=== PATIENT | female | born 1990 | race American Indian/Alaskan Native ===

== ENCOUNTER 2016-12-09 08:29 | Emergency (ER) | payer SELFPAY ==
[2016-12-09 09:00] VITALS: BP 138/78
--- NOTE | 2016-12-09 09:24 | Emergency Department Report ---
Chief Complaint: Abdominal Pain Stated Complaint: ABD PAIN/COUGH Time Seen by Provider: 12/09/16 09:18 - HPI History of Present Illness: 26-year-old female comes in for several complaints #1 she is here for her fibroids she reports she is having trouble with them for over a year she claims that in the right lower pelvic area she feels pressure and pain. She denies any dysuria or hematuria she denies any vaginal discharge. She does report she' s been nauseated and vomiting 2-3 days she reports subjectively that she's had a fever last night. She was using a cool compress for her fever. The second issue she is having is a nonproductive cough 3 days. Patient reports that around this time she gets a URI. She's tried Robitussin without success. Her last menstrual period was 11/26/2016. On the past medical history fibroids. - Exam Vital Signs: Vital Signs 12/09/16 08:54 Temperature 98.8 F Pulse Rate 71 Respiratory 19 Rate Blood Pressure 138/78 O2 Sat by Pulse 100 Oximetry Physical Exam: She is alert and oriented she is actively coughing in the exam room. Cardiac: Regular rate and rhythm Respiratory coarse breath sounds no wheezing Abdomen: Right lower quadrant tenderness bowel sounds noted MSE screening note: Focused history and physical exam performed. Due to findings the following was ordered: CBC CMP lipase amylase UA, urine ultrasound limited abdomen right lower quadrant pain. Margarette ordered patient be evaluated in main ER. ED Disposition for MSE Condition: Stable Instructions: Abdominal Pain (ED)
[2016-12-09] MEDS ORDERED: ZOFRAN ODT PO ONE (09:25)
[2016-12-09 10:01] LABS: Basophils % (Auto) 1.3 % (0.0-1.8); Eosinophils % (Auto) 5.1 % (0.0-4.3); Hematocrit 28.9 % (30.3-42.9); Hemoglobin 8.9 gm/dl (10.1-14.3); Mean Corpuscular HGB Conc 31 % (30-34); Mean Corpuscular Volume 76 fl (79-97); Platelet Count 349 K/mm3 (140-440); Red Blood Count 3.83 M/mm3 (3.65-5.03); Red Cell Distribution Width 18.7 % (13.2-15.2); White Blood Count 9.1 K/mm3 (4.5-11.0)
--- NOTE | 2016-12-09 10:04 | Ultrasound Report ---
ULTRASOUND OF THE APPENDIX: 12/09/16 09:25:00 CLINICAL: Right lower quadrant pain and tenderness. FINDINGS: Ultrasound examination of the right lower quadrant failed to demonstrate an appendix. Abundant bowel gas. No mass or fluid collection. IMPRESSION: Negative study without identification of an appendix.
[2016-12-09 10:19] LABS: Mean Corpuscular Hemoglobin 23 pg (28-32)
[2016-12-09 10:49] LABS: Alanine Aminotransferase 20 units/L (7-56); Albumin 3.7 g/dL (3.9-5); Albumin/Globulin Ratio 1.1 %; Alkaline Phosphatase 59 units/L (35-129); Amylase 60 units/L (27-131); Anion Gap 17 mmol/L; BUN/Creatinine Ratio 17.14; Bilirubin,Total 0.2 mg/dL (0.1-1.2); Blood Urea Nitrogen 12 mg/dL (7-17); Calcium 8.6 mg/dL (8.4-10.2); Carbon Dioxide 22 mmol/L (22-30); Chloride 105.2 mmol/L (98-107); Glucose 76 mg/dL (65-100); Lipase 27 units/L (13-60); Potassium 3.7 mmol/L (3.6-5.0); Sodium 140 mmol/L (137-145); Total Protein 7.2 g/dL (6.3-8.2)
[2016-12-09 11:22] LABS: Bilirubin,Urine NEG (Negative); Blood,Urine NEG (Negative); Ketones,Urine NEG (Negative); Leukocyte Esterase,Urine NEG (Negative); Mucus,Urine FEW /HPF; Nitrite,Urine NEG (Negative); Protein,Urine <15 mg/dL mg/dL (Negative)
--- NOTE | 2016-12-10 19:07 | ED Elopement Review ---
ED Pt Elopement review - Results review Lab results: Laboratory Tests 12/09/16 12/09/16 12/09/16 09:40 09:40 11:02 WBC 9.1 RBC 3.83 Hgb 8.9 L Hct 28.9 L MCV 76 L MCH 23 L MCHC 31 RDW 18.7 H Plt Count 349 Lymph % (Auto) 18.8 [place] % (Auto) 11.1 H Eos % (Auto) 5.1 H Baso % (Auto) 1.3 Lymph # 1.7 [place] # 1.0 H Eos # 0.5 H Baso # 0.1 Seg Neutrophils % 63.7 Seg Neutrophils # 5.8 Sodium 140 Potassium 3.7 Chloride 105.2 Carbon Dioxide 22 Anion Gap 17 BUN 12 Creatinine 0.7 Estimated GFR > 60 BUN/Creatinine Ratio 17.14 Glucose 76 Calcium 8.6 Total Bilirubin 0.2 AST 23 ALT 20 Alkaline Phosphatase 59 Total Protein 7.2 Albumin 3.7 L Albumin/Globulin Ratio 1.1 Amylase 60 Lipase 27 Urine Color Yellow Urine Turbidity Clear Urine pH 7.0 Ur Specific [place] 1.020 Urine Protein <15 mg/dl Urine Glucose (UA) Neg Urine Ketones Neg Urine Blood Neg Urine Nitrite Neg Ur Reducing Substances Not Reportable Urine Bilirubin Neg Urine Ictotest Not Reportable Urine Urobilinogen 2.0 Ur Leukocyte Esterase Neg Urine WBC (Auto) 3.0 Urine RBC (Auto) 4.0 U Epithel Cells (Auto) 2.0 Urine Mucus Few Urine HCG, Qual Negative - Call Back decision Pt Call Back Decision: No action required
== END 2016-12-09 19:50 | disposition left against medical advice (07) ==
LOC: ED 08:29
DX: R10.2 Pelvic and perineal pain (principal); R10.31 Right lower quadrant pain; R11.2 Nausea with vomiting, unspecified; R50.9 Fever, unspecified; Z53.21 Procedure and treatment not carried out due to patient leaving prior to being seen by health care provider
CPT/HCPCS: 36415; 76705; 80053; 81001; 81025; 82150; 83690; 85025

== ENCOUNTER 2017-04-29 13:01 | Emergency (ER) | payer SELFPAY ==
[2017-04-29 13:11] VITALS: BP 119/61
[2017-04-29 13:42] LABS: Basophils % (Auto) 1.5 % (0.0-1.8); Eosinophils % (Auto) 5.6 % (0.0-4.3); Hematocrit 30.7 % (30.3-42.9); Hemoglobin 9.3 gm/dl (10.1-14.3); Mean Corpuscular HGB Conc 30 % (30-34); Mean Corpuscular Volume 74 fl (79-97); Platelet Count 395 K/mm3 (140-440); Red Blood Count 4.18 M/mm3 (3.65-5.03); Red Cell Distribution Width 18.6 % (13.2-15.2); White Blood Count 7.4 K/mm3 (4.5-11.0)
[2017-04-29 13:44] LABS: Mean Corpuscular Hemoglobin 22 pg (28-32)
[2017-04-29 13:51] LABS: Alanine Aminotransferase 24 units/L (7-56); Albumin/Globulin Ratio 1.1 %; Alkaline Phosphatase 56 units/L (35-129); Blood Urea Nitrogen 10 mg/dL (7-17); Calcium 9.2 mg/dL (8.4-10.2); Carbon Dioxide 24 mmol/L (22-30); Glucose 101 mg/dL (65-100); Lipase 22 units/L (13-60); Total Protein 7.8 g/dL (6.3-8.2)
[2017-04-29 13:52] LABS: Anion Gap 16 mmol/L; Chloride 104.1 mmol/L (98-107); Potassium 3.8 mmol/L (3.6-5.0); Sodium 140 mmol/L (137-145)
[2017-04-29 14:05] LABS: Bacteria,Urine 1+ /HPF (Negative); Bilirubin,Urine NEG (Negative); Blood,Urine NEG (Negative); Ketones,Urine NEG (Negative); Leukocyte Esterase,Urine MOD (Negative); Mucus,Urine 1+ /HPF; Nitrite,Urine NEG (Negative); Protein,Urine <15 mg/dL mg/dL (Negative)
--- NOTE | 2017-05-02 09:36 | ED Elopement Review ---
ED Pt Elopement review - Results review Lab results: Laboratory Tests 04/29/17 04/29/17 04/29/17 13:19 13:19 13:19 WBC 7.4 RBC 4.18 Hgb 9.3 L Hct 30.7 MCV 74 L MCH 22 L MCHC 30 RDW 18.6 H Plt Count 395 Lymph % (Auto) 28.3 [place] % (Auto) 9.0 H Eos % (Auto) 5.6 H Baso % (Auto) 1.5 Lymph # 2.1 [place] # 0.7 Eos # 0.4 Baso # 0.1 Seg Neutrophils % 55.6 Seg Neutrophils # 4.1 Sodium 140 Potassium 3.8 Chloride 104.1 Carbon Dioxide 24 Anion Gap 16 BUN 10 Creatinine 0.5 L Estimated GFR > 60 BUN/Creatinine Ratio 20.00 Glucose 101 H Calcium 9.2 Total Bilirubin 0.50 AST 19 ALT 24 Alkaline Phosphatase 56 Total Protein 7.8 Albumin 4.0 Albumin/Globulin Ratio 1.1 Lipase 22 HCG, Qual Negative Urine Color Urine Turbidity Urine pH Ur Specific [place] Urine Protein Urine Glucose (UA) Urine Ketones Urine Blood Urine Nitrite Urine Bilirubin Urine Urobilinogen Ur Leukocyte Esterase Urine WBC (Auto) Urine RBC (Auto) U Epithel Cells (Auto) Urine Bacteria (Auto) Urine Mucus 04/29/17 13:47 WBC RBC Hgb Hct MCV MCH MCHC RDW Plt Count Lymph % (Auto) [place] % (Auto) Eos % (Auto) Baso % (Auto) Lymph # [place] # Eos # Baso # Seg Neutrophils % Seg Neutrophils # Sodium Potassium Chloride Carbon Dioxide Anion Gap BUN Creatinine Estimated GFR BUN/Creatinine Ratio Glucose Calcium Total Bilirubin AST ALT Alkaline Phosphatase Total Protein Albumin Albumin/Globulin Ratio Lipase HCG, Qual Urine Color Yellow Urine Turbidity Slightly-cloudy Urine pH 6.0 Ur Specific [place] 1.020 Urine Protein <15 mg/dl Urine Glucose (UA) Neg Urine Ketones Neg Urine Blood Neg Urine Nitrite Neg Urine Bilirubin Neg Urine Urobilinogen 2.0 Ur Leukocyte Esterase Mod Urine WBC (Auto) 6.0 Urine RBC (Auto) 7.0 U Epithel Cells (Auto) 8.0 Urine Bacteria (Auto) 1+ Urine Mucus 1+ - Call Back decision Pt Call Back Decision: No action required
== END 2017-04-29 20:05 | disposition left against medical advice (07) ==
LOC: ED 13:01
DX: R10.30 Lower abdominal pain, unspecified (principal); R19.00 Intra-abdominal and pelvic swelling, mass and lump, unspecified site; Z53.21 Procedure and treatment not carried out due to patient leaving prior to being seen by health care provider
CPT/HCPCS: 36415; 80053; 81001; 83690; 84703; 85025

== ENCOUNTER 2017-08-15 15:15 | Emergency (ER) | payer SELFPAY ==
[2017-08-15 18:04] LABS: Hematocrit 29.8 % (30.3-42.9); Hemoglobin 9.5 gm/dl (10.1-14.3); Mean Corpuscular HGB Conc 32 % (30-34); Mean Corpuscular Volume 77 fl (79-97); Platelet Count 370 K/mm3 (140-440); Red Blood Count 3.85 M/mm3 (3.65-5.03); White Blood Count 7.4 K/mm3 (4.5-11.0)
[2017-08-15 18:20] LABS: Mean Corpuscular Hemoglobin 25 pg (28-32)
[2017-08-15 18:33] LABS: Alanine Aminotransferase 96 units/L (7-56); Albumin 4.3 g/dL (3.9-5); Albumin/Globulin Ratio 1.3 %; Alkaline Phosphatase 98 units/L (35-129); Anion Gap 15 mmol/L; Blood Urea Nitrogen 8 mg/dL (7-17); Calcium 9.3 mg/dL (8.4-10.2); Carbon Dioxide 24 mmol/L (22-30); Chloride 105.3 mmol/L (98-107); Glucose 74 mg/dL (65-100); Potassium 4.2 mmol/L (3.6-5.0); Sodium 140 mmol/L (137-145); Total Protein 7.6 g/dL (6.3-8.2)
[2017-08-15 19:28] LABS: Bilirubin,Urine NEG (Negative); Blood,Urine NEG (Negative); Ketones,Urine NEG (Negative); Leukocyte Esterase,Urine NEG (Negative); Nitrite,Urine NEG (Negative); Protein,Urine <15 mg/dL mg/dL (Negative); Urobilinogen,Urine < 2.0 mg/dL (<2.0)
[2017-08-15 19:42] LABS: Basophils % (Manual) 0 % (0.0-1.8); Blastocytes % (Manual) 0 %; Large Platelets Few; Platelet Estimate Consistent w Auto; RBC Morphology Normal
[2017-08-15 19:43] LABS: Diff Status Complete
[2017-08-15] MEDS ORDERED: NACL 0.9% 1000 ML 1,000 ML IV ONE (20:43)
[2017-08-15] MEDS ORDERED: DILAUDID IV ONE (20:43)
[2017-08-15] MEDS ORDERED: ZOFRAN IV ONE (20:43)
--- NOTE | 2017-08-15 20:44 | Emergency Department Report ---
ED General Adult HPI - General Chief complaint: Pain General Stated complaint: VOMITING Time Seen by Provider: 08/15/17 20:35 Source: patient, RN notes reviewed, old records reviewed Mode of arrival: Stretcher Limitations: No Limitations - History of Present Illness Initial comments: This is a 27-year-old female, the patient is previously unknown to me. Patient reports being diagnosed with cervical cells/possible cancer at the local [facility], reports having a nodule in the lung, and is going to follow -up at another hospital, September 13, for definitive biopsy and diagnosis. Patient reports a history of kidney stones, 4 and hernia repair, and presents to the ER complaining of pelvic pain, lower abdominal pain, swelling, nausea. The symptoms have been going on for the past few days, they're constant , they worsen with palpation, and decreased with rest. No headache, neck pain, chest pain, shortness of breath, positive nausea, positive dysuria, patient is defecating normally. Abdominal pain is sharp and achy, and increases with palpation does not radiate anywhere. -: Gradual Location: abdomen Radiation: non-radiation Severity scale (0 -10): 0 Quality: aching Consistency: constant Improves with: medication, rest Worsens with: movement Associated Symptoms: nausea/vomiting, weakness - Related Data Home Medications Medication Instructions Recorded Confirmed Last Taken No Known Home Medications [No 12/09/16 12/09/16 Unknown Reported Home Medications] Allergies Allergy/AdvReac Type Severity Reaction Status Date / Time ketorolac tromethamine Allergy Hives Verified 04/29/17 13:12 [From Toradol] Penicillins Allergy Swelling Verified 12/09/16 08:53 tramadol Allergy Hives Verified 04/29/17 13:12 ED Review of Systems ROS: Stated complaint: VOMITING Other details as noted in HPI Constitutional: denies: fever Eyes: denies: eye discharge ENT: denies: epistaxis Respiratory: denies: cough Cardiovascular: denies: chest pain Gastrointestinal: abdominal pain, nausea, vomiting Genitourinary: as per HPI Musculoskeletal: back pain Skin: denies: lesions Neurological: weakness Psychiatric: as per HPI ED Past Medical Hx - Past Medical History Hx of Cancer: Yes Additional medical history: FIBROIDS. kidney stones per pt - Surgical History Hx Cholecystectomy: Yes Additional Surgical History: X 4. HERNIA REPAIR - Social History Smoking Status: Current Every Day Smoker - Medications Home Medications: Home Medications Medication Instructions Recorded Confirmed Last Taken Type No Known Home Medications [No 12/09/16 12/09/16 Unknown History Reported Home Medications] ED Physical Exam - General Limitations: No Limitations General appearance: alert, in no apparent distress - Head Head exam: Present: atraumatic, normocephalic - Eye Eye exam: Present: normal appearance, EOMI. Absent: nystagmus - ENT ENT exam: Present: normal exam, normal orophraynx, mucous membranes moist, normal external ear exam - Neck Neck exam: Present: normal inspection, full ROM. Absent: tenderness, meningismus - Respiratory Respiratory exam: Present: normal lung sounds bilaterally. Absent: respiratory distress, wheezes, rales, rhonchi, stridor, chest wall tenderness, accessory muscle use, decreased breath sounds, prolonged expiratory - Cardiovascular Cardiovascular Exam: Present: regular rate, normal rhythm, normal heart sounds. Absent: bradycardia, tachycardia, irregular rhythm, systolic murmur, diastolic murmur, rubs, gallop - GI/Abdominal GI/Abdominal exam: Present: soft, distended, tenderness, normal bowel sounds. Absent: rebound - External exam: Present: normal external exam Speculum exam: Present: normal speculum exam Bi-manual exam: Present: cervical motion tendernes, adnexal tenderness, other ( escorted by nurse Lorena Lima) - Extremities Exam Extremities exam: Present: normal inspection, full ROM, normal capillary refill. Absent: pedal edema, joint swelling, calf tenderness - Back Exam Back exam: Present: normal inspection, full ROM. Absent: tenderness, CVA tenderness (R), CVA tenderness (L), muscle spasm, paraspinal tenderness, vertebral tenderness - Neurological Exam Neurological exam: Present: alert, oriented X3, normal gait, other (Extraocular movements intact. Tongue midline. No facial droop. Facial sensation intact to light touch in the V1, V2, V3 distribution bilaterally. 5 and 5 strength in 4 extremities.. Sensation is intact to light touch in 4 extremities.). Absent : motor sensory deficit - Psychiatric Psychiatric exam: Present: normal affect, normal mood - Skin Skin exam: Present: warm, dry, intact, normal color. Absent: rash ED Course Vital Signs 08/15/17 08/15/17 08/15/17 17:24 20:30 21:31 Temperature 98.7 F 98.8 F Pulse Rate 87 85 Respiratory 18 22 20 Rate Blood Pressure 104/69 Blood Pressure 104/69 118/68 [Left] O2 Sat by Pulse 100 97 96 Oximetry 08/15/17 21:40 Temperature Pulse Rate Respiratory 20 Rate Blood Pressure Blood Pressure [Left] O2 Sat by Pulse Oximetry - Reevaluation(s) Reevaluation #1: 08/15/17 22:25 Differential diagnosis: Constipation, obstruction, cancer, malignancy, urinary tract infection, functional abdominal pain, narcotic bowel syndrome Assessment and plan: 27-year-old female who reports not having had biopsy- proven malignancy, multiple abdominal surgeries, with lower abdominal pain and pelvic pain. She endorses irritative urinary symptoms, but her urinalysis is not corroborated urinary tract infection, she has follow-up with an outpatient specialist on September 13, she is somewhat tender in diffuse lower abdominal region and has pelvic tenderness as well. CT scan of the abdomen and pelvis is obtained with IV contrast, patient had allergic reaction without airway involvement, and is treated with Pepcid, Benadryl, and steroids. She is resting comfortable with no active vomiting at this time, vital signs remained stable, and disposition as per CT scan. Doubt pelvic inflammatory disease given reported history of cervical abnormality, a machine stemmer can follow this up. Reevaluation #2: 08/15/17 23:11 CT scan is negative for acute surgical disease. Incidental pulmonary findings were noted, patient endorsed that this was known, and that she is going to follow-up on September 13. Nonspecific fluid noted in the ovary, patient is requesting to eat. Nursing staff informed me that patient sign out AGAINST MEDICAL ADVICE. Her mother picked her up. Patient is alert and oriented 3, exhibits decision- making capacity, and is free from distracting injury. The risks of leaving, including , disability, paralysis were extensively relayed to the patient by charge nurse Nay Lee, and I felt the patient also exhibited decision- making capacity. In any event, the patient would've been discharged anyhow based on her CAT scan findings. ED Medical Decision Making - Lab Data Result diagrams: 08/15/17 17:44 08/15/17 17:44 Vital Signs 08/15/17 08/15/17 08/15/17 17:24 20:30 21:40 Temperature 98.7 F Pulse Rate 87 Respiratory 18 22 20 Rate Blood Pressure 104/69 Blood Pressure 104/69 [Left] O2 Sat by Pulse 100 97 Oximetry Labs 08/15/17 08/15/17 08/15/17 17:44 17:44 18:45 WBC 7.4 RBC 3.85 Hgb 9.5 L Hct 29.8 L MCV 77 L MCH 25 L MCHC 32 RDW 19.0 H Plt Count 370 Eos % (Auto) Cat Cracker Operator Add Manual Diff Complete Total Counted 100 Seg Neuts % (Manual) 41.0 Band Neutrophils % 0 Lymphocytes % (Manual) 33.0 Reactive Lymphs % (Man) 0 Monocytes % (Manual) 9.0 H Eosinophils % (Manual) 17.0 H Basophils % (Manual) 0 Metamyelocytes % 0 Myelocytes % 0 Promyelocytes % 0 Blast Cells % 0 Nucleated RBC % Not Reportable Seg Neutrophils # Man 3.0 Band Neutrophils # 0.0 Lymphocytes # (Manual) 2.4 Abs React Lymphs (Man) 0.0 Monocytes # (Manual) 0.7 Eosinophils # (Manual) 1.3 H Basophils # (Manual) 0.0 Metamyelocytes # 0.0 Myelocytes # 0.0 Promyelocytes # 0.0 Blast Cells # 0.0 WBC Morphology Not Reportable Hypersegmented Neuts Not Reportable Hyposegmented Neuts Not Reportable Hypogranular Neuts Not Reportable Smudge Cells Not Reportable Toxic Granulation Not Reportable Toxic Vacuolation Not Reportable Dohle Bodies Not Reportable Pelger-Huet Anomaly Not Reportable Jeanne Rods Not Reportable Platelet Estimate Consistent w auto Clumped Platelets Not Reportable Plt Clumps, EDTA Not Reportable Large Platelets Few Giant Platelets Not Reportable Platelet Satelliting Not Reportable Plt Morphology Comment Not Reportable RBC Morphology Normal Dimorphic RBCs Not Reportable Polychromasia Not Reportable Hypochromasia Not Reportable Poikilocytosis Not Reportable Anisocytosis Not Reportable Microcytosis Not Reportable Macrocytosis Not Reportable Spherocytes Not Reportable Pappenheimer Bodies Not Reportable Sickle Cells Not Reportable Target Cells Not Reportable Tear Drop Cells Not Reportable Ovalocytes Not Reportable Helmet Cells Not Reportable [place] Bodies Not Reportable Agra Rings Not Reportable [place] Cells Not Reportable Bite Cells Not Reportable Crenated Cell Not Reportable Elliptocytes Not Reportable Acanthocytes (Spur) Not Reportable Rouleaux Not Reportable Hemoglobin C Crystals Not Reportable Schistocytes Not Reportable Malaria parasites Not Reportable [place] Bodies Not Reportable Hem Pathologist Commnt No Sodium 140 Potassium 4.2 Chloride 105.3 Carbon Dioxide 24 Anion Gap 15 BUN 8 Creatinine 0.5 L Estimated GFR > 60 BUN/Creatinine Ratio 16.00 Glucose 74 Calcium 9.3 Total Bilirubin 0.60 AST 67 H ALT 96 H Alkaline Phosphatase 98 Total Protein 7.6 Albumin 4.3 Albumin/Globulin Ratio 1.3 Urine Color Yellow Urine Turbidity Clear Urine pH 7.0 Ur Specific [place] 1.014 Urine Protein <15 mg/dl Urine Glucose (UA) Neg Urine Ketones Neg Urine Blood Neg Urine Nitrite Neg Ur Reducing Substances Not Reportable Urine Bilirubin Neg Urine Ictotest Not Reportable Urine Urobilinogen < 2.0 Ur Leukocyte Esterase Neg Urine WBC (Auto) 1.0 Urine RBC (Auto) 1.0 U Epithel Cells (Auto) 1.0 Urine HCG, Qual Negative - Radiology Data Radiology results: pending, report reviewed, image reviewed Critical care attestation.: If time is entered above; I have spent that time in minutes in the direct care of this critically ill patient, excluding procedure time. ED Disposition Clinical Impression: Abdominal pain Disposition: [id number] LEFT AGAINST MED ADVICE Is pt being admited?: No Does the pt Need Aspirin: No Condition: Undetermined Referrals: PRIMARY CARE, [Primary Care Provider] - 3-5 Days
[2017-08-15] MEDS ORDERED: NACL ONE (21:12)
[2017-08-15] MEDS ORDERED: BENADRYL ONE (21:51)
[2017-08-15] MEDS ORDERED: PEPCID IV ONE ×2 (21:58→22:05)
[2017-08-15] MEDS ORDERED: BENADRYL IV ONE (22:05)
--- NOTE | 2017-08-15 22:22 | Cat Scan Report ---
FINAL REPORT EXAM: CT ABDOMEN PELVIS W CON HISTORY: lower abd pain TECHNIQUE: Spiral CT scanning of the abdomen and pelvis after the uneventful administration of IV contrast. Multiplanar reformations. 100 mL Omnipaque IV. PRIORS: None. FINDINGS: Abdomen: Visualized lung bases show mild and partially confluent opacities in the anteromedial aspect of right middle lobe. Small nodular density in right posterior lung base measuring approximately 3 mm. Mild cardiomegaly. Gallbladder surgically absent. Liver without significant abnormality. Spleen without significant abnormality. Pancreas without significant abnormality. Kidneys without significant abnormality. Adrenal glands without significant abnormality. Pelvis: Bowel grossly unremarkable. Appendix within normal limits. Trace amount of nonspecific, free fluid in the pelvis. No discrete abscess. Abdominal aorta non-aneurysmal. Small and round, cystic focus in the left ovary measures approximately 1.2 cm. IMPRESSION: 1. Possible physiologic cystic change in the left ovary, and sequelae of ovarian follicle or cyst rupture. 2. Findings which may represent right middle lobe atelectasis, postinflammatory change or scarring of uncertain etiology or chronicity. Correlate clinically. 3. Small, nodular density in right lung base, indeterminate. If the patient is low risk (no significant smoking history, no history of malignancy, and a normal immune system), nodules less than 6 mm in size need no routine follow-up. If the patient is high risk, optional CT chest at 12 months may be considered. (Based on Fleischner guidelines).
[2017-08-15 23:45] VITALS: BP 118/68
== END 2017-08-15 23:20 | disposition left against medical advice (07) ==
LOC: ED 15:15
DX: R10.30 Lower abdominal pain, unspecified (principal); F17.200 Nicotine dependence, unspecified, uncomplicated; Z88.1 Allergy status to other antibiotic agents; Z88.8 Allergy status to other drugs, medicaments and biological substances; C53.9 Malignant neoplasm of cervix uteri, unspecified
CPT/HCPCS: 36415; 74177; 80053; 81001; 81025; 85007; 85025; 96361; 96374; 96375; 99285; J1170; J1200; J2405; J2930; J7030; Q9967

== ENCOUNTER 2017-09-03 11:39 | Emergency (ER) | payer SELFPAY ==
[2017-09-03 13:03] LABS: Anion Gap 16 mmol/L; BUN/Creatinine Ratio 16; Blood Urea Nitrogen 8 mg/dL (7-17); Calcium 8.9 mg/dL (8.4-10.2); Carbon Dioxide 22 mmol/L (22-30); Chloride 104.8 mmol/L (98-107); Glucose 80 mg/dL (65-100); Potassium 3.7 mmol/L (3.6-5.0); Sodium 139 mmol/L (137-145)
[2017-09-03 13:06] LABS: Hematocrit 31.4 % (30.3-42.9); Hemoglobin 9.7 gm/dl (10.1-14.3); Mean Corpuscular HGB Conc 31 % (30-34); Mean Corpuscular Volume 78 fl (79-97); Platelet Count 350 K/mm3 (140-440); Red Blood Count 4.05 M/mm3 (3.65-5.03); Red Cell Distribution Width 18.2 % (13.2-15.2); White Blood Count 8.3 K/mm3 (4.5-11.0)
[2017-09-03 13:28] LABS: Mean Corpuscular Hemoglobin 24 pg (28-32)
[2017-09-03 15:07] LABS: Bilirubin,Urine NEG (Negative); Blood,Urine NEG (Negative); Ketones,Urine NEG (Negative); Leukocyte Esterase,Urine NEG (Negative); Mucus,Urine 2+ /HPF; Nitrite,Urine NEG (Negative); Protein,Urine <15 mg/dL mg/dL (Negative); Urobilinogen,Urine < 2.0 mg/dL (<2.0)
[2017-09-03 15:29] LABS: RBC,Urine < 1.0 /HPF (0.0-6.0)
--- NOTE | 2017-09-03 15:50 | XRay Report ---
PORTABLE CHEST INDICATION: Shortness of breath. COMPARISON: None similar. FINDINGS: Portable, frontal chest radiograph suggests borderline cardiomegaly. Clear lungs. Few extrinsic clothing artifacts. Intact bones. CONCLUSION: Slight cardiomegaly. Please correlate. Thank you for the opportunity to participate in this patient's care.
[2017-09-03] MEDS ORDERED: NACL 0.9% 1000 ML 1,000 ML IV ONE (15:53)
[2017-09-03] MEDS ORDERED: MORPHINE IV ONE (15:53)
[2017-09-03] MEDS ORDERED: ZOFRAN IV ONE (15:53)
[2017-09-03] MEDS ORDERED: BENADRYL ONE (16:40)
[2017-09-03] MEDS ORDERED: BENADRYL IV ONE ×2 (16:40→17:32)
[2017-09-03] MEDS ORDERED: SUBLIMAZE IV ONE (18:32)
[2017-09-03] MEDS ORDERED: SUBLIMAZE ONE (18:42)
--- NOTE | 2017-09-03 19:01 | Cat Scan Report ---
FINAL REPORT EXAM: CT ABDOMEN PELVIS W CON HISTORY: Abd pain, bloating with cervical cancer TECHNIQUE: Axial image were performed from the lung bases to the pubic symphysis following IV contrast administration, 100 mL Omnipaque 300. No oral contrast was administered. Total exam DLP 1498.44 mGy-cm Comparison: 08/15/2017 FINDINGS: On the previous exam, a 3 millimeter nodule is identified in the posterior lateral right lung base. This nodule is again identified as 3.6 millimeters. The current exam images more of the chest and also shows 6 millimeter posterior right lower lobe nodule in an area that was not previously imaged. This is on image number 5. There is again identified mild right middle lobe atelectasis. There is again identified mild central periportal prominence. There is an ill-defined 1.9 centimeter hypodense lesion in the anterior segment right lobe liver and 2nd ill-defined lesion slightly caudally measuring 1.2 centimeters. There is normal enhancement and appearance of the spleen, pancreas, bilateral adrenal glands, and bilateral kidneys. Gallbladder surgically absent. Extremely dense breast parenchyma age-appropriate. The inferior vena cava is distended. There is a splenule in the splenic hilum. Bowel pattern is nonobstructive. There is a normal retrocecal appendix which is air-filled. There is a 2.1 x 1.6 centimeter right adnexal cyst and less well-defined 1.4 centimeter left adnexal cyst. Endometrial stripe measures approximately 12 millimeters. There is pericervical stranding with poor delineation of the cervix in the pelvic floor. There are multiple pelvic phleboliths. There is trace pelvic free fluid There is moderate rectal fecal retention. There is normal excretion of contrast on the delayed phase images. There are no focal lytic or blastic bony lesions. IMPRESSION: Two right lower lobe lung nodules, 1 measures 3 millimeters and 1 measures 3.6 millimeters. Given history of cervical cancer, recommend CT chest with IV contrast. Two ill-defined right lobe liver hypodense lesions measuring 1.9 and 1.2 centimeters. Differential includes metastatic disease, abscess amongst others. These are nonenhancing and do not follow the contrast enhancement pattern for hemangiomata, hepatic adenoma, or focal nodular hyperplasia. Mild periportal hypodensity unchanged from previous. Distended IVC. This may be related to volume status. Trace free fluid in bony pelvis. Ill-defined paracervical fat with trace free fluid in the pelvis. Findings compatible with history of cervical cancer. Images with limited assessment of involvement of the vagina and rectal wall. No bony metastatic disease identified. There is no identified pelvic adenopathy, however this is limited in assessment. No hydronephrosis. Bilateral adnexal cystic lesions. These will need to be followed. There may represent likely physiologic cysts. Transvaginal ultrasound imaging may be valuable. Moderate rectal stool retention. Nonobstructive bowel pattern. No free air. Normal appendix right lower quadrant.
--- NOTE | 2017-09-03 19:16 | Emergency Department Report ---
HPI - General Chief Complaint: Vaginal Bleeding Time Seen by Provider: 09/03/17 15:43 - HPI HPI: 27-year-old [place] female presents to the emergency department with complaint of some lower abdominal and/or pelvic discomfort, some blood with wiping after urination, along with a history of cervical cancer. The patient has not yet started chemotherapy or radiation but is set to do so in the next few weeks. 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 She does not have a primary care doctor, regular RN TRIAGE. There was some mention on triage about some shortness of breath but the patient says that only occurs with exertion and it is not bothering her now and does not appear to be the reason she came into the emergency department. She denies any fever, chest pain, vaginal bleeding, vaginal discharge or dysuria. She also has a history of uterine fibroids, kidney stones. No recent travel or sick contacts at home. ED Past Medical Hx - Past Medical History Additional medical history: FIBROIDS. kidney stones per pt,cervical cancer-dx 05/2017 - Surgical History Hx Cholecystectomy: Yes Additional Surgical History: X 4. HERNIA REPAIR - Social History Smoking Status: Current Every Day Smoker Substance Use Type: None - Medications Home Medications: Home Medications Medication Instructions Recorded Confirmed Last Taken Type No Known Home Medications [No 12/09/16 12/09/16 Unknown History Reported Home Medications] ED Review of Systems ROS: Stated complaint: BLOOD IN URINE/SOB Other details as noted in HPI Comment: All other systems reviewed and negative Constitutional: denies: chills, fever Eyes: denies: eye pain, eye discharge, vision change ENT: denies: ear pain, throat pain Respiratory: denies: cough, wheezing Cardiovascular: denies: chest pain, palpitations Gastrointestinal: abdominal pain, nausea. denies: vomiting Genitourinary: hematuria. denies: urgency, dysuria, discharge Musculoskeletal: denies: back pain, arthralgia Skin: denies: rash, lesions Neurological: denies: headache, weakness, paresthesias Physical Exam - Physical Exam Vital Signs: Vital Signs 09/03/17 09/03/17 09/03/17 12:15 16:29 17:12 Temperature 98.1 F Pulse Rate 92 H 78 Respiratory 18 18 18 Rate Blood Pressure 122/50 Blood Pressure 112/62 [Right] O2 Sat by Pulse 100 98 Oximetry 09/03/17 18:44 Temperature Pulse Rate Respiratory 16 Rate Blood Pressure 106/60 Blood Pressure [Right] O2 Sat by Pulse Oximetry Physical Exam: GENERAL: The patient is well-developed well-nourished. HENT: Normocephalic. Atraumatic. Patient has moist mucous membranes. EYES: Extraocular motions are intact. Pupils equal reactive to light bilaterally. NECK: Supple. Trachea is midline. CHEST/LUNGS: Clear to auscultation. There is no respiratory distress noted. HEART/CARDIOVASCULAR: Regular. There is no tachycardia. There is no gallop rub or murmur. ABDOMEN: Abdomen is soft, nontender. Patient has normal bowel sounds. There is no abdominal distention. SKIN: Skin is warm and dry. NEURO: The patient is awake, alert, and oriented. The patient is cooperative. The patient has no focal neurologic deficits. The patient has normal speech. MUSCULOSKELETAL: There is no tenderness or deformity. There is no limitation range of motion. There is no evidence of acute injury. ED Course Vital Signs 09/03/17 09/03/17 09/03/17 12:15 16:29 17:12 Temperature 98.1 F Pulse Rate 92 H 78 Respiratory 18 18 18 Rate Blood Pressure 122/50 Blood Pressure 112/62 [Right] O2 Sat by Pulse 100 98 Oximetry 09/03/17 18:44 Temperature Pulse Rate Respiratory 16 Rate Blood Pressure 106/60 Blood Pressure [Right] O2 Sat by Pulse Oximetry ED Medical Decision Making - Lab Data Result diagrams: 09/03/17 12:32 09/03/17 12:32 - Radiology Data Radiology results: report reviewed, image reviewed interpreted by me: Chest x-ray does not show any acute process. There are no pleural effusions, obvious pneumonia and there is no pneumothorax. EXAM: CT ABDOMEN PELVIS W CON HISTORY: Abd pain, bloating with cervical cancer TECHNIQUE: Axial image were performed from the lung bases to the pubic symphysis following IV contrast administration, 100 mL Omnipaque 300. No oral contrast was administered. Total exam DLP 1498.44 mGy-cm Comparison: 08/15/2017 FINDINGS: On the previous exam, a 3 millimeter nodule is identified in the posterior lateral right lung base. This nodule is again identified as 3.6 millimeters. The current exam images more of the chest and also shows 6 millimeter posterior right lower lobe nodule in an area that was not previously imaged. This is on image number 5. There is again identified mild right middle lobe atelectasis. There is again identified mild central periportal prominence. There is an ill-defined 1.9 centimeter hypodense lesion in the anterior segment right lobe liver and 2nd ill-defined lesion slightly caudally measuring 1.2 centimeters. There is normal enhancement and appearance of the spleen, pancreas, bilateral adrenal glands, and bilateral kidneys. Gallbladder surgically absent. Extremely dense breast parenchyma age-appropriate. The inferior vena cava is distended. There is a splenule in the splenic hilum. Bowel pattern is nonobstructive. There is a normal retrocecal appendix which is air-filled. There is a 2.1 x 1.6 centimeter right adnexal cyst and less well-defined 1.4 centimeter left adnexal cyst. Endometrial stripe measures approximately 12 millimeters. There is pericervical stranding with poor delineation of the cervix in the pelvic floor. There are multiple pelvic phleboliths. There is trace pelvic free fluid There is moderate rectal fecal retention. There is normal excretion of contrast on the delayed phase images. There are no focal lytic or blastic bony lesions. IMPRESSION: Two right lower lobe lung nodules, 1 measures 3 millimeters and 1 measures 3.6 millimeters. Given history of cervical cancer, recommend CT chest with IV contrast. Two ill-defined right lobe liver hypodense lesions measuring 1.9 and 1.2 centimeters. Differential includes metastatic disease, abscess amongst others. These are nonenhancing and do not follow the contrast enhancement pattern for hemangiomata, hepatic adenoma, or focal nodular hyperplasia. Mild periportal hypodensity unchanged from previous. Distended IVC. This may be related to volume status. Trace free fluid in bony pelvis. Ill-defined paracervical fat with trace free fluid in the pelvis. Findings compatible with history of cervical cancer. Images with limited assessment of involvement of the vagina and rectal wall. No bony metastatic disease identified. There is no identified pelvic adenopathy, however this is limited in assessment. No hydronephrosis. Bilateral adnexal cystic lesions. These will need to be followed. There may represent likely physiologic cysts. Transvaginal ultrasound imaging may be valuable. Moderate rectal stool retention. Nonobstructive bowel pattern. No free air. Normal appendix right lower quadrant. Transcribed By: TERESO Dictated By: BUD LOPEZ Electronically Authenticated By: BUD LOPEZ Signed Date/Time: 09/03/17 2411 - Medical Decision Making 27-year-old female with a history of cervical cancer presents with some worsening pain in the pelvis and lower abdomen as well as some concern for occasional hematuria. Vital signs stable throughout her ED course including being afebrile. Labs are mostly unremarkable. Secondary to her history of cervical cancer, a CT of the abdomen and pelvis with IV contrast was done. The patient appeared to have a reaction to the contrast dye of some urticaria so she was given some Benadryl and this resolved the reaction. The patient did not previously know of any iodine or contrast allergies. The CT results show pulmonary nodules and ill-defined liver lesions. These themselves are not necessarily definitive for any type of malignancy or metastasis but with the patient's history of cervical cancer will need follow-up and/or further evaluation. All this was discussed with the patient and she was given a printout of the CT results. She will be given referrals for primary care and gastroenterology and encouraged to follow back up with her oncologist. She will return to the ER with any worsening of her symptoms or any acute distress. The patient got some pain medication and IV fluid and upon reevaluation is feeling improved. Critical Care Time: No Critical care attestation.: If time is entered above; I have spent that time in minutes in the direct care of this critically ill patient, excluding procedure time. ED Disposition Clinical Impression: Pulmonary nodule, Liver lesion Cervical cancer Qualifiers: Malignant neoplasm of cervix location: unspecified location Qualified Code(s): C53.9 - Malignant neoplasm of cervix uteri, unspecified Abdominal pain Qualifiers: Abdominal location: unspecified location Qualified Code(s): R10.9 - Unspecified abdominal pain Disposition: DC-01 TO HOME OR SELFCARE Is pt being admited?: No Condition: Stable Instructions: Pulmonary Nodules (ED), Abdominal Pain (ED) Additional Instructions: Please follow-up with your gynecology oncologist. I'm giving you referrals for both primary care and a referral for a local soaker meat, Dr. Negron. Return to the emergency Department with any worsening of your symptoms or any acute distress. Referrals: JOHN VAZQUEZ MD [Primary Care Provider] - 3-5 Days OSBALDO GEORGE MD [Staff Physician] - 3-5 Days KAREN NEGRON MD [Staff Physician] - 3-5 Days [facility] [Outside] - 3-5 Days Time of Disposition: 19:25
[2017-09-04 11:28] VITALS: BP 101/69
== END 2017-09-03 19:38 | disposition home or self-care (01) ==
LOC: ED 11:39
DX: K76.9 Liver disease, unspecified (principal); C53.9 Malignant neoplasm of cervix uteri, unspecified; R91.1 Solitary pulmonary nodule; F17.210 Nicotine dependence, cigarettes, uncomplicated
CPT/HCPCS: 36415; 71010; 74177; 80048; 81001; 81025; 85027; 96361; 96374; 96375; 96376; 99284; J1200; J2270; J2405; J3010; J7030; Q9967

== ENCOUNTER 2017-09-12 11:44 | Emergency (ER) | payer SELFPAY ==
[2017-09-12 13:06] LABS: Basophils % (Auto) 0.7 % (0.0-1.8); Eosinophils % (Auto) 0.8 % (0.0-4.3); Mean Corpuscular HGB Conc 30 % (30-34); Mean Corpuscular Volume 77 fl (79-97); Platelet Count 345 K/mm3 (140-440); Red Blood Count 4.11 M/mm3 (3.65-5.03); White Blood Count 15.8 K/mm3 (4.5-11.0)
[2017-09-12 13:08] LABS: Hematocrit 31.8 % (30.3-42.9); Hemoglobin 9.5 gm/dl (10.1-14.3); Mean Corpuscular Hemoglobin 23 pg (28-32)
[2017-09-12 13:48] LABS: Bilirubin,Urine NEG (Negative); Blood,Urine NEG (Negative); Ketones,Urine NEG (Negative); Leukocyte Esterase,Urine NEG (Negative); Mucus,Urine FEW /HPF; Nitrite,Urine NEG (Negative); Protein,Urine <15 mg/dL mg/dL (Negative); Urobilinogen,Urine < 2.0 mg/dL (<2.0); WBC,Urine < 1.0 /HPF (0.0-6.0)
[2017-09-12 19:49] VITALS: BP 114/65
--- NOTE | 2017-09-12 20:28 | Emergency Department Report ---
HPI - General Chief Complaint: Vaginal Bleeding Time Seen by Provider: 09/12/17 20:13 - HPI HPI: Room 7 The patient is a 27-year-old female presenting with chief complaint of abdominal pain nausea vomiting and diarrhea. The patient was recently diagnosis of cervical cancer with metastases to liver stay she has a chronic lower abdominal pain since her diagnosis and this has not changed. The patient states for the past 2 days she's had nausea vomiting diarrhea has noticed streaks of blood in her vomitus. The patient states after urinating and wiping she's noticed blood on the tissue. Patient also admits to a fever 101F. There are no sick contacts at home. The patient gives her pain score greater than 10/10. Patient denies recent antibiotic use Location: Abdomen Duration: 2 days Quality: Pain Severity: >10/10 Modifying factors: [see above] Context: [see above] Mode of transportation: [not driving] ED Past Medical Hx - Past Medical History Previous Medical History?: Yes Hx of Cancer: Yes (cervical) Additional medical history: FIBROIDS. kidney stones per pt,cervical cancer-dx 05/2017 - Surgical History Past Surgical History?: Yes Hx Cholecystectomy: Yes Additional Surgical History: X 4. HERNIA REPAIR - Family History Family history: no significant - Social History Smoking Status: Current Every Day Smoker (1 cigarette daily) Substance Use Type: None (denies illicit drug use) - Medications Home Medications: Home Medications Medication Instructions Recorded Confirmed Last Taken Type HYDROcodone/APAP 5-325 [[place] 1 - 2 each PO Q6HR PRN #30 tablet 09/12/17 Unknown Rx 5/325] Levofloxacin [Levaquin] 750 mg PO QDAY #10 tablet 09/12/17 Unknown Rx Promethazine [Phenergan TAB] 25 mg PO Q6HR PRN #20 tab 09/12/17 Unknown Rx Promethazine [Phenergan] 25 mg [place] Q6HR PRN #5 supp.rect 09/12/17 Unknown Rx metroNIDAZOLE [Flagyl] 500 mg PO Q8HR #30 tablet 09/12/17 Unknown Rx ED Review of Systems ROS: Stated complaint: VOMITING, URINATING BLOOD Other details as noted in HPI Comment: All other systems reviewed and negative Constitutional: fever Eyes: denies: eye pain, eye discharge, vision change ENT: denies: ear pain, throat pain Respiratory: denies: cough, shortness of breath, wheezing Cardiovascular: denies: chest pain, palpitations Endocrine: no symptoms reported Gastrointestinal: abdominal pain, nausea, vomiting, diarrhea Musculoskeletal: denies: back pain, joint swelling, arthralgia Skin: denies: rash, lesions Neurological: denies: headache, weakness, paresthesias Psychiatric: denies: anxiety, depression Hematological/Lymphatic: denies: easy bleeding, easy bruising Physical Exam - Physical Exam Vital Signs: Vital Signs 09/12/17 09/12/17 09/12/17 11:59 13:23 19:48 Temperature 98.4 F 98 F Pulse Rate 102 H 90 75 Respiratory 17 14 18 Rate Blood Pressure 125/75 120/58 Blood Pressure 114/65 [Left] O2 Sat by Pulse 100 100 100 Oximetry 09/12/17 19:49 Temperature Pulse Rate Respiratory 18 Rate Blood Pressure Blood Pressure [Left] O2 Sat by Pulse Oximetry Physical Exam: GENERAL: The patient is well-developed well-nourished female lying on stretcher using cellphone not appearing to be in acute distress. [] HEENT: Normocephalic. Atraumatic. Extraocular motions are intact. NECK: Supple. Trachea midline CHEST/LUNGS: Clear to auscultation. There is no respiratory distress noted. HEART/CARDIOVASCULAR: Regular. There is no tachycardia. There is no gallop rub or murmur. ABDOMEN: Abdomen is soft, with moderate discomfort to palpation in the lower abdomen. Patient has normal bowel sounds. SKIN: There is no rash. There is no edema. There is no diaphoresis. NEURO: The patient is awake, alert, and oriented. The patient is cooperative. The patient has normal speech MUSCULOSKELETAL: TThere is no evidence of acute injury. ED Course Vital Signs 09/12/17 09/12/17 09/12/17 11:59 13:23 19:48 Temperature 98.4 F 98 F Pulse Rate 102 H 90 75 Respiratory 17 14 18 Rate Blood Pressure 125/75 120/58 Blood Pressure 114/65 [Left] O2 Sat by Pulse 100 100 100 Oximetry 09/12/17 19:49 Temperature Pulse Rate Respiratory 18 Rate Blood Pressure Blood Pressure [Left] O2 Sat by Pulse Oximetry - Reevaluation(s) Reevaluation #1: 09/12/17 21:33 Patient improved after medication. ED Medical Decision Making - Lab Data Result diagrams: 09/12/17 12:49 10/18/17 20:47 Laboratory Tests 09/12/17 09/12/17 09/12/17 10:19 12:09 12:16 WBC RBC Hgb Hct MCV MCH MCHC RDW Plt Count Lymph % (Auto) [place] % (Auto) Eos % (Auto) Baso % (Auto) Lymph # [place] # Eos # Baso # Seg Neutrophils % Seg Neutrophils # PT INR APTT Sodium Potassium Chloride Carbon Dioxide Anion Gap BUN Creatinine Estimated GFR BUN/Creatinine Ratio Glucose Calcium Total Bilirubin AST ALT Alkaline Phosphatase Total Protein Albumin Albumin/Globulin Ratio Lipase HCG, Quant < 2 Urine Color Yellow Urine Turbidity Clear Urine pH 6.0 Ur Specific [place] 1.020 Urine Protein <15 mg/dl Urine Glucose (UA) Neg Urine Ketones Neg Urine Blood Neg Urine Nitrite Neg Urine Bilirubin Neg Urine Urobilinogen < 2.0 Ur Leukocyte Esterase Neg Urine WBC (Auto) < 1.0 Urine RBC (Auto) 1.0 U Epithel Cells (Auto) 2.0 Hyaline Casts 1 Urine Mucus Few Blood Type O POSITIVE Antibody Screen Negative 09/12/17 09/12/17 09/12/17 12:49 20:47 20:47 WBC 15.8 H RBC 4.11 Hgb 9.5 L Hct 31.8 MCV 77 L MCH 23 L MCHC 30 RDW 18.0 H Plt Count 345 Lymph % (Auto) 13.6 [place] % (Auto) 12.3 H Eos % (Auto) 0.8 Baso % (Auto) 0.7 Lymph # 2.2 [place] # 1.9 H Eos # 0.1 Baso # 0.1 Seg Neutrophils % 72.6 H Seg Neutrophils # 11.4 H PT 14.2 INR 1.05 APTT 28.5 Sodium 140 Potassium 3.3 L Chloride 102.6 Carbon Dioxide 23 Anion Gap 18 BUN 12 Creatinine 0.6 L Estimated GFR > 60 BUN/Creatinine Ratio 20 Glucose 150 H Calcium 8.9 Total Bilirubin 0.20 AST 17 ALT 24 Alkaline Phosphatase 53 Total Protein 7.0 Albumin 3.8 L Albumin/Globulin Ratio 1.2 Lipase 27 HCG, Quant Urine Color Urine Turbidity Urine pH Ur Specific [place] Urine Protein Urine Glucose (UA) Urine Ketones Urine Blood Urine Nitrite Urine Bilirubin Urine Urobilinogen Ur Leukocyte Esterase Urine WBC (Auto) Urine RBC (Auto) U Epithel Cells (Auto) Hyaline Casts Urine Mucus Blood Type Antibody Screen - Medical Decision Making Patient has CT abdomen and pelvis performed approximately 1.5 weeks ago - Differential Diagnosis gastroenteritis, pancreatitis, UTI, cervical CA Critical care attestation.: If time is entered above; I have spent that time in minutes in the direct care of this critically ill patient, excluding procedure time. ED Disposition Clinical Impression: Cervical cancer, Abdominal pain, Nausea vomiting and diarrhea Disposition: TO HOME OR SELFCARE Is pt being admited?: No Does the pt Need Aspirin: No Condition: Stable Additional Instructions: Return to the emergency department immediately should you develop worsening symptoms, fever, inability to tolerate food or liquid or any other concerns. Prescriptions: HYDROcodone/APAP 5-325 [[place] 5/325] 1 - 2 each PO Q6HR PRN #30 tablet PRN Reason: Pain Levofloxacin [Levaquin] 750 mg PO QDAY #10 tablet metroNIDAZOLE [Flagyl] 500 mg PO Q8HR #30 tablet Promethazine [Phenergan TAB] 25 mg PO Q6HR PRN #20 tab PRN Reason: Nausea Promethazine [Phenergan] 25 mg [place] Q6HR PRN #5 supp.rect PRN Reason: Vomiting Referrals: PRIMARY CARE, [Primary Care Provider] - 3-5 Days KAREN NEGRON MD [Staff Physician] - [facility] (Dr. Negron is a security inspector. Please follow up with him for further evaluation) Time of Disposition: 21:36
[2017-09-12] MEDS: NACL 0.9% 1000 ML 1,000 ML IV ONE (20:36)
[2017-09-12] MEDS: DILAUDID IV ONE (20:36)
[2017-09-12] MEDS: ZOFRAN IV ONE (20:37)
[2017-09-12 21:19] LABS: INR 1.05 (0.87-1.13); Partial Thromboplastin Time 28.5 Sec. (24.2-36.6)
[2017-09-12 21:30] LABS: Alanine Aminotransferase 24 units/L (7-56); Albumin 3.8 g/dL (3.9-5); Albumin/Globulin Ratio 1.2 %; Alkaline Phosphatase 53 units/L (35-129); Anion Gap 18 mmol/L; BUN/Creatinine Ratio 20; Blood Urea Nitrogen 12 mg/dL (7-17); Calcium 8.9 mg/dL (8.4-10.2); Carbon Dioxide 23 mmol/L (22-30); Chloride 102.6 mmol/L (98-107); Glucose 150 mg/dL (65-100); Lipase 27 units/L (13-60); Potassium 3.3 mmol/L (3.6-5.0); Sodium 140 mmol/L (137-145)
== END 2017-09-12 21:58 | disposition home or self-care (01) ==
LOC: ED 11:44
DX: R10.9 Unspecified abdominal pain (principal); C53.9 Malignant neoplasm of cervix uteri, unspecified; R11.2 Nausea with vomiting, unspecified; R19.7 Diarrhea, unspecified; F17.200 Nicotine dependence, unspecified, uncomplicated; Z90.49 Acquired absence of other specified parts of digestive tract; Z98.890 Other specified postprocedural states
CPT/HCPCS: 36415; 80053; 81001; 83690; 84702; 85025; 85610; 85730; 86850; 86900; 86901; 96361; 96374; 96375; 99284; J1170; J2405; J7030

== ENCOUNTER 2017-09-24 09:38 | Emergency (ER) | payer SELFPAY ==
--- NOTE | 2017-09-24 10:01 | Emergency Department Report ---
Stated Complaint: CERVICAL CANCER BLEEDING Time Seen by Provider: 09/24/17 09:53 - HPI History of Present Illness: PT states she was dx with [place], [place]. PT states she saw her oncologist 2 weeks ago due to vaginal bleeding and she was given a shot to stop the bleeding. PT states she started having vaginal bleeding this morning at 0700. PT states she did not call her doctor because their office was not open. PT states she is supposed to start radiation and chemo on 10-04-17 PT states she sees a spine doctor and she is on muscle relaxers for chronic pain due to scoliosis - ROS Review of Systems: + abd pain + low back pain - Exam Physical Exam: PT is alert, non toxic gcs 15 steady gait MSE screening note: Focused history and physical exam performed. Due to findings the following was ordered: labs ED Disposition for MSE Condition: Stable
[2017-09-24 10:27] LABS: Basophils % (Auto) 0.5 % (0.0-1.8); Hematocrit 31.4 % (30.3-42.9); Hemoglobin 9.8 gm/dl (10.1-14.3); Mean Corpuscular HGB Conc 31 % (30-34); Mean Corpuscular Volume 76 fl (79-97); Platelet Count 258 K/mm3 (140-440); Red Blood Count 4.15 M/mm3 (3.65-5.03); White Blood Count 6.5 K/mm3 (4.5-11.0)
[2017-09-24 10:29] LABS: Mean Corpuscular Hemoglobin 24 pg (28-32)
[2017-09-24] MEDS ORDERED: MORPHINE IM ONE (10:32)
[2017-09-24] MEDS ORDERED: ZOFRAN IM ONE (10:32)
--- NOTE | 2017-09-24 10:32 | Emergency Department Report ---
HPI - General Chief Complaint: Abdominal Pain Time Seen by Provider: 09/24/17 09:53 - HPI HPI: Room 7 The patient is a 27-year-old female presenting with chief complaint of lower abdominal pain. The patient was diagnosed with cervical CA in May 2017 has not yet had intervention secondary to "insurance issues." The patient states she has same pain in the lower abdomen and upper back since May. Patient admits to intermittent nausea and vomiting. Patient denies any history of fever but admits to decreased appetite. The patient states she has not been taking Organ secondary to cost. The patient currently gets her pain score of 9.5/10. Patient admits to intermittent abdominal distention since June Location: Abdomen Duration: Chronic since May 2017 Quality: Pain Severity: 9.5/10 Modifying factors: [see above] Context: [see above] Mode of transportation: [not driving] ED Past Medical Hx - Past Medical History Previous Medical History?: Yes Hx of Cancer: Yes (Cervical) Additional medical history: FIBROIDS. kidney stones per pt,cervical cancer-dx 05/2017. Scoliosis - Surgical History Past Surgical History?: Yes Hx Cholecystectomy: Yes Additional Surgical History: X 4. HERNIA REPAIR - Family History Family history: no significant - Social History Smoking Status: Current Every Day Smoker (1/14 pack per day) Substance Use Type: None (denies illicit drug use) - Medications Home Medications: Home Medications Medication Instructions Recorded Confirmed Last Taken Type Promethazine [Phenergan TAB] 25 mg PO Q6HR PRN #20 tab 09/24/17 Unknown Rx ED Review of Systems ROS: Stated complaint: CERVICAL CANCER BLEEDING Other details as noted in HPI Comment: All other systems reviewed and negative Constitutional: denies: chills, fever Eyes: denies: eye pain, eye discharge, vision change ENT: denies: ear pain, throat pain Respiratory: denies: cough, shortness of breath, wheezing Cardiovascular: denies: chest pain, palpitations Endocrine: no symptoms reported Gastrointestinal: abdominal pain, nausea, vomiting Genitourinary: denies: urgency, dysuria, discharge Musculoskeletal: back pain. denies: joint swelling, arthralgia Skin: denies: rash, lesions Neurological: denies: headache, weakness, paresthesias Psychiatric: denies: anxiety, depression Hematological/Lymphatic: denies: easy bleeding, easy bruising Physical Exam - Physical Exam Vital Signs: Vital Signs 09/24/17 10:01 Temperature 98.4 F Pulse Rate 104 H Respiratory 16 Rate Blood Pressure 127/70 O2 Sat by Pulse 96 Oximetry Physical Exam: GENERAL: The patient is well-developed well-nourished female standing in room not appearing to be in acute distress. [] HEENT: Normocephalic. Atraumatic. Extraocular motions are intact. Patient has moist mucous membranes. NECK: Supple. Trachea midline CHEST/LUNGS: Clear to auscultation. There is no respiratory distress noted. HEART/CARDIOVASCULAR: Regular. There is no tachycardia. There is no gallop rub or murmur. ABDOMEN: Abdomen is soft, with diffuse discomfort to palpation. There is no guarding. Patient has normal bowel sounds. There is ascites. SKIN: There is no rash. There is no diaphoresis. NEURO: The patient is awake, alert, and oriented. The patient is cooperative. The patient has normal speech and gait MUSCULOSKELETAL: There is no evidence of acute injury. ED Course Vital Signs 09/24/17 10:01 Temperature 98.4 F Pulse Rate 104 H Respiratory 16 Rate Blood Pressure 127/70 O2 Sat by Pulse 96 Oximetry ED Medical Decision Making - Lab Data Result diagrams: 09/24/17 10:06 09/24/17 10:06 Laboratory Tests 09/24/17 09/24/17 09/24/17 10:06 10:06 10:06 WBC 6.5 RBC 4.15 Hgb 9.8 L Hct 31.4 MCV 76 L MCH 24 L MCHC 31 RDW 18.0 H Plt Count 258 Lymph % (Auto) 20.4 [place] % (Auto) 10.0 H Eos % (Auto) 8.0 H Baso % (Auto) 0.5 Lymph # 1.3 [place] # 0.6 Eos # 0.5 H Baso # 0.0 Seg Neutrophils % 61.1 Seg Neutrophils # 3.9 Sodium 135 L Potassium 4.4 Chloride 101.4 Carbon Dioxide 21 L Anion Gap 17 BUN 12 Creatinine 0.5 L Estimated GFR > 60 BUN/Creatinine Ratio 24 Glucose 88 Calcium 9.1 Total Bilirubin 0.20 AST 19 ALT 27 Alkaline Phosphatase 63 Total Protein 7.6 Albumin 4.3 Albumin/Globulin Ratio 1.3 HCG, Qual Negative Urine Color Urine Turbidity Urine pH Ur Specific [place] Urine Protein Urine Glucose (UA) Urine Ketones Urine Blood Urine Nitrite Urine Bilirubin Urine Urobilinogen Ur Leukocyte Esterase Urine WBC (Auto) Urine RBC (Auto) U Epithel Cells (Auto) Urine Mucus Urine HCG, Qual 09/24/17 10:40 WBC RBC Hgb Hct MCV MCH MCHC RDW Plt Count Lymph % (Auto) [place] % (Auto) Eos % (Auto) Baso % (Auto) Lymph # [place] # Eos # Baso # Seg Neutrophils % Seg Neutrophils # Sodium Potassium Chloride Carbon Dioxide Anion Gap BUN Creatinine Estimated GFR BUN/Creatinine Ratio Glucose Calcium Total Bilirubin AST ALT Alkaline Phosphatase Total Protein Albumin Albumin/Globulin Ratio HCG, Qual Urine Color Yellow Urine Turbidity Clear Urine pH 5.0 Ur Specific [place] 1.019 Urine Protein <15 mg/dl Urine Glucose (UA) Neg Urine Ketones Neg Urine Blood Neg Urine Nitrite Neg Urine Bilirubin Neg Urine Urobilinogen 2.0 Ur Leukocyte Esterase Neg Urine WBC (Auto) 1.0 Urine RBC (Auto) 1.0 U Epithel Cells (Auto) 1.0 Urine Mucus Few Urine HCG, Qual Negative - Radiology Data Radiology results: report reviewed (CT abdomen and pelvis), image reviewed (CT abdomen and pelvis) CT abdomen and pelvis (read by radiologist) (-2.4 x 2.0 cm right adnexal cyst most likely representing an ovarian cyst. 0.5 x 1.0 cm density at the left lung base. Follow-up is recommended. No acute inflammatory process is appreciated. - Differential Diagnosis cervical CA, ascites Critical care attestation.: If time is entered above; I have spent that time in minutes in the direct care of this critically ill patient, excluding procedure time. ED Disposition Clinical Impression: Abdominal pain, Nausea & vomiting, Lesion of left lung Disposition: - TO HOME OR SELFCARE Is pt being admited?: No Does the pt Need Aspirin: No Condition: Stable Instructions: Abdominal Pain (ED) Additional Instructions: Return to the emergency department immediately should you develop worsening symptoms, fever, inability to tolerate food or liquid or any other concerns. Prescriptions: Promethazine [Phenergan TAB] 25 mg PO Q6HR PRN #20 tab PRN Reason: Nausea Referrals: [facility] [Outside] - 3-5 Days Time of Disposition: 11:37
[2017-09-24 10:43] LABS: Alanine Aminotransferase 27 units/L (7-56); Albumin 4.3 g/dL (3.9-5); Albumin/Globulin Ratio 1.3 %; Alkaline Phosphatase 63 units/L (35-129); Anion Gap 17 mmol/L; BUN/Creatinine Ratio 24; Blood Urea Nitrogen 12 mg/dL (7-17); Calcium 9.1 mg/dL (8.4-10.2); Carbon Dioxide 21 mmol/L (22-30); Chloride 101.4 mmol/L (98-107); Glucose 88 mg/dL (65-100); Potassium 4.4 mmol/L (3.6-5.0); Sodium 135 mmol/L (137-145); Total Protein 7.6 g/dL (6.3-8.2)
[2017-09-24 10:49] LABS: Bilirubin,Urine NEG (Negative); Blood,Urine NEG (Negative); Ketones,Urine NEG (Negative); Leukocyte Esterase,Urine NEG (Negative); Mucus,Urine FEW /HPF; Nitrite,Urine NEG (Negative); Protein,Urine <15 mg/dL mg/dL (Negative)
--- NOTE | 2017-09-24 11:17 | Cat Scan Report ---
CT OF THE ABDOMEN AND PELVIS WITHOUT CONTRAST HISTORY: Lower abdominal pain, history of cervical cancer. TECHNIQUE: Helical CT without contrast. Sagittal and coronal reformatted images. FINDINGS: There is a new 1.5 x 1.0 cm density in the lateral left lower lobe since 09/03/17 exam. This may be inflammatory in nature although a metastatic lesion is difficult to exclude with history of cervical cancer. I suspect this is inflammatory in nature given the short time frame between the 2 studies. The right lung base is clear. Heart size is normal. A right adnexal cyst has increased from 2.1 x 1.5 cm to 2.4 x 2.0 cm since the previous exam. The uterus and left adnexa remain unremarkable. Cholecystectomy changes. No biliary dilatation. The unenhanced CT appearance of the liver, pancreas, spleen, kidneys, adrenal glands, aorta, bowel loops and appendix are unremarkable. The bladder is empty but grossly normal. No bulky adenopathy, ascites or acute inflammation is identified. No suspicious bony lesion. IMPRESSION: 2.4 x 2.0 cm right adnexal cyst most likely representing an ovarian cyst. New 1.5 x 1.0 cm density at the left lung base as outlined above. Followup is recommended. No acute inflammatory process is appreciated.
[2017-09-24] MEDS ORDERED: MORPHINE ONE (11:21)
[2017-09-24 11:44] VITALS: BP 118/61
== END 2017-09-24 12:13 | disposition home or self-care (01) ==
LOC: ED 09:38
DX: R10.30 Lower abdominal pain, unspecified (principal); R11.2 Nausea with vomiting, unspecified; R91.1 Solitary pulmonary nodule; F17.200 Nicotine dependence, unspecified, uncomplicated; Z85.41 Personal history of malignant neoplasm of cervix uteri; Z90.49 Acquired absence of other specified parts of digestive tract
CPT/HCPCS: 36415; 74176; 80053; 81001; 81025; 84703; 85025; 96372; 99284; J2270; J2405

== ENCOUNTER 2017-10-04 10:17 | Emergency (ER) | payer SELFPAY ==
[2017-10-04 11:40] LABS: Bilirubin,Urine NEG (Negative); Blood,Urine NEG (Negative); Ketones,Urine NEG (Negative); Leukocyte Esterase,Urine NEG (Negative); Mucus,Urine FEW /HPF; Nitrite,Urine NEG (Negative); Protein,Urine <15 mg/dL mg/dL (Negative); Urobilinogen,Urine < 2.0 mg/dL (<2.0)
[2017-10-04 11:46] LABS: RBC,Urine < 1.0 /HPF (0.0-6.0)
[2017-10-04] MEDS ORDERED: NACL 0.9% 1000 ML 1,000 ML IV ONE (15:00)
[2017-10-04] MEDS ORDERED: DILAUDID IV ONE ×2 (15:00→17:10)
--- NOTE | 2017-10-04 15:01 | Emergency Department Report ---
ED General Adult HPI - General Chief complaint: Abdominal Pain Stated complaint: BLOOD IN URINE, NAUSEA Time Seen by Provider: 10/04/17 14:48 Source: patient, RN notes reviewed, old records reviewed Mode of arrival: Ambulatory Limitations: No Limitations - History of Present Illness Initial comments: This is a 27-year-old female who has been previously evaluated by this provider. Past medical history includes possible cervical cells/cancer, nodule in lung, renal colic, 4, and hernia repair. Patient presents to the ER with bilateral lower abdominal pain. She describes the pain as "cutting up on me." the pain started within the past 3 days. The pain does not radiate anywhere. Patient denies headache, neck pain, chest pain, upper abdominal pain. Patient also describes nausea but no vomiting. Positive vaginal discharge. Patient reports no recent sexual partners the pain increases with palpation and range of motion. Decreases with rest. -: Gradual, days(s) Location: abdomen, pelvis Quality: aching Consistency: intermittent Improves with: medication, rest Worsens with: movement Associated Symptoms: malaise, nausea/vomiting. denies: confusion, chest pain, cough, loss of appetite - Related Data Previous Rx's Medication Instructions Recorded Last Taken Type Promethazine [Phenergan TAB] 25 mg PO Q6HR PRN #20 tab 09/24/17 Unknown Rx Allergies Allergy/AdvReac Type Severity Reaction Status Date / Time Iodinated Contrast- Oral and Allergy Itching Verified 09/24/17 10:06 IV Dye ketorolac tromethamine Allergy Hives Verified 09/24/17 10:06 [From Toradol] Penicillins Allergy Swelling Verified 09/24/17 10:06 tramadol Allergy Hives Verified 09/24/17 10:06 ED Review of Systems ROS: Stated complaint: BLOOD IN URINE, NAUSEA Other details as noted in HPI Constitutional: denies: fever Eyes: denies: eye discharge ENT: denies: epistaxis Respiratory: denies: cough Cardiovascular: denies: chest pain Gastrointestinal: abdominal pain Genitourinary: discharge Musculoskeletal: denies: back pain Skin: denies: lesions Neurological: denies: weakness ED Past Medical Hx - Past Medical History Previous Medical History?: Yes Hx of Cancer: Yes (cervical cancer) Additional medical history: FIBROIDS. kidney stones per pt,cervical cancer-dx 05/2017 - Surgical History Past Surgical History?: Yes Hx Cholecystectomy: Yes Additional Surgical History: X 4. HERNIA REPAIR - Social History Smoking Status: Current Every Day Smoker Substance Use Type: None - Medications Home Medications: Home Medications Medication Instructions Recorded Confirmed Last Taken Type Promethazine [Phenergan TAB] 25 mg PO Q6HR PRN #20 tab 09/24/17 Unknown Rx ED Physical Exam - General Limitations: No Limitations General appearance: alert, in no apparent distress - Head Head exam: Present: atraumatic, normocephalic - Eye Eye exam: Present: normal appearance, EOMI. Absent: nystagmus - ENT ENT exam: Present: normal exam, normal orophraynx, mucous membranes moist, normal external ear exam - Neck Neck exam: Present: normal inspection, full ROM - Respiratory Respiratory exam: Present: normal lung sounds bilaterally. Absent: respiratory distress, wheezes, rales, rhonchi, stridor, chest wall tenderness, accessory muscle use, decreased breath sounds, prolonged expiratory - Cardiovascular Cardiovascular Exam: Present: regular rate, normal rhythm, normal heart sounds. Absent: systolic murmur, diastolic murmur, rubs, gallop - GI/Abdominal GI/Abdominal exam: Present: soft, tenderness, normal bowel sounds. Absent: distended, guarding, rebound, rigid - External exam: Present: normal external exam Speculum exam: Present: normal speculum exam Bi-manual exam: Present: normal bi-manual exam, other (escorted by nurse Mathew Negron ). Absent: cervical motion tendernes, adnexal tenderness, adnexal mass, uterine tenderness - Extremities Exam Extremities exam: Present: normal inspection, full ROM, normal capillary refill. Absent: pedal edema, joint swelling, calf tenderness - Back Exam Back exam: Present: normal inspection, full ROM. Absent: tenderness, CVA tenderness (R), CVA tenderness (L), muscle spasm, paraspinal tenderness, vertebral tenderness - Neurological Exam Neurological exam: Present: alert, oriented X3, normal gait, other (Extraocular movements intact. Tongue midline. No facial droop. Facial sensation intact to light touch in the V1, V2, V3 distribution bilaterally. 5 and 5 strength in 4 extremities.. Sensation is intact to light touch in 4 extremities.). Absent : motor sensory deficit - Psychiatric Psychiatric exam: Present: normal affect, normal mood - Skin Skin exam: Present: warm, dry, intact, normal color. Absent: rash ED Course Vital Signs 10/04/17 10/04/17 10:34 15:17 Temperature 98.3 F 98.3 F Pulse Rate 84 Respiratory 16 20 Rate Blood Pressure 123/72 Blood Pressure 91/55 [Left] O2 Sat by Pulse 100 99 Oximetry ED Medical Decision Making - Lab Data Result diagrams: 10/04/17 15:20 10/04/17 15:20 Vital Signs 10/04/17 10/04/17 10:34 15:17 Temperature 98.3 F 98.3 F Pulse Rate 84 Respiratory 16 20 Rate Blood Pressure 123/72 Blood Pressure 91/55 [Left] O2 Sat by Pulse 100 99 Oximetry Lab Results 10/04/17 10/04/17 10/04/17 Range/Units 11: 11:07 15:20 WBC 7.6 (4.5-11.0) K/mm3 RBC 3.53 L (3.65-5.03) M/mm3 Hgb 8.6 L (10.1-14.3) gm/dl Hct 27.6 L (30.3-42.9) % MCV 78 L (79-97) fl MCH 24 L (28-32) pg MCHC 31 (30-34) % RDW 18.6 H (13.2-15.2) % Plt Count 342 (140-440) K/mm3 Lymph % (Auto) 24.2 (13.4-35.0) % [place] % (Auto) 11.1 H (0.0-7.3) % Eos % (Auto) 7.6 H (0.0-4.3) % Baso % (Auto) 1.3 (0.0-1.8) % Lymph # 1.8 (1.2-5.4) K/mm3 [place] # 0.8 (0.0-0.8) K/mm3 Eos # 0.6 H (0.0-0.4) K/mm3 Baso # 0.1 (0.0-0.1) K/mm3 Seg Neutrophils % 55.8 (40.0-70.0) % Seg Neutrophils # 4.2 (1.8-7.7) K/mm3 Sodium (137-145) mmol/L Potassium (3.6-5.0) mmol/L Chloride (98-107) mmol/L Carbon Dioxide (22-30) mmol/L Anion Gap mmol/L BUN (7-17) mg/dL Creatinine (0.7-1.2) mg/dL Estimated GFR ml/min BUN/Creatinine Ratio % Glucose (65-100) mg/dL Calcium (8.4-10.2) mg/dL Total Bilirubin (0.1-1.2) mg/dL AST (5-40) units/L ALT (7-56) units/L Alkaline Phosphatase (35-129) units/L Total Protein (6.3-8.2) g/dL Albumin (3.9-5) g/dL Albumin/Globulin Ratio % Lipase (13-60) units/L HCG, Qual (Negative) Urine Color Yellow (Yellow) Urine Turbidity Clear (Clear) Urine pH 5.0 (5.0-7.0) Ur Specific [place] 1.023 (1.003-1.030) Urine Protein <15 mg/dl (Negative) mg/dL Urine Glucose (UA) Neg (Negative) mg/dL Urine Ketones Neg (Negative) mg/dL Urine Blood Neg (Negative) Urine Nitrite Neg (Negative) Urine Bilirubin Neg (Negative) Urine Urobilinogen < 2.0 (<2.0) mg/dL Ur Leukocyte Esterase Neg (Negative) Urine WBC (Auto) 1.0 (0.0-6.0) /HPF Urine RBC (Auto) < 1.0 (0.0-6.0) /HPF U Epithel Cells (Auto) 13.0 (0-13.0) /HPF Urine Mucus Few /HPF Urine HCG, Qual Negative (Negative) 10/04/17 10/04/17 Range/Units 15:20 15:20 WBC (4.5-11.0) K/mm3 RBC (3.65-5.03) M/mm3 Hgb (10.1-14.3) gm/dl Hct (30.3-42.9) % MCV (79-97) fl MCH (28-32) pg MCHC (30-34) % RDW (13.2-15.2) % Plt Count (140-440) K/mm3 Lymph % (Auto) (13.4-35.0) % [place] % (Auto) (0.0-7.3) % Eos % (Auto) (0.0-4.3) % Baso % (Auto) (0.0-1.8) % Lymph # (1.2-5.4) K/mm3 [place] # (0.0-0.8) K/mm3 Eos # (0.0-0.4) K/mm3 Baso # (0.0-0.1) K/mm3 Seg Neutrophils % (40.0-70.0) % Seg Neutrophils # (1.8-7.7) K/mm3 Sodium 142 (137-145) mmol/L Potassium 4.2 (3.6-5.0) mmol/L Chloride 105.2 (98-107) mmol/L Carbon Dioxide 25 (22-30) mmol/L Anion Gap 16 mmol/L BUN 12 (7-17) mg/dL Creatinine 0.5 L (0.7-1.2) mg/dL Estimated GFR > 60 ml/min BUN/Creatinine Ratio 24 % Glucose 86 (65-100) mg/dL Calcium 8.9 (8.4-10.2) mg/dL Total Bilirubin 0.20 (0.1-1.2) mg/dL AST 14 (5-40) units/L ALT 18 (7-56) units/L Alkaline Phosphatase 61 (35-129) units/L Total Protein 7.0 (6.3-8.2) g/dL Albumin 3.9 (3.9-5) g/dL Albumin/Globulin Ratio 1.3 % Lipase 28 (13-60) units/L HCG, Qual Negative (Negative) Urine Color (Yellow) Urine Turbidity (Clear) Urine pH (5.0-7.0) Ur Specific [place] (1.003-1.030) Urine Protein (Negative) mg/dL Urine Glucose (UA) (Negative) mg/dL Urine Ketones (Negative) mg/dL Urine Blood (Negative) Urine Nitrite (Negative) Urine Bilirubin (Negative) Urine Urobilinogen (<2.0) mg/dL Ur Leukocyte Esterase (Negative) Urine WBC (Auto) (0.0-6.0) /HPF Urine RBC (Auto) (0.0-6.0) /HPF U Epithel Cells (Auto) (0-13.0) /HPF Urine Mucus /HPF Urine HCG, Qual (Negative) - Radiology Data Radiology results: report reviewed, image reviewed Noncontrast CT scan of the abdomen and pelvis demonstrates no acute disease, the appendix is within normal limits, there has been interval resolution of a left lower lobe pulmonary density, infiltrate. There is interval resolution right adnexal cyst. masses are noted. A transvaginal ultrasound demonstrates normal flow in The right ovary. Left ovary is not visualized. A vascular focus noted in the right ovary, likely hemorrhagic complex cyst. - Medical Decision Making Differential diagnosis, including but not limited to: Ovarian cyst, urinary tract infection, pelvic inflammatory disease, narcotic bowel syndrome Assessment and plan: 27-year-old female with acute on chronic abdominal pain, benign gynecologic examination, afebrile with reassuring vital signs. On her initial evaluation, patient is noted to be sleeping on her left lateral decubitus position, and is sucking her thumb and is not writhing around, and is sleeping. Patient's pain was treated aggressively. On multiple re-evaluations in the department, the patient was noted to be speaking on the cellular phone, and while attached to a monitor, no tachycardia was noted. Her objective imaging studies were unremarkable and unchanged from prior, and the patient eloped from the ER prior to a final evaluation. Critical care attestation.: If time is entered above; I have spent that time in minutes in the direct care of this critically ill patient, excluding procedure time. ED Disposition Clinical Impression: Abdominal pain Disposition: Z-07 ELOPED Is pt being admited?: No Does the pt Need Aspirin: No Condition: Undetermined Instructions: Abdominal Pain (ED) Referrals: PRIMARY CARE, [Primary Care Provider] - 3-5 Days
[2017-10-04 15:21] VITALS: BP 91/55
[2017-10-04 15:45] LABS: Basophils % (Auto) 1.3 % (0.0-1.8); Eosinophils % (Auto) 7.6 % (0.0-4.3); Hematocrit 27.6 % (30.3-42.9); Hemoglobin 8.6 gm/dl (10.1-14.3); Mean Corpuscular HGB Conc 31 % (30-34); Mean Corpuscular Volume 78 fl (79-97); Platelet Count 342 K/mm3 (140-440); Red Blood Count 3.53 M/mm3 (3.65-5.03); Red Cell Distribution Width 18.6 % (13.2-15.2); White Blood Count 7.6 K/mm3 (4.5-11.0)
[2017-10-04 15:48] LABS: Mean Corpuscular Hemoglobin 24 pg (28-32)
[2017-10-04 16:15] LABS: Alanine Aminotransferase 18 units/L (7-56); Albumin 3.9 g/dL (3.9-5); Albumin/Globulin Ratio 1.3 %; Alkaline Phosphatase 61 units/L (35-129); Anion Gap 16 mmol/L; BUN/Creatinine Ratio 24; Blood Urea Nitrogen 12 mg/dL (7-17); Calcium 8.9 mg/dL (8.4-10.2); Carbon Dioxide 25 mmol/L (22-30); Chloride 105.2 mmol/L (98-107); Glucose 86 mg/dL (65-100); Lipase 28 units/L (13-60); Potassium 4.2 mmol/L (3.6-5.0); Sodium 142 mmol/L (137-145)
--- NOTE | 2017-10-04 16:22 | Cat Scan Report ---
CT of the abdomen and pelvis without contrast. History: Abdominal pain. Comparison is made to the previous study on September 24, 2017. Findings: The pulmonary density seen in the left lower lobe on the previous study has resolved indicating that this was most likely a small infiltrate. The liver, spleen, and pancreas are normal. The gallbladder has been removed. The kidneys are normal in size and configuration with no evidence of mass or hydronephrosis. No renal calcifications are seen. The GI tract is unremarkable. The right adnexal cyst seen on a previous study has resolved. No pelvic masses are seen. The appendix is normal. There are no abnormal fluid collections. Impression: Negative study without intravenous or oral contrast. There has been interval resolution of a left lower lobe pulmonary density/infiltrate and of a right adnexal cyst.
--- NOTE | 2017-10-04 19:09 | Ultrasound Report ---
FINAL REPORT EXAM: US PELVIS DUPLEX DOPPLER COMP HISTORY: pelvic pain bilaterally. Prior history of right ovarian cyst seen on recent CT. LMP 08/31/2017 TECHNIQUE: Ultrasound of the pelvis using transabdominal and transvaginal imaging PRIORS: CT a/P 09/13/2017 FINDINGS: Uterus: Uterus is enlarged in size and normal and homogeneous in echogenicity without focal fibroid formation. The uterus measures 10.5 x 4.4 x 4.7 cm in size. Endometrial stripe: Normal and uniform in thickness measuring 8.2 mm. Ovaries: The left ovary is not visualized. The right ovary appears normal in size and echogenicity with normal blood flow. The right ovary measures 2.7 x 1.4 x 2.1 cm. There is a hypoechoic avascular focus in the right of ovary measuring 1.8 cm. This is probably a complex hemorrhagic cyst. Other: There is no evidence for solid adnexal mass or free fluid in the cul-de-sac seen. IMPRESSION: 1. hypoechoic avascular focus in the right ovary, likely a complex hemorrhagic cyst. This is also seen on prior CT. 2. Enlarged uterus 3. Nonvisualization of the left ovary.
== END 2017-10-04 19:17 | disposition left against medical advice (07) ==
LOC: ED 10:17
DX: R10.30 Lower abdominal pain, unspecified (principal); F17.200 Nicotine dependence, unspecified, uncomplicated; C76.0 Malignant neoplasm of head, face and neck; Z90.49 Acquired absence of other specified parts of digestive tract; Z88.0 Allergy status to penicillin; Z91.041 Radiographic dye allergy status; Z88.8 Allergy status to other drugs, medicaments and biological substances
CPT/HCPCS: 36415; 74176; 76830; 80053; 81001; 81025; 83690; 84703; 85025; 87210; 87591; 93975; 96361; 96374; 96376; 99284; J1170; J7030

== ENCOUNTER 2017-10-22 09:23 | Emergency (ER) | payer BC ==
[2017-10-22 10:30] LABS: Alanine Aminotransferase 13 units/L (7-56); Albumin 4.1 g/dL (3.9-5); Albumin/Globulin Ratio 1.1 %; Alkaline Phosphatase 55 units/L (35-129); Anion Gap 18 mmol/L; BUN/Creatinine Ratio 18; Blood Urea Nitrogen 9 mg/dL (7-17); Calcium 8.8 mg/dL (8.4-10.2); Carbon Dioxide 20 mmol/L (22-30); Chloride 102.7 mmol/L (98-107); Glucose 75 mg/dL (65-100); Lipase 22 units/L (13-60); Sodium 137 mmol/L (137-145); Total Protein 7.8 g/dL (6.3-8.2)
[2017-10-22 10:34] LABS: Basophils % (Auto) 1.2 % (0.0-1.8); Eosinophils % (Auto) 6.6 % (0.0-4.3); Hematocrit 30.8 % (30.3-42.9); Hemoglobin 9.3 gm/dl (10.1-14.3); Mean Corpuscular HGB Conc 30 % (30-34); Mean Corpuscular Volume 77 fl (79-97); Red Cell Distribution Width 19.2 % (13.2-15.2); White Blood Count 6.9 K/mm3 (4.5-11.0)
[2017-10-22 10:40] LABS: Mean Corpuscular Hemoglobin 23 pg (28-32)
[2017-10-22 10:43] LABS: Platelet Count 259 K/mm3 (140-440)
[2017-10-22 11:11] LABS: Bilirubin,Urine NEG (Negative); Blood,Urine NEG (Negative); Ketones,Urine NEG (Negative); Leukocyte Esterase,Urine NEG (Negative); Mucus,Urine FEW /HPF; Nitrite,Urine NEG (Negative); Protein,Urine <15 mg/dL mg/dL (Negative)
--- NOTE | 2017-10-22 11:40 | Emergency Department Report ---
ED General Adult HPI - General Chief complaint: Abdominal Pain Stated complaint: ABDOMINAL PAIN Time Seen by Provider: 10/22/17 11:20 Source: patient Mode of arrival: Ambulatory Limitations: No Limitations - History of Present Illness Initial comments: Patient is a 27-year-old female past history of cervical cancer presents with lower abdominal pain. Patient states her lower abdominal pain is a 9 out of 10. Patient's pain is an achy type of pain that radiates throughout her body she says nothing makes it better or worse. Patient also states that she is nauseous she's vomited once her vomit has been nonbloody nonbilious. Patient denies having any diarrhea or any fever. Patient states that she has had one round of chemotherapy for her cervical cancer. She denies any headache and denies any shortness of breath. - Related Data Previous Rx's Medication Instructions Recorded Last Taken Type Promethazine [Phenergan TAB] 25 mg PO Q6HR PRN #20 tab 09/24/17 Unknown Rx Allergies Allergy/AdvReac Type Severity Reaction Status Date / Time Iodinated Contrast- Oral and Allergy Itching Verified 09/24/17 10:06 IV Dye ketorolac tromethamine Allergy Hives Verified 09/24/17 10:06 [From Toradol] Penicillins Allergy Swelling Verified 09/24/17 10:06 tramadol Allergy Hives Verified 09/24/17 10:06 ED Review of Systems ROS: Stated complaint: ABDOMINAL PAIN Other details as noted in HPI Constitutional: denies: chills, fever Eyes: denies: eye pain, eye discharge, vision change ENT: denies: ear pain, throat pain Respiratory: denies: cough, shortness of breath, wheezing Cardiovascular: denies: chest pain, palpitations Endocrine: no symptoms reported Gastrointestinal: abdominal pain. denies: nausea, diarrhea Genitourinary: denies: urgency, dysuria, discharge Musculoskeletal: denies: back pain, joint swelling, arthralgia Skin: denies: rash, lesions Neurological: denies: headache, weakness, paresthesias Psychiatric: denies: anxiety, depression Hematological/Lymphatic: denies: easy bleeding, easy bruising ED Past Medical Hx - Past Medical History Hx of Cancer: Yes (Cervical) Additional medical history: FIBROIDS. kidney stones per pt,cervical cancer-dx 05/2017 - Surgical History Hx Cholecystectomy: Yes Additional Surgical History: X 4. HERNIA REPAIR - Social History Smoking Status: Current Every Day Smoker Substance Use Type: None - Medications Home Medications: Home Medications Medication Instructions Recorded Confirmed Last Taken Type Promethazine [Phenergan TAB] 25 mg PO Q6HR PRN #20 tab 09/24/17 Unknown Rx ED Physical Exam - General Limitations: No Limitations General appearance: alert, in no apparent distress - Head Head exam: Present: atraumatic, normocephalic - Eye Eye exam: Present: normal appearance - ENT ENT exam: Present: mucous membranes moist - Neck Neck exam: Present: normal inspection - Respiratory Respiratory exam: Present: normal lung sounds bilaterally. Absent: respiratory distress - Cardiovascular Cardiovascular Exam: Present: regular rate, normal rhythm. Absent: systolic murmur, diastolic murmur, rubs, gallop - GI/Abdominal GI/Abdominal exam: Present: soft, normal bowel sounds - Extremities Exam Extremities exam: Present: normal inspection - Back Exam Back exam: Present: normal inspection - Neurological Exam Neurological exam: Present: alert, oriented X3 - Psychiatric Psychiatric exam: Present: normal affect, normal mood - Skin Skin exam: Present: warm, dry, intact, normal color. Absent: rash ED Course Vital Signs 10/22/17 09:29 Temperature 98.4 F Pulse Rate 92 H Respiratory 20 Rate Blood Pressure 125/62 O2 Sat by Pulse 100 Oximetry ED Medical Decision Making - Lab Data Result diagrams: 10/22/17 09:56 10/22/17 09:56 Lab Results 10/22/17 10/22/17 10/22/17 Range/Units 09:56 09:56 Unknown WBC 6.9 (4.5-11.0) K/mm3 RBC 4.00 (3.65-5.03) M/mm3 Hgb 9.3 L (10.1-14.3) gm/dl Hct 30.8 (30.3-42.9) % MCV 77 L (79-97) fl MCH 23 L (28-32) pg MCHC 30 (30-34) % RDW 19.2 H (13.2-15.2) % Plt Count 259 (140-440) K/mm3 Lymph % (Auto) 26.4 (13.4-35.0) % [place] % (Auto) 8.4 H (0.0-7.3) % Eos % (Auto) 6.6 H (0.0-4.3) % Baso % (Auto) 1.2 (0.0-1.8) % Lymph # 1.8 (1.2-5.4) K/mm3 [place] # 0.6 (0.0-0.8) K/mm3 Eos # 0.5 H (0.0-0.4) K/mm3 Baso # 0.1 (0.0-0.1) K/mm3 Seg Neutrophils % 57.4 (40.0-70.0) % Seg Neutrophils # 3.9 (1.8-7.7) K/mm3 Sodium 137 (137-145) mmol/L Potassium 4.0 (3.6-5.0) mmol/L Chloride 102.7 (98-107) mmol/L Carbon Dioxide 20 L (22-30) mmol/L Anion Gap 18 mmol/L BUN 9 (7-17) mg/dL Creatinine 0.5 L (0.7-1.2) mg/dL Estimated GFR > 60 ml/min BUN/Creatinine Ratio 18 % Glucose 75 (65-100) mg/dL Calcium 8.8 (8.4-10.2) mg/dL Total Bilirubin 0.30 (0.1-1.2) mg/dL AST 20 (5-40) units/L ALT 13 (7-56) units/L Alkaline Phosphatase 55 (35-129) units/L Total Protein 7.8 (6.3-8.2) g/dL Albumin 4.1 (3.9-5) g/dL Albumin/Globulin Ratio 1.1 % Lipase 22 (13-60) units/L Urine Color Yellow (Yellow) Urine Turbidity Clear (Clear) Urine pH 5.0 (5.0-7.0) Ur Specific [place] 1.024 (1.003-1.030) Urine Protein <15 mg/dl (Negative) mg/dL Urine Glucose (UA) Neg (Negative) mg/dL Urine Ketones Neg (Negative) mg/dL Urine Blood Neg (Negative) Urine Nitrite Neg (Negative) Urine Bilirubin Neg (Negative) Urine Urobilinogen 2.0 (<2.0) mg/dL Ur Leukocyte Esterase Neg (Negative) Urine WBC (Auto) 4.0 (0.0-6.0) /HPF Urine RBC (Auto) 1.0 (0.0-6.0) /HPF U Epithel Cells (Auto) 8.0 (0-13.0) /HPF Urine Mucus Few /HPF - Medical Decision Making Chief medical diagnosis: Abdominal pain secondary to cervical cancer Differential medical diagnosis: Gastritis, pancreatitis, UTI, electrolyte abnormality I will get a CBC, CMP, IV fluids, IV Zofran, IV narcotics Patient's lab work is unremarkable she is feeling better after IV pain medicine and antinausea medicine. Patient has had several CT scans performed in the last month. Patient is requesting CT scans for her oncologist records. Patient has no surgical abdomen and is nontender to palpation. Patient would not benefit from repeat imaging. Discussed outpatient patient agrees with plan. Gave patient an additional verbal discharge instructions. Critical care attestation.: If time is entered above; I have spent that time in minutes in the direct care of this critically ill patient, excluding procedure time. ED Disposition Clinical Impression: Cervical cancer Qualifiers: Malignant neoplasm of cervix location: unspecified location Qualified Code(s): C53.9 - Malignant neoplasm of cervix uteri, unspecified Abdominal pain Qualifiers: Abdominal location: lower abdomen, unspecified Qualified Code(s): R10.30 - Lower abdominal pain, unspecified Disposition: DC- TO HOME OR SELFCARE Is pt being admited?: No Does the pt Need Aspirin: No Condition: Stable Instructions: Abdominal Pain (ED), Non-pharmacological Management of Cancer Pain (ED) Referrals: JOHN VAZQUEZ MD [Primary Care Provider] - 3-5 Days JEAN GRAJEDA MD [Staff Physician] - 3-5 Days
[2017-10-22] MEDS: NACL 0.9% 1000 ML 1,000 ML IV ONE (11:56)
[2017-10-22] MEDS: ZOFRAN IV ONE (11:56)
[2017-10-22] MEDS: SUBLIMAZE IV ONE (11:56)
[2017-10-22] MEDS ORDERED: DILAUDID IV PRN (14:22)
[2017-10-22] MEDS: DILAUDID IV ONE ×2 (14:56→16:43)
[2017-10-22 15:53] VITALS: BP 101/49
== END 2017-10-22 16:46 | disposition home or self-care (01) ==
LOC: ED 09:23
DX: C53.9 Malignant neoplasm of cervix uteri, unspecified (principal); R10.30 Lower abdominal pain, unspecified; F17.200 Nicotine dependence, unspecified, uncomplicated; Z79.4 Long term (current) use of insulin; Z90.49 Acquired absence of other specified parts of digestive tract; Z88.0 Allergy status to penicillin; Z88.6 Allergy status to analgesic agent; Z88.8 Allergy status to other drugs, medicaments and biological substances
CPT/HCPCS: 36415; 80053; 81001; 83690; 85025; 96361; 96374; 96375; 99283; J1170; J2405; J3010; J7030

== ENCOUNTER 2017-11-03 17:33 | Emergency (ER) | payer OTHER, BC ==
[2017-11-03 18:25] LABS: Bilirubin,Urine NEG (Negative); Blood,Urine NEG (Negative); Ketones,Urine NEG (Negative); Leukocyte Esterase,Urine NEG (Negative); Mucus,Urine FEW /HPF; Nitrite,Urine NEG (Negative); Protein,Urine <15 mg/dL mg/dL (Negative); Urobilinogen,Urine < 2.0 mg/dL (<2.0)
[2017-11-03 18:36] LABS: Mean Corpuscular HGB Conc 30 % (30-34); Mean Corpuscular Volume 77 fl (79-97); Platelet Count 365 K/mm3 (140-440); Red Blood Count 4.22 M/mm3 (3.65-5.03); Red Cell Distribution Width 19.1 % (13.2-15.2); White Blood Count 9.9 K/mm3 (4.5-11.0)
[2017-11-03 18:37] LABS: Hematocrit 32.4 % (30.3-42.9); Hemoglobin 9.6 gm/dl (10.1-14.3)
[2017-11-03 18:38] LABS: Mean Corpuscular Hemoglobin 23 pg (28-32)
[2017-11-03 18:47] LABS: Alanine Aminotransferase 17 units/L (7-56); Albumin 4.4 g/dL (3.9-5); Albumin/Globulin Ratio 1.2 %; Alkaline Phosphatase 68 units/L (35-129); Anion Gap 19 mmol/L; BUN/Creatinine Ratio 20; Blood Urea Nitrogen 10 mg/dL (7-17); Calcium 9.4 mg/dL (8.4-10.2); Carbon Dioxide 22 mmol/L (22-30); Chloride 102.3 mmol/L (98-107); Glucose 89 mg/dL (65-100); Potassium 4.2 mmol/L (3.6-5.0); Sodium 139 mmol/L (137-145); Total Protein 8.2 g/dL (6.3-8.2)
[2017-11-03] MEDS ORDERED: PERCOCET 5/325 PO ONE (20:52)
[2017-11-03] MEDS ORDERED: NACL ONE ×2 (20:55→22:32)
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
[2017-11-03 21:04] LABS: Urine Drugs of Abuse Note Disclamer
[2017-11-03] MEDS ORDERED: MORPHINE IV ONE (21:47)
[2017-11-03] MEDS ORDERED: ZOFRAN IV ONE (21:49)
[2017-11-03] MEDS ORDERED: PEPCID IV ONE (22:24)
[2017-11-03] MEDS ORDERED: BENADRYL IV ONE (22:24)
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
[2017-11-04] MEDS ORDERED: VISTARIL ONE (00:21)
[2017-11-04] MEDS ORDERED: VISTARIL PO ONE (00:29)
[2017-11-04 01:43] VITALS: BP 102/53
[2017-11-04] MEDS ORDERED: MORPHINE IV ONE (02:04)
[2017-11-04] MEDS ORDERED: REGLAN IV ONE (02:06)
== END 2017-11-04 03:00 | disposition other institution (70) ==
LOC: ED 17:33
DX: C76.0 Malignant neoplasm of head, face and neck (principal); C78.00 Secondary malignant neoplasm of unspecified lung; M54.6 Pain in thoracic spine; I10 Essential (primary) hypertension; D64.9 Anemia, unspecified; J18.1 Lobar pneumonia, unspecified organism; D21.9 Benign neoplasm of connective and other soft tissue, unspecified; F17.200 Nicotine dependence, unspecified, uncomplicated; Z88.6 Allergy status to analgesic agent; Z88.0 Allergy status to penicillin; Z90.49 Acquired absence of other specified parts of digestive tract; Z79.899 Other long term (current) drug therapy
CPT/HCPCS: 36415; 71250; 71275; 80053; 80307; 81001; 85025; 96374; 96375; 96376; 99291; 99292; G0480; J1200; J2270; J2405; J2765; Q9967; 80320; Q0177

== ENCOUNTER 2017-11-11 15:48 | Emergency (ER) | payer BC ==
[2017-11-11] MEDS ORDERED: SUBLIMAZE IM ONE (16:35)
[2017-11-11] MEDS ORDERED: ZOFRAN IM ONE (16:35)
--- NOTE | 2017-11-11 16:40 | Emergency Department Report ---
HPI - General Chief Complaint: Vaginal Bleeding Time Seen by Provider: 11/11/17 16:27 - HPI HPI: Nelson 27 The patient is a 27-year-old female presented with a chief complaint of vaginal bleeding. The patient states she has a history of metastatic cervical CVA is currently undergoing chemotherapy. Patient states her last chemotherapy occurred 10/01/2017. The patient states last night she was in her usual state of health when she awakened this morning she awakened "in a pool of blood." Patient states she's had heavy vaginal bleeding since this morning going through 2 pads so far. Patient complains of pain in the pelvis and back and soreness in her legs. Patient denies any history of fever. The patient gets her pain a score of 10/10 Location: Pelvis Duration: Constant since this morning Quality: Pain Severity:10/10 Modifying factors: [see above] Context: [see above] Mode of transportation: [not driving] ED Past Medical Hx - Past Medical History Previous Medical History?: Yes Hx of Cancer: Yes (cervical CA (lung metastases)) Additional medical history: FIBROIDS. kidney stones per pt,cervical cancer-dx 05/2017 - Surgical History Past Surgical History?: Yes Hx Cholecystectomy: Yes Additional Surgical History: X 4. HERNIA REPAIR - Family History Family history: no significant - Social History Smoking Status: Current Every Day Smoker (1/7 pack per day) Substance Use Type: None (denies illicit drug use) - Medications Home Medications: Home Medications Medication Instructions Recorded Confirmed Last Taken Type Promethazine [Phenergan TAB] 25 mg PO Q6HR PRN #20 tab 09/24/17 Unknown Rx HYDROcodone/ACETAMINOPHEN [[place] 1 - 2 each PO Q4-6H PRN #14 tablet 11/11/17 Unknown Rx 5-325 Tablet] ED Review of Systems ROS: Stated complaint: VAGINAL BLEEDING/BODY PAIN Other details as noted in HPI Constitutional: denies: fever Eyes: denies: eye pain ENT: denies: throat pain Respiratory: cough Cardiovascular: denies: chest pain Gastrointestinal: abdominal pain Musculoskeletal: back pain Neurological: denies: headache Physical Exam - Physical Exam Vital Signs: Vital Signs 11/11/17 16:21 Temperature 98.7 F Pulse Rate 72 Respiratory 24 Rate Blood Pressure 122/74 O2 Sat by Pulse 96 Oximetry Physical Exam: GENERAL: The patient is well-developed well-nourished female sitting on stretcher not appearing to be in acute distress. [] HEENT: Normocephalic. Atraumatic. Extraocular motions are intact. Patient has moist mucous membranes. NECK: Supple. Trachea midline CHEST/LUNGS: Clear to auscultation. There is no respiratory distress noted. Occasional coughing HEART/CARDIOVASCULAR: Regular. There is no tachycardia. There is no gallop rub or murmur. ABDOMEN: Abdomen is soft, with discomfort to palpation in the superpubic region. Patient has normal bowel sounds. SKIN: There are what appears to be urticaria over the forehead. There is no diaphoresis. NEURO: The patient is awake, alert, and oriented. The patient is cooperative. The patient has normal speech MUSCULOSKELETAL: There is no evidence of acute injury. PELVIC: Small amount of red blood present in the vaginal vault ED Course Vital Signs 11/11/17 16:21 Temperature 98.7 F Pulse Rate 72 Respiratory 24 Rate Blood Pressure 122/74 O2 Sat by Pulse 96 Oximetry - Laceration /Wound Repair Right Occipital Irrigated w/ Saline (ccs): 250 ED Medical Decision Making - Lab Data Result diagrams: 11/11/17 16:35 11/11/17 16:35 Laboratory Tests 11/11/17 11/11/17 11/11/17 16:35 16:35 16:35 WBC 7.8 RBC 3.83 Hgb 8.8 L Hct 29.0 L MCV 76 L MCH 23 L MCHC 30 RDW 18.6 H Plt Count 430 Lymph % (Auto) 23.0 [place] % (Auto) 11.7 H Eos % (Auto) 6.6 H Baso % (Auto) 1.4 Lymph # 1.8 [place] # 0.9 H Eos # 0.5 H Baso # 0.1 Seg Neutrophils % 57.3 Seg Neutrophils # 4.5 PT 13.5 INR 0.98 APTT 30.3 Sodium 140 Potassium 3.9 Chloride 104.0 Carbon Dioxide 22 Anion Gap 18 BUN 12 Creatinine 0.5 L Estimated GFR > 60 BUN/Creatinine Ratio 24 Glucose 98 Calcium 8.8 HCG, Qual 11/11/17 16:35 WBC RBC Hgb Hct MCV MCH MCHC RDW Plt Count Lymph % (Auto) [place] % (Auto) Eos % (Auto) Baso % (Auto) Lymph # [place] # Eos # Baso # Seg Neutrophils % Seg Neutrophils # PT INR APTT Sodium Potassium Chloride Carbon Dioxide Anion Gap BUN Creatinine Estimated GFR BUN/Creatinine Ratio Glucose Calcium HCG, Qual Negative - Radiology Data Radiology results: report reviewed (pelvic ultrasound), image reviewed (pelvic ultrasound) FINAL REPORT EXAM: US TRANSVAGINAL HISTORY: heavy vaginal bleeding, cervical CA TECHNIQUE: Grayscale and color doppler ultrasound imaging of the pelvis was performed transabdominally and transvaginally. PRIORS: Pelvic ultrasound 10/04/2017. FINDINGS: Uterus: Probable ill-defined uterine fibroid is seen measuring 2.4 x 2.2 x 1.8 centimeters. The uterus measures 9.4 x 4.1 x 4.9 centimeters. Endometrium: The endometrium is normal in echogenicity. The endometrium measures 9.2 millimeters. Ovaries: A hypoechoic focus is seen within the right ovary measuring 1.4 centimeters. Internal color flow is seen within this area. Simple left ovarian cyst is seen measuring 2.1 centimeters. Normal flow is seen to the ovaries. The right ovary measures 3.2 x 1.8 x 1.7 centimeters. The left ovary measures 3.4 x 2.2 x 3.1 centimeters. Free fluid: None. IMPRESSION: 1. Solid-appearing right ovarian lesion. Findings may represent an ovarian tumor such is an epithelial tumor versus germ-cell tumor or sex cord stromal tumor. Follow-up pelvic MRI could be helpful. 2. Uterine fibroid. 3. Simple left ovarian cyst is likely benign. Transcribed By: MG Dictated By: RAJ MAYNARD MD Electronically Authenticated By: RAJ MAYNARD MD Signed Date/Time: 11/11/171449 DD/ 49 TD/TT: 11/11/171449 - Differential Diagnosis cervical CA, menorrhagia, spontaneous , missed , threatened Critical care attestation.: If time is entered above; I have spent that time in minutes in the direct care of this critically ill patient, excluding procedure time. ED Disposition Clinical Impression: Primary cervical cancer with metastasis to other site, Ovarian mass, right, Abnormal vaginal bleeding Disposition: DC- TO HOME OR SELFCARE Is pt being admited?: No Does the pt Need Aspirin: No Condition: Stable Additional Instructions: Return to the emergency department immediately should you develop worsening symptoms, fever, inability to tolerate food or liquid or any other concerns. Prescriptions: HYDROcodone/ACETAMINOPHEN [[place] 5-325 Tablet] 1 - 2 each PO Q4-6H PRN #14 tablet PRN Reason: Pain Referrals: Dr. Cohen, your WATCH ENGINE OPERATOR [Other] - [facility] Time of Disposition: 20:26
[2017-11-11 16:49] LABS: Basophils % (Auto) 1.4 % (0.0-1.8); Eosinophils % (Auto) 6.6 % (0.0-4.3); Hemoglobin 8.8 gm/dl (10.1-14.3); Mean Corpuscular HGB Conc 30 % (30-34); Mean Corpuscular Hemoglobin 23 pg (28-32); Mean Corpuscular Volume 76 fl (79-97); Platelet Count 430 K/mm3 (140-440); Red Blood Count 3.83 M/mm3 (3.65-5.03); Red Cell Distribution Width 18.6 % (13.2-15.2); White Blood Count 7.8 K/mm3 (4.5-11.0)
[2017-11-11 16:54] LABS: INR 0.98 (0.87-1.13)
[2017-11-11 16:55] LABS: Partial Thromboplastin Time 30.3 Sec. (24.2-36.6)
[2017-11-11 17:04] LABS: Anion Gap 18 mmol/L; BUN/Creatinine Ratio 24; Blood Urea Nitrogen 12 mg/dL (7-17); Calcium 8.8 mg/dL (8.4-10.2); Carbon Dioxide 22 mmol/L (22-30); Glucose 98 mg/dL (65-100); Potassium 3.9 mmol/L (3.6-5.0); Sodium 140 mmol/L (137-145)
[2017-11-11] MEDS ORDERED: MORPHINE IM ONE (18:07)
--- NOTE | 2017-11-11 18:54 | Ultrasound Report ---
FINAL REPORT EXAM: US TRANSVAGINAL HISTORY: heavy vaginal bleeding, cervical CA TECHNIQUE: Grayscale and color doppler ultrasound imaging of the pelvis was performed transabdominally and transvaginally. PRIORS: Pelvic ultrasound 10/04/2017. FINDINGS: Uterus: Probable ill-defined uterine fibroid is seen measuring 2.4 x 2.2 x 1.8 centimeters. The uterus measures 9.4 x 4.1 x 4.9 centimeters. Endometrium: The endometrium is normal in echogenicity. The endometrium measures 9.2 millimeters. Ovaries: A hypoechoic focus is seen within the right ovary measuring 1.4 centimeters. Internal color flow is seen within this area. Simple left ovarian cyst is seen measuring 2.1 centimeters. Normal flow is seen to the ovaries. The right ovary measures 3.2 x 1.8 x 1.7 centimeters. The left ovary measures 3.4 x 2.2 x 3.1 centimeters. Free fluid: None. IMPRESSION: 1. Solid-appearing right ovarian lesion. Findings may represent an ovarian tumor such is an epithelial tumor versus germ-cell tumor or sex cord stromal tumor. Follow-up pelvic MRI could be helpful. 2. Uterine fibroid. 3. Simple left ovarian cyst is likely benign.
--- NOTE | 2017-11-11 18:56 | Ultrasound Report ---
FINAL REPORT EXAM: US PELVIC COMPLETE HISTORY: heavy vaginal bleeding, cervical CA TECHNIQUE: Grayscale and color doppler ultrasound imaging of the pelvis was performed transabdominally and transvaginally. PRIORS: 10/04/2017 FINDINGS: Uterus: Probable ill-defined uterine fibroid is seen measuring 2.4 x 2.2 x 1.8 centimeters. The uterus measures 9.4 x 4.1 x 4.9 centimeters. Endometrium: The endometrium is normal in echogenicity. The endometrium measures 9.2 millimeters. Ovaries: A hypoechoic focus is seen within the right ovary measuring 1.4 centimeters. Internal color flow is seen within this area. Simple left ovarian cyst is seen measuring 2.1 centimeters. Normal flow is seen to the ovaries. The right ovary measures 3.2 x 1.8 x 1.7 centimeters. The left ovary measures 3.4 x 2.2 x 3.1 centimeters. Free fluid: None. IMPRESSION: 1. Solid-appearing right ovarian lesion. Findings may represent an ovarian tumor such as an epithelial tumor versus germ-cell tumor or sex cord stromal tumor. Follow-up pelvic MRI could be helpful. 2. Uterine fibroid. 3. Simple left ovarian cyst likely benign.
[2017-11-11 20:46] VITALS: BP 125/57
== END 2017-11-11 20:48 | disposition home or self-care (01) ==
LOC: ED 15:48
DX: N93.9 Abnormal uterine and vaginal bleeding, unspecified (principal); N83.8 Other noninflammatory disorders of ovary, fallopian tube and broad ligament; C76.0 Malignant neoplasm of head, face and neck; C78.00 Secondary malignant neoplasm of unspecified lung; F17.200 Nicotine dependence, unspecified, uncomplicated; Z90.49 Acquired absence of other specified parts of digestive tract
CPT/HCPCS: 36415; 76830; 76856; 80048; 84703; 85025; 85610; 85730; 96372; 99284; J2270; J2405; J3010

== ENCOUNTER 2017-11-21 09:46 | Emergency (ER) | payer BC ==
[2017-11-21 10:03] VITALS: BP 114/69
[2017-11-21 10:54] LABS: Basophils % (Auto) 1.3 % (0.0-1.8); Eosinophils % (Auto) 5.4 % (0.0-4.3); Hematocrit 25.8 % (30.3-42.9); Hemoglobin 8.1 gm/dl (10.1-14.3); Mean Corpuscular HGB Conc 31 % (30-34); Mean Corpuscular Volume 76 fl (79-97); Platelet Count 387 K/mm3 (140-440); Red Cell Distribution Width 18.2 % (13.2-15.2); White Blood Count 7.8 K/mm3 (4.5-11.0)
[2017-11-21 10:59] LABS: Mean Corpuscular Hemoglobin 24 pg (28-32)
[2017-11-21 11:16] LABS: Anion Gap 15 mmol/L; BUN/Creatinine Ratio 22; Blood Urea Nitrogen 11 mg/dL (7-17); Calcium 8.6 mg/dL (8.4-10.2); Carbon Dioxide 24 mmol/L (22-30); Chloride 106.3 mmol/L (98-107); Glucose 85 mg/dL (65-100); Potassium 3.3 mmol/L (3.6-5.0); Sodium 142 mmol/L (137-145)
[2017-11-21 11:48] LABS: Bilirubin,Urine NEG (Negative); Blood,Urine NEG (Negative); Ketones,Urine NEG (Negative); Leukocyte Esterase,Urine NEG (Negative); Mucus,Urine 1+ /HPF; Nitrite,Urine NEG (Negative); Protein,Urine <15 mg/dL mg/dL (Negative)
== END 2017-11-21 11:00 | disposition left against medical advice (07) ==
LOC: ED 09:46
DX: M54.9 Dorsalgia, unspecified (principal); Z53.21 Procedure and treatment not carried out due to patient leaving prior to being seen by health care provider
CPT/HCPCS: 36415; 80048; 81001; 81025; 85025; 87086

== ENCOUNTER 2017-12-02 16:11 | Emergency (ER) | payer SELFPAY ==
[2017-12-02 17:26] LABS: Bacteria,Urine 1+ /HPF (Negative); Bilirubin,Urine NEG (Negative); Blood,Urine NEG (Negative); Color,Urine Yellow (Yellow); Mucus,Urine 3+ /HPF; Nitrite,Urine NEG (Negative); Protein,Urine <15 mg/dL mg/dL (Negative)
[2017-12-02 17:49] LABS: Basophils # (Auto) 0.1 K/mm3 (0.0-0.1); Basophils % (Auto) 1.5 % (0.0-1.8); Eosinophils # (Auto) 0.2 K/mm3 (0.0-0.4); Eosinophils % (Auto) 3.2 % (0.0-4.3); Hematocrit 31.2 % (30.3-42.9); Hemoglobin 9.6 gm/dl (10.1-14.3); Lymphocytes # (Auto) 1.3 K/mm3 (1.2-5.4); Lymphocytes % (Auto) 20.4 % (13.4-35.0); Mean Corpuscular HGB Conc 31 % (30-34); Mean Corpuscular Volume 76 fl (79-97); Monocytes # (Auto) 0.9 K/mm3 (0.0-0.8); Monocytes % (Auto) 14.4 % (0.0-7.3); Platelet Count 286 K/mm3 (140-440); Red Blood Count 4.09 M/mm3 (3.65-5.03); Red Cell Distribution Width 18.5 % (13.2-15.2)
[2017-12-02 17:56] LABS: Mean Corpuscular Hemoglobin 24 pg (28-32)
[2017-12-02 18:14] LABS: Alanine Aminotransferase 12 units/L (7-56); Albumin 4.4 g/dL (3.9-5); BUN/Creatinine Ratio 17; Blood Urea Nitrogen 10 mg/dL (7-17); Calcium 9.3 mg/dL (8.4-10.2); Hemolysis Index 4
[2017-12-03] MEDS ORDERED: NACL 0.9% 1000 ML 1,000 ML IV ONE (08:13)
[2017-12-03] MEDS ORDERED: DILAUDID IV ONE ×2 (08:13→10:48)
--- NOTE | 2017-12-03 08:46 | Cat Scan Report ---
FINAL REPORT EXAM: CT ABDOMEN PELVIS WO CON HISTORY: n,v suprapubic pain, hx of cervical ca TECHNIQUE: CT images obtained through the Abdomen and Pelvis without contrast. Transaxial,coronal and sagittal reformats are provided. PRIORS: Pelvic ultrasound 11/11/2017, CT abdomen pelvis 09/03/2017 FINDINGS: Imaged intrathoracic contents are unremarkable. Kidneys are normal in size, axis and position. No hydronephrosis or nephrolithiasis. The ureters are normal in course and caliber. No stones are seen within the urinary bladder. Multiple pelvic phleboliths. Cholecystectomy. The liver, pancreas, spleen, and adrenal glands demonstrate an unremarkable noncontrast appearance. Hollow enteric organs are normal in course and caliber. Appendix is normal. No intra-abdominal free air/fluid or lymphadenopathy. Aorta is normal in course and caliber. Superficial soft tissues are remarkable for anterior abdominal wall surgical scarring. No acute or aggressive appearing skeletal findings. IMPRESSION: No CT evidence of obstructive urolithiasis or other acute abdominal or pelvic findings.
[2017-12-03] MEDS ORDERED: ZOFRAN IV ONE (08:48)
[2017-12-03] MEDS ORDERED: DILAUDID ONE ×2 (09:00→11:51)
--- NOTE | 2017-12-03 09:42 | Emergency Department Report ---
ED N/V/D HPI - General Chief complaint: Abdominal Pain Stated complaint: BACK PAIN/VOMITING Time Seen by Provider: 12/03/17 08:02 Source: patient Mode of arrival: Ambulatory Limitations: No Limitations - History of Present Illness Initial comments: 27 yo female past medical history of metastatic cervical cancer, previous cholecystectomy, 4, and umbilical hernia repair was to the hospital complaining of nausea, vomiting, and abdominal pain 2 days. Pain is in the lower abdomen, feels like she's being cut with a knife, pain is rated 9.5/10 in intensity. Pain is constant with palpation and no alleviating factors. Patient has associated nausea and vomiting that is occasionally blood-streaked. Occasional loose stool reported. No complaints of fever. Patient was unable to see her oncologist and received her scheduled chemotherapy on November 30 due to loss of insurance secondary to the new year. Patient has had similar episodes in the past secondary to her cervical cancer. Because patient lost her insurance she could not get her [employer] delivery of her morphine, oxycodone, "antibiotic", phenergan. Patient has not had her medication in 2 weeks - Related Data Previous Rx's Medication Instructions Recorded Last Taken Type HYDROcodone/ACETAMINOPHEN [[place] 1 - 2 each PO Q4-6H PRN #14 tablet 11/11/17 Unknown Rx 5-325 Tablet] Oxycodone HCl/Acetaminophen 1 each PO Q6HR PRN #20 tablet 12/03/17 Unknown Rx [Percocet 10/325 mg] Promethazine [Phenergan TAB] 25 mg PO Q6HR PRN #20 tab 12/03/17 Unknown Rx Allergies Allergy/AdvReac Type Severity Reaction Status Date / Time ketorolac tromethamine Allergy Hives Verified 12/02/17 16:54 [From Toradol] Penicillins Allergy Swelling Verified 12/02/17 16:54 tramadol Allergy Hives Verified 12/02/17 16:54 Iodinated Contrast- Oral and AdvReac Mild other Verified 12/02/17 16:54 IV Dye ED Review of Systems ROS: Stated complaint: BACK PAIN/VOMITING Other details as noted in HPI Comment: All other systems reviewed and negative Other: Constitutional: No fevers chills Eyes: No eye pain visual changes ENT: No ear pain or throat pain Neck: Denies pain Respiratory: Denies cough wheezing shortness of breath Cardiovascular: Denies chest pain, palpitations, syncope GI: as per hpi : Denies dysuria, Musculoskeletal: Denies back pain Skin: Denies rash, lesions, erythema Neurologic: Denies headache, numbness, weakness Psychiatric: Denies suicidal ideation, hallucinations ED Past Medical Hx - Past Medical History Additional medical history: FIBROIDS, scoliosis. kidney stones per pt,cervical cancer-dx 05/2017 - Surgical History Hx Cholecystectomy: Yes Additional Surgical History: X 4. HERNIA REPAIR - Social History Smoking Status: Current Every Day Smoker Substance Use Type: None - Medications Home Medications: Home Medications Medication Instructions Recorded Confirmed Last Taken Type HYDROcodone/ACETAMINOPHEN [[place] 1 - 2 each PO Q4-6H PRN #14 tablet 11/11/17 Unknown Rx 5-325 Tablet] Oxycodone HCl/Acetaminophen 1 each PO Q6HR PRN #20 tablet 12/03/17 Unknown Rx [Percocet 10/325 mg] Promethazine [Phenergan TAB] 25 mg PO Q6HR PRN #20 tab 12/03/17 Unknown Rx ED Physical Exam - General Limitations: No Limitations - Other Other exam information: General: No limitations, patient is alert in no acute distress Head exam: Atraumatic, normocephalic Eyes exam: Normal appearance, nonicteric sclerae ENT: Moist mucous membrane, normal oropharynx Neck exam: Normal inspection, full range of motion Respiratory exam: Clear to auscultation bilateral, no wheezes, rales, crackles Cardiovascular: Normal rate and rhythm, normal heart sounds Abdomen: Soft, nondistended, suprapubic tenderness no rebound or guarding, normal bowel sounds Extremity: Full range of motion normal inspection no deformity Back: Normal Inspection, full range of motion, no tenderness Neurologic: Alert, oriented x3, cranial nerves intact, no motor or sensory deficit Psychiatric: normal affect, normal mood Skin: Warm, dry, intact ED Course Vital Signs 12/02/17 12/03/17 12/03/17 16:54 08:24 08:25 Temperature 98.6 F 98.7 F Pulse Rate 90 80 Respiratory 18 16 16 Rate Blood Pressure 119/58 Blood Pressure 109/60 [Left] O2 Sat by Pulse 98 100 100 Oximetry 12/03/17 11:53 Temperature Pulse Rate 65 Respiratory 14 Rate Blood Pressure Blood Pressure 107/49 [Left] O2 Sat by Pulse 100 Oximetry - Reevaluation(s) Reevaluation #1: 12/03/17 09:51 Pt tx with Dilaudid, Zofran, and normal saline ED Medical Decision Making - Lab Data Result diagrams: 12/02/17 17:30 12/02/17 17:30 Lab Results 12/02/17 12/02/17 12/02/17 Range/Units 17:00 17:30 17:30 WBC 6.4 (4.5-11.0) K/mm3 RBC 4.09 (3.65-5.03) M/mm3 Hgb 9.6 L (10.1-14.3) gm/dl Hct 31.2 (30.3-42.9) % MCV 76 L (79-97) fl MCH 24 L (28-32) pg MCHC 31 (30-34) % RDW 18.5 H (13.2-15.2) % Plt Count 286 (140-440) K/mm3 Lymph % (Auto) 20.4 (13.4-35.0) % [place] % (Auto) 14.4 H (0.0-7.3) % Eos % (Auto) 3.2 (0.0-4.3) % Baso % (Auto) 1.5 (0.0-1.8) % Lymph # 1.3 (1.2-5.4) K/mm3 [place] # 0.9 H (0.0-0.8) K/mm3 Eos # 0.2 (0.0-0.4) K/mm3 Baso # 0.1 (0.0-0.1) K/mm3 Seg Neutrophils % 60.5 (40.0-70.0) % Seg Neutrophils # 3.9 (1.8-7.7) K/mm3 Sodium 141 (137-145) mmol/L Potassium 4.4 (3.6-5.0) mmol/L Chloride 104.6 (98-107) mmol/L Carbon Dioxide 22 (22-30) mmol/L Anion Gap 19 mmol/L BUN 10 (7-17) mg/dL Creatinine 0.6 L (0.7-1.2) mg/dL Estimated GFR > 60 ml/min BUN/Creatinine Ratio 17 % Glucose 90 (65-100) mg/dL Calcium 9.3 (8.4-10.2) mg/dL Total Bilirubin 0.30 (0.1-1.2) mg/dL AST 15 (5-40) units/L ALT 12 (7-56) units/L Alkaline Phosphatase 58 (35-129) units/L Total Protein 7.8 (6.3-8.2) g/dL Albumin 4.4 (3.9-5) g/dL Albumin/Globulin Ratio 1.3 % Lipase (13-60) units/L HCG, Qual (Negative) Urine Color Yellow (Yellow) Urine Turbidity Cloudy (Clear) Urine pH 7.0 (5.0-7.0) Ur Specific [place] 1.026 (1.003-1.030) Urine Protein <15 mg/dl (Negative) mg/dL Urine Glucose (UA) Neg (Negative) mg/dL Urine Ketones Neg (Negative) mg/dL Urine Blood Neg (Negative) Urine Nitrite Neg (Negative) Urine Bilirubin Neg (Negative) Urine Urobilinogen 2.0 (<2.0) mg/dL Ur Leukocyte Esterase Tr (Negative) Urine WBC (Auto) 4.0 (0.0-6.0) /HPF Urine RBC (Auto) 3.0 (0.0-6.0) /HPF U Epithel Cells (Auto) 5.0 (0-13.0) /HPF Urine Bacteria (Auto) 1+ (Negative) /HPF Urine Mucus 3+ /HPF 12/02/17 12/03/17 Range/Units 17:30 08:00 WBC (4.5-11.0) K/mm3 RBC (3.65-5.03) M/mm3 Hgb (10.1-14.3) gm/dl Hct (30.3-42.9) % MCV (79-97) fl MCH (28-32) pg MCHC (30-34) % RDW (13.2-15.2) % Plt Count (140-440) K/mm3 Lymph % (Auto) (13.4-35.0) % [place] % (Auto) (0.0-7.3) % Eos % (Auto) (0.0-4.3) % Baso % (Auto) (0.0-1.8) % Lymph # (1.2-5.4) K/mm3 [place] # (0.0-0.8) K/mm3 Eos # (0.0-0.4) K/mm3 Baso # (0.0-0.1) K/mm3 Seg Neutrophils % (40.0-70.0) % Seg Neutrophils # (1.8-7.7) K/mm3 Sodium (137-145) mmol/L Potassium (3.6-5.0) mmol/L Chloride (98-107) mmol/L Carbon Dioxide (22-30) mmol/L Anion Gap mmol/L BUN (7-17) mg/dL Creatinine (0.7-1.2) mg/dL Estimated GFR ml/min BUN/Creatinine Ratio % Glucose (65-100) mg/dL Calcium (8.4-10.2) mg/dL Total Bilirubin (0.1-1.2) mg/dL AST (5-40) units/L ALT (7-56) units/L Alkaline Phosphatase (35-129) units/L Total Protein (6.3-8.2) g/dL Albumin (3.9-5) g/dL Albumin/Globulin Ratio % Lipase 25 (13-60) units/L HCG, Qual Negative (Negative) Urine Color (Yellow) Urine Turbidity (Clear) Urine pH (5.0-7.0) Ur Specific [place] (1.003-1.030) Urine Protein (Negative) mg/dL Urine Glucose (UA) (Negative) mg/dL Urine Ketones (Negative) mg/dL Urine Blood (Negative) Urine Nitrite (Negative) Urine Bilirubin (Negative) Urine Urobilinogen (<2.0) mg/dL Ur Leukocyte Esterase (Negative) Urine WBC (Auto) (0.0-6.0) /HPF Urine RBC (Auto) (0.0-6.0) /HPF U Epithel Cells (Auto) (0-13.0) /HPF Urine Bacteria (Auto) (Negative) /HPF Urine Mucus /HPF - Radiology Data Radiology results: report reviewed CT abdomen and pelvis noncontrast: No acute findings - Medical Decision Making Patient's ED workup unremarkable other than mild dehydration and anemia. I suspect the patient has opioid dependence, chronic pain, and some symptoms of opiate withdrawal. She will be treated with Percocet and Phenergan and encouraged to follow up for further management. - Differential Diagnosis UTI, appendicitis, cervical ca, obstruction, gastroenteritis, opiate withd Critical Care Time: No Critical care attestation.: If time is entered above; I have spent that time in minutes in the direct care of this critically ill patient, excluding procedure time. ED Disposition Clinical Impression: Cervical cancer, Opiate dependence, Nausea & vomiting, Chronic pelvic pain in female Disposition: OP ADMIT IP TO THIS HOSP Is pt being admited?: Yes Condition: Stable Instructions: Chronic Pelvic Pain in Women (ED), Acute Nausea and Vomiting (ED) Additional Instructions: Take the medication as needed for pain and nausea. Follow-up with your doctors. Return if symptoms worsen Prescriptions: Oxycodone HCl/Acetaminophen [Percocet 10/325 mg] 1 each PO Q6HR PRN #20 tablet PRN Reason: Pain Promethazine [Phenergan TAB] 25 mg PO Q6HR PRN #20 tab PRN Reason: Nausea Referrals: your, oncologist [Other] - 2-3 Days Time of Disposition: 12:41
[2017-12-03] MEDS ORDERED: NACL 0.9% 1000 ML 1,000 ML ONE (11:28)
[2017-12-03 11:54] VITALS: BP 107/49
== END 2017-12-03 12:30 | disposition home or self-care (01) ==
LOC: ED 16:11
DX: C53.9 Malignant neoplasm of cervix uteri, unspecified (principal); C79.9 Secondary malignant neoplasm of unspecified site; F11.20 Opioid dependence, uncomplicated; G89.29 Other chronic pain; F17.200 Nicotine dependence, unspecified, uncomplicated; D25.9 Leiomyoma of uterus, unspecified; Z88.6 Allergy status to analgesic agent; Z88.0 Allergy status to penicillin; Z90.49 Acquired absence of other specified parts of digestive tract; Z98.890 Other specified postprocedural states
CPT/HCPCS: 36415; 74176; 80053; 81001; 83690; 84703; 85025; 87400; 96361; 96374; 96375; 96376; 99284; J1170; J2405; J7030

== ENCOUNTER 2017-12-27 13:46 | Emergency (ER) | payer SELFPAY ==
[2017-12-27 14:10] VITALS: BP 111/59
[2017-12-27] MEDS ORDERED: ZOFRAN ODT PO/SL ONE (17:43)
--- NOTE | 2017-12-27 17:43 | Emergency Department Report ---
Chief Complaint: GI Bleed Stated Complaint: BLOOD IN URINE AND VOMIT - HPI History of Present Illness: 27-year-old female presents with abdominal pain for 2 days. She's also had 2 days of nausea and vomiting. Vomiting with small streaks of blood. She is quite upset because she missed her chemotherapy appointment today. She is being treated for stage I cancer. She normally has BCBS arranged through her father. However she no longer has insurance. Dx'd with cervical CA in May. With hx of chemotherapy, I suspect patient's staging hx may be inaccurate. She has metastases to liver and lung according to her report. - Exam Vital Signs: Vital Signs 12/27/17 12/27/17 12/27/17 13:45 13:46 14:05 Temperature 98.5 F Pulse Rate 92 H 83 Respiratory 18 Rate Blood Pressure 110/66 113/63 111/59 O2 Sat by Pulse 100 100 Oximetry MSE screening note: Focused history and physical exam performed. Due to findings the following was ordered: ED Disposition for MSE Condition: Stable Referrals: PRIMARY CARE, [Primary Care Provider] - 3-5 Days
[2017-12-27] MEDS ORDERED: PERCOCET 5/325 PO ONE (17:44)
[2017-12-27 18:40] LABS: Bilirubin,Urine NEG (Negative); Blood,Urine NEG (Negative); Color,Urine Yellow (Yellow); Mucus,Urine FEW /HPF; Nitrite,Urine NEG (Negative); Protein,Urine <15 mg/dL mg/dL (Negative)
[2017-12-27 18:56] LABS: HCG Qualitative,Urine Negative (Negative)
[2017-12-27 19:00] LABS: Alanine Aminotransferase 8 units/L (7-56); Albumin 4.1 g/dL (3.9-5); Lipase 28 units/L (13-60)
[2017-12-27 19:01] LABS: Bilirubin,Direct < 0.2 mg/dL (0-0.2)
[2017-12-27 19:24] LABS: Basophils # (Auto) 0.1 K/mm3 (0.0-0.1); Basophils % (Auto) 1.1 % (0.0-1.8); Eosinophils # (Auto) 0.1 K/mm3 (0.0-0.4); Eosinophils % (Auto) 2.1 % (0.0-4.3); Lymphocytes # (Auto) 1.5 K/mm3 (1.2-5.4); Lymphocytes % (Auto) 23.2 % (13.4-35.0); Mean Corpuscular HGB Conc 30 % (30-34); Mean Corpuscular Volume 76 fl (79-97); Monocytes # (Auto) 0.9 K/mm3 (0.0-0.8); Monocytes % (Auto) 13.1 % (0.0-7.3); Platelet Count 364 K/mm3 (140-440); Red Blood Count 3.84 M/mm3 (3.65-5.03); Red Cell Distribution Width 18.2 % (13.2-15.2)
[2017-12-27 19:29] LABS: Hematocrit 29.2 % (30.3-42.9); Hemoglobin 8.7 gm/dl (10.1-14.3); Mean Corpuscular Hemoglobin 23 pg (28-32)
--- NOTE | 2017-12-27 19:53 | Emergency Department Report ---
ED GI Bleed HPI - General Chief complaint: GI Bleed Stated complaint: BLOOD IN URINE AND VOMIT Time Seen by Provider: 12/27/17 19:45 Source: patient Mode of arrival: Wheelchair Limitations: No Limitations - History of Present Illness Severity scale (0 -10): 6 - Related Data Previous Rx's Medication Instructions Recorded Last Taken Type HYDROcodone/ACETAMINOPHEN [[place] 1 - 2 each PO Q4-6H PRN #14 tablet 11/11/17 Unknown Rx 5-325 Tablet] Oxycodone HCl/Acetaminophen 1 each PO Q6HR PRN #20 tablet 12/03/17 Unknown Rx [Percocet 10/325 mg] Promethazine [Phenergan TAB] 25 mg PO Q6HR PRN #20 tab 12/03/17 Unknown Rx Allergies Allergy/AdvReac Type Severity Reaction Status Date / Time ketorolac tromethamine Allergy Hives Verified 12/02/17 16:54 [From Toradol] Penicillins Allergy Swelling Verified 12/02/17 16:54 tramadol Allergy Hives Verified 12/02/17 16:54 Iodinated Contrast- Oral and AdvReac Mild other Verified 12/02/17 16:54 IV Dye ED Review of Systems ROS: Stated complaint: BLOOD IN URINE AND VOMIT Other details as noted in HPI ED Past Medical Hx - Past Medical History Previous Medical History?: Yes Hx of Cancer: Yes (cervical) Hx Kidney Stones: Yes Additional medical history: FIBROIDS, scoliosis. kidney stones per pt,cervical cancer-dx 05/2017 - Surgical History Past Surgical History?: Yes Hx Cholecystectomy: Yes Additional Surgical History: X 4. HERNIA REPAIR - Social History Smoking Status: Current Every Day Smoker Substance Use Type: None - Medications Home Medications: Home Medications Medication Instructions Recorded Confirmed Last Taken Type HYDROcodone/ACETAMINOPHEN [[place] 1 - 2 each PO Q4-6H PRN #14 tablet 11/11/17 Unknown Rx 5-325 Tablet] Oxycodone HCl/Acetaminophen 1 each PO Q6HR PRN #20 tablet 12/03/17 Unknown Rx [Percocet 10/325 mg] Promethazine [Phenergan TAB] 25 mg PO Q6HR PRN #20 tab 12/03/17 Unknown Rx ED Physical Exam - General Limitations: No Limitations ED Course Vital Signs 12/27/17 12/27/17 12/27/17 13:45 13:46 14:05 Temperature 98.5 F Pulse Rate 92 H 83 Respiratory 18 Rate Blood Pressure 110/66 113/63 111/59 O2 Sat by Pulse 100 100 Oximetry ED Medical Decision Making - Lab Data Result diagrams: 12/27/17 18:24 Critical care attestation.: If time is entered above; I have spent that time in minutes in the direct care of this critically ill patient, excluding procedure time. ED Disposition Condition: Stable Referrals: PRIMARY CARE, [Primary Care Provider] - 3-5 Days Forms: Accompanied Note
== END 2017-12-27 20:27 | disposition left against medical advice (07) ==
LOC: ED 13:46
DX: K92.0 Hematemesis (principal); R31.9 Hematuria, unspecified; Z53.21 Procedure and treatment not carried out due to patient leaving prior to being seen by health care provider
CPT/HCPCS: 36415; 80074; 81001; 81025; 83690; 85025; Q0162

== ENCOUNTER 2018-01-07 19:12 | Emergency (ER) | payer SELFPAY ==
[2018-01-07 21:32] LABS: Bilirubin,Urine NEG (Negative); Blood,Urine NEG (Negative); Color,Urine Yellow (Yellow); Mucus,Urine FEW /HPF; Nitrite,Urine NEG (Negative); Protein,Urine <15 mg/dL mg/dL (Negative); Urobilinogen,Urine < 2.0 mg/dL (<2.0); WBC,Urine < 1.0 /HPF (0.0-6.0)
[2018-01-08] LABS: Basophils # (Auto) 0.1 K/mm3 (0.0-0.1); Basophils % (Auto) 1.1 % (0.0-1.8); Eosinophils # (Auto) 0.2 K/mm3 (0.0-0.4); Eosinophils % (Auto) 2.4 % (0.0-4.3); Hematocrit 28.6 % (30.3-42.9); Hemoglobin 8.7 gm/dl (10.1-14.3); Lymphocytes # (Auto) 2.1 K/mm3 (1.2-5.4); Lymphocytes % (Auto) 24.3 % (13.4-35.0); Mean Corpuscular HGB Conc 30 % (30-34); Mean Corpuscular Volume 75 fl (79-97); Monocytes % (Auto) 11.9 % (0.0-7.3); Platelet Count 357 K/mm3 (140-440); Red Cell Distribution Width 18.2 % (13.2-15.2)
[2018-01-08 00:03] LABS: Mean Corpuscular Hemoglobin 23 pg (28-32)
[2018-01-08 00:22] LABS: Alanine Aminotransferase 11 units/L (7-56); BUN/Creatinine Ratio 22; Blood Urea Nitrogen 11 mg/dL (7-17); Calcium 8.9 mg/dL (8.4-10.2); Hemolysis Index 5
[2018-01-08] MEDS ORDERED: ZOFRAN IV ONE (10:48)
[2018-01-08] MEDS ORDERED: NACL 0.9% 1000 ML 1,000 ML IV ONE (10:49)
--- NOTE | 2018-01-08 11:02 | Emergency Department Report ---
ED Abdominal Pain HPI - General Chief Complaint: Abdominal Pain Stated Complaint: NAUSEA/VOMNITING Time Seen by Provider: 01/08/18 10:15 Source: patient, family Mode of arrival: Ambulatory Limitations: No Limitations - History of Present Illness Initial Comments: 27 yo female ?history of cervical cancer seen a month ago for similar symptoms back today with persistent intermittent lower abdominal pain with occasional nausea vomiting.states dx in [facility] w/ cervical ca , seen here after "i just moved here" in last fall, here states missed her "shravan cohen appt for my ca appt, my insurance ran out, no chemo no rad since oct after my insurance ran out"not sure which hosptial in [facility] she was at for her ca dx, Negative for evaluation of persistent intermittent lower abdominal pain, with intermittent nausea vomiting. She denies any vaginal bleeding she denies any hematemesis no melena no fever no black or bloody stool Severity scale (0 -10): 10 - Related Data Previous Rx's Medication Instructions Recorded Last Taken Type HYDROcodone/ACETAMINOPHEN [[place] 1 - 2 each PO Q4-6H PRN #14 tablet 11/11/17 Unknown Rx 5-325 Tablet] Oxycodone HCl/Acetaminophen 1 each PO Q6HR PRN #20 tablet 12/03/17 Unknown Rx [Percocet 10/325 mg] Promethazine [Phenergan TAB] 25 mg PO Q6HR PRN #20 tab 12/03/17 Unknown Rx Allergies Allergy/AdvReac Type Severity Reaction Status Date / Time ketorolac tromethamine Allergy Hives Verified 12/02/17 16:54 [From Toradol] Penicillins Allergy Swelling Verified 12/02/17 16:54 tramadol Allergy Hives Verified 12/02/17 16:54 Iodinated Contrast- Oral and AdvReac Mild other Verified 12/02/17 16:54 IV Dye ED Review of Systems ROS: Stated complaint: NAUSEA/VOMNITING Other details as noted in HPI Comment: All other systems reviewed and negative Constitutional: denies: diaphoresis, fever, malaise ENT: denies: dental pain, hearing loss, epistaxis Respiratory: denies: cough, orthopnea, shortness of breath, SOB with exertion, SOB at rest, stridor, wheezing Cardiovascular: denies: chest pain, palpitations, dyspnea on exertion, orthopnea , edema, syncope, paroxysmal nocturnal dyspnea Endocrine: denies: excessive sweating, flushing Gastrointestinal: abdominal pain, nausea, vomiting. denies: diarrhea, constipation, hematemesis, melena, hematochezia Genitourinary: denies: urgency, dysuria, hematuria, discharge, abnormal menses, dyspareunia Musculoskeletal: denies: joint swelling, arthralgia, myalgia Neurological: denies: numbness, paresthesias, confusion, abnormal gait, vertigo Hematological/Lymphatic: denies: easy bleeding, easy bruising ED Past Medical Hx - Past Medical History Previous Medical History?: Yes Hx Kidney Stones: Yes Additional medical history: FIBROIDS, scoliosis. kidney stones per pt,cervical cancer-dx 05/2017 - Surgical History Past Surgical History?: Yes Hx Cholecystectomy: Yes Additional Surgical History: X 4. HERNIA REPAIR - Social History Smoking Status: Current Every Day Smoker Substance Use Type: None - Medications Home Medications: Home Medications Medication Instructions Recorded Confirmed Last Taken Type HYDROcodone/ACETAMINOPHEN [[place] 1 - 2 each PO Q4-6H PRN #14 tablet 11/11/17 Unknown Rx 5-325 Tablet] Oxycodone HCl/Acetaminophen 1 each PO Q6HR PRN #20 tablet 12/03/17 Unknown Rx [Percocet 10/325 mg] Promethazine [Phenergan TAB] 25 mg PO Q6HR PRN #20 tab 12/03/17 Unknown Rx ED Physical Exam - General Limitations: No Limitations General appearance: alert, in no apparent distress - Head Head exam: Present: atraumatic, normocephalic - Eye Eye exam: Present: normal appearance, PERRL, EOMI - ENT ENT exam: Present: normal exam, normal orophraynx - Neck Neck exam: Present: normal inspection. Absent: tenderness, meningismus - Respiratory Respiratory exam: Present: normal lung sounds bilaterally. Absent: respiratory distress, wheezes, rales, rhonchi, stridor, chest wall tenderness, accessory muscle use - Cardiovascular Cardiovascular Exam: Present: regular rate, normal rhythm, normal heart sounds. Absent: systolic murmur, diastolic murmur, rubs, gallop - GI/Abdominal GI/Abdominal exam: Present: soft, distended, tenderness. Absent: guarding, rebound, rigid, mass, pulsatile mass - Extremities Exam Extremities exam: Present: normal inspection, full ROM. Absent: tenderness, normal capillary refill, pedal edema, joint swelling, calf tenderness - Back Exam Back exam: Present: normal inspection. Absent: CVA tenderness (R), CVA tenderness (L), muscle spasm, paraspinal tenderness, vertebral tenderness - Neurological Exam Neurological exam: Present: alert, oriented X3, CN II-XII intact. Absent: motor sensory deficit - Skin Skin exam: Present: warm, dry, intact, normal color. Absent: rash, cyanosis, urticaria, vesicles, petechiae ED Course Vital Signs 01/07/18 01/07/18 01/07/18 19:54 19:55 19:57 Temperature 97.4 F L Pulse Rate 72 73 78 Respiratory 17 Rate Blood Pressure 105/40 117/68 116/50 Blood Pressure [Right] O2 Sat by Pulse 91 100 99 Oximetry 01/08/18 01/08/18 01/08/18 10:33 10:35 12:03 Temperature 98.4 F Pulse Rate 68 57 L Respiratory 18 18 18 Rate Blood Pressure Blood Pressure 118/67 128/59 [Right] O2 Sat by Pulse 100 100 100 Oximetry - Reevaluation(s) Reevaluation #1: 01/08/18 11:42 I called [facility] ,patient has no record at this facility they looked her up twice she is not in the computer there is no recent visits there. She said while "I don't know if that's the right place but I did see a Dr. Cohen one time." She refuses to answer further questions about her previous cancer care after I asked her about this.no sure which hosptial in [place] it was "where they told me I have cervical ca and need chemo", no other onc visists are apparent at this time although pt is asking for more dialudid in ed at this time 01/08/18 14:18 ED Medical Decision Making - Lab Data Result diagrams: 01/07/18 23:36 01/07/18 23:36 - Radiology Data Radiology results: report reviewed - Medical Decision Making Patient was unremarkable laboratory studies she does have persistent anemia which is microcytic similar to her previous visits. No active bleeding is noted she was informed of need to have a regular doctor evaluate her for anemia this does appear to be chronic microcytic anemia. Patient did seemto exhibit some drug-seeking behavior in the ED. She has multiple drug allergies including all NSAIDs and tramadol. I did attempt to get more information about her cancer diagnosis and cannot document that she's ever been seen for this unclear if her believe of cervical cancer was maybe an abnormal Pap smear. She was given pain medicine with antibiotics was improved in the ED laboratory studies were otherwise unremarkable negative urine not pertinent negative CT abdomen. No acute abdomen at this time she is to for outpatient follow-up with her regular doctor and is tolerating by mouth., sx were worrisome for sbo in triage at arrival and exam show slight distention but no evidenc on ct Critical care attestation.: If time is entered above; I have spent that time in minutes in the direct care of this critically ill patient, excluding procedure time. ED Disposition Clinical Impression: Chronic abdominal pain, Microcytic anemia, Chronic nausea Disposition: TO HOME OR SELFCARE Is pt being admited?: No Condition: Stable Instructions: Abdominal Pain (ED) Additional Instructions: see regular doctor in 2 days and return immediately if new or alarming symptoms , take your chronic pain medicine or find a pain doctor in the yellow pages, return if worse, otc tylenol as needed as directed, no more than total 3-4 grams of acetaminophen in 24 hrs Referrals: AIXA ESPARZA MD [Primary Care Provider] - 3-5 Days Time of Disposition: 14:26
[2018-01-08] MEDS ORDERED: DILAUDID IV ONE (11:29)
[2018-01-08] MEDS ORDERED: BENADRYL ONE (11:59)
[2018-01-08] MEDS ORDERED: BENADRYL IV ONE (11:59)
--- NOTE | 2018-01-08 12:24 | Cat Scan Report ---
CT ABDOMEN PELVIS WITH CONTRAST: HISTORY: Possible obstruction. COMPARISON: 12/03/17. TECHNIQUE: Helical CT in 1.25mm intervals following IV contrast. Sagittal and coronal reconstructions. FINDINGS: Lung bases: Normal. Liver: Normal. Biliary system: Cholecystectomy. No biliary dilatation. Pancreas: Normal. Spleen: Normal. Kidneys/ureters/bladder: Normal. Adrenal glands: Normal. Aorta: Normal. Intestines: Normal. Appendix: Normal. Pelvic viscera: Normal. Ascites: None. Adenopathy: None. Musculoskeletal: Normal. IMPRESSION: No acute process is appreciated.
[2018-01-08 14:25] VITALS: BP 105/62
== END 2018-01-08 14:53 | disposition home or self-care (01) ==
LOC: ED 19:12
DX: R10.30 Lower abdominal pain, unspecified (principal); R11.0 Nausea; D50.9 Iron deficiency anemia, unspecified; F17.200 Nicotine dependence, unspecified, uncomplicated; C76.0 Malignant neoplasm of head, face and neck; Z88.0 Allergy status to penicillin; Z88.8 Allergy status to other drugs, medicaments and biological substances
CPT/HCPCS: 36415; 74177; 80053; 81001; 84703; 85025; 96361; 96374; 96375; 99284; J1170; J1200; J2405; J7030; Q9967

== ENCOUNTER 2018-01-28 13:23 | Emergency (ER) | payer BC, OTHER ==
[2018-01-28 15:01] LABS: HCG Qualitative,Urine Negative (Negative)
[2018-01-28 15:06] LABS: Bilirubin,Urine NEG (Negative); Blood,Urine LG (Negative); Color,Urine Yellow (Yellow); Mucus,Urine 2+ /HPF; Protein,Urine <15 mg/dL mg/dL (Negative)
[2018-01-28 15:10] LABS: RBC,Urine < 1.0 /HPF (0.0-6.0)
[2018-01-28] MEDS ORDERED: NACL 0.9% 1000 ML 1,000 ML IV ONE (17:41)
[2018-01-28] MEDS ORDERED: ZOFRAN IV ONE ×2 (17:41→20:30)
[2018-01-28] MEDS ORDERED: MORPHINE IV ONE ×2 (17:41→20:30)
--- NOTE | 2018-01-28 17:41 | Emergency Department Report ---
Blank Doc - Documentation Documentation: Patient is a 27-year-old female who is presenting with lower abdominal pain and vaginal bleeding. Patient states she was on her period last week and is abnormal for her to start bleeding again. She states she says a heavy flow of blood and crampy lower abdominal pains A 10 severity. Patient has a history of cervical cancer is on chemotherapy at this time. Patient be moved to a treatment room for IV fluids and to check her hemoglobin
[2018-01-28 18:56] LABS: BUN/Creatinine Ratio 20; Blood Urea Nitrogen 12 mg/dL (7-17); Calcium 9.3 mg/dL (8.4-10.2); Hemolysis Index 4
[2018-01-28 19:20] LABS: Alanine Aminotransferase 14 units/L (7-56); Albumin 4.4 g/dL (3.9-5)
--- NOTE | 2018-01-28 19:33 | Emergency Department Report ---
ED Female HPI - General Chief complaint: Urogenital-Female Stated complaint: CERVICAL PAIN AND BLEEDING Time Seen by Provider: 01/28/18 17:36 Source: patient, family Mode of arrival: Ambulatory Limitations: No Limitations - History of Present Illness Initial comments: Patient is a 27-year-old female who is presenting with lower abdominal pain and vaginal bleeding. Patient states she was on her period last week and is abnormal for her to start bleeding again. She states she says a heavy flow of blood and crampy lower abdominal pains A 10 severity. She reports this started this morning. Patient has a history of cervical cancer is on chemotherapy at this time. Patient said she had outpatient procedure for cervical cancer in [place] and also she still on chemotherapy but states her next chemotherapy is on hold because her [employer] ran out and it is not going to be reinstated until 30 days. Patient says she usually takes morphine and Percocet for pain per her oncologist but because she hasn't seen him for Percocet is out and she does not have any more pain medication. Denies any urinary burning frequency or urgency. Denies any back pain. Reports nausea /vomiting . denies fever or chills. Nothing makes it better and nothing makes it worse. Denies any chest pain or shortness of breath. MD Complaint: vaginal bleeding, pelvic pain -: This morning Location: suprapubic Radiation: non-radiating Severity: severe Severity scale (0 -10): 10 Quality: cramping Consistency: constant Improves with: none Worsens with: none Are you Now?: No Associated Symptoms: vaginal bleeding, abdominal pain, nausea/vomiting, hematuria, weakness. denies: vaginal discharge, fever/chills, headaches, loss of appetite, dysuria, rash, seizure, shortness of breath, syncope - Related Data Sexually active: No Previous Rx's Medication Instructions Recorded Last Taken Type HYDROcodone/ACETAMINOPHEN [[place] 1 - 2 each PO Q4-6H PRN #14 tablet 11/11/17 Unknown Rx 5-325 Tablet] Ondansetron [Zofran Odt] 4 mg PO 4XD PRN #10 tab.rapdis 01/08/18 Unknown Rx Docusate Sodium [Colace] 100 mg PO BID 30 Days #60 capsule 01/28/18 Unknown Rx Ferrous Sulfate [Feosol 325 MG tab] 325 mg PO TID 30 Days #90 tablet 01/28/18 Unknown Rx Oxycodone HCl/Acetaminophen 1 each PO Q6HR PRN #20 tablet 01/28/18 Unknown Rx [Percocet 10/325 mg] Promethazine [Phenergan TAB] 25 mg PO Q6HR PRN #20 tab 01/28/18 Unknown Rx Sulfamethoxazole/Trimethoprim 1 each PO BID 5 Days #10 tablet 01/28/18 Unknown Rx [Bactrim DS TAB] Allergies Allergy/AdvReac Type Severity Reaction Status Date / Time ketorolac tromethamine Allergy Hives Verified 12/02/17 16:54 [From Toradol] Penicillins Allergy Swelling Verified 12/02/17 16:54 tramadol Allergy Hives Verified 12/02/17 16:54 Iodinated Contrast- Oral and AdvReac Mild other Verified 12/02/17 16:54 IV Dye ED Review of Systems ROS: Stated complaint: CERVICAL PAIN AND BLEEDING Other details as noted in HPI Comment: All other systems reviewed and negative Constitutional: no symptoms reported ENT: denies: throat pain, congestion Respiratory: no symptoms reported Cardiovascular: denies: chest pain, palpitations, dyspnea on exertion, edema, syncope, paroxysmal nocturnal dyspnea Gastrointestinal: abdominal pain, nausea, vomiting. denies: diarrhea, constipation, hematemesis, melena, hematochezia Genitourinary: hematuria, abnormal menses. denies: dysuria, frequency, discharge Musculoskeletal: denies: back pain, joint swelling, arthralgia, myalgia Skin: denies: rash Neurological: weakness. denies: headache, numbness, paresthesias, confusion, abnormal gait, vertigo ED Past Medical Hx - Past Medical History Previous Medical History?: Yes Hx Kidney Stones: Yes Additional medical history: FIBROIDS, scoliosis. kidney stones per pt,cervical cancer-dx 05/2017 - Surgical History Past Surgical History?: Yes Hx Cholecystectomy: Yes Additional Surgical History: X 4. HERNIA REPAIR - Family History Family history: hypertension - Social History Smoking Status: Current Every Day Smoker Substance Use Type: None - Medications Home Medications: Home Medications Medication Instructions Recorded Confirmed Last Taken Type HYDROcodone/ACETAMINOPHEN [[place] 1 - 2 each PO Q4-6H PRN #14 tablet 11/11/17 Unknown Rx 5-325 Tablet] Ondansetron [Zofran Odt] 4 mg PO 4XD PRN #10 tab.rapdis 01/08/18 Unknown Rx Docusate Sodium [Colace] 100 mg PO BID 30 Days #60 capsule 01/28/18 Unknown Rx Ferrous Sulfate [Feosol 325 MG tab] 325 mg PO TID 30 Days #90 tablet 01/28/18 Unknown Rx Oxycodone HCl/Acetaminophen 1 each PO Q6HR PRN #20 tablet 01/28/18 Unknown Rx [Percocet 10/325 mg] Promethazine [Phenergan TAB] 25 mg PO Q6HR PRN #20 tab 01/28/18 Unknown Rx Sulfamethoxazole/Trimethoprim 1 each PO BID 5 Days #10 tablet 01/28/18 Unknown Rx [Bactrim DS TAB] ED Physical Exam - General Limitations: No Limitations General appearance: alert, in no apparent distress - Head Head exam: Present: atraumatic, normocephalic, normal inspection - Eye Eye exam: Present: normal appearance, PERRL, EOMI Pupils: Present: normal accommodation - ENT ENT exam: Present: normal exam, normal orophraynx, mucous membranes moist, TM's normal bilaterally, normal external ear exam - Neck Neck exam: Present: normal inspection, full ROM. Absent: tenderness, meningismus, lymphadenopathy, thyromegaly - Respiratory Respiratory exam: Present: normal lung sounds bilaterally. Absent: respiratory distress, chest wall tenderness, accessory muscle use - Cardiovascular Cardiovascular Exam: Present: regular rate, normal rhythm, normal heart sounds. Absent: systolic murmur, diastolic murmur - GI/Abdominal GI/Abdominal exam: Present: soft, distended, tenderness, guarding, normal bowel sounds. Absent: rebound, rigid, organomegaly, mass, bruit, pulsatile mass, hernia - Extremities Exam Extremities exam: Present: normal inspection, full ROM, normal capillary refill , other (no clubbing, cyanosis or edema. +2 pulses to all extremities and no neurovascular compromise). Absent: tenderness, pedal edema, joint swelling, calf tenderness - Back Exam Back exam: Present: normal inspection, full ROM, other (ambulates without any difficulties). Absent: tenderness, CVA tenderness (R), CVA tenderness (L), muscle spasm, paraspinal tenderness, vertebral tenderness, rash noted - Neurological Exam Neurological exam: Present: alert, oriented X3, normal gait - Psychiatric Psychiatric exam: Present: normal affect, normal mood - Skin Skin exam: Present: warm, dry, normal color. Absent: rash ED Course Vital Signs 01/28/18 01/28/18 01/28/18 13:36 17:42 19:00 Temperature 97.2 F L Pulse Rate 72 Respiratory 18 18 Rate Blood Pressure 122/69 Blood Pressure [Left] O2 Sat by Pulse 98 Oximetry 01/28/18 01/28/18 22:31 23:32 Temperature 98 F Pulse Rate 84 78 Respiratory 16 18 Rate Blood Pressure Blood Pressure 106/36 [Left] O2 Sat by Pulse 95 99 Oximetry - Reevaluation(s) Reevaluation #1: 01/28/18 20:31 She received morphine 4 mg IV and Zofran 4 mg IV at 1740 2 PM. She received 1 L normal saline which is still infusing at 1841. Patient is still having pain. She'll receive an additional 4 mg of morphine IV, Reglan 10 mg IV and Zofran 4 mg IV. CBC ordered and pending. Patient with bacteria in her urine and culture sent. She is still having vaginal bleeding. Reevaluation #2: 01/28/18 21:08 Platelet is mildly elevated at 452 Reevaluation #3: 01/28/18 22:22 She transferred on the ultrasound done but she refused transvaginal ultrasound. Reevaluation #4: 01/28/18 23:13 Patient abdominal ultrasound normal. She is feeling better. 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 ED Medical Decision Making - Lab Data Result diagrams: 01/28/18 20:16 01/28/18 18:17 Lab Results 01/28/18 01/28/18 01/28/18 Range/Units 13:25 18:17 20:16 WBC 7.6 (4.5-11.0) K/mm3 RBC 3.86 (3.65-5.03) M/mm3 Hgb 8.8 L (10.1-14.3) gm/dl Hct 28.5 L (30.3-42.9) % MCV 74 L (79-97) fl MCH 23 L (28-32) pg MCHC 31 (30-34) % RDW 18.2 H (13.2-15.2) % Plt Count 452 H (140-440) K/mm3 Lymph % (Auto) 22.9 (13.4-35.0) % [place] % (Auto) 11.1 H (0.0-7.3) % Eos % (Auto) 2.0 (0.0-4.3) % Baso % (Auto) 1.3 (0.0-1.8) % Lymph # 1.8 (1.2-5.4) K/mm3 [place] # 0.8 (0.0-0.8) K/mm3 Eos # 0.2 (0.0-0.4) K/mm3 Baso # 0.1 (0.0-0.1) K/mm3 Seg Neutrophils % 62.7 (40.0-70.0) % Seg Neutrophils # 4.8 (1.8-7.7) K/mm3 Sodium 139 (137-145) mmol/L Potassium 4.1 (3.6-5.0) mmol/L Chloride 101.6 (98-107) mmol/L Carbon Dioxide 22 (22-30) mmol/L Anion Gap 20 mmol/L BUN 12 (7-17) mg/dL Creatinine 0.6 L (0.7-1.2) mg/dL Estimated GFR > 60 ml/min BUN/Creatinine Ratio 20 % Glucose 83 (65-100) mg/dL Calcium 9.3 (8.4-10.2) mg/dL Total Bilirubin 0.20 (0.1-1.2) mg/dL AST 17 (5-40) units/L ALT 14 (7-56) units/L Alkaline Phosphatase 63 (35-129) units/L Total Protein 7.8 (6.3-8.2) g/dL Albumin 4.4 (3.9-5) g/dL Albumin/Globulin Ratio 1.3 % Urine Color Yellow (Yellow) Urine Turbidity Clear (Clear) Urine pH 5.0 (5.0-7.0) Ur Specific [place] 1.027 (1.003-1.030) Urine Protein <15 mg/dl (Negative) mg/dL Urine Glucose (UA) Neg (Negative) mg/dL Urine Ketones Neg (Negative) mg/dL Urine Blood Lg (Negative) Urine Nitrite Neg (Negative) Ur Reducing Substances Not Reportable Urine Bilirubin Neg (Negative) Urine Ictotest Not Reportable Urine Urobilinogen 2.0 (<2.0) mg/dL Ur Leukocyte Esterase Neg (Negative) Urine WBC (Auto) 15.0 H (0.0-6.0) /HPF Urine RBC (Auto) < 1.0 (0.0-6.0) /HPF U Epithel Cells (Auto) 2.0 (0-13.0) /HPF Urine Mucus 2+ /HPF Urine HCG, Qual Negative (Negative) - Radiology Data Radiology results: report reviewed Pelvic ultrasound revealed no acute processes, patient with left follicular cysts ovary - Medical Decision Making ED course: Patient here and was screened by Dr. Espana. Patient complaining of abdominal pain or pelvic area with nausea and vomiting that started this morning. She said she had a regular cycle last week and now she has heavy bleeding from her vaginal area. Patient has history of cervical cancer and she is currently in chemotherapy weekly. She said her chemotherapy is on hold because her [employer] insurance ran out and she has to wait for it to be reinstated and 30 days. Patient treated in emergency room for pain with morphine 4 mg IV 2, Zofran 4 mg IV 2, Reglan 10 mg IV 1. Pain and nausea and vomiting has resolved. She had ultrasound of her pelvis which revealed no acute findings but findings for left follicular cyst. Patient refused transvaginal ultrasound. CBC revealed patient with anemia with slight elevation in platelets otherwise stable, chemistry stable, urinalysis with large amount of blood from vaginal bleeding in and elevation in white blood cell otherwise stable. Urine culture sent and pending. test is negative. Please refer to the laboratory section and radial section for detail on labs and ultrasound results. Patient given information on labs and ultrasound results. I discussed her she needs to follow up with her oncologist , her primary care physician and if she does not have a primary care physician she'll need to follow-up with outside Medical Center for now. She voices understanding. Patient discharged home with prescription for ferrous sulfate, Colace, Percocet, Phenergan and Bactrim DS. Discharged home with her family member from ED in stable condition. Critical care attestation.: If time is entered above; I have spent that time in minutes in the direct care of this critically ill patient, excluding procedure time. ED Disposition Clinical Impression: Abnormal uterine and vaginal bleeding, unspecified, Acute cystitis with hematuria, Follicular cyst of left ovary Abdominal pain Qualifiers: Abdominal location: generalized Qualified Code(s): R10.84 - Generalized abdominal pain Uterine cancer Qualifiers: Malignant neoplasm of uterus location: cervix Malignant neoplasm of cervix location: unspecified location Qualified Code(s): C53.9 - Malignant neoplasm of cervix uteri, unspecified Anemia Qualifiers: Anemia type: unspecified type Qualified Code(s): D64.9 - Anemia, unspecified Disposition: DC-01 TO HOME OR SELFCARE Is pt being admited?: No Does the pt Need Aspirin: No Condition: Stable Instructions: Urinary Tract Infection in Women (ED), High Fiber Diet (ED), Iron Rich Diet (ED), Acute Abdominal Pain (ED), Anemia (ED) Additional Instructions: Please take iron pill as prescribed and take Colace which is a stool softener which will help to prevent constipation. Fluid intake and follow discharge instruction and iron rich diet. Percocet and Phenergan can cause drowsiness so please do not drive or operate heavy machinery while taking this medication and also this medication will cause constipation so make sure you increase your fluid intake and increase fiber in your diet. Follow-up with your primary care and your oncologist tomorrow. If you're unable to follow up with her primary care you can call the [facility] for primary care visit. If you continue to bleed over the next couple days, return to the hospital for lab work. You have a urinary tract infection so please take antibiotic as prescribed Prescriptions: Docusate Sodium [Colace] 100 mg PO BID 30 Days #60 capsule Ferrous Sulfate [Feosol 325 MG tab] 325 mg PO TID 30 Days #90 tablet Oxycodone HCl/Acetaminophen [Percocet 10/325 mg] 1 each PO Q6HR PRN #20 tablet PRN Reason: Pain Promethazine [Phenergan TAB] 25 mg PO Q6HR PRN #20 tab PRN Reason: Nausea Sulfamethoxazole/Trimethoprim [Bactrim DS TAB] 1 each PO BID 5 Days #10 tablet Referrals: PRIMARY CARE, [Primary Care Provider] - 01/29/18 follow-up with Your, oncologist [Other] - 01/29/18 [facility] [Outside] - 01/29/18 Forms: Work/School Release Form(ED)
[2018-01-28] MEDS ORDERED: ZOFRAN ONE (20:25)
[2018-01-28] MEDS ORDERED: MORPHINE ONE (20:25)
[2018-01-28] MEDS ORDERED: REGLAN IV ONE (20:32)
[2018-01-28 20:38] LABS: Basophils # (Auto) 0.1 K/mm3 (0.0-0.1); Basophils % (Auto) 1.3 % (0.0-1.8); Eosinophils # (Auto) 0.2 K/mm3 (0.0-0.4); Hematocrit 28.5 % (30.3-42.9); Hemoglobin 8.8 gm/dl (10.1-14.3); Lymphocytes # (Auto) 1.8 K/mm3 (1.2-5.4); Lymphocytes % (Auto) 22.9 % (13.4-35.0); Mean Corpuscular HGB Conc 31 % (30-34); Mean Corpuscular Hemoglobin 23 pg (28-32); Mean Corpuscular Volume 74 fl (79-97); Monocytes # (Auto) 0.8 K/mm3 (0.0-0.8); Monocytes % (Auto) 11.1 % (0.0-7.3); Platelet Count 452 K/mm3 (140-440); Red Blood Count 3.86 M/mm3 (3.65-5.03); Red Cell Distribution Width 18.2 % (13.2-15.2)
[2018-01-28 22:32] VITALS: BP 106/36
--- NOTE | 2018-01-28 23:00 | Ultrasound Report ---
FINAL REPORT PROCEDURE: Transabdominal pelvic ultrasound. TECHNIQUE: Real-time transabdominal sonography in multiple planes of pelvis was performed with image documentation. This examination was performed without Doppler. Vascular abnormalities, including ovarian torsion, will not be detectable without Doppler evaluation. CPT 73161 HISTORY: Heavy vaginal bleeding. COMPARISON: Pelvic ultrasound 11/11/2017. FINDINGS: The patient refused a transvaginal exam. The uterus measures 8.7 centimeters x 4.3 centimeters x 5.5 centimeters. The myometrium appears uniform. The endometrial echo complex measures 8 millimeters. The right ovary is suboptimally visualized due to bowel gas. The left ovary appears normal and contains a 1 centimeter follicle. There is no free fluid in the cul-de-sac. IMPRESSION: No significant abnormality.
== END 2018-01-28 23:32 | disposition home or self-care (01) ==
LOC: ED 13:23
DX: C53.9 Malignant neoplasm of cervix uteri, unspecified (principal); D64.9 Anemia, unspecified; N93.8 Other specified abnormal uterine and vaginal bleeding; F17.200 Nicotine dependence, unspecified, uncomplicated; Z88.0 Allergy status to penicillin; Z88.8 Allergy status to other drugs, medicaments and biological substances; Z90.49 Acquired absence of other specified parts of digestive tract; Z87.442 Personal history of urinary calculi
CPT/HCPCS: 36415; 76856; 80048; 80053; 81001; 81025; 85025; 87086; 96361; 96374; 96375; 96376; 99284; J2270; J2405; J2765; J7030

== ENCOUNTER 2018-02-06 18:33 | Emergency (ER) | payer SELFPAY | END 2018-02-06 18:45 | disposition left against medical advice (07) | LOC: ED 18:33 | DX: Z04.1 Encounter for examination and observation following transport accident (principal); Z53.21 Procedure and treatment not carried out due to patient leaving prior to being seen by health care provider ==

== ENCOUNTER 2018-03-18 13:07 | Emergency (ER) | payer MEDICAID ==
[2018-03-18] MEDS ORDERED: DILAUDID IV ONE (16:35)
[2018-03-18] MEDS ORDERED: XYLOCAINE CARDIAC IV ONE (16:35)
--- NOTE | 2018-03-18 16:36 | Emergency Department Report ---
ED General Adult HPI - General Chief complaint: Abdominal Pain Stated complaint: PAIN HX CERVICAL CANCER Time Seen by Provider: 03/18/18 16:17 Source: patient, RN notes reviewed, old records reviewed Mode of arrival: Ambulatory Limitations: No Limitations - History of Present Illness Initial comments: This is a 27-year-old female whom I have evaluated in the past. Past medical history includes possible cervical cancer, nodule, renal colic, 4, and chronic pain. Patient has presented to the ER multiple times for similar complaints. Patient has had multiple CAT scans at this facility, all of which have been essentially unremarkable. Please note that patient has had multiple CAT scans of her abdomen and pelvis this year, the most recent of which was in December 2017, demonstrating normal anatomy. The patient presents to the ER with a complaint of cervical pain. It is sharp and stabbing. It does not radiate anywhere. It does not have exacerbating or relieving factors. Patient reports that it is similar to her prior episodes of cervical pain. Patient reports that secondary to insurance issues, she has not been able to follow up with an outpatient oncologist, for an outpatient pain specialist. Patient reports that she is passing gas and bowel movements, and had 2 episodes of nonbloody, watery diarrhea in the past 48 hours. She denies urinary symptoms. She reports she is going to follow up at [facility] on May 13 for her atypical cervical cells. -: Gradual Location: genitals Radiation: non-radiation Quality: stabbing, sharp Consistency: constant Improves with: none Worsens with: none Associated Symptoms: denies: confusion, chest pain, cough, diaphoresis, fever/ chills, headaches, loss of appetite, malaise, nausea/vomiting, rash, seizure, shortness of breath, syncope, weakness - Related Data Previous Rx's Medication Instructions Recorded Last Taken Type HYDROcodone/ACETAMINOPHEN [[place] 1 - 2 each PO Q4-6H PRN #14 tablet 11/11/17 Unknown Rx 5-325 Tablet] Ondansetron [Zofran Odt] 4 mg PO 4XD PRN #10 tab.rapdis 01/08/18 Unknown Rx Docusate Sodium [Colace] 100 mg PO BID 30 Days #60 capsule 01/28/18 Unknown Rx Ferrous Sulfate [Feosol 325 MG tab] 325 mg PO TID 30 Days #90 tablet 01/28/18 Unknown Rx Oxycodone HCl/Acetaminophen 1 each PO Q6HR PRN #20 tablet 01/28/18 Unknown Rx [Percocet 10/325 mg] Promethazine [Phenergan TAB] 25 mg PO Q6HR PRN #20 tab 01/28/18 Unknown Rx Sulfamethoxazole/Trimethoprim 1 each PO BID 5 Days #10 tablet 01/28/18 Unknown Rx [Bactrim DS TAB] oxyCODONE [Roxicodone] 5 mg PO Q6HR PRN #15 tablet 03/18/18 Unknown Rx Allergies Allergy/AdvReac Type Severity Reaction Status Date / Time ketorolac tromethamine Allergy Hives Verified 12/02/17 16:54 [From Toradol] Penicillins Allergy Swelling Verified 12/02/17 16:54 tramadol Allergy Hives Verified 12/02/17 16:54 Iodinated Contrast- Oral and AdvReac Mild other Verified 12/02/17 16:54 IV Dye ED Review of Systems ROS: Stated complaint: PAIN HX CERVICAL CANCER Other details as noted in HPI Comment: All other systems reviewed and negative ED Past Medical Hx - Past Medical History Hx of Cancer: Yes Hx Kidney Stones: Yes Additional medical history: FIBROIDS, scoliosis. kidney stones per pt,cervical cancer-dx 05/2017 - Surgical History Hx Cholecystectomy: Yes Additional Surgical History: X 4. HERNIA REPAIR - Social History Smoking Status: Never Smoker Substance Use Type: None - Medications Home Medications: Home Medications Medication Instructions Recorded Confirmed Last Taken Type HYDROcodone/ACETAMINOPHEN [[place] 1 - 2 each PO Q4-6H PRN #14 tablet 11/11/17 Unknown Rx 5-325 Tablet] Ondansetron [Zofran Odt] 4 mg PO 4XD PRN #10 tab.rapdis 01/08/18 Unknown Rx Docusate Sodium [Colace] 100 mg PO BID 30 Days #60 capsule 01/28/18 Unknown Rx Ferrous Sulfate [Feosol 325 MG tab] 325 mg PO TID 30 Days #90 tablet 01/28/18 Unknown Rx Oxycodone HCl/Acetaminophen 1 each PO Q6HR PRN #20 tablet 01/28/18 Unknown Rx [Percocet 10/325 mg] Promethazine [Phenergan TAB] 25 mg PO Q6HR PRN #20 tab 01/28/18 Unknown Rx Sulfamethoxazole/Trimethoprim 1 each PO BID 5 Days #10 tablet 01/28/18 Unknown Rx [Bactrim DS TAB] oxyCODONE [Roxicodone] 5 mg PO Q6HR PRN #15 tablet 03/18/18 Unknown Rx ED Physical Exam - General Limitations: No Limitations General appearance: alert, in distress - Head Head exam: Present: atraumatic, normocephalic - Eye Eye exam: Present: normal appearance, EOMI - ENT ENT exam: Present: normal exam, normal orophraynx, mucous membranes moist, normal external ear exam - Neck Neck exam: Present: normal inspection, full ROM - Respiratory Respiratory exam: Present: normal lung sounds bilaterally. Absent: respiratory distress - Cardiovascular Cardiovascular Exam: Present: regular rate, normal rhythm, normal heart sounds. Absent: systolic murmur, diastolic murmur, rubs, gallop - GI/Abdominal GI/Abdominal exam: Present: soft, normal bowel sounds. Absent: distended, tenderness, guarding, rebound, rigid, pulsatile mass - Extremities Exam Extremities exam: Present: normal inspection, full ROM, normal capillary refill. Absent: pedal edema, joint swelling, calf tenderness - Back Exam Back exam: Present: normal inspection, full ROM. Absent: tenderness, CVA tenderness (R), paraspinal tenderness, vertebral tenderness - Neurological Exam Neurological exam: Present: alert, oriented X3, CN II-XII intact, normal gait, other (Extraocular movements intact. Tongue midline. No facial droop. Facial sensation intact to light touch in the V1, V2, V3 distribution bilaterally. 5 and 5 strength in 4 extremities.. Sensation is intact to light touch in 4 extremities.). Absent: motor sensory deficit - Psychiatric Psychiatric exam: Present: normal affect, normal mood - Skin Skin exam: Present: warm, dry, intact, normal color. Absent: rash ED Course Vital Signs 03/18/18 13:59 Temperature 98.4 F Pulse Rate 74 Respiratory 16 Rate Blood Pressure 119/63 O2 Sat by Pulse 100 Oximetry - Reevaluation(s) Reevaluation #1: 03/18/18 18:02 Patient is sitting comfortably in her stretcher. She is listening to headphones. She states that she feels much improved. She will be discharged at this time. ED Medical Decision Making - Lab Data Vital Signs 03/18/18 13:59 Temperature 98.4 F Pulse Rate 74 Respiratory 16 Rate Blood Pressure 119/63 O2 Sat by Pulse 100 Oximetry Lab Results 03/18/18 Range/Units 15:04 Urine Color Yellow (Yellow) Urine Turbidity Clear (Clear) Urine pH 6.0 (5.0-7.0) Ur Specific [place] 1.017 (1.003-1.030) Urine Protein <15 mg/dl (Negative) mg/dL Urine Glucose (UA) Neg (Negative) mg/dL Urine Ketones Neg (Negative) mg/dL Urine Blood Neg (Negative) Urine Nitrite Neg (Negative) Urine Bilirubin Neg (Negative) Urine Urobilinogen < 2.0 (<2.0) mg/dL Ur Leukocyte Esterase Neg (Negative) Urine WBC (Auto) 1.0 (0.0-6.0) /HPF Urine RBC (Auto) 1.0 (0.0-6.0) /HPF U Epithel Cells (Auto) 3.0 (0-13.0) /HPF Urine Mucus Few /HPF Urine HCG, Qual Negative (Negative) - Medical Decision Making Differential diagnosis, including not limited to: Acute on chronic cervical pain , pain of malignancy Assessment and plan: 27-year-old female with acute on chronic cervical pain. She declined a gynecologic examination. Her abdomen is soft, benign and nontender. Patient has had multiple CT scans at this hospital of her abdomen and pelvis, and she is very concerned about radiation exposure and would not like another CAT scan. I started her current history and physical, I do not with the patient requires a CT scan either. I have reviewed the patient's records on the [place] prescription monitoring database, and the patient has filled four prescriptions since November. Her physical exam is benign and her vital signs are stable. Her main issue appears to be pain control. She will be given hydromorphone for acute pain control as well as IV lidocaine. She will need to follow up with outpatient gynecology, pain control and oncology. Critical care attestation.: If time is entered above; I have spent that time in minutes in the direct care of this critically ill patient, excluding procedure time. ED Disposition Clinical Impression: Chronic pain syndrome Disposition: -01 TO HOME OR SELFCARE Is pt being admited?: No Does the pt Need Aspirin: No Condition: Stable Instructions: Abdominal Pain (ED) Additional Instructions: Take the pain medication as directed. If taking pain medication, do not drive, consume alcohol, or make important decisions. Follow up as soon as possible with gynecology, oncology, and pain management as soon as possible to initiate outpatient care. Dr. Negron is a local bobtail driver. Dr. Mccracken is a local oncologist. Dr. Snyder is a local pain specialist Prescriptions: oxyCODONE [Roxicodone] 5 mg PO Q6HR PRN #15 tablet PRN Reason: Pain Referrals: PRIMARY CAREMD [Primary Care Provider] - 3-5 Days LUPILLO CHAUDHARY MD [Staff Physician] - 3-5 Days JUAN LUIS MCCRACKEN MD [Staff Physician] - 3-5 Days BRAYAN NEGRON MD [Staff Physician] - 3-5 Days
[2018-03-18 16:47] LABS: Bilirubin,Urine NEG (Negative); Blood,Urine NEG (Negative); Color,Urine Yellow (Yellow); Mucus,Urine FEW /HPF; Protein,Urine <15 mg/dL mg/dL (Negative); Urobilinogen,Urine < 2.0 mg/dL (<2.0)
[2018-03-18 16:50] LABS: HCG Qualitative,Urine Negative (Negative)
[2018-03-18 18:22] VITALS: BP 124/70
== END 2018-03-18 18:22 | disposition home or self-care (01) ==
LOC: ED 13:07
DX: G89.4 Chronic pain syndrome (principal); Z88.0 Allergy status to penicillin; Z88.6 Allergy status to analgesic agent; Z91.041 Radiographic dye allergy status
CPT/HCPCS: 81001; 81025; 96374; 96375; 99283; J1170; J2001

== ENCOUNTER 2018-04-16 21:46 | Emergency (ER) | payer MEDICAID ==
[2018-04-16 23:32] LABS: Basophils # (Auto) 0.1 K/mm3 (0.0-0.1); Basophils % (Auto) 1.3 % (0.0-1.8); Eosinophils # (Auto) 0.2 K/mm3 (0.0-0.4); Eosinophils % (Auto) 2.1 % (0.0-4.3); Hematocrit 26.2 % (30.3-42.9); Hemoglobin 7.8 gm/dl (10.1-14.3); Lymphocytes # (Auto) 1.7 K/mm3 (1.2-5.4); Lymphocytes % (Auto) 22.5 % (13.4-35.0); Mean Corpuscular HGB Conc 30 % (30-34); Monocytes # (Auto) 0.6 K/mm3 (0.0-0.8); Monocytes % (Auto) 8.7 % (0.0-7.3); Platelet Count 452 K/mm3 (140-440); Red Blood Count 3.76 M/mm3 (3.65-5.03)
[2018-04-16 23:38] LABS: Mean Corpuscular Hemoglobin 21 pg (28-32); Mean Corpuscular Volume 70 fl (79-97)
[2018-04-16 23:47] LABS: Alanine Aminotransferase 10 units/L (7-56); Albumin 4.1 g/dL (3.9-5); BUN/Creatinine Ratio 17; Blood Urea Nitrogen 10 mg/dL (7-17); Calcium 9.2 mg/dL (8.4-10.2); Hemolysis Index 2
[2018-04-17] MEDS ORDERED: ZOFRAN IV ONE (02:28)
[2018-04-17] MEDS ORDERED: DILAUDID IV ONE ×2 (02:28→04:41)
[2018-04-17] MEDS ORDERED: NACL 0.9% 1000 ML 1,000 ML IV ONE (02:28)
--- NOTE | 2018-04-17 02:34 | Emergency Department Report ---
ED Abdominal Pain HPI - General Chief Complaint: Pain General Stated Complaint: CERVICAL CANCER Time Seen by Provider: 04/17/18 02:20 Source: patient Mode of arrival: Ambulatory Limitations: No Limitations - History of Present Illness Initial Comments: 27 yo female with a past medical history cervical cancer diagnosed in 05/2017, kidney stones, fibroids, scoliosis, 4, hernia repair, and cholecystectomy this hospital complaining of exacerbation of chronic abdominal pain secondary to her cancer x 1 week. Patient is having insurance issues and therefore does not have consistent follow-up. Multiple ER visits for similar pain and history of multiple CAT scans in the recent past. Patient states her last chemotherapy treatment by [facility] was in December. Patient had a CT pelvis here December and the last ER visit was in February. The past week patient has had lower abdominal stabbing pain rated 9/10 in intensity, worse with palpation , abdominal distention, nausea, vomiting, and decreased po tolerance. Normal bowel movements reported no fever, dysuria, or hematuria. Patient currently is not having any pain or nausea medication at home. She states the next follow- up are with [facility] in April and pain management clinic in June. Severity scale (0 -10): 5 - Related Data Previous Rx's Medication Instructions Recorded Last Taken Type HYDROcodone/ACETAMINOPHEN [[place] 1 - 2 each PO Q4-6H PRN #14 tablet 11/11/17 Unknown Rx 5-325 Tablet] Ferrous Sulfate [Feosol 325 MG tab] 325 mg PO TID 30 Days #90 tablet 01/28/18 Unknown Rx Oxycodone HCl/Acetaminophen 1 each PO Q6HR PRN #20 tablet 01/28/18 Unknown Rx [Percocet 10/325 mg] Promethazine [Phenergan TAB] 25 mg PO Q6HR PRN #20 tab 01/28/18 Unknown Rx Promethazine [Phenergan TAB] 25 mg PO Q6HR PRN #30 tab 04/17/18 Unknown Rx oxyCODONE [Roxicodone TAB] 5 mg PO Q6HR PRN #15 tablet 04/17/18 Unknown Rx Allergies Allergy/AdvReac Type Severity Reaction Status Date / Time ketorolac tromethamine Allergy Hives Verified 12/02/17 16:54 [From Toradol] Penicillins Allergy Swelling Verified 12/02/17 16:54 tramadol Allergy Hives Verified 12/02/17 16:54 Iodinated Contrast- Oral and AdvReac Mild other Verified 12/02/17 16:54 IV Dye ED Review of Systems ROS: Stated complaint: CERVICAL CANCER Other details as noted in HPI Comment: All other systems reviewed and negative ED Past Medical Hx - Past Medical History Hx of Cancer: Yes (cervical cancer) Hx Kidney Stones: Yes Additional medical history: FIBROIDS, scoliosis. kidney stones per pt,cervical cancer-dx 05/2017 - Surgical History Hx Cholecystectomy: Yes Additional Surgical History: X 4. HERNIA REPAIR - Social History Smoking Status: Current Some Day Smoker Substance Use Type: None - Medications Home Medications: Home Medications Medication Instructions Recorded Confirmed Last Taken Type HYDROcodone/ACETAMINOPHEN [[place] 1 - 2 each PO Q4-6H PRN #14 tablet 11/11/17 Unknown Rx 5-325 Tablet] Ferrous Sulfate [Feosol 325 MG tab] 325 mg PO TID 30 Days #90 tablet 01/28/18 Unknown Rx Oxycodone HCl/Acetaminophen 1 each PO Q6HR PRN #20 tablet 01/28/18 04/17/18 Unknown Rx [Percocet 10/325 mg] Promethazine [Phenergan TAB] 25 mg PO Q6HR PRN #20 tab 01/28/18 04/17/18 Unknown Rx Promethazine [Phenergan TAB] 25 mg PO Q6HR PRN #30 tab 04/17/18 Unknown Rx oxyCODONE [Roxicodone TAB] 5 mg PO Q6HR PRN #15 tablet 04/17/18 Unknown Rx ED Physical Exam - General Limitations: No Limitations - Other Other exam information: General: No limitations, patient is alert in no acute distress Head exam: Atraumatic, normocephalic Eyes exam: Normal appearance ENT: Moist mucous membrane Neck exam: Normal inspection, full range of motion, no meningismus nontender Respiratory exam: Clear to auscultation bilateral, no wheezes, rales, crackles Cardiovascular: Normal rate and rhythm, normal heart sounds Abdomen: Soft, distended, surgical scar is noted, generalized tenderness greatest in the lower abdomen. normal bowel sounds, no rebound, or guarding Extremity: Full range of motion normal inspection no deformity Back: Normal Inspection, full range of motion, no tenderness Neurologic: Alert, oriented x3, cranial nerves intact, no motor or sensory deficit Psychiatric: normal affect, normal mood Skin: Warm, dry, intact ED Course Vital Signs 04/16/18 04/17/18 04/17/18 22:18 01:49 01:50 Temperature 97.9 F 98.5 F Pulse Rate 98 H 78 Respiratory 18 Rate Blood Pressure 129/88 Blood Pressure 118/64 [Left] O2 Sat by Pulse 98 100 94 Oximetry 04/17/18 04/17/18 04/17/18 02:00 02:30 03:00 Temperature Pulse Rate Respiratory Rate Blood Pressure 119/65 119/70 135/76 Blood Pressure [Left] O2 Sat by Pulse 100 100 100 Oximetry 04/17/18 04/17/18 04/17/18 03:30 04:05 04:48 Temperature Pulse Rate Respiratory 16 Rate Blood Pressure 119/70 119/70 Blood Pressure [Left] O2 Sat by Pulse 84 100 Oximetry ED Medical Decision Making - Lab Data Result diagrams: 04/16/18 23:08 04/16/18 23:08 Lab Results 04/16/18 04/16/18 04/16/18 Range/Units 04:05 23:08 23:08 WBC 7.4 (4.5-11.0) K/mm3 RBC 3.76 (3.65-5.03) M/mm3 Hgb 7.8 L (10.1-14.3) gm/dl Hct 26.2 L (30.3-42.9) % MCV 70 L (79-97) fl MCH 21 L (28-32) pg MCHC 30 (30-34) % RDW 19.0 H (13.2-15.2) % Plt Count 452 H (140-440) K/mm3 Lymph % (Auto) 22.5 (13.4-35.0) % [place] % (Auto) 8.7 H (0.0-7.3) % Eos % (Auto) 2.1 (0.0-4.3) % Baso % (Auto) 1.3 (0.0-1.8) % Lymph # 1.7 (1.2-5.4) K/mm3 [place] # 0.6 (0.0-0.8) K/mm3 Eos # 0.2 (0.0-0.4) K/mm3 Baso # 0.1 (0.0-0.1) K/mm3 Seg Neutrophils % 65.4 (40.0-70.0) % Seg Neutrophils # 4.8 (1.8-7.7) K/mm3 Percent Retic 1.18 (0.78-2.58) % Sodium 135 L (137-145) mmol/L Potassium 4.1 (3.6-5.0) mmol/L Chloride 100.7 (98-107) mmol/L Carbon Dioxide 20 L (22-30) mmol/L Anion Gap 18 mmol/L BUN 10 (7-17) mg/dL Creatinine 0.6 L (0.7-1.2) mg/dL Estimated GFR > 60 ml/min BUN/Creatinine Ratio 17 % Glucose 95 (65-100) mg/dL Calcium 9.2 (8.4-10.2) mg/dL Total Bilirubin 0.20 (0.1-1.2) mg/dL AST 14 (5-40) units/L ALT 10 (7-56) units/L Alkaline Phosphatase 59 (35-129) units/L Total Protein 7.9 (6.3-8.2) g/dL Albumin 4.1 (3.9-5) g/dL Albumin/Globulin Ratio 1.1 % Lipase (13-60) units/L HCG, Qual (Negative) Urine Color Yellow (Yellow) Urine Turbidity Clear (Clear) Urine pH 6.0 (5.0-7.0) Ur Specific [place] 1.021 (1.003-1.030) Urine Protein <15 mg/dl (Negative) mg/dL Urine Glucose (UA) Neg (Negative) mg/dL Urine Ketones Neg (Negative) mg/dL Urine Blood Neg (Negative) Urine Nitrite Neg (Negative) Urine Bilirubin Neg (Negative) Urine Urobilinogen < 2.0 (<2.0) mg/dL Ur Leukocyte Esterase Neg (Negative) Urine WBC (Auto) 4.0 (0.0-6.0) /HPF Urine RBC (Auto) 3.0 (0.0-6.0) /HPF U Epithel Cells (Auto) 13.0 (0-13.0) /HPF Urine Bacteria (Auto) 1+ (Negative) /HPF Urine Mucus 1+ /HPF Urine HCG, Qual Negative (Negative) 04/17/18 04/17/18 Range/Units 02:46 02:46 WBC (4.5-11.0) K/mm3 RBC (3.65-5.03) M/mm3 Hgb (10.1-14.3) gm/dl Hct (30.3-42.9) % MCV (79-97) fl MCH (28-32) pg MCHC (30-34) % RDW (13.2-15.2) % Plt Count (140-440) K/mm3 Lymph % (Auto) (13.4-35.0) % [place] % (Auto) (0.0-7.3) % Eos % (Auto) (0.0-4.3) % Baso % (Auto) (0.0-1.8) % Lymph # (1.2-5.4) K/mm3 [place] # (0.0-0.8) K/mm3 Eos # (0.0-0.4) K/mm3 Baso # (0.0-0.1) K/mm3 Seg Neutrophils % (40.0-70.0) % Seg Neutrophils # (1.8-7.7) K/mm3 Percent Retic (0.78-2.58) % Sodium (137-145) mmol/L Potassium (3.6-5.0) mmol/L Chloride (98-107) mmol/L Carbon Dioxide (22-30) mmol/L Anion Gap mmol/L BUN (7-17) mg/dL Creatinine (0.7-1.2) mg/dL Estimated GFR ml/min BUN/Creatinine Ratio % Glucose (65-100) mg/dL Calcium (8.4-10.2) mg/dL Total Bilirubin (0.1-1.2) mg/dL AST (5-40) units/L ALT (7-56) units/L Alkaline Phosphatase (35-129) units/L Total Protein (6.3-8.2) g/dL Albumin (3.9-5) g/dL Albumin/Globulin Ratio % Lipase 28 (13-60) units/L HCG, Qual Negative (Negative) Urine Color (Yellow) Urine Turbidity (Clear) Urine pH (5.0-7.0) Ur Specific [place] (1.003-1.030) Urine Protein (Negative) mg/dL Urine Glucose (UA) (Negative) mg/dL Urine Ketones (Negative) mg/dL Urine Blood (Negative) Urine Nitrite (Negative) Urine Bilirubin (Negative) Urine Urobilinogen (<2.0) mg/dL Ur Leukocyte Esterase (Negative) Urine WBC (Auto) (0.0-6.0) /HPF Urine RBC (Auto) (0.0-6.0) /HPF U Epithel Cells (Auto) (0-13.0) /HPF Urine Bacteria (Auto) (Negative) /HPF Urine Mucus /HPF Urine HCG, Qual (Negative) - Radiology Data Radiology results: report reviewed abd Series x-ray Moderate stool in the colon. Nonobstructive bowel gas pattern - Medical Decision Making This appears to be an acute exacerbation of patient's chronic pain. She states that it is similar in decline CT since she has had multiple CTs the recent past and insists that this pain is similar to her previous chronic pain. Labs unremarkable without acute findings therefore I think that CT would be low yield. X-ray shows a nonobstructive pattern. Ua neg for infection and without ketones. - Differential Diagnosis chronic pain, gastroenteritis, diverticulitis, appendicitis, cancer, obstru Critical Care Time: No Critical care attestation.: If time is entered above; I have spent that time in minutes in the direct care of this critically ill patient, excluding procedure time. ED Disposition Clinical Impression: Abdominal pain, Cervical cancer, Nausea and vomiting, Chronic pain Disposition: TO HOME OR SELFCARE Is pt being admited?: No Does the pt Need Aspirin: No Condition: Stable Instructions: Abdominal Pain (ED), Chronic Pain (ED), Acute Nausea and Vomiting (ED) Additional Instructions: Take the medication as prescribed. Continue to follow up as planned. Return is symptoms worsen as indicated by the discharge instructions. Prescriptions: oxyCODONE [Roxicodone TAB] 5 mg PO Q6HR PRN #15 tablet PRN Reason: Pain Promethazine [Phenergan TAB] 25 mg PO Q6HR PRN #30 tab PRN Reason: Nausea Referrals: krissy diana md [Other] - 3-5 Days Time of Disposition: 05:42
[2018-04-17 04:50] LABS: Bacteria,Urine 1+ /HPF (Negative); Bilirubin,Urine NEG (Negative); Blood,Urine NEG (Negative); Color,Urine Yellow (Yellow); Mucus,Urine 1+ /HPF; Protein,Urine <15 mg/dL mg/dL (Negative); Urobilinogen,Urine < 2.0 mg/dL (<2.0)
[2018-04-17 04:51] LABS: HCG Qualitative,Urine Negative (Negative)
[2018-04-17] MEDS ORDERED: PHENERGAN PO ONE (05:31)
--- NOTE | 2018-04-17 06:01 | XRay Report ---
FINAL REPORT EXAM: XR ABD SERIES W CXR 1V HISTORY: abd pain, n,v COMPARISON: CT abdomen pelvis November 2017. Chest CT November 2016. FINDINGS: FINDINGS:: Single frontal view of the chest demonstrates heart to be borderline enlarged. Lungs are grossly clear. No pneumothorax. Supine and upright AP views of the abdomen were obtained. No gross free air. Surgical clips right upper quadrant and surgical clips right hemipelvis. Moderate stool in the colon. There are few pelvic phleboliths. Gas scattered within non dilated bowl loops. No gross pathologic calcifications. Bony structures are grossly intact. IMPRESSION:: Heart borderline enlarged. Lungs are grossly clear. Moderate stool in the colon. Nonobstructive bowel gas pattern.
[2018-04-17 06:09] VITALS: BP 113/60
== END 2018-04-17 06:27 | disposition home or self-care (01) ==
LOC: ED 21:46
DX: R11.2 Nausea with vomiting, unspecified (principal); R10.30 Lower abdominal pain, unspecified; G89.29 Other chronic pain; Z87.442 Personal history of urinary calculi; F17.200 Nicotine dependence, unspecified, uncomplicated; Z90.49 Acquired absence of other specified parts of digestive tract; Z88.6 Allergy status to analgesic agent; Z88.0 Allergy status to penicillin
CPT/HCPCS: 36415; 74022; 80053; 81001; 81025; 83690; 84703; 85025; 85045; 96361; 96374; 96375; 96376; 99284; J1170; J2405; J7030; Q0169

== ENCOUNTER 2018-05-07 10:07 | Emergency (ER) | payer SELFPAY ==
[2018-05-07 10:15] VITALS: BP 128/58
[2018-05-07] MEDS ORDERED: TORADOL IV ONE (10:48)
[2018-05-07] MEDS ORDERED: NACL 0.9% 1000 ML 1,000 ML IV ONE ×2 (10:48→13:35)
[2018-05-07] MEDS ORDERED: PEPCID IV ONE (10:48)
[2018-05-07] MEDS ORDERED: DILAUDID IV ONE ×2 (10:49→13:35)
--- NOTE | 2018-05-07 10:51 | Emergency Department Report ---
Blank Doc - Documentation Documentation: Patient is a 27-year-old Female past medical history of cervical cancer who last had chemotherapy in February. Patient is presenting with nausea vomiting and abdominal pain. Patient states that there is been no fever she is unable to keep anything down. Patient states she's been feeling ill for approximately 1 week. Patient states she no longer has oncologist and is having her care switched over to [facility] secondary to her insurance lapsing. Patient will be moved to the main area of the ED for IV fluids and pain control as well as lab studies CT of the abdomen and pelvis.
[2018-05-07 11:54] LABS: Bilirubin,Urine NEG (Negative); Blood,Urine NEG (Negative); Color,Urine Yellow (Yellow); Mucus,Urine 1+ /HPF; Protein,Urine <15 mg/dL mg/dL (Negative); Urobilinogen,Urine < 2.0 mg/dL (<2.0)
[2018-05-07 12:01] LABS: HCG Qualitative,Urine Negative (Negative)
[2018-05-07 12:53] LABS: Basophils # (Auto) 0.1 K/mm3 (0.0-0.1); Basophils % (Auto) 1.1 % (0.0-1.8); Eosinophils # (Auto) 0.1 K/mm3 (0.0-0.4); Eosinophils % (Auto) 1.4 % (0.0-4.3); Lymphocytes # (Auto) 1.3 K/mm3 (1.2-5.4); Lymphocytes % (Auto) 21.2 % (13.4-35.0); Mean Corpuscular HGB Conc 30 % (30-34); Mean Corpuscular Volume 72 fl (79-97); Monocytes # (Auto) 0.5 K/mm3 (0.0-0.8); Monocytes % (Auto) 8.3 % (0.0-7.3); Platelet Count 317 K/mm3 (140-440); Red Blood Count 4.08 M/mm3 (3.65-5.03)
[2018-05-07 12:54] LABS: Hematocrit 29.3 % (30.3-42.9); Hemoglobin 8.7 gm/dl (10.1-14.3); Mean Corpuscular Hemoglobin 21 pg (28-32); Red Cell Distribution Width 20.3 % (13.2-15.2)
[2018-05-07 13:03] LABS: Albumin 3.9 g/dL (3.9-5); BUN/Creatinine Ratio 14; Blood Urea Nitrogen 7 mg/dL (7-17); Calcium 8.7 mg/dL (8.4-10.2); Hemolysis Index 363
[2018-05-07 13:12] LABS: Alanine Aminotransferase 14 units/L (7-56)
[2018-05-07] MEDS ORDERED: ZOFRAN IV ONE (13:36)
--- NOTE | 2018-05-07 13:38 | Emergency Department Report ---
ED Abdominal Pain HPI - General Chief Complaint: Abdominal Pain Stated Complaint: ABDOMINAL PAIN Time Seen by Provider: 05/07/18 10:43 Source: patient, EMS Mode of arrival: Stretcher Limitations: No Limitations - History of Present Illness Initial Comments: Patient is a 27-year-old Female past medical history of cervical cancer who last had chemotherapy in February. Patient is presenting with nausea vomiting and abdominal pain. Patient states that there is been no fever she is unable to keep anything down. Patient states she's been feeling ill for approximately 1 week. Patient states she no longer has oncologist and is having her care switched over to [facility] secondary to her insurance lapsing. Patient will be moved to the main area of the ED for IV fluids and pain control as well as lab studies CT of the abdomen and pelvis. MD Complaint: abdominal pain Onset/Timin -: days(s) Location: LLQ, RLQ Radiation: LLQ, RLQ Migration to: no migration, LLQ, RLQ Severity: moderate Severity scale (0 -10): 6 Quality: aching Consistency: constant Improves With: nothing Worsens With: nothing Associated Symptoms: nausea - Related Data LMP (females 10-50): last week Previous Rx's Medication Instructions Recorded Last Taken Type HYDROcodone/ACETAMINOPHEN [[place] 1 - 2 each PO Q4-6H PRN #14 tablet 11/11/17 Unknown Rx 5-325 Tablet] Ferrous Sulfate [Feosol 325 MG tab] 325 mg PO TID 30 Days #90 tablet 01/28/18 Unknown Rx Oxycodone HCl/Acetaminophen 1 each PO Q6HR PRN #20 tablet 01/28/18 Unknown Rx [Percocet 10/325 mg] Promethazine [Phenergan TAB] 25 mg PO Q6HR PRN #20 tab 01/28/18 Unknown Rx Promethazine [Phenergan TAB] 25 mg PO Q6HR PRN #30 tab 04/17/18 Unknown Rx oxyCODONE [Roxicodone TAB] 5 mg PO Q6HR PRN #15 tablet 04/17/18 Unknown Rx Allergies Allergy/AdvReac Type Severity Reaction Status Date / Time ketorolac tromethamine Allergy Hives Verified 12/02/17 16:54 [From Toradol] Penicillins Allergy Swelling Verified 12/02/17 16:54 tramadol Allergy Hives Verified 12/02/17 16:54 Iodinated Contrast- Oral and AdvReac Mild other Verified 12/02/17 16:54 IV Dye ED Review of Systems ROS: Stated complaint: ABDOMINAL PAIN Other details as noted in HPI Constitutional: denies: chills, fever Eyes: denies: eye pain, eye discharge, vision change ENT: denies: ear pain, throat pain Respiratory: denies: cough, shortness of breath, wheezing Cardiovascular: denies: chest pain, palpitations Endocrine: no symptoms reported Gastrointestinal: abdominal pain, nausea, vomiting. denies: diarrhea, constipation, hematemesis, melena, hematochezia Genitourinary: denies: urgency, dysuria, discharge Musculoskeletal: back pain. denies: joint swelling, arthralgia Skin: denies: rash, lesions Neurological: denies: headache, weakness, paresthesias Psychiatric: denies: anxiety, depression Hematological/Lymphatic: denies: easy bleeding, easy bruising ED Past Medical Hx - Past Medical History Hx Kidney Stones: Yes Additional medical history: FIBROIDS, scoliosis. kidney stones per pt,cervical cancer-dx 05/2017 - Surgical History Hx Cholecystectomy: Yes Additional Surgical History: X 4. HERNIA REPAIR - Social History Smoking Status: Current Some Day Smoker Substance Use Type: None - Medications Home Medications: Home Medications Medication Instructions Recorded Confirmed Last Taken Type HYDROcodone/ACETAMINOPHEN [[place] 1 - 2 each PO Q4-6H PRN #14 tablet 11/11/17 Unknown Rx 5-325 Tablet] Ferrous Sulfate [Feosol 325 MG tab] 325 mg PO TID 30 Days #90 tablet 01/28/18 Unknown Rx Oxycodone HCl/Acetaminophen 1 each PO Q6HR PRN #20 tablet 01/28/18 04/17/18 Unknown Rx [Percocet 10/325 mg] Promethazine [Phenergan TAB] 25 mg PO Q6HR PRN #20 tab 01/28/18 04/17/18 Unknown Rx Promethazine [Phenergan TAB] 25 mg PO Q6HR PRN #30 tab 04/17/18 Unknown Rx oxyCODONE [Roxicodone TAB] 5 mg PO Q6HR PRN #15 tablet 04/17/18 Unknown Rx ED Physical Exam - General Limitations: No Limitations General appearance: alert, in no apparent distress - Head Head exam: Present: atraumatic, normocephalic - Eye Eye exam: Present: normal appearance - ENT ENT exam: Present: mucous membranes moist - Neck Neck exam: Present: normal inspection - Respiratory Respiratory exam: Present: normal lung sounds bilaterally. Absent: respiratory distress, wheezes, stridor - Cardiovascular Cardiovascular Exam: Present: regular rate, normal rhythm, normal heart sounds. Absent: systolic murmur, diastolic murmur, rubs, gallop - GI/Abdominal GI/Abdominal exam: Present: soft, tenderness (superpubic ), normal bowel sounds. Absent: distended, guarding, rebound, rigid, organomegaly, mass, bruit , pulsatile mass, hernia - Expanded GI/Abdominal Exam Expanded GI/Abdominal exam: Absent: psoas sign, obturator sign, heel tap sign, Lau's sign, Rovsing's sign, tenderness at [place]'s Point, ascites - Rectal Rectal exam: Present: deferred - Extremities Exam Extremities exam: Present: normal inspection - Back Exam Back exam: Present: full ROM, CVA tenderness (R), CVA tenderness (L). Absent: tenderness, muscle spasm, paraspinal tenderness, vertebral tenderness - Neurological Exam Neurological exam: Present: alert, oriented X3, normal gait, reflexes normal - Psychiatric Psychiatric exam: Present: normal affect, normal mood - Skin Skin exam: Present: warm, dry, intact, normal color. Absent: rash ED Course Vital Signs 05/07/18 05/07/18 10:08 12:00 Temperature 98.8 F Pulse Rate 96 H Respiratory 16 16 Rate Blood Pressure 128/58 O2 Sat by Pulse 100 Oximetry ED Medical Decision Making - Lab Data Result diagrams: 05/07/18 12:00 05/07/18 12:14 Laboratory Tests 05/07/18 05/07/18 05/07/18 11:39 12:00 12:14 WBC 6.3 RBC 4.08 Hgb 8.7 L Hct 29.3 L MCV 72 L MCH 21 L MCHC 30 RDW 20.3 H Plt Count 317 Lymph % (Auto) 21.2 [place] % (Auto) 8.3 H Eos % (Auto) 1.4 Baso % (Auto) 1.1 Lymph # 1.3 [place] # 0.5 Eos # 0.1 Baso # 0.1 Seg Neutrophils % 68.0 Seg Neutrophils # 4.3 Sodium 134 L Potassium 6.1 H* Chloride 99.9 Carbon Dioxide 24 Anion Gap 16 BUN 7 Creatinine 0.5 L Estimated GFR > 60 BUN/Creatinine Ratio 14 Glucose 87 Calcium 8.7 Total Bilirubin 0.30 AST 63 H ALT 14 Alkaline Phosphatase 40 Total Protein 8.0 Albumin 3.9 Albumin/Globulin Ratio 1.0 Urine Color Yellow Urine Turbidity Clear Urine pH 5.0 Ur Specific [place] 1.024 Urine Protein <15 mg/dl Urine Glucose (UA) Neg Urine Ketones Neg Urine Blood Neg Urine Nitrite Neg Urine Bilirubin Neg Urine Urobilinogen < 2.0 Ur Leukocyte Esterase Neg Urine WBC (Auto) 1.0 Urine RBC (Auto) 2.0 U Epithel Cells (Auto) 6.0 Urine Mucus 1+ Urine HCG, Qual Negative Critical care attestation.: If time is entered above; I have spent that time in minutes in the direct care of this critically ill patient, excluding procedure time. ED Disposition Clinical Impression: Abdominal pain Qualifiers: Abdominal location: generalized Qualified Code(s): R10.84 - Generalized abdominal pain Disposition: TO HOME OR SELFCARE Is pt being admited?: No Does the pt Need Aspirin: No Condition: Stable Instructions: Abdominal Pain (ED) Additional Instructions: follow up with Dr. Dr Banuelos Referrals: PRIMARY CARE, [Primary Care Provider] - 3-5 Days Forms: Work/School Release Form(ED) Time of Disposition: 15:04
--- NOTE | 2018-05-07 14:31 | Cat Scan Report ---
CT ABDOMEN PELVIS WITHOUT CONTRAST: HISTORY: abdominal pain. COMPARISON: CT abdomen pelvis with contrast dated 01/08/18.. TECHNIQUE: Helical CT in 1.25mm intervals without IV contrast. Sagittal and coronal reconstructions. FINDINGS: Lung bases: Normal. Liver: Normal. Biliary system: Cholecystectomy. No biliary dilatation. Pancreas: Normal. Spleen: Normal. Kidneys/ureters/bladder: Normal. Adrenal glands: Normal. Aorta: Normal. Intestines: Normal. Appendix: Normal. Pelvic viscera: Normal. Ascites: None. Adenopathy: None. Musculoskeletal: Normal. IMPRESSION: Unremarkable CT scan of the abdomen and pelvis without contrast. No acute process is noted.
== END 2018-05-07 15:08 | disposition home or self-care (01) ==
LOC: ED 10:07
DX: R10.30 Lower abdominal pain, unspecified (principal); R11.2 Nausea with vomiting, unspecified; Z90.49 Acquired absence of other specified parts of digestive tract; Z87.442 Personal history of urinary calculi; Z88.6 Allergy status to analgesic agent; Z88.0 Allergy status to penicillin; Z91.041 Radiographic dye allergy status
CPT/HCPCS: 36415; 74176; 80053; 81001; 81025; 85025; 96361; 96374; 96375; 96376; 99284; J1170; J7030; J1885

== ENCOUNTER 2018-05-20 21:06 | Emergency (ER) | payer MEDICAID, OTHER ==
[2018-05-21] MEDS ORDERED: ZOFRAN ODT ONE (02:39)
[2018-05-21] MEDS ORDERED: ZOFRAN ODT PO ONE (02:42)
[2018-05-21 02:49] LABS: Mean Corpuscular HGB Conc 30 % (30-34); Mean Corpuscular Volume 72 fl (79-97); Platelet Count 398 K/mm3 (140-440); Red Blood Count 4.01 M/mm3 (3.65-5.03)
[2018-05-21 02:52] LABS: Hemoglobin 8.6 gm/dl (10.1-14.3); Mean Corpuscular Hemoglobin 21 pg (28-32); Red Cell Distribution Width 20.4 % (13.2-15.2)
[2018-05-21 03:36] LABS: Alanine Aminotransferase 83 units/L (7-56); Albumin 4.1 g/dL (3.9-5); Calcium 9.2 mg/dL (8.4-10.2); Hemolysis Index 4; Lipase 23 units/L (13-60)
[2018-05-21 05:08] LABS: BUN/Creatinine Ratio 18; Blood Urea Nitrogen 11 mg/dL (7-17)
[2018-05-21 05:10] LABS: Band Neutrophils # (Manual) 0.1 K/mm3; Basophils % (Manual) 0 % (0.0-1.8); Total Cells Counted 100
[2018-05-21 05:11] LABS: Hypochromasia 1+; Ovalocytes 1+
[2018-05-21 06:27] LABS: HCG Qualitative,Urine Negative (Negative)
[2018-05-21 06:29] LABS: Bilirubin,Urine NEG (Negative); Blood,Urine NEG (Negative); Color,Urine Yellow (Yellow); Mucus,Urine 3+ /HPF; Protein,Urine <15 mg/dL mg/dL (Negative)
[2018-05-21 09:39] VITALS: BP 116/78
[2018-05-21] MEDS ORDERED: PERCOCET 5/325 PO ONE (10:18)
[2018-05-21] MEDS ORDERED: PHENERGAN PR ONE (10:18)
--- NOTE | 2018-05-21 10:19 | Emergency Department Report ---
ED General Adult HPI - General Chief complaint: Nausea/Vomiting/Diarrhea Stated complaint: VOMITING,CERVICAL PAIN Time Seen by Provider: 05/21/18 10:07 Source: patient, RN notes reviewed, old records reviewed Mode of arrival: Ambulatory Limitations: No Limitations - History of Present Illness Initial comments: This is a 27-year-old female whom I have evaluated in the past. Please see my note from 03/18/2018 for more complete details of the patient's past medical history. She presents to the ER with 2 days of cervical pain, and nausea and vomiting. Her pain is sharp, and increases with palpation and decreases with rest. She reports that she is scheduled for hysterectomy in August. She denies irritative, obstructive urinary symptoms, headache, neck pain, chest pain , shortness of breath. The patient reports that her symptoms today are similar to prior episodes of nausea and vomiting with abdominal pain. Patient has been seen at this hospital and department multiple times for similar symptoms, and has had multiple extensive workups, including laboratory studies and CT scan imaging. All of her CT scans have been essentially unremarkable for acute disease, pathology. In the emergency room, the patient was treated supportively with Zofran, Phenergan, Percocet, Haldol IM. These improved her symptoms, and she was heard to be laughing and giggling with her lab asst. The patient eloped from the emergency room prior to the completion of her evaluation. -: Gradual Location: abdomen, genitals Severity scale (0 -10): 10 Quality: stabbing, aching Consistency: intermittent Improves with: medication Worsens with: movement Associated Symptoms: nausea/vomiting. denies: confusion, chest pain, cough, diaphoresis, fever/chills, headaches, loss of appetite, malaise, rash, seizure, shortness of breath, syncope, weakness - Related Data Previous Rx's Medication Instructions Recorded Last Taken Type HYDROcodone/ACETAMINOPHEN [[place] 1 - 2 each PO Q4-6H PRN #14 tablet 11/11/17 Unknown Rx 5-325 Tablet] Ferrous Sulfate [Feosol 325 MG tab] 325 mg PO TID 30 Days #90 tablet 01/28/18 Unknown Rx Oxycodone HCl/Acetaminophen 1 each PO Q6HR PRN #20 tablet 01/28/18 Unknown Rx [Percocet 10/325 mg] Promethazine [Phenergan TAB] 25 mg PO Q6HR PRN #20 tab 01/28/18 Unknown Rx Promethazine [Phenergan TAB] 25 mg PO Q6HR PRN #30 tab 04/17/18 Unknown Rx oxyCODONE [Roxicodone TAB] 5 mg PO Q6HR PRN #15 tablet 04/17/18 Unknown Rx Allergies Allergy/AdvReac Type Severity Reaction Status Date / Time ketorolac tromethamine Allergy Hives Verified 12/02/17 16:54 [From Toradol] Penicillins Allergy Swelling Verified 12/02/17 16:54 tramadol Allergy Hives Verified 12/02/17 16:54 Iodinated Contrast- Oral and AdvReac Mild other Verified 12/02/17 16:54 IV Dye ED Review of Systems ROS: Stated complaint: VOMITING,CERVICAL PAIN Other details as noted in HPI Comment: All other systems reviewed and negative ED Past Medical Hx - Past Medical History Hx Kidney Stones: Yes Additional medical history: FIBROIDS, scoliosis. kidney stones per pt,cervical cancer-dx 05/2017 - Surgical History Hx Cholecystectomy: Yes Additional Surgical History: X 4. HERNIA REPAIR - Social History Smoking Status: Current Every Day Smoker Substance Use Type: None - Medications Home Medications: Home Medications Medication Instructions Recorded Confirmed Last Taken Type HYDROcodone/ACETAMINOPHEN [[place] 1 - 2 each PO Q4-6H PRN #14 tablet 11/11/17 Unknown Rx 5-325 Tablet] Ferrous Sulfate [Feosol 325 MG tab] 325 mg PO TID 30 Days #90 tablet 01/28/18 Unknown Rx Oxycodone HCl/Acetaminophen 1 each PO Q6HR PRN #20 tablet 01/28/18 04/17/18 Unknown Rx [Percocet 10/325 mg] Promethazine [Phenergan TAB] 25 mg PO Q6HR PRN #20 tab 01/28/18 04/17/18 Unknown Rx Promethazine [Phenergan TAB] 25 mg PO Q6HR PRN #30 tab 04/17/18 Unknown Rx oxyCODONE [Roxicodone TAB] 5 mg PO Q6HR PRN #15 tablet 04/17/18 Unknown Rx ED Physical Exam - General Limitations: No Limitations General appearance: alert, in no apparent distress - Head Head exam: Present: atraumatic, normocephalic - Eye Eye exam: Present: normal appearance, EOMI. Absent: nystagmus - ENT ENT exam: Present: normal exam, normal orophraynx, mucous membranes moist, normal external ear exam - Neck Neck exam: Present: normal inspection, full ROM - Respiratory Respiratory exam: Present: normal lung sounds bilaterally. Absent: respiratory distress - Cardiovascular Cardiovascular Exam: Present: regular rate, normal rhythm, normal heart sounds. Absent: systolic murmur, diastolic murmur, rubs, gallop - GI/Abdominal GI/Abdominal exam: Present: soft, normal bowel sounds. Absent: distended, tenderness, guarding, rebound, rigid, pulsatile mass - External exam: Present: other (the patient declined a gynecologic examination) - Extremities Exam Extremities exam: Present: normal inspection, full ROM. Absent: pedal edema, joint swelling, calf tenderness - Back Exam Back exam: Present: normal inspection, full ROM. Absent: tenderness, CVA tenderness (R), paraspinal tenderness, vertebral tenderness - Neurological Exam Neurological exam: Present: alert, oriented X3, CN II-XII intact, normal gait, other (Extraocular movements intact. Tongue midline. No facial droop. Facial sensation intact to light touch in the V1, V2, V3 distribution bilaterally. 5 and 5 strength in 4 extremities.. Sensation is intact to light touch in 4 extremities.). Absent: motor sensory deficit - Psychiatric Psychiatric exam: Present: normal affect, normal mood - Skin Skin exam: Present: warm, dry, intact, normal color. Absent: rash ED Course Vital Signs 05/20/18 05/20/18 05/21/18 21:24 22:00 04:07 Temperature 98.7 F 98.7 F 98.0 F Pulse Rate 105 H 105 H 88 Respiratory 18 18 12 Rate Blood Pressure 131/71 127/56 Blood Pressure 131/71 [Right] O2 Sat by Pulse 98 100 100 Oximetry 05/21/18 05/21/18 05/21/18 09:39 10:24 11:24 Temperature Pulse Rate 60 Respiratory 16 16 16 Rate Blood Pressure Blood Pressure 116/78 [Right] O2 Sat by Pulse 100 Oximetry ED Medical Decision Making - Lab Data Result diagrams: 05/21/18 02:19 05/21/18 02:19 Vital Signs 05/20/18 05/20/18 05/21/18 21:24 22:00 04:07 Temperature 98.7 F 98.7 F 98.0 F Pulse Rate 105 H 105 H 88 Respiratory 18 18 12 Rate Blood Pressure 131/71 127/56 Blood Pressure 131/71 [Right] O2 Sat by Pulse 98 100 100 Oximetry 05/21/18 05/21/18 05/21/18 09:39 10:24 11:24 Temperature Pulse Rate 60 Respiratory 16 16 16 Rate Blood Pressure Blood Pressure 116/78 [Right] O2 Sat by Pulse 100 Oximetry Lab Results 05/21/18 05/21/18 05/21/18 Range/Units 02:19 02:19 06:14 WBC 7.6 (4.5-11.0) K/mm3 RBC 4.01 (3.65-5.03) M/mm3 Hgb 8.6 L (10.1-14.3) gm/dl Hct 29.0 L (30.3-42.9) % MCV 72 L (79-97) fl MCH 21 L (28-32) pg MCHC 30 (30-34) % RDW 20.4 H (13.2-15.2) % Plt Count 398 (140-440) K/mm3 Add Manual Diff Complete Total Counted 100 Seg Neuts % (Manual) 73.0 H (40.0-70.0) % Band Neutrophils % 1.0 % Lymphocytes % (Manual) 16.0 (13.4-35.0) % Reactive Lymphs % (Man) 0 % Monocytes % (Manual) 8.0 H (0.0-7.3) % Eosinophils % (Manual) 2.0 (0.0-4.3) % Basophils % (Manual) 0 (0.0-1.8) % Metamyelocytes % 0 % Myelocytes % 0 % Promyelocytes % 0 % Blast Cells % 0 % Nucleated RBC % Not Reportable Seg Neutrophils # Man 5.5 (1.8-7.7) K/mm3 Band Neutrophils # 0.1 K/mm3 Lymphocytes # (Manual) 1.2 (1.2-5.4) K/mm3 Abs React Lymphs (Man) 0.0 K/mm3 Monocytes # (Manual) 0.6 (0.0-0.8) K/mm3 Eosinophils # (Manual) 0.2 (0.0-0.4) K/mm3 Basophils # (Manual) 0.0 (0.0-0.1) K/mm3 Metamyelocytes # 0.0 K/mm3 Myelocytes # 0.0 K/mm3 Promyelocytes # 0.0 K/mm3 Blast Cells # 0.0 K/mm3 WBC Morphology Not Reportable Hypersegmented Neuts Not Reportable Hyposegmented Neuts Not Reportable Hypogranular Neuts Not Reportable Smudge Cells Not Reportable Toxic Granulation Not Reportable Toxic Vacuolation Not Reportable Dohle Bodies Not Reportable Pelger-Huet Anomaly Not Reportable Jeanne Rods Not Reportable Platelet Estimate Appears normal Clumped Platelets Not Reportable Plt Clumps, EDTA Not Reportable Large Platelets Not Reportable Giant Platelets Not Reportable Platelet Satelliting Not Reportable Plt Morphology Comment Not Reportable RBC Morphology Not Reportable Dimorphic RBCs Not Reportable Polychromasia Not Reportable Hypochromasia 1+ Poikilocytosis Not Reportable Anisocytosis Not Reportable Microcytosis Not Reportable Macrocytosis Not Reportable Spherocytes Not Reportable Pappenheimer Bodies Not Reportable Sickle Cells Not Reportable Target Cells Not Reportable Tear Drop Cells Not Reportable Ovalocytes 1+ Helmet Cells Not Reportable [place] Bodies Not Reportable [place] Rings Not Reportable [place]it[place] Cells Not Reportable Bite Cells Not Reportable Crenated Cell Not Reportable Elliptocytes Few Acanthocytes (Spur) Not Reportable Rouleaux Not Reportable Hemoglobin C Crystals Not Reportable Schistocytes Not Reportable Malaria parasites Not Reportable [place] Bodies Not Reportable Hem Pathologist Commnt No Sodium 139 (137-145) mmol/L Potassium 4.0 (3.6-5.0) mmol/L Chloride 102.9 (98-107) mmol/L Carbon Dioxide 24 (22-30) mmol/L Anion Gap 16 mmol/L BUN 11 (7-17) mg/dL Creatinine 0.6 L (0.7-1.2) mg/dL Estimated GFR > 60 ml/min BUN/Creatinine Ratio 18 % Glucose 81 (65-100) mg/dL Calcium 9.2 (8.4-10.2) mg/dL Total Bilirubin 0.30 (0.1-1.2) mg/dL AST 27 (5-40) units/L ALT 83 H (7-56) units/L Alkaline Phosphatase 102 (35-129) units/L Total Protein 7.6 (6.3-8.2) g/dL Albumin 4.1 (3.9-5) g/dL Albumin/Globulin Ratio 1.2 % Lipase 23 (13-60) units/L Urine Color Yellow (Yellow) Urine Turbidity Clear (Clear) Urine pH 5.0 (5.0-7.0) Ur Specific [place] 1.028 (1.003-1.030) Urine Protein <15 mg/dl (Negative) mg/dL Urine Glucose (UA) Neg (Negative) mg/dL Urine Ketones Tr (Negative) mg/dL Urine Blood Neg (Negative) Urine Nitrite Neg (Negative) Ur Reducing Substances Not Reportable Urine Bilirubin Neg (Negative) Urine Ictotest Not Reportable Urine Urobilinogen 2.0 (<2.0) mg/dL Ur Leukocyte Esterase Neg (Negative) Urine WBC (Auto) 1.0 (0.0-6.0) /HPF Urine RBC (Auto) 2.0 (0.0-6.0) /HPF U Epithel Cells (Auto) 10.0 (0-13.0) /HPF Urine Mucus 3+ /HPF Urine HCG, Qual Negative (Negative) - Medical Decision Making Differential diagnosis, including but not limited to: Cannabinoid hyperemesis syndrome, cyclic vomiting syndrome, narcotic bowel syndrome, chronic abdominal pain Assessment and plan: 27-year-old female with acute on chronic pain syndrome, for which she has been evaluated multiple times in the past at this hospital. She is afebrile with reassuring vital signs, tolerating liquid feeds, laboratory studies did not demonstrate any emergent condition at this time. The patient eloped prior to completion of her evaluation. Critical care attestation.: If time is entered above; I have spent that time in minutes in the direct care of this critically ill patient, excluding procedure time. ED Disposition Clinical Impression: Abdominal pain Disposition: ELOPED Is pt being admited?: No Does the pt Need Aspirin: No Condition: Undetermined Referrals: PRIMARY CARE, [Primary Care Provider] - 3-5 Days
[2018-05-21] MEDS ORDERED: HALDOL IM STA (10:31)
== END 2018-05-21 12:50 | disposition left against medical advice (07) ==
LOC: ED 21:06
DX: R10.9 Unspecified abdominal pain (principal); M54.2 Cervicalgia; R11.2 Nausea with vomiting, unspecified; G89.4 Chronic pain syndrome; F17.200 Nicotine dependence, unspecified, uncomplicated; Z88.8 Allergy status to other drugs, medicaments and biological substances; Z88.0 Allergy status to penicillin; Z91.041 Radiographic dye allergy status; Z90.49 Acquired absence of other specified parts of digestive tract; Z79.899 Other long term (current) drug therapy
CPT/HCPCS: 36415; 80053; 81001; 81025; 83690; 85007; 85025; 96372; 99283; J1630; Q0162

== ENCOUNTER 2018-06-07 14:19 | Emergency (ER) | payer SELFPAY ==
[2018-06-07 14:44] LABS: Basophils # (Auto) 0.1 K/mm3 (0.0-0.1); Eosinophils # (Auto) 0.3 K/mm3 (0.0-0.4); Eosinophils % (Auto) 3.1 % (0.0-4.3); Hematocrit 25.3 % (30.3-42.9); Lymphocytes # (Auto) 1.9 K/mm3 (1.2-5.4); Lymphocytes % (Auto) 22.8 % (13.4-35.0); Mean Corpuscular HGB Conc 32 % (30-34); Mean Corpuscular Hemoglobin 22 pg (28-32); Mean Corpuscular Volume 70 fl (79-97); Monocytes % (Auto) 11.7 % (0.0-7.3); Platelet Count 349 K/mm3 (140-440); Red Blood Count 3.61 M/mm3 (3.65-5.03); Red Cell Distribution Width 19.4 % (13.2-15.2)
[2018-06-07 14:53] LABS: Alanine Aminotransferase 13 units/L (7-56); Albumin 4.1 g/dL (3.9-5); BUN/Creatinine Ratio 18; Blood Urea Nitrogen 11 mg/dL (7-17); Hemolysis Index 0
--- NOTE | 2018-06-07 15:03 | XRay Report ---
Supine and upright views of the abdomen: Abdominal distention; cervical cancer. There is an unremarkable gas pattern with no evidence of obstruction. There is no free air. No soft tissue mass. Cholecystectomy clips and right pelvic surgical clip. Normal bony structures. Impression: No acute pathology identified.
[2018-06-07 15:30] LABS: Bilirubin,Urine NEG (Negative); Blood,Urine NEG (Negative); Color,Urine Yellow (Yellow); Mucus,Urine 3+ /HPF; Protein,Urine <15 mg/dL mg/dL (Negative)
--- NOTE | 2018-06-07 20:29 | Emergency Department Report ---
ED Abdominal Pain HPI - General Chief Complaint: Abdominal Pain Stated Complaint: RIB PAIN Time Seen by Provider: 06/07/18 20:02 Source: patient Mode of arrival: Ambulatory Limitations: No Limitations - History of Present Illness Initial Comments: 28-year-old female that presents emergency room with complaints of abdominal pain 4 days. Patient states the she was recently diagnosed with stage I cervical cancer in [place] however patient moved here to be closer to family and now patient is waiting on having a hysterectomy done at [facility]. Patient states that she always has fluctuating pain in her belly but this is worse and is constant. Patient states the pain is a 9 out of 10. At times it'll be an 8 out of 10. Patient states the pain is better with rest and worse with palpation and movement. Patient states his also having knots come up on her abdominal skin. Patient complains of nausea without vomiting. Patient denies chest pain or shortness of breath. Patient denies diarrhea and epigastric pain. Patient states that her abdominal pain is in her bilateral lower abdomen and her left upper abdomen. MD Complaint: abdominal pain -: Sudden Location: LUQ, LLQ, RLQ Radiation: none Migration to: no migration Severity: severe Severity scale (0 -10): 9 Quality: stabbing Consistency: constant Improves With: rest Worsens With: movement Associated Symptoms: nausea. denies: vomiting, diarrhea, fever, chills, constipation, dysuria, hematemesis, hematochezia, melena, hematuria, anorexia, syncope - Related Data LMP (females 10-50): unknown Previous Rx's Medication Instructions Recorded Last Taken Type HYDROcodone/ACETAMINOPHEN [[place] 1 - 2 each PO Q4-6H PRN #14 tablet 11/11/17 Unknown Rx 5-325 Tablet] Ferrous Sulfate [Feosol 325 MG tab] 325 mg PO TID 30 Days #90 tablet 01/28/18 Unknown Rx Oxycodone HCl/Acetaminophen 1 each PO Q6HR PRN #20 tablet 01/28/18 Unknown Rx [Percocet 10/325 mg] Promethazine [Phenergan TAB] 25 mg PO Q6HR PRN #20 tab 01/28/18 Unknown Rx Promethazine [Phenergan TAB] 25 mg PO Q6HR PRN #30 tab 04/17/18 Unknown Rx oxyCODONE [Roxicodone TAB] 5 mg PO Q6HR PRN #15 tablet 04/17/18 Unknown Rx Allergies Allergy/AdvReac Type Severity Reaction Status Date / Time ketorolac tromethamine Allergy Hives Verified 12/02/17 16:54 [From Toradol] Penicillins Allergy Swelling Verified 12/02/17 16:54 tramadol Allergy Hives Verified 12/02/17 16:54 Iodinated Contrast- Oral and AdvReac Mild other Verified 12/02/17 16:54 IV Dye ED Review of Systems ROS: Stated complaint: RIB PAIN Other details as noted in HPI Constitutional: denies: chills, fever Eyes: denies: eye pain, eye discharge, vision change ENT: denies: ear pain, throat pain Respiratory: denies: cough, shortness of breath, wheezing Cardiovascular: denies: chest pain, palpitations Endocrine: no symptoms reported Gastrointestinal: abdominal pain, nausea. denies: diarrhea Genitourinary: denies: urgency, dysuria, discharge Musculoskeletal: denies: back pain, joint swelling, arthralgia Skin: denies: rash, lesions Neurological: denies: headache, weakness, paresthesias Psychiatric: denies: anxiety, depression Hematological/Lymphatic: denies: easy bleeding, easy bruising ED Past Medical Hx - Past Medical History Previous Medical History?: Yes Hx Kidney Stones: Yes Additional medical history: FIBROIDS, scoliosis. kidney stones per pt,cervical cancer-dx 05/2017 - Surgical History Past Surgical History?: Yes Hx Cholecystectomy: Yes Additional Surgical History: X 4. HERNIA REPAIR - Family History Family history: hypertension - Social History Smoking Status: Current Every Day Smoker Substance Use Type: None - Medications Home Medications: Home Medications Medication Instructions Recorded Confirmed Last Taken Type HYDROcodone/ACETAMINOPHEN [[place] 1 - 2 each PO Q4-6H PRN #14 tablet 11/11/17 Unknown Rx 5-325 Tablet] Ferrous Sulfate [Feosol 325 MG tab] 325 mg PO TID 30 Days #90 tablet 01/28/18 Unknown Rx Oxycodone HCl/Acetaminophen 1 each PO Q6HR PRN #20 tablet 01/28/18 04/17/18 Unknown Rx [Percocet 10/325 mg] Promethazine [Phenergan TAB] 25 mg PO Q6HR PRN #20 tab 01/28/18 04/17/18 Unknown Rx Promethazine [Phenergan TAB] 25 mg PO Q6HR PRN #30 tab 04/17/18 Unknown Rx oxyCODONE [Roxicodone TAB] 5 mg PO Q6HR PRN #15 tablet 04/17/18 Unknown Rx ED Physical Exam - General Limitations: No Limitations General appearance: alert, in no apparent distress - Head Head exam: Present: atraumatic, normocephalic - Eye Eye exam: Present: normal appearance - ENT ENT exam: Present: mucous membranes moist - Neck Neck exam: Present: normal inspection - Respiratory Respiratory exam: Present: normal lung sounds bilaterally. Absent: respiratory distress - Cardiovascular Cardiovascular Exam: Present: regular rate, normal rhythm. Absent: systolic murmur, diastolic murmur, rubs, gallop - GI/Abdominal GI/Abdominal exam: Present: soft, distended, tenderness, normal bowel sounds - Extremities Exam Extremities exam: Present: normal inspection - Back Exam Back exam: Present: normal inspection - Neurological Exam Neurological exam: Present: alert, oriented X3 - Psychiatric Psychiatric exam: Present: normal affect, normal mood - Skin Skin exam: Present: warm, dry, intact, normal color. Absent: rash ED Course Vital Signs 06/07/18 06/07/18 06/07/18 14:24 19:57 20:00 Temperature 97.8 F Pulse Rate 81 Respiratory 16 Rate Blood Pressure 107/61 109/59 Blood Pressure [Left] O2 Sat by Pulse 99 100 100 Oximetry 06/07/18 06/07/18 06/07/18 20:10 20:11 20:16 Temperature 98.6 F Pulse Rate 62 Respiratory 16 Rate Blood Pressure 109/59 Blood Pressure 109/59 [Left] O2 Sat by Pulse 99 100 99 Oximetry 06/07/18 06/07/18 06/07/18 20:30 20:46 21:00 Temperature Pulse Rate Respiratory Rate Blood Pressure 103/65 103/65 109/59 Blood Pressure [Left] O2 Sat by Pulse 100 100 100 Oximetry 06/07/18 06/07/18 06/07/18 21:38 21:46 22:00 Temperature Pulse Rate Respiratory Rate Blood Pressure 115/64 115/64 115/64 Blood Pressure [Left] O2 Sat by Pulse 100 97 100 Oximetry 06/07/18 06/07/18 06/07/18 22:16 22:30 22:45 Temperature Pulse Rate Respiratory Rate Blood Pressure 120/67 115/64 104/60 Blood Pressure [Left] O2 Sat by Pulse 100 100 Oximetry 06/07/18 06/07/18 06/07/18 23:02 23:17 23:32 Temperature Pulse Rate Respiratory Rate Blood Pressure 118/45 103/52 98/50 Blood Pressure [Left] O2 Sat by Pulse Oximetry 06/07/18 06/08/18 23:47 00:00 Temperature Pulse Rate Respiratory Rate Blood Pressure 112/60 112/60 Blood Pressure [Left] O2 Sat by Pulse Oximetry - Reevaluation(s) Reevaluation #1: Patient is resting better after pain meds. CT abdomen is still pending. 06/07/18 23:09 Reevaluation #2: CT abdomen still pending Reevaluation #3: Patient signed out AMA. Risks discussed with patient. Patient voiced complete understanding of risks of leaving the hospital AGAINST MEDICAL ADVICE. Patient was informed that we do not have her CT scan back so we cannot fully evaluate the cause of her pain. Patient states that her pain is better and she needs to go home. Patient given strict ER instructions to return. Patient instructed to follow up with primary care. Patient return to ER if condition worsens. 06/08/18 00:37 Reevaluation #4: CT negative. CT abdomen as no acute findings. Positive for prior cholecystectomy. She given results prior to leaving. 06/08/18 00:15 ED Medical Decision Making - Lab Data Result diagrams: 06/07/18 14:34 06/07/18 14:34 - Radiology Data Radiology results: report reviewed - Medical Decision Making Patient is a 28-year-old female presents emergency room with abdominal pain. Patient hospital AGAINST MEDICAL ADVICE and prior to CT scan returning. Patient voiced understanding of risks. Patient signed AMA. - Differential Diagnosis abd pain. Gastroenteritis. Constipation. Critical care attestation.: If time is entered above; I have spent that time in minutes in the direct care of this critically ill patient, excluding procedure time. ED Disposition Clinical Impression: Abdominal pain, Anemia Disposition: LEFT AGAINST MED ADVICE Is pt being admited?: No Does the pt Need Aspirin: No Condition: Stable Referrals: PRIMARY CARE, [Primary Care Provider] - 3-5 Days Time of Disposition: 00:38
[2018-06-07] MEDS ORDERED: DILAUDID ONE (22:43)
[2018-06-07] MEDS ORDERED: ZOFRAN ONE (22:43)
[2018-06-07] MEDS ORDERED: DILAUDID IV ONE (22:47)
[2018-06-07] MEDS ORDERED: ZOFRAN IV ONE (22:47)
[2018-06-08 00:38] VITALS: BP 112/60
--- NOTE | 2018-06-10 08:07 | Cat Scan Report ---
FINAL REPORT PROCEDURE: CT ABD AND PELVIS WO CONTRAST TECHNIQUE: Computerized axial tomography of the abdomen and pelvis was performed without intravenous contrast. This study is performed without intravascular contrast material and its sensitivity for abdominal and pelvic pathology, including neoplasms, inflammation, abscess, free fluid, thrombosis, arterial dissection and infarction, is reduced compared with a contrast enhanced study. HISTORY: abd pain COMPARISON: Prior CT scan 05/07/2018 FINDINGS: Lower Lung [place]: No focal abnormality seen. Upper Abdomen: Gallbladder surgically absent. The unenhanced images the liver are unremarkable. The adrenal glands, the unenhanced images of the pancreas and spleen are unremarkable. Kidneys, Ureters and Urinary bladder: Kidneys and ureters are unremarkable. Calcifications seen in the lower pelvis appear to represent phleboliths. No definite ureteral calculi are seen. Urinary bladder is only partially filled and shows no focal abnormality. Retroperitoneum: Abdominal aorta appears normal. Nonspecific subcentimeter lymph nodes are seen in the retroperitoneum. No pathologically enlarged lymph nodes are identified. Bowel: Bowel loops are unremarkable. No evidence of bowel obstruction ascites or free intraperitoneal gas. Normal-appearing appendix is seen in the right lower quadrant. Reproductive organs: Uterus and adnexa are unremarkable. No acute bony abnormalities are identified. IMPRESSION: Prior cholecystectomy. No acute abnormalities are identified..
== END 2018-06-08 01:04 | disposition left against medical advice (07) ==
LOC: ED 14:19
DX: D64.9 Anemia, unspecified (principal); R10.12 Left upper quadrant pain; R10.31 Right lower quadrant pain; R10.32 Left lower quadrant pain; R11.0 Nausea; F17.200 Nicotine dependence, unspecified, uncomplicated; Z90.49 Acquired absence of other specified parts of digestive tract; Z88.0 Allergy status to penicillin; Z88.6 Allergy status to analgesic agent; Z91.041 Radiographic dye allergy status
CPT/HCPCS: 36415; 74019; 74176; 80053; 81001; 85025; 96374; 96375; 99284; J1170; J2405

== ENCOUNTER 2018-06-21 12:04 | Emergency (ER) | payer SELFPAY ==
[2018-06-21 12:52] LABS: HCG Qualitative,Urine Negative (Negative)
[2018-06-21 13:10] LABS: Bacteria,Urine 3+ /HPF (Negative); Bilirubin,Urine NEG (Negative); Blood,Urine LG (Negative); Color,Urine Red (Yellow); Urobilinogen,Urine < 2.0 mg/dL (<2.0)
[2018-06-21 13:13] LABS: RBC,Urine > 182.0 /HPF (0.0-6.0); WBC,Urine > 182.0 /HPF (0.0-6.0)
--- NOTE | 2018-06-21 14:45 | Emergency Department Report ---
ED Abdominal Pain HPI - General Chief Complaint: Abdominal Pain Stated Complaint: ABD PAIN Time Seen by Provider: 06/21/18 13:58 Source: patient Mode of arrival: Ambulatory Limitations: No Limitations - History of Present Illness Initial Comments: Patient is a 28-year-old black female past medical history of fibroids as well as cervical cancer who is scheduled for hysterectomy next month who is presenting with vaginal bleeding for the past several days as well as suprapubic pain. Patient states she had there is some urinary frequency as well. Patient denies any fevers chills nausea vomiting diarrhea. She states that she sometimes does feel some dizziness as well as taking iron pills at baseline. Patient states the pain is 8 out of 10 in severity. - Related Data Previous Rx's Medication Instructions Recorded Last Taken Type HYDROcodone/ACETAMINOPHEN [[place] 1 - 2 each PO Q4-6H PRN #14 tablet 11/11/17 Unknown Rx 5-325 Tablet] Ferrous Sulfate [Feosol 325 MG tab] 325 mg PO TID 30 Days #90 tablet 01/28/18 Unknown Rx Oxycodone HCl/Acetaminophen 1 each PO Q6HR PRN #20 tablet 01/28/18 Unknown Rx [Percocet 10/325 mg] Promethazine [Phenergan TAB] 25 mg PO Q6HR PRN #20 tab 01/28/18 Unknown Rx Promethazine [Phenergan TAB] 25 mg PO Q6HR PRN #30 tab 04/17/18 Unknown Rx oxyCODONE [Roxicodone TAB] 5 mg PO Q6HR PRN #15 tablet 04/17/18 Unknown Rx Ciprofloxacin HCl [Cipro] 500 mg PO BID #14 tablet 06/21/18 Unknown Rx HYDROcodone/APAP 5-325 [[place] 1 each PO Q4HR PRN #12 tablet 06/21/18 Unknown Rx 5/325] medroxyPROGESTERone ACETATE 10 mg PO DAILY #5 tablet 06/21/18 Unknown Rx [Provera] Allergies Allergy/AdvReac Type Severity Reaction Status Date / Time ketorolac tromethamine Allergy Hives Verified 12/02/17 16:54 [From Toradol] Penicillins Allergy Swelling Verified 12/02/17 16:54 tramadol Allergy Hives Verified 12/02/17 16:54 Iodinated Contrast- Oral and AdvReac Mild other Verified 12/02/17 16:54 IV Dye ED Review of Systems ROS: Stated complaint: ABD PAIN Other details as noted in HPI Comment: All other systems reviewed and negative ED Past Medical Hx - Past Medical History Hx Kidney Stones: Yes Additional medical history: FIBROIDS, scoliosis. kidney stones per pt,cervical cancer-dx 05/2017 - Surgical History Hx Cholecystectomy: Yes Additional Surgical History: X 4. HERNIA REPAIR - Social History Smoking Status: Never Smoker Substance Use Type: None - Medications Home Medications: Home Medications Medication Instructions Recorded Confirmed Last Taken Type HYDROcodone/ACETAMINOPHEN [[place] 1 - 2 each PO Q4-6H PRN #14 tablet 11/11/17 Unknown Rx 5-325 Tablet] Ferrous Sulfate [Feosol 325 MG tab] 325 mg PO TID 30 Days #90 tablet 01/28/18 Unknown Rx Oxycodone HCl/Acetaminophen 1 each PO Q6HR PRN #20 tablet 01/28/18 04/17/18 Unknown Rx [Percocet 10/325 mg] Promethazine [Phenergan TAB] 25 mg PO Q6HR PRN #20 tab 01/28/18 04/17/18 Unknown Rx Promethazine [Phenergan TAB] 25 mg PO Q6HR PRN #30 tab 04/17/18 Unknown Rx oxyCODONE [Roxicodone TAB] 5 mg PO Q6HR PRN #15 tablet 04/17/18 Unknown Rx Ciprofloxacin HCl [Cipro] 500 mg PO BID #14 tablet 06/21/18 Unknown Rx HYDROcodone/APAP 5-325 [[place] 1 each PO Q4HR PRN #12 tablet 06/21/18 Unknown Rx 5/325] medroxyPROGESTERone ACETATE 10 mg PO DAILY #5 tablet 06/21/18 Unknown Rx [Provera] ED Physical Exam - General Limitations: No Limitations General appearance: alert, in no apparent distress - Head Head exam: Present: atraumatic, normocephalic - Eye Eye exam: Present: normal appearance - ENT ENT exam: Present: mucous membranes moist - Neck Neck exam: Present: normal inspection - Respiratory Respiratory exam: Present: normal lung sounds bilaterally. Absent: respiratory distress, wheezes, rales, rhonchi - Cardiovascular Cardiovascular Exam: Present: regular rate, normal rhythm. Absent: systolic murmur, diastolic murmur, rubs, gallop - GI/Abdominal GI/Abdominal exam: Present: soft, tenderness, normal bowel sounds. Absent: distended, guarding, rebound, rigid - Extremities Exam Extremities exam: Present: normal inspection - Back Exam Back exam: Present: normal inspection - Neurological Exam Neurological exam: Present: alert, oriented X3 - Psychiatric Psychiatric exam: Present: normal affect, normal mood - Skin Skin exam: Present: warm, dry, intact, normal color. Absent: rash ED Course Vital Signs 06/21/18 12:21 Temperature 98.2 F Pulse Rate 72 Respiratory 16 Rate Blood Pressure 122/59 O2 Sat by Pulse 100 Oximetry ED Medical Decision Making - Lab Data Lab Results 06/21/18 Range/Units 12:25 Urine Color Red (Yellow) Urine Turbidity Cloudy (Clear) Urine pH 6.0 (5.0-7.0) Ur Specific [place] 1.016 (1.003-1.030) Urine Protein 100 mg/dl (Negative) mg/dL Urine Glucose (UA) Neg (Negative) mg/dL Urine Ketones Neg (Negative) mg/dL Urine Blood Lg (Negative) Urine Nitrite Neg (Negative) Ur Reducing Substances Not Reportable Urine Bilirubin Neg (Negative) Urine Ictotest Not Reportable Urine Urobilinogen < 2.0 (<2.0) mg/dL Ur Leukocyte Esterase Tr (Negative) Urine WBC (Auto) > 182.0 H (0.0-6.0) /HPF Urine RBC (Auto) > 182.0 (0.0-6.0) /HPF U Epithel Cells (Auto) 22.0 H (0-13.0) /HPF Urine Bacteria (Auto) 3+ (Negative) /HPF Urine HCG, Qual Negative (Negative) - Medical Decision Making Vital signs within normal limits patient has good color and I believe the patient is significantly anemic at this time. Patient be started on antibiotics and pain meds be discharged home. Return patient's bleeding the patient will be started on Provera as well. Critical care attestation.: If time is entered above; I have spent that time in minutes in the direct care of this critically ill patient, excluding procedure time. ED Disposition Clinical Impression: Dysfunctional uterine bleeding Acute cystitis Qualifiers: Hematuria presence: with hematuria Qualified Code(s): N30.01 - Acute cystitis with hematuria Disposition: TO HOME OR SELFCARE Is pt being admited?: No Does the pt Need Aspirin: No Condition: Stable Instructions: Urinary Tract Infection in Women (ED), Dysfunctional Uterine Bleeding (ED) Referrals: PRIMARY CARE,MD [Primary Care Provider] - 3-5 Days
[2018-06-21 15:05] VITALS: BP 118/76
== END 2018-06-21 15:04 | disposition home or self-care (01) ==
LOC: ED 12:04
DX: N93.8 Other specified abnormal uterine and vaginal bleeding (principal); N30.01 Acute cystitis with hematuria; Z85.41 Personal history of malignant neoplasm of cervix uteri; Z88.6 Allergy status to analgesic agent; Z88.0 Allergy status to penicillin; Z91.041 Radiographic dye allergy status
CPT/HCPCS: 81001; 81025; 99283

== ENCOUNTER 2018-07-09 09:49 | Emergency (ER) | payer SELFPAY ==
--- NOTE | 2018-07-09 11:59 | Emergency Department Report ---
ED General Adult HPI - General Chief complaint: Pain General Stated complaint: ALLERGIC REACTION Time Seen by Provider: 07/09/18 11:22 Source: patient Mode of arrival: Ambulatory Limitations: No Limitations - History of Present Illness Initial comments: Patient is a 28-year-old female who has past medical history cervical cancer not undergoing any treatment. Patient claims she is scheduled for hysterectomy next month and she is complaining of suprapubic pain as well as a cough. Patient has some urinary frequency.. Patient states the pain is 8 out of 10 in severity is in the suprapubic region. Patient also is complaining of some generalized swelling mostly in the ankles and some puffiness to the face. Patient was diagnosed with a urinary tract infection here 2 weeks ago but states she did not get her medications filled. Patient is here complaining of pain. - Related Data Previous Rx's Medication Instructions Recorded Last Taken Type Ferrous Sulfate [Feosol 325 MG tab] 325 mg PO TID 30 Days #90 tablet 01/28/18 Unknown Rx Oxycodone HCl/Acetaminophen 1 each PO Q6HR PRN #20 tablet 01/28/18 Unknown Rx [Percocet 10/325 mg] Promethazine [Phenergan TAB] 25 mg PO Q6HR PRN #20 tab 01/28/18 Unknown Rx Promethazine [Phenergan TAB] 25 mg PO Q6HR PRN #30 tab 04/17/18 Unknown Rx oxyCODONE [Roxicodone TAB] 5 mg PO Q6HR PRN #15 tablet 04/17/18 Unknown Rx HYDROcodone/APAP 5-325 [[place] 1 each PO Q4HR PRN #12 tablet 06/21/18 Unknown Rx 5/325] medroxyPROGESTERone ACETATE 10 mg PO DAILY #5 tablet 06/21/18 Unknown Rx [Provera] ALBUTEROL Inhaler [ProAir HFA 2 puff IH QID PRN #1 inhalation 07/09/18 Unknown Rx Inhaler] Ciprofloxacin HCl [Cipro] 500 mg PO BID #14 tablet 07/09/18 Unknown Rx HYDROcodone/ACETAMINOPHEN [[place] 1 - 2 each PO Q4-6H PRN #14 tablet 07/09/18 Unknown Rx 5-325 Tablet] Allergies Allergy/AdvReac Type Severity Reaction Status Date / Time ketorolac tromethamine Allergy Hives Verified 07/09/18 10:08 [From Toradol] Penicillins Allergy Swelling Verified 07/09/18 10:08 tramadol Allergy Hives Verified 07/09/18 10:08 Iodinated Contrast- Oral and AdvReac Mild other Verified 07/09/18 10:08 IV Dye ED Review of Systems ROS: Stated complaint: ALLERGIC REACTION Other details as noted in HPI Comment: All other systems reviewed and negative ED Past Medical Hx - Past Medical History Hx Kidney Stones: Yes Additional medical history: FIBROIDS, scoliosis. kidney stones per pt,cervical cancer-dx 05/2017 - Surgical History Hx Cholecystectomy: Yes Additional Surgical History: X 4. HERNIA REPAIR - Social History Smoking Status: Current Every Day Smoker Substance Use Type: None - Medications Home Medications: Home Medications Medication Instructions Recorded Confirmed Last Taken Type Ferrous Sulfate [Feosol 325 MG tab] 325 mg PO TID 30 Days #90 tablet 01/28/18 Unknown Rx Oxycodone HCl/Acetaminophen 1 each PO Q6HR PRN #20 tablet 01/28/18 04/17/18 Unknown Rx [Percocet 10/325 mg] Promethazine [Phenergan TAB] 25 mg PO Q6HR PRN #20 tab 01/28/18 04/17/18 Unknown Rx Promethazine [Phenergan TAB] 25 mg PO Q6HR PRN #30 tab 04/17/18 Unknown Rx oxyCODONE [Roxicodone TAB] 5 mg PO Q6HR PRN #15 tablet 04/17/18 Unknown Rx HYDROcodone/APAP 5-325 [[place] 1 each PO Q4HR PRN #12 tablet 06/21/18 Unknown Rx 5/325] medroxyPROGESTERone ACETATE 10 mg PO DAILY #5 tablet 06/21/18 Unknown Rx [Provera] ALBUTEROL Inhaler [ProAir HFA 2 puff IH QID PRN #1 inhalation 07/09/18 Unknown Rx Inhaler] Ciprofloxacin HCl [Cipro] 500 mg PO BID #14 tablet 07/09/18 Unknown Rx HYDROcodone/ACETAMINOPHEN [[place] 1 - 2 each PO Q4-6H PRN #14 tablet 07/09/18 Unknown Rx 5-325 Tablet] ED Physical Exam - General Limitations: No Limitations General appearance: alert, in no apparent distress - Head Head exam: Present: atraumatic, normocephalic - Eye Eye exam: Present: normal appearance Pupils: Present: other (mild periorbital edema) - ENT ENT exam: Present: mucous membranes moist - Neck Neck exam: Present: normal inspection - Respiratory Respiratory exam: Present: normal lung sounds bilaterally, wheezes (with cough otherwise lungs are clear). Absent: respiratory distress, rales, rhonchi - Cardiovascular Cardiovascular Exam: Present: regular rate, normal rhythm. Absent: systolic murmur, diastolic murmur, rubs, gallop - GI/Abdominal GI/Abdominal exam: Present: soft, tenderness (suprapubic), normal bowel sounds. Absent: distended, guarding, rebound - Extremities Exam Extremities exam: Present: normal inspection - Back Exam Back exam: Present: normal inspection - Neurological Exam Neurological exam: Present: alert, oriented X3 - Psychiatric Psychiatric exam: Present: normal affect, normal mood - Skin Skin exam: Present: warm, dry, intact, normal color. Absent: rash ED Course Vital Signs 07/09/18 10:08 Temperature 98.1 F Pulse Rate 65 Respiratory 18 Rate Blood Pressure 106/73 O2 Sat by Pulse 100 Oximetry ED Medical Decision Making - Medical Decision Making Did review the patient's laboratory studies from her last visit. Patient most likely still has a urinary tract infection and she did not take the antibiotics. Patient is been instructed to take antibiotics for her urinary tract infection otherwise she is not to get better. I've given her another prescription for Cipro which is free of [facility]. Patient also be given a prescription for Vicodin. Patient states she is unable to afford Lasix that was given last time for her edema. Patient was given a good Rx card. The patient be discharged home. Critical care attestation.: If time is entered above; I have spent that time in minutes in the direct care of this critically ill patient, excluding procedure time. ED Disposition Clinical Impression: Upper respiratory infection Qualifiers: URI type: unspecified URI Qualified Code(s): J06.9 - Acute upper respiratory infection, unspecified UTI (urinary tract infection) Qualifiers: Urinary tract infection type: acute cystitis Hematuria presence: without hematuria Qualified Code(s): N30.00 - Acute cystitis without hematuria Disposition: TO HOME OR SELFCARE Is pt being admited?: No Does the pt Need Aspirin: No Condition: Stable Instructions: Urinary Tract Infection in Women (ED), Upper Respiratory Infection (ED) Prescriptions: ALBUTEROL Inhaler [ProAir HFA Inhaler] 2 puff IH QID PRN #1 inhalation PRN Reason: Shortness Of Breath Ciprofloxacin HCl [Cipro] 500 mg PO BID #14 tablet HYDROcodone/ACETAMINOPHEN [[place] 5-325 Tablet] 1 - 2 each PO Q4-6H PRN #14 tablet PRN Reason: Pain Referrals: PRIMARY CARE, [Primary Care Provider] - 3-5 Days
[2018-07-09 12:10] VITALS: BP 128/78
== END 2018-07-09 12:09 | disposition home or self-care (01) ==
LOC: ED 09:49
DX: N30.00 Acute cystitis without hematuria (principal); F17.200 Nicotine dependence, unspecified, uncomplicated; J06.9 Acute upper respiratory infection, unspecified; Z88.0 Allergy status to penicillin; Z88.6 Allergy status to analgesic agent; Z91.041 Radiographic dye allergy status; Z90.49 Acquired absence of other specified parts of digestive tract; Z85.41 Personal history of malignant neoplasm of cervix uteri
CPT/HCPCS: 99282

== ENCOUNTER 2018-07-29 06:11 | Emergency (ER) | payer SELFPAY ==
[2018-07-29 06:19] VITALS: BP 122/63
[2018-07-29 07:53] LABS: Bilirubin,Urine NEG (Negative); Blood,Urine SM (Negative); Color,Urine Yellow (Yellow); Mucus,Urine 1+ /HPF; Protein,Urine <15 mg/dL mg/dL (Negative)
[2018-07-29 07:56] LABS: HCG Qualitative,Urine Negative (Negative)
[2018-07-29 08:24] LABS: Hematocrit 26.8 % (30.3-42.9); Hemoglobin 8.2 gm/dl (10.1-14.3); Mean Corpuscular HGB Conc 31 % (30-34); Mean Corpuscular Hemoglobin 22 pg (28-32); Mean Corpuscular Volume 71 fl (79-97); Platelet Count 383 K/mm3 (140-440); Red Blood Count 3.76 M/mm3 (3.65-5.03); Red Cell Distribution Width 19.6 % (13.2-15.2)
[2018-07-29] MEDS ORDERED: ZOFRAN ODT PO ONE (08:32)
== END 2018-07-29 09:09 | disposition left against medical advice (07) ==
LOC: ED 06:11
DX: N93.9 Abnormal uterine and vaginal bleeding, unspecified (principal); Z53.21 Procedure and treatment not carried out due to patient leaving prior to being seen by health care provider
CPT/HCPCS: 36415; 81001; 81025; 85027; Q0162

== ENCOUNTER 2018-08-12 04:27 | Emergency (ER) | payer SELFPAY ==
[2018-08-12 04:59] VITALS: BP 123/73
[2018-08-12] MEDS ORDERED: NACL 0.9% 1000 ML 1,000 ML IV ONE ×2 (05:00→10:06)
[2018-08-12 05:35] LABS: Basophils # (Auto) 0.1 K/mm3 (0.0-0.1); Basophils % (Auto) 1.4 % (0.0-1.8); Eosinophils # (Auto) 0.2 K/mm3 (0.0-0.4); Hematocrit 30.9 % (30.3-42.9); Hemoglobin 9.4 gm/dl (10.1-14.3); Lymphocytes # (Auto) 2.1 K/mm3 (1.2-5.4); Lymphocytes % (Auto) 25.1 % (13.4-35.0); Mean Corpuscular HGB Conc 31 % (30-34); Mean Corpuscular Hemoglobin 22 pg (28-32); Mean Corpuscular Volume 72 fl (79-97); Monocytes # (Auto) 0.8 K/mm3 (0.0-0.8); Monocytes % (Auto) 9.6 % (0.0-7.3); Platelet Count 429 K/mm3 (140-440); Red Blood Count 4.27 M/mm3 (3.65-5.03)
[2018-08-12 05:48] LABS: Alanine Aminotransferase 16 units/L (7-56); Albumin 4.2 g/dL (3.9-5); BUN/Creatinine Ratio 12; Blood Urea Nitrogen 7 mg/dL (7-17); Calcium 9.4 mg/dL (8.4-10.2); Hemolysis Index 4; Lipase 20 units/L (13-60)
[2018-08-12 05:50] LABS: INR 0.88 (0.87-1.13); Partial Thromboplastin Time 23.9 Sec. (24.2-36.6)
[2018-08-12 09:13] LABS: Bacteria,Urine 1+ /HPF (Negative); Bilirubin,Urine NEG (Negative); Blood,Urine NEG (Negative); Color,Urine Yellow (Yellow); HCG Qualitative,Urine Negative (Negative); Mucus,Urine FEW /HPF; Protein,Urine <15 mg/dL mg/dL (Negative)
--- NOTE | 2018-08-12 09:59 | Emergency Department Report ---
ED General Adult HPI - General Chief complaint: Abdominal Pain Stated complaint: ABDOMINAL PAIN Time Seen by Provider: 08/12/18 09:37 Source: patient Mode of arrival: Ambulatory Limitations: No Limitations - History of Present Illness Initial comments: 28-year-old male with a history of fibroids and cervical cancer presents with a complaint of right flank pain and right abdominal pain. She denies any vomiting or fever. Patient states the pain is a 10 out of 10. Patient denies any vaginal bleeding. Patient states that she has had no relief with over-the- counter medication. - Related Data Previous Rx's Medication Instructions Recorded Last Taken Type Ferrous Sulfate [Feosol 325 MG tab] 325 mg PO TID 30 Days #90 tablet 01/28/18 Unknown Rx Oxycodone HCl/Acetaminophen 1 each PO Q6HR PRN #20 tablet 01/28/18 Unknown Rx [Percocet 10/325 mg] Promethazine [Phenergan TAB] 25 mg PO Q6HR PRN #20 tab 01/28/18 Unknown Rx Promethazine [Phenergan TAB] 25 mg PO Q6HR PRN #30 tab 04/17/18 Unknown Rx oxyCODONE [Roxicodone TAB] 5 mg PO Q6HR PRN #15 tablet 04/17/18 Unknown Rx HYDROcodone/APAP 5-325 [[place] 1 each PO Q4HR PRN #12 tablet 06/21/18 Unknown Rx 5/325] medroxyPROGESTERone ACETATE 10 mg PO DAILY #5 tablet 06/21/18 Unknown Rx [Provera] ALBUTEROL Inhaler (OR & NICU) 2 puff IH QID PRN #1 inhalation 07/09/18 Unknown Rx [ProAir HFA Inhaler] Ciprofloxacin HCl [Cipro] 500 mg PO BID #14 tablet 07/09/18 Unknown Rx HYDROcodone/ACETAMINOPHEN [[place] 1 - 2 each PO Q4-6H PRN #14 tablet 07/09/18 Unknown Rx 5-325 Tablet] Allergies Allergy/AdvReac Type Severity Reaction Status Date / Time ketorolac tromethamine Allergy Hives Verified 07/29/18 09:19 [From Toradol] Penicillins Allergy Swelling Verified 07/29/18 09:19 tramadol Allergy Hives Verified 07/29/18 09:19 Iodinated Contrast- Oral and AdvReac Mild other Verified 07/29/18 09:19 IV Dye ED Review of Systems ROS: Stated complaint: ABDOMINAL PAIN Other details as noted in HPI Constitutional: denies: chills, fever Eyes: denies: eye pain, eye discharge, vision change ENT: denies: ear pain, throat pain Respiratory: denies: cough, shortness of breath, wheezing Cardiovascular: denies: chest pain, palpitations Endocrine: no symptoms reported Gastrointestinal: abdominal pain, vomiting. denies: nausea, diarrhea Genitourinary: denies: urgency, dysuria, discharge Musculoskeletal: denies: back pain, joint swelling, arthralgia Skin: denies: rash, lesions Neurological: denies: headache, weakness, paresthesias Psychiatric: denies: anxiety, depression Hematological/Lymphatic: denies: easy bleeding, easy bruising ED Past Medical Hx - Past Medical History Previous Medical History?: Yes Hx Kidney Stones: Yes Additional medical history: FIBROIDS, scoliosis. kidney stones per pt,cervical cancer-dx 05/2017 - Surgical History Past Surgical History?: Yes Hx Cholecystectomy: Yes Additional Surgical History: X 4. HERNIA REPAIR - Social History Smoking Status: Current Every Day Smoker Substance Use Type: None - Medications Home Medications: Home Medications Medication Instructions Recorded Confirmed Last Taken Type Ferrous Sulfate [Feosol 325 MG tab] 325 mg PO TID 30 Days #90 tablet 01/28/18 Unknown Rx Oxycodone HCl/Acetaminophen 1 each PO Q6HR PRN #20 tablet 01/28/18 04/17/18 Unknown Rx [Percocet 10/325 mg] Promethazine [Phenergan TAB] 25 mg PO Q6HR PRN #20 tab 01/28/18 04/17/18 Unknown Rx Promethazine [Phenergan TAB] 25 mg PO Q6HR PRN #30 tab 04/17/18 Unknown Rx oxyCODONE [Roxicodone TAB] 5 mg PO Q6HR PRN #15 tablet 04/17/18 Unknown Rx HYDROcodone/APAP 5-325 [[place] 1 each PO Q4HR PRN #12 tablet 06/21/18 Unknown Rx 5/325] medroxyPROGESTERone ACETATE 10 mg PO DAILY #5 tablet 06/21/18 Unknown Rx [Provera] ALBUTEROL Inhaler (OR & NICU) 2 puff IH QID PRN #1 inhalation 07/09/18 Unknown Rx [ProAir HFA Inhaler] Ciprofloxacin HCl [Cipro] 500 mg PO BID #14 tablet 07/09/18 Unknown Rx HYDROcodone/ACETAMINOPHEN [[place] 1 - 2 each PO Q4-6H PRN #14 tablet 07/09/18 Unknown Rx 5-325 Tablet] ED Physical Exam - General Limitations: No Limitations General appearance: alert, in no apparent distress, other (uncomfortable; ) - Head Head exam: Present: atraumatic, normocephalic - Eye Eye exam: Present: normal appearance - ENT ENT exam: Present: mucous membranes dry - Neck Neck exam: Present: normal inspection - Respiratory Respiratory exam: Present: normal lung sounds bilaterally. Absent: respiratory distress - Cardiovascular Cardiovascular Exam: Present: regular rate, normal rhythm. Absent: systolic murmur, diastolic murmur, rubs, gallop - GI/Abdominal GI/Abdominal exam: Present: soft, tenderness (noted in right lower quadrant), normal bowel sounds - Extremities Exam Extremities exam: Present: normal inspection - Back Exam Back exam: Present: normal inspection - Neurological Exam Neurological exam: Present: alert, oriented X3 - Psychiatric Psychiatric exam: Present: normal affect, normal mood - Skin Skin exam: Present: warm, dry, intact, normal color. Absent: rash ED Course Vital Signs 08/12/18 08/12/18 08/12/18 04:49 11:05 12:53 Temperature 97.8 F Pulse Rate 96 H Respiratory 18 18 Rate Blood Pressure 123/73 O2 Sat by Pulse 100 Oximetry - Reevaluation(s) Reevaluation #1: 08/12/18 13:38 She received 2 doses of IV morphine while here in emergency department during her evaluation. Patient's pain had improved with this intervention. She was awaiting CT results and states that she had a family emergency and will leave the hospital AGAINST MEDICAL ADVICE. She is oriented to person place and time and made aware of the risk of potential acute intra-abdominal pathology but still wants to leave AGAINST MEDICAL ADVICE. ED Medical Decision Making - Lab Data Result diagrams: 08/12/18 05:13 08/12/18 05:13 - Medical Decision Making Patient has a CT which shows no acute pathology however patient has decided to leave AGAINST MEDICAL ADVICE. Patient has good decision-making capacity and patient was going to be discharged to follow-up with her PCP as well as her OB at [facility] as an outpatient regardless. - Differential Diagnosis Obstruction; Anemia; Electrolyte Abnormality; Critical Care Time: No Critical care attestation.: If time is entered above; I have spent that time in minutes in the direct care of this critically ill patient, excluding procedure time. ED Disposition Clinical Impression: Abdominal pain Disposition: LEFT AGAINST MED ADVICE Is pt being admited?: No Condition: Fair Instructions: Abdominal Pain (ED) Referrals: PRIMARY CARE, [Primary Care Provider] - 3-5 Days Time of Disposition: 13:30
[2018-08-12] MEDS ORDERED: MORPHINE IV ONE ×2 (10:05→12:26)
[2018-08-12] MEDS ORDERED: ZOFRAN IV ONE ×2 (10:06→12:27)
--- NOTE | 2018-08-12 12:48 | Cat Scan Report ---
CT ABDOMEN PELVIS WITHOUT CONTRAST: HISTORY: abdominal pain. COMPARISON: 06/07/18. TECHNIQUE: Helical CT in 1.25mm intervals without IV contrast. Sagittal and coronal reconstructions. FINDINGS: Lung bases: Borderline to mild cardiomegaly is suspected. The visualized lung bases are well aerated. Liver: Normal. Biliary system: Cholecystectomy. No biliary dilatation. Pancreas: Normal. Spleen: Normal. Kidneys/ureters/bladder: Normal. Adrenal glands: Normal. Aorta: Normal. Intestines: Within normal limits given no oral contrast was administered. Appendix: Normal. Pelvic viscera: Unremarkable. Single surgical clip in the right adnexal region is identified, correlate with history. Ascites: None. Adenopathy: None. Musculoskeletal: Normal. IMPRESSION: No acute process is identified in the abdomen or pelvis. No significant change since 06/07/18.
== END 2018-08-12 13:41 | disposition left against medical advice (07) ==
LOC: ED 04:27
DX: R10.31 Right lower quadrant pain (principal); F17.200 Nicotine dependence, unspecified, uncomplicated; Z90.89 Acquired absence of other organs; Z88.0 Allergy status to penicillin; Z88.6 Allergy status to analgesic agent; Z91.041 Radiographic dye allergy status
CPT/HCPCS: 36415; 74176; 80053; 81001; 81025; 83690; 85025; 85610; 85730; 86850; 86900; 86901; 93005; 93010; 96374; 96375; 96376; 99284; J2270; J2405; J7030

== ENCOUNTER 2018-12-13 12:06 | Emergency (ER) | payer SELFPAY ==
[2018-12-13 12:53] LABS: Bilirubin,Urine NEG (Negative); Blood,Urine NEG (Negative); Color,Urine Yellow (Yellow); Mucus,Urine 1+ /HPF; Protein,Urine <15 mg/dL mg/dL (Negative)
[2018-12-13 13:02] LABS: HCG Qualitative,Urine Negative (Negative)
[2018-12-13] MEDS ORDERED: ZOFRAN IV ONE (13:23)
[2018-12-13] MEDS ORDERED: STADOL IV ONE (13:23)
--- NOTE | 2018-12-13 13:25 | Emergency Department Report ---
ED General Adult HPI - General Chief complaint: Abdominal Pain Stated complaint: KIDNEY BLOCKAGE Time Seen by Provider: 12/13/18 13:03 Source: patient Mode of arrival: Ambulatory Limitations: No Limitations - History of Present Illness Initial comments: Patient complains of right flank pain that started yesterday. Patient describes the pain as sharp in nature with radiation into her groin. Patient also endorses nausea but denies vomiting. Patient denies chest pain, shortness breath, or headache. -: Sudden Location: back Radiation: other (groin) Severity scale (0 -10): 8 Quality: sharp Consistency: constant Improves with: none Worsens with: none Associated Symptoms: denies other symptoms Treatments Prior to Arrival: none - Related Data Previous Rx's Medication Instructions Recorded Last Taken Type Ferrous Sulfate [Feosol 325 MG tab] 325 mg PO TID 30 Days #90 tablet 01/28/18 Unknown Rx Oxycodone HCl/Acetaminophen 1 each PO Q6HR PRN #20 tablet 01/28/18 Unknown Rx [Percocet 10/325 mg] Promethazine [Phenergan TAB] 25 mg PO Q6HR PRN #20 tab 01/28/18 Unknown Rx Promethazine [Phenergan TAB] 25 mg PO Q6HR PRN #30 tab 04/17/18 Unknown Rx oxyCODONE [Roxicodone TAB] 5 mg PO Q6HR PRN #15 tablet 04/17/18 Unknown Rx HYDROcodone/APAP 5-325 [[place] 1 each PO Q4HR PRN #12 tablet 06/21/18 Unknown Rx 5/325] medroxyPROGESTERone ACETATE 10 mg PO DAILY #5 tablet 06/21/18 Unknown Rx [Provera] ALBUTEROL Inhaler (OR & NICU) 2 puff IH QID PRN #1 inhalation 07/09/18 Unknown Rx [ProAir HFA Inhaler] Ciprofloxacin HCl [Cipro] 500 mg PO BID #14 tablet 07/09/18 Unknown Rx HYDROcodone/ACETAMINOPHEN [[place] 1 - 2 each PO Q4-6H PRN #14 tablet 07/09/18 Unknown Rx 5-325 Tablet] HYDROcodone/APAP 5-325 [[place] 1 each PO Q6HR PRN #12 tablet 09/23/18 Unknown Rx 5/325] Ciprofloxacin HCl [Cipro] 500 mg PO BID #14 tablet 10/26/18 Unknown Rx HYDROcodone/APAP 5-325 [[place] 1 each PO Q4HR PRN #8 tablet 10/26/18 Unknown Rx 5/325] Ondansetron [Zofran Odt] 4 mg PO Q8HR PRN #10 tab.rapdis 10/26/18 Unknown Rx metroNIDAZOLE [Flagyl] 500 mg PO Q12HR #14 tab 10/26/18 Unknown Rx HYDROcodone/APAP 5-325 [[place] 1 each PO Q6HR PRN #6 tablet 12/13/18 Unknown Rx 5/325] Allergies Allergy/AdvReac Type Severity Reaction Status Date / Time ketorolac tromethamine Allergy Hives Verified 12/13/18 12:26 [From Toradol] Penicillins Allergy Swelling Verified 12/13/18 12:26 tramadol Allergy Hives Verified 12/13/18 12:26 Iodinated Contrast- Oral and AdvReac Mild other Verified 12/13/18 12:26 IV Dye ED Review of Systems ROS: Stated complaint: KIDNEY BLOCKAGE Other details as noted in HPI Comment: All other systems reviewed and negative Constitutional: denies: chills, fever Eyes: denies: eye pain, eye discharge, vision change ENT: denies: ear pain, throat pain Respiratory: denies: cough, shortness of breath, wheezing Cardiovascular: denies: chest pain, palpitations Endocrine: no symptoms reported Gastrointestinal: denies: abdominal pain, nausea, diarrhea Genitourinary: denies: urgency, dysuria, discharge Musculoskeletal: denies: back pain, joint swelling, arthralgia Skin: denies: rash, lesions Neurological: denies: headache, weakness, paresthesias Psychiatric: denies: anxiety, depression Hematological/Lymphatic: denies: easy bleeding, easy bruising ED Past Medical Hx - Past Medical History Hx Kidney Stones: Yes Additional medical history: FIBROIDS, scoliosis. kidney stones per pt,cervical cancer-dx 05/2017 - Surgical History Hx Cholecystectomy: Yes Additional Surgical History: X 4. HERNIA REPAIR - Social History Smoking Status: Current Every Day Smoker Substance Use Type: None - Medications Home Medications: Home Medications Medication Instructions Recorded Confirmed Last Taken Type Ferrous Sulfate [Feosol 325 MG tab] 325 mg PO TID 30 Days #90 tablet 01/28/18 04/17/18 Unknown Rx Oxycodone HCl/Acetaminophen 1 each PO Q6HR PRN #20 tablet 01/28/18 04/17/18 Unknown Rx [Percocet 10/325 mg] Promethazine [Phenergan TAB] 25 mg PO Q6HR PRN #20 tab 01/28/18 04/17/18 Unknown Rx Promethazine [Phenergan TAB] 25 mg PO Q6HR PRN #30 tab 04/17/18 Unknown Rx oxyCODONE [Roxicodone TAB] 5 mg PO Q6HR PRN #15 tablet 04/17/18 Unknown Rx HYDROcodone/APAP 5-325 [[place] 1 each PO Q4HR PRN #12 tablet 06/21/18 Unknown Rx 5/325] medroxyPROGESTERone ACETATE 10 mg PO DAILY #5 tablet 06/21/18 Unknown Rx [Provera] ALBUTEROL Inhaler (OR & NICU) 2 puff IH QID PRN #1 inhalation 07/09/18 Unknown Rx [ProAir HFA Inhaler] Ciprofloxacin HCl [Cipro] 500 mg PO BID #14 tablet 07/09/18 Unknown Rx HYDROcodone/ACETAMINOPHEN [[place] 1 - 2 each PO Q4-6H PRN #14 tablet 07/09/18 Unknown Rx 5-325 Tablet] HYDROcodone/APAP 5-325 [[place] 1 each PO Q6HR PRN #12 tablet 09/23/18 Unknown Rx 5/325] Ciprofloxacin HCl [Cipro] 500 mg PO BID #14 tablet 10/26/18 Unknown Rx HYDROcodone/APAP 5-325 [[place] 1 each PO Q4HR PRN #8 tablet 10/26/18 Unknown Rx 5/325] Ondansetron [Zofran Odt] 4 mg PO Q8HR PRN #10 tab.rapdis 10/26/18 Unknown Rx metroNIDAZOLE [Flagyl] 500 mg PO Q12HR #14 tab 10/26/18 Unknown Rx HYDROcodone/APAP 5-325 [[place] 1 each PO Q6HR PRN #6 tablet 12/13/18 Unknown Rx 5/325] ED Physical Exam - General Limitations: No Limitations General appearance: alert, in no apparent distress - Head Head exam: Present: atraumatic, normocephalic - Eye Eye exam: Present: normal appearance - ENT ENT exam: Present: mucous membranes moist - Neck Neck exam: Present: normal inspection - Respiratory Respiratory exam: Present: normal lung sounds bilaterally. Absent: respiratory distress, wheezes, rales - Cardiovascular Cardiovascular Exam: Present: regular rate, normal rhythm. Absent: systolic murmur, diastolic murmur, rubs, gallop - GI/Abdominal GI/Abdominal exam: Present: soft, normal bowel sounds. Absent: distended, tenderness - Extremities Exam Extremities exam: Present: normal inspection - Back Exam Back exam: Present: normal inspection - Neurological Exam Neurological exam: Present: alert, oriented X3, CN II-XII intact. Absent: motor sensory deficit - Psychiatric Psychiatric exam: Present: normal affect, normal mood - Skin Skin exam: Present: warm, dry, intact, normal color. Absent: rash ED Course Vital Signs 12/13/18 12/13/18 12/13/18 12:26 12:50 15:10 Temperature 98.4 F Pulse Rate 77 81 63 Respiratory 18 17 17 Rate Blood Pressure 106/53 Blood Pressure 115/56 93/54 [Left] O2 Sat by Pulse 100 100 100 Oximetry ED Medical Decision Making - Lab Data Result diagrams: 12/13/18 13:40 12/13/18 13:40 Lab Results 12/13/18 12/13/18 12/13/18 Range/Units 12:34 13:40 13:40 WBC 6.1 (4.5-11.0) K/mm3 RBC 4.17 (3.65-5.03) M/mm3 Hgb 9.8 L (10.1-14.3) gm/dl Hct 30.9 (30.3-42.9) % MCV 74 L (79-97) fl MCH 24 L (28-32) pg MCHC 32 (30-34) % RDW 23.0 H (13.2-15.2) % Plt Count 314 (140-440) K/mm3 Lymph % (Auto) Slot Attendant [place] % (Auto) Slot Attendant Eos % (Auto) Slot Attendant Baso % (Auto) Slot Attendant Lymph # Slot Attendant [place] # Slot Attendant Eos # Slot Attendant Baso # Slot Attendant Add Manual Diff Complete Total Counted 100 Seg Neutrophils % Slot Attendant Seg Neuts % (Manual) 67.0 (40.0-70.0) % Band Neutrophils % 0 % Lymphocytes % (Manual) 26.0 (13.4-35.0) % Reactive Lymphs % (Man) 0 % Monocytes % (Manual) 5.0 (0.0-7.3) % Eosinophils % (Manual) 1.0 (0.0-4.3) % Basophils % (Manual) 1.0 (0.0-1.8) % Metamyelocytes % 0 % Myelocytes % 0 % Promyelocytes % 0 % Blast Cells % 0 % Nucleated RBC % Not Reportable Seg Neutrophils # Slot Attendant Seg Neutrophils # Man 4.1 (1.8-7.7) K/mm3 Band Neutrophils # 0.0 K/mm3 Lymphocytes # (Manual) 1.6 (1.2-5.4) K/mm3 Abs React Lymphs (Man) 0.0 K/mm3 Monocytes # (Manual) 0.3 (0.0-0.8) K/mm3 Eosinophils # (Manual) 0.1 (0.0-0.4) K/mm3 Basophils # (Manual) 0.1 (0.0-0.1) K/mm3 Metamyelocytes # 0.0 K/mm3 Myelocytes # 0.0 K/mm3 Promyelocytes # 0.0 K/mm3 Blast Cells # 0.0 K/mm3 WBC Morphology Not Reportable Hypersegmented Neuts Not Reportable Hyposegmented Neuts Not Reportable Hypogranular Neuts Not Reportable Smudge Cells Not Reportable Toxic Granulation Not Reportable Toxic Vacuolation Not Reportable Dohle Bodies Not Reportable Pelger-Huet Anomaly Not Reportable Jeanne Rods Not Reportable Platelet Estimate Consistent w auto Clumped Platelets Not Reportable Plt Clumps, EDTA Not Reportable Large Platelets Not Reportable Giant Platelets Not Reportable Platelet Satelliting Not Reportable Plt Morphology Comment Not Reportable RBC Morphology Not Reportable Dimorphic RBCs Not Reportable Polychromasia Not Reportable Hypochromasia 1+ Poikilocytosis 1+ Anisocytosis 1+ Microcytosis Not Reportable Macrocytosis Not Reportable Spherocytes Not Reportable Pappenheimer Bodies Not Reportable Sickle Cells Not Reportable Target Cells Rare Tear Drop Cells Not Reportable Ovalocytes 1+ Helmet Cells Not Reportable [place] Bodies Not Reportable [place] Rings Not Reportable [place] Cells Not Reportable Bite Cells Not Reportable Crenated Cell Not Reportable Elliptocytes Not Reportable Acanthocytes (Spur) Not Reportable Rouleaux Not Reportable Hemoglobin C Crystals Not Reportable Schistocytes Not Reportable Malaria parasites Not Reportable [place] Bodies Not Reportable Hem Pathologist Commnt No Sodium TNR Potassium TNR Chloride TNR Carbon Dioxide TNR Anion Gap TNR BUN TNR Creatinine TNR Estimated GFR TNR BUN/Creatinine Ratio TNR Glucose TNR Calcium TNR Urine Color Yellow (Yellow) Urine Turbidity Clear (Clear) Urine pH 5.0 (5.0-7.0) Ur Specific [place] 1.026 (1.003-1.030) Urine Protein <15 mg/dl (Negative) mg/dL Urine Glucose (UA) Neg (Negative) mg/dL Urine Ketones Neg (Negative) mg/dL Urine Blood Neg (Negative) Urine Nitrite Neg (Negative) Urine Bilirubin Neg (Negative) Urine Urobilinogen 2.0 (<2.0) mg/dL Ur Leukocyte Esterase Tr (Negative) Urine WBC (Auto) 3.0 (0.0-6.0) /HPF Urine RBC (Auto) 1.0 (0.0-6.0) /HPF U Epithel Cells (Auto) 4.0 (0-13.0) /HPF Urine Mucus 1+ /HPF Urine HCG, Qual Negative (Negative) - Radiology Data Radiology results: report reviewed [facility] [address] [place] [address] Cat Scan Report Signed Patient: MAXIMILIAN ERIC MR#: [id number] : 1990 Acct:[id number] Age/Sex: 28 / F ADM Date: 12/13/18 Loc: ED Attending Dr: Ordering Physician: OJHAN LI MD Date of Service: 12/13/18 Procedure(s): CT abdomen pelvis wo con Accession Number(s): [id number] cc: JOHAN LI MD FINAL REPORT EXAM: CT ABDOMEN PELVIS WO CON HISTORY: flank pain COMPARISON: CT of the abdomen and pelvis performed on 10/26/2018 TECHNIQUE: Multiple contiguous axial images were obtained from the lung bases to the pubic symphysis without administration of IV contrast. Reformatted sagittal and coronal images were available for review. FINDINGS: Lung bases: Normal. Visualized heart and mediastinum: Normal noncontrast appearance. Liver: Mildly enlarged, measuring up to 21 centimeters in craniocaudal dimension, similar in appearance to the previous study. Spleen: Normal noncontrast appearance. Pancreas: Normal noncontrast appearance. Gallbladder and Biliary Tree: The gallbladder is surgically absent. There is no biliary ductal dilatation. Adrenal glands: Normal. Kidneys: Normal. No renal or ureteral calcifications. No hydronephrosis. Bladder: Normal. Pelvic organs: Heterogeneous and mildly enlarged uterus, which may be due to the presence of fibroids. Bowel: No focal wall thickening. No evidence of obstruction. Normal appendix without surrounding inflammatory change. Peritoneum: No significant mesenteric adenopathy. No free air or free fluid. Several phleboliths within the pelvis. Vasculature: Abdominal aorta is normal in caliber without evidence of aneurysm. Normal appearance of the portal venous system and the inferior vena cava. Bones and soft tissues: No suspicious osseous lesions. No acute fracture or dislocation. Midline abdominal scar. Mild thickening of the skin in the left upper anterior abdomen (Series 2, image 48), similar in appearance to the previous study. IMPRESSION: No acute intra-abdominal pathology. Unchanged hepatomegaly. Heterogeneous uterus, which may be due to the presence of fibroids. Mild thickening of the skin of the left upper abdomen, similar in appearance to the previous study. Recommend clinical correlation. Transcribed By: JACKI Dictated By: MARISSA SEPULVEDA MD Electronically Authenticated By: MARISSA SEPULVEDA MD Signed Date/Time: 12/13/18 1528 DD/ 152 TD/TT: 12/13/18 1529 - Medical Decision Making Discussed results with patient Critical care attestation.: If time is entered above; I have spent that time in minutes in the direct care of this critically ill patient, excluding procedure time. ED Disposition Clinical Impression: Flank pain Disposition: -01 TO HOME OR SELFCARE Is pt being admited?: No Does the pt Need Aspirin: No Condition: Stable Instructions: Flank Pain (ED) Additional Instructions: return if worse Prescriptions: HYDROcodone/APAP 5-325 [[place] 5/325] 1 each PO Q6HR PRN #6 tablet PRN Reason: Pain Referrals: PRIMARY CARE, [Referring] - 3-5 Days [facility] [Provider Group] - 3-5 Days [facility] [Provider Group] - 3-5 Days [facility] [place] [Outside] - 3-5 Days Time of Disposition: 15:33
[2018-12-13 13:55] LABS: Hematocrit 30.9 % (30.3-42.9); Hemoglobin 9.8 gm/dl (10.1-14.3); Mean Corpuscular HGB Conc 32 % (30-34); Mean Corpuscular Volume 74 fl (79-97); Platelet Count 314 K/mm3 (140-440); Red Blood Count 4.17 M/mm3 (3.65-5.03)
[2018-12-13 14:24] LABS: Total Cells Counted 100
[2018-12-13 14:25] LABS: Anisocytosis 1+; Poikilocytosis 1+
[2018-12-13 14:26] LABS: Hypochromasia 1+; Ovalocytes 1+; Platelet Estimate Consistent w Auto; Target Cells Rare
[2018-12-13 14:38] LABS: BUN/Creatinine Ratio TNR; Blood Urea Nitrogen TNR mg/dL (7-17)
[2018-12-13 14:39] LABS: Calcium TNR mg/dL (8.4-10.2); Hemolysis Index TNR
[2018-12-13 15:11] VITALS: BP 93/54
--- NOTE | 2018-12-13 15:28 | Cat Scan Report ---
FINAL REPORT EXAM: CT ABDOMEN PELVIS WO CON HISTORY: flank pain COMPARISON: CT of the abdomen and pelvis performed on 10/26/2018 TECHNIQUE: Multiple contiguous axial images were obtained from the lung bases to the pubic symphysis without administration of IV contrast. Reformatted sagittal and coronal images were available for re view. FINDINGS: Lung bases: Normal. Visualized heart and mediastinum: Normal noncontrast appearance. Liver: Mildly enlarged, measuring up to 21 centimeters in craniocaudal dimension, similar in appearan ce to the previous study. Spleen: Normal noncontrast appearance. Pancreas: Normal noncontrast appearance. Gallbladder and Biliary Tree: The gallbladder is surgically absent. There is no biliary ductal dilata tion. Adrenal glands: Normal. Kidneys: Normal. No renal or ureteral calcifications. No hydronephrosis. Bladder: Normal. Pelvic organs: Heterogeneous and mildly enlarged uterus, which may be due to the presence of fibroids . Bowel: No focal wall thickening. No evidence of obstruction. Normal appendix without surrounding infl ammatory change. Peritoneum: No significant mesenteric adenopathy. No free air or free fluid. Several phleboliths with in the pelvis. Vasculature: Abdominal aorta is normal in caliber without evidence of aneurysm. Normal appearance of the portal venous system and the inferior vena cava. Bones and soft tissues: No suspicious osseous lesions. No acute fracture or dislocation. Midline abdo germaine scar. Mild thickening of the skin in the left upper anterior abdomen (Series 2, image 48), [place] in appearance to the previous study. IMPRESSION: No acute intra-abdominal pathology. Unchanged hepatomegaly. Heterogeneous uterus, which may be due to the presence of fibroids. Mild thickening of the skin of the left upper abdomen, similar in appearance to the previous study. R ecommend clinical correlation.
[2018-12-13 15:41] LABS: BUN/Creatinine Ratio 15; Blood Urea Nitrogen 9 mg/dL (7-17); Calcium 9.1 mg/dL (8.4-10.2); Hemolysis Index 1
== END 2018-12-13 15:55 | disposition home or self-care (01) ==
LOC: ED 12:06
DX: R10.9 Unspecified abdominal pain (principal); R11.0 Nausea; F17.200 Nicotine dependence, unspecified, uncomplicated; Z87.442 Personal history of urinary calculi; Z88.6 Allergy status to analgesic agent; Z88.0 Allergy status to penicillin; Z91.041 Radiographic dye allergy status
CPT/HCPCS: 36415; 74176; 80048; 81001; 81025; 85007; 85025; 96374; 96375; 99284; J0595; J2405

== ENCOUNTER 2019-01-19 18:54 | Emergency (ER) | payer SELFPAY ==
--- NOTE | 2019-01-19 19:24 | Emergency Department Report ---
Blank Doc - Documentation Documentation: This is a 28-year-old female that presents with right flank pain and dysuria w ith hematuria. Also c/o nonproducitve cough. This initial assessment diagnostic orders/clinical plan/treatment(s) is/are subject to change based on patient's health status, clinical progression and re- assessment by fellow clinical providers in the ED. Further treatment and workup at subsequent clinical providers discretion. Patient/guardians urged not to elope from ED s their condition may be serious if not clinically assessed and managed. Initial orders include: 1-Patient sent to [facility] for further evaluation and treatment 2- UA/ test 3- CXR
[2019-01-19 19:26] VITALS: BP 128/71
[2019-01-19 20:00] LABS: Bilirubin,Urine NEG (Negative); Blood,Urine MOD (Negative); Color,Urine Straw (Yellow); Mucus,Urine FEW /HPF; Protein,Urine <15 mg/dL mg/dL (Negative); Urobilinogen,Urine < 2.0 mg/dL (<2.0)
[2019-01-19 20:07] LABS: HCG Qualitative,Urine Negative (Negative)
[2019-01-19] MEDS ORDERED: ZOFRAN IV ONE ×2 (20:21→20:47)
[2019-01-19] MEDS ORDERED: NACL 0.9% 1000 ML 1,000 ML IV ONE (20:47)
[2019-01-19] MEDS ORDERED: MORPHINE IV ONE ×2 (20:47→22:26)
--- NOTE | 2019-01-19 20:47 | Emergency Department Report ---
ED Female HPI - General Chief complaint: Abdominal Pain Stated complaint: ABD PAIN 2XDAYS Time Seen by Provider: 01/19/19 19:20 Source: patient, family Mode of arrival: Ambulatory Limitations: No Limitations - History of Present Illness Initial comments: This is a 28-year-old female came to the emergency room of bilateral kidney pain and says that she has been having it for 2 days with painful urination and obvious blood in her urine. She also reported nausea vomiting and also reporting persistent cough. She says she has had kidney stones in the past. She reports pain 10/10 and crampy, spasm and sharp. She denies any abdominal pain and reports pain is in her flank on both sides. Denies any shortness of breath. She reports nasal congestion and a runny nose that she has bronchitis. Patient is a smoker. Denies any diarrhea. Denies any vaginal discharge. Pain is constant and no alleviating factors exacerbated by cough and and she says she did not take any medication prior to coming to the emergency room. Patient also reported that she has cervical cancer and she is going to have surgery at [facility] on the of this month. She reported that she has a history of fibroids. She said her cancers is stage I and she goes to a [facility] once a month for chemotherapy MD Complaint: dysuria, other (bilateral flank pain) Onset/Timin -: days(s) Location: other (both flanks) Radiation: non-radiating Severity: severe Severity scale (0 -10): 10 Quality: cramping, sharp Consistency: constant Improves with: none Worsens with: other (coughing) Are you Now?: No Last Menstrual Period: 12/11/18 EDC: 09/17/19 Associated Symptoms: nausea/vomiting, dysuria, hematuria, other (nonproductive cough). denies: vaginal discharge, vaginal bleeding, abdominal pain, fever/chills, headaches, loss of appetite, rash, seizure, shortness of breath, s yncope, weakness - Related Data Sexually active: Yes Previous Rx's Medication Instructions Recorded Last Taken Type Ferrous Sulfate [Feosol 325 MG tab] 325 mg PO TID 30 Days #90 tablet 01/28/18 Unknown Rx Oxycodone HCl/Acetaminophen 1 each PO Q6HR PRN #20 tablet 01/28/18 Unknown Rx [Percocet 10/325 mg] Promethazine [Phenergan TAB] 25 mg PO Q6HR PRN #30 tab 04/17/18 Unknown Rx oxyCODONE [Roxicodone TAB] 5 mg PO Q6HR PRN #15 tablet 04/17/18 Unknown Rx HYDROcodone/APAP 5-325 [[place] 1 each PO Q4HR PRN #12 tablet 06/21/18 Unknown Rx 5/325] medroxyPROGESTERone ACETATE 10 mg PO DAILY #5 tablet 06/21/18 Unknown Rx [Provera] ALBUTEROL Inhaler (OR & NICU) 2 puff IH QID PRN #1 inhalation 07/09/18 Unknown Rx [ProAir HFA Inhaler] Ciprofloxacin HCl [Cipro] 500 mg PO BID #14 tablet 07/09/18 Unknown Rx HYDROcodone/ACETAMINOPHEN [[place] 1 - 2 each PO Q4-6H PRN #14 tablet 07/09/18 Unknown Rx 5-325 Tablet] HYDROcodone/APAP 5-325 [[place] 1 each PO Q6HR PRN #12 tablet 09/23/18 Unknown Rx 5/325] HYDROcodone/APAP 5-325 [[place] 1 each PO Q4HR PRN #8 tablet 10/26/18 Unknown Rx 5/325] Ondansetron [Zofran Odt] 4 mg PO Q8HR PRN #10 tab.rapdis 10/26/18 Unknown Rx metroNIDAZOLE [Flagyl] 500 mg PO Q12HR #14 tab 10/26/18 Unknown Rx HYDROcodone/APAP 5-325 [[place] 1 each PO Q6HR PRN #6 tablet 12/13/18 Unknown Rx 5/325] Ciprofloxacin HCl [Cipro] 500 mg PO BID #14 tablet 01/20/19 Unknown Rx Promethazine [Phenergan TAB] 25 mg PO Q6HR PRN #12 tab 01/20/19 Unknown Rx Allergies Allergy/AdvReac Type Severity Reaction Status Date / Time ketorolac tromethamine Allergy Hives Verified 12/13/18 12:26 [From Toradol] Penicillins Allergy Swelling Verified 12/13/18 12:26 tramadol Allergy Hives Verified 12/13/18 12:26 Iodinated Contrast- Oral and AdvReac Mild other Verified 12/13/18 12:26 IV Dye ED Review of Systems ROS: Stated complaint: ABD PAIN 2XDAYS Other details as noted in HPI Constitutional: denies: chills, fever Eyes: denies: eye discharge ENT: congestion. denies: throat pain Respiratory: cough. denies: orthopnea, shortness of breath, SOB with exertion, SOB at rest, stridor, wheezing Cardiovascular: denies: chest pain, palpitations, dyspnea on exertion, edema, syncope Gastrointestinal: nausea, vomiting. denies: abdominal pain, diarrhea, constipation, hematemesis, hematochezia Genitourinary: dysuria, hematuria. denies: urgency, frequency, discharge Musculoskeletal: back pain (bilateral flank pain). denies: joint swelling, arthralgia, myalgia Skin: denies: rash Neurological: denies: headache, abnormal gait, vertigo ED Past Medical Hx - Past Medical History Previous Medical History?: Yes Hx of Cancer: Yes (Cervical) Hx Kidney Stones: Yes Additional medical history: FIBROIDS, scoliosis. kidney stones per pt,cervical cancer-dx 05/2017 - Surgical History Past Surgical History?: Yes Hx Cholecystectomy: Yes Additional Surgical History: X 4. HERNIA REPAIR - Family History Family history: hypertension - Social History Smoking Status: Current Every Day Smoker Substance Use Type: None - Medications Home Medications: Home Medications Medication Instructions Recorded Confirmed Last Taken Type Ferrous Sulfate [Feosol 325 MG tab] 325 mg PO TID 30 Days #90 tablet 01/28/18 04/17/18 Unknown Rx Oxycodone HCl/Acetaminophen 1 each PO Q6HR PRN #20 tablet 01/28/18 04/17/18 Unknown Rx [Percocet 10/325 mg] Promethazine [Phenergan TAB] 25 mg PO Q6HR PRN #30 tab 04/17/18 Unknown Rx oxyCODONE [Roxicodone TAB] 5 mg PO Q6HR PRN #15 tablet 04/17/18 Unknown Rx HYDROcodone/APAP 5-325 [[place] 1 each PO Q4HR PRN #12 tablet 06/21/18 Unknown Rx 5/325] medroxyPROGESTERone ACETATE 10 mg PO DAILY #5 tablet 06/21/18 Unknown Rx [Provera] ALBUTEROL Inhaler (OR & NICU) 2 puff IH QID PRN #1 inhalation 07/09/18 Unknown Rx [ProAir HFA Inhaler] Ciprofloxacin HCl [Cipro] 500 mg PO BID #14 tablet 07/09/18 Unknown Rx HYDROcodone/ACETAMINOPHEN [[place] 1 - 2 each PO Q4-6H PRN #14 tablet 07/09/18 Unknown Rx 5-325 Tablet] HYDROcodone/APAP 5-325 [[place] 1 each PO Q6HR PRN #12 tablet 09/23/18 Unknown Rx 5/325] HYDROcodone/APAP 5-325 [[place] 1 each PO Q4HR PRN #8 tablet 10/26/18 Unknown Rx 5/325] Ondansetron [Zofran Odt] 4 mg PO Q8HR PRN #10 tab.rapdis 10/26/18 Unknown Rx metroNIDAZOLE [Flagyl] 500 mg PO Q12HR #14 tab 10/26/18 Unknown Rx HYDROcodone/APAP 5-325 [[place] 1 each PO Q6HR PRN #6 tablet 12/13/18 Unknown Rx 5/325] Ciprofloxacin HCl [Cipro] 500 mg PO BID #14 tablet 01/20/19 Unknown Rx Promethazine [Phenergan TAB] 25 mg PO Q6HR PRN #12 tab 01/20/19 Unknown Rx ED Physical Exam - General Limitations: No Limitations General appearance: alert, in no apparent distress - Head Head exam: Present: atraumatic, normal inspection - Eye Eye exam: Present: normal appearance, PERRL, EOMI Pupils: Present: normal accommodation - ENT ENT exam: Present: normal orophraynx, mucous membranes moist, normal external ear exam, other (bilateral nasal mucosa pale and boggy with clear drainage). Absent: TM's normal bilaterally (bilateral TM congested without erythema) - Neck Neck exam: Present: normal inspection, full ROM. Absent: tenderness, lymphadenopathy - Respiratory Respiratory exam: Present: normal lung sounds bilaterally, other (dry cough). Absent: respiratory distress, wheezes, rales, rhonchi, stridor, chest wall tend erness, accessory muscle use, decreased breath sounds, prolonged expiratory - Cardiovascular Cardiovascular Exam: Present: regular rate, normal rhythm, normal heart sounds - GI/Abdominal GI/Abdominal exam: Present: soft, normal bowel sounds. Absent: distended, tenderness, guarding, rebound, rigid, organomegaly, mass - Extremities Exam Extremities exam: Present: normal inspection, full ROM, normal capillary refill, other (No cce. + 2 pulses in all extremities, no neurovascular compromise). Absent: tenderness, pedal edema, joint swelling, calf tenderness - Back Exam Back exam: Present: normal inspection, full ROM, tenderness, CVA tenderness (R), CVA tenderness (L), other (ablated without any difficulties). Absent: muscle spasm, paraspinal tenderness, vertebral tenderness, rash noted - Neurological Exam Neurological exam: Present: alert, oriented X3, normal gait, reflexes normal. Absent: motor sensory deficit - Psychiatric Psychiatric exam: Present: normal affect, normal mood - Skin Skin exam: Present: warm, dry, intact, normal color. Absent: rash ED Course Vital Signs 01/19/19 01/19/19 01/19/19 19:23 20:16 22:29 Temperature 99 F Pulse Rate 86 Respiratory 18 18 18 Rate Blood Pressure 128/71 O2 Sat by Pulse 100 Oximetry - Reevaluation(s) Reevaluation #1: 01/19/19 22:28 Patient was given morphine 4 mg IV, Zofran 8 mg IV and 1 L of normal saline started. Patient reports that her pain is still not better so she was given additional 4 mg of morphine IV and Ativan 1 mg IV and I will reevaluate her. Still awaiting CT scan results. She still with some CVA tenderness. Reevaluation #2: 01/19/19 23:58 Patient pain is better. Nausea has been relieved. Patient given information on her CT scan results shows no kidney stones. CT of the abdomen and pelvis without contrast shows previous cholecystectomy and no acute disease in the abdomen and pelvis. I discussed this with the patient. She had said that she had cervical cancer and she was going to have her cervix removed this month. She said her pain is better and she has no nausea or vomiting. Her urine has moderate blood and trace leukocyte Estrace and she is complaining of dysuria so I discussed starting her on antibiotic but patient ride was here and she says she cannot wait so I told her that she needs to return to the emergency room to get her prescription for urinary tract infection and if she wants for nausea medication. \ ED Medical Decision Making - Lab Data Result diagrams: 01/19/19 21:52 01/19/19 21:34 Lab Results 01/19/19 01/19/19 01/19/19 Range/Units 19:37 21:34 21:52 WBC 7.5 (4.5-11.0) K/mm3 RBC 4.20 (3.65-5.03) M/mm3 Hgb 10.3 (10.1-14.3) gm/dl Hct 31.7 (30.3-42.9) % MCV 76 L (79-97) fl MCH 25 L (28-32) pg MCHC 33 (30-34) % RDW 20.4 H (13.2-15.2) % Plt Count 395 (140-440) K/mm3 Lymph % (Auto) 23.8 (13.4-35.0) % Rich % (Auto) 10.1 H (0.0-7.3) % Eos % (Auto) 2.0 (0.0-4.3) % Baso % (Auto) 0.6 (0.0-1.8) % Lymph # 1.8 (1.2-5.4) K/mm3 Rich # 0.8 (0.0-0.8) K/mm3 Eos # 0.2 (0.0-0.4) K/mm3 Baso # 0.0 (0.0-0.1) K/mm3 Seg Neutrophils % 63.5 (40.0-70.0) % Seg Neutrophils # 4.7 (1.8-7.7) K/mm3 Sodium 139 (137-145) mmol/L Potassium 4.7 (3.6-5.0) mmol/L Chloride 104.8 (98-107) mmol/L Carbon Dioxide 21 L (22-30) mmol/L Anion Gap 18 mmol/L BUN 10 (7-17) mg/dL Creatinine 0.5 L (0.7-1.2) mg/dL Estimated GFR > 60 ml/min BUN/Creatinine Ratio 20 % Glucose 95 (65-100) mg/dL Calcium 9.2 (8.4-10.2) mg/dL Total Bilirubin 0.20 (0.1-1.2) mg/dL AST 14 (5-40) units/L ALT 21 (7-56) units/L Alkaline Phosphatase 72 (35-129) units/L Total Protein 7.4 (6.3-8.2) g/dL Albumin 4.3 (3.9-5) g/dL Albumin/Globulin Ratio 1.4 % Urine Color Straw (Yellow) Urine Turbidity Clear (Clear) Urine pH 6.0 (5.0-7.0) Ur Specific [place] 1.010 (1.003-1.030) Urine Protein <15 mg/dl (Negative) mg/dL Urine Glucose (UA) Neg (Negative) mg/dL Urine Ketones Neg (Negative) mg/dL Urine Blood Mod (Negative) Urine Nitrite Neg (Negative) Urine Bilirubin Neg (Negative) Urine Urobilinogen < 2.0 (<2.0) mg/dL Ur Leukocyte Esterase Tr (Negative) Urine WBC (Auto) 5.0 (0.0-6.0) /HPF Urine RBC (Auto) 2.0 (0.0-6.0) /HPF U Epithel Cells (Auto) 3.0 (0-13.0) /HPF Urine Mucus Few /HPF Urine HCG, Qual Negative (Negative) Urine culture sent - Radiology Data Radiology results: report reviewed Chest x-ray [address] scan of the abdomen and pelvis without contrast dictated by radiologist and report reviewed by myself. Please see report below Findings [address] [address] XRay Report Signed Patient: MAXIMILIAN ERIC MR#: [id number] : 1990 Acct:[id number] Age/Sex: 28 / F ADM Date: 01/19/19 Loc: ED Attending Dr: Ordering Physician: ETHEL MOREJON NP Date of Service: 01/19/19 Procedure(s): XR chest routine 2V Accession Number(s): [id number] cc: ETHEL MOREJON NP Fluoro Time In Minutes: FINAL REPORT PROCEDURE: Chest. TECHNIQUE: AP and lateral views. HISTORY: Cough. COMPARISON: No prior studies are available for comparison. FINDINGS: The heart and mediastinum appear normal. The lungs are clear and well expanded. There are no pleural effusions. The soft tissues and regional skeleton are unremarkable. IMPRESSION: No evidence of acute cardiopulmonary disease. Transcribed By: [facility] Dictated By: AIXA SMITH MD Electronically Authenticated By: AIXA SMITH MD Signed Date/Time: 01/19/192134 DD/ 33 TD/TT: 01/19/192133 Findings [address] [address] Cat Scan Report Signed Patient: MAXIMILIAN ERIC MR#: [id number] : 1990 Acct:[id number] Age/Sex: 28 / F ADM Date: 01/19/19 Loc: ED Attending Dr: Ordering Physician: CA ARROYO Date of Service: 01/19/19 Procedure(s): CT abdomen pelvis wo con Accession Number(s): [id number] cc: CA ARROYO FINAL REPORT PROCEDURE: CT abdomen and pelvis without contrast. TECHNIQUE: Computerized axial tomography of the abdomen and pelvis was performed without intravenous contrast. This study is performed without intravascular contrast material and its sensitivity for abdominal and pelvic pathology, including neoplasms, inflammation, abscess, free fluid, thrombosis, arterial dissection and infarction, is reduced compared with a contrast enhanced study. HISTORY: Bilateral flank pain, history of kidney stones. COMPARISON: CT abdomen and pelvis 12/13/2018. FINDINGS: The lung bases are clear. There are no pleural effusions. The heart size is mildly enlarged. The liver, pancreas and spleen are grossly normal. Cholecystectomy clips are present. There is no bili nikkie dilatation. The adrenal glands are not enlarged. Both kidneys appear normal in size and configuration. The abdominal aorta has a normal caliber. There is no retroperitoneal adenopathy. The unopacified gastrointestinal tract is unremarkable. A normal appendix is visible. The bladder, uterus and adnexal regions appear normal. The regional skeleton appears intact. IMPRESSION: Previous cholecystectomy. No evidence of acute disease in the abdomen or pelvis. Transcribed By: [facility] Dictated By: AIXA SMITH MD Electronically Authenticated By: AIXA SMITH MD Signed Date/Time: 01/19/192323 DD/ 22 TD/TT: 01/19/192322 - Medical Decision Making This is a 28-year-old female here report that she was having bilateral flank pain with blood in her urine and she said skin is stone in the past and also report that she has stage I cervical cancer which is getting chemotherapy and she will be given surgery to take her cervix at [place] on 03/10/2019. Patient urinalysis shows. CBC and CMP stable minor abnormalities. Her urinalysis show moderate amount of blood with trace leukocyte Estrace and urine culture was sent. She had a chest x-ray and CT scan of the abdomen and pelvis without contrast done and this was dictated by radiologist and reported to myself. Chest x-ray is within normal limits and CT scan reveals Previous cholec ystectomy. No evidence of acute disease in the abdomen or pelvis. There are no mention of fibroids or cervical abnormality on CT scan although patient says she has cervical cancer and fibroids. Her pain was controlled with a morphine, Ativan and she got Zofran for nausea and also received 1 L of IV fluid. Patient is able to ambulate without any difficulties. She said her pain is better. Patient says she has to go because she has a ride so although I explained all her laboratory results and told her that I want to start her on some medication for urinary tract infection due to blood in her urine and trace leukocyte Estrace for report of dysuria. I also explain her CT scan and chest x-ray results to her. Patient decided to leave after given discharge instruction but she did not get her discharged report because she said her right cannot wait any longer. I told her that she can return later tomorrow to get her prescription and she needs to follow up with primary care. - Differential Diagnosis kidney stones, pyelonephritis, cervical pathology, UTI Critical care attestation.: If time is entered above; I have spent that time in minutes in the direct care of this critically ill patient, excluding procedure time. ED Disposition Clinical Impression: Bilateral flank pain, Dysuria, Acute cystitis with hematuria Disposition: DC-01 TO HOME OR SELFCARE Is pt being admited?: No Does the pt Need Aspirin: No Condition: Stable Instructions: Flank Pain (ED), Dysuria (ED), Urinary Tract Infection in Women (ED) Additional Instructions: Return to the emergency room if his symptoms worsens Prescriptions: Ciprofloxacin HCl [Cipro] 500 mg PO BID #14 tablet Promethazine [Phenergan TAB] 25 mg PO Q6HR PRN #12 tab PRN Reason: Nausea Referrals: PRIMARY CARE, [Primary Care Provider] - 2-3 Days [facility] [Outside] - 2-3 Days
--- NOTE | 2019-01-19 21:35 | XRay Report ---
FINAL REPORT PROCEDURE: Chest. TECHNIQUE: AP and lateral views. HISTORY: Cough. COMPARISON: No prior studies are available for comparison. FINDINGS: The heart and mediastinum appear normal. The lungs are clear and well expanded. There are no pleural effusions. The soft tissues and regional skeleton are unremarkable. IMPRESSION: No evidence of acute cardiopulmonary disease.
[2019-01-19 22:11] LABS: Basophils % (Auto) 0.6 % (0.0-1.8); Eosinophils # (Auto) 0.2 K/mm3 (0.0-0.4); Hematocrit 31.7 % (30.3-42.9); Hemoglobin 10.3 gm/dl (10.1-14.3); Lymphocytes # (Auto) 1.8 K/mm3 (1.2-5.4); Lymphocytes % (Auto) 23.8 % (13.4-35.0); Mean Corpuscular HGB Conc 33 % (30-34); Mean Corpuscular Volume 76 fl (79-97); Monocytes # (Auto) 0.8 K/mm3 (0.0-0.8); Monocytes % (Auto) 10.1 % (0.0-7.3); Platelet Count 395 K/mm3 (140-440)
[2019-01-19 22:12] LABS: Red Cell Distribution Width 20.4 % (13.2-15.2)
[2019-01-19 22:26] LABS: Alanine Aminotransferase 21 units/L (7-56); Albumin 4.3 g/dL (3.9-5); BUN/Creatinine Ratio 20; Blood Urea Nitrogen 10 mg/dL (7-17); Calcium 9.2 mg/dL (8.4-10.2); Hemolysis Index 19
[2019-01-19] MEDS ORDERED: ATIVAN IV ONE (22:27)
--- NOTE | 2019-01-19 23:24 | Cat Scan Report ---
FINAL REPORT PROCEDURE: CT abdomen and pelvis without contrast. TECHNIQUE: Computerized axial tomography of the abdomen and pelvis was performed without intravenous contrast. This study is performed without intravascular contrast material and its sensitivity for ab dominal and pelvic pathology, including neoplasms, inflammation, abscess, free fluid, thrombosis, art erial dissection and infarction, is reduced compared with a contrast enhanced study. HISTORY: Bilateral flank pain, history of kidney stones. COMPARISON: CT abdomen and pelvis 12/13/2018. FINDINGS: The lung bases are clear. There are no pleural effusions. The heart size is mildly enlarged. The live r, pancreas and spleen are grossly normal. Cholecystectomy clips are present. There is no biliary dil atation. The adrenal glands are not enlarged. Both kidneys appear normal in size and configuration. T he abdominal aorta has a normal caliber. There is no retroperitoneal adenopathy. The unopacified abi rointestinal tract is unremarkable. A normal appendix is visible. The bladder, uterus and adnexal reg ions appear normal. The regional skeleton appears intact. IMPRESSION: Previous cholecystectomy. No evidence of acute disease in the abdomen or pelvis.
== END 2019-01-20 00:14 | disposition home or self-care (01) ==
LOC: ED 18:54
DX: N30.01 Acute cystitis with hematuria (principal); R05 Cough; F17.200 Nicotine dependence, unspecified, uncomplicated; Z87.442 Personal history of urinary calculi; Z90.49 Acquired absence of other specified parts of digestive tract; Z88.6 Allergy status to analgesic agent; Z88.0 Allergy status to penicillin; Z91.041 Radiographic dye allergy status
CPT/HCPCS: 36415; 71046; 74176; 80053; 81001; 81025; 85025; 87086; 96361; 96374; 96375; 96376; 99285; J2060; J2270; J2405; J7030

== ENCOUNTER 2019-02-20 10:36 | Emergency (ER) | payer SELFPAY ==
[2019-02-20] MEDS ORDERED: ZOFRAN ODT PO ONE (12:53)
[2019-02-20] MEDS ORDERED: NORCO 5/325 PO ONE (12:55)
--- NOTE | 2019-02-20 13:02 | Emergency Department Report ---
ED Female HPI - General Chief complaint: Pain General Stated complaint: CERVIX SURGERY/PAIN Time Seen by Provider: 02/20/19 12:03 Source: patient Mode of arrival: Ambulatory Limitations: No Limitations - History of Present Illness Initial comments: Patient is a 28-year-old female who presents to ED complaining of pelvic pain stating she has cervical cancer. Patient states she has a LOADING MANAGER appointment next month. Patient admits vomiting, nausea. - Related Data Previous Rx's Medication Instructions Recorded Last Taken Type Ferrous Sulfate [Feosol 325 MG tab] 325 mg PO TID 30 Days #90 tablet 01/28/18 Unknown Rx Oxycodone HCl/Acetaminophen 1 each PO Q6HR PRN #20 tablet 01/28/18 Unknown Rx [Percocet 10/325 mg] Promethazine [Phenergan TAB] 25 mg PO Q6HR PRN #30 tab 04/17/18 Unknown Rx oxyCODONE [Roxicodone TAB] 5 mg PO Q6HR PRN #15 tablet 04/17/18 Unknown Rx HYDROcodone/APAP 5-325 [[place] 1 each PO Q4HR PRN #12 tablet 06/21/18 Unknown Rx 5/325] medroxyPROGESTERone ACETATE 10 mg PO DAILY #5 tablet 06/21/18 Unknown Rx [Provera] ALBUTEROL Inhaler (OR & NICU) 2 puff IH QID PRN #1 inhalation 07/09/18 Unknown Rx [ProAir HFA Inhaler] Ciprofloxacin HCl [Cipro] 500 mg PO BID #14 tablet 07/09/18 Unknown Rx HYDROcodone/ACETAMINOPHEN [[place] 1 - 2 each PO Q4-6H PRN #14 tablet 07/09/18 Unknown Rx 5-325 Tablet] HYDROcodone/APAP 5-325 [[place] 1 each PO Q6HR PRN #12 tablet 09/23/18 Unknown Rx 5/325] HYDROcodone/APAP 5-325 [[place] 1 each PO Q4HR PRN #8 tablet 10/26/18 Unknown Rx 5/325] Ondansetron [Zofran Odt] 4 mg PO Q8HR PRN #10 tab.rapdis 10/26/18 Unknown Rx metroNIDAZOLE [Flagyl] 500 mg PO Q12HR #14 tab 10/26/18 Unknown Rx HYDROcodone/APAP 5-325 [[place] 1 each PO Q6HR PRN #6 tablet 12/13/18 Unknown Rx 5/325] Ciprofloxacin HCl [Cipro] 500 mg PO BID #14 tablet 01/20/[address] [Cesar Dorsey] 75 mg PO BID #20 tablet 02/20/19 Unknown Rx Promethazine [Phenergan TAB] 25 mg PO Q6HR PRN #12 tab 02/20/19 Unknown Rx Allergies Allergy/AdvReac Type Severity Reaction Status Date / Time ketorolac tromethamine Allergy Hives Verified 12/13/18 12:26 [From Toradol] Penicillins Allergy Swelling Verified 12/13/18 12:26 tramadol Allergy Hives Verified 12/13/18 12:26 Iodinated Contrast- Oral and AdvReac Mild other Verified 12/13/18 12:26 IV Dye ED Review of Systems ROS: Stated complaint: CERVIX SURGERY/PAIN Other details as noted in HPI Comment: All other systems reviewed and negative ED Past Medical Hx - Past Medical History Previous Medical History?: Yes Hx Kidney Stones: Yes Additional medical history: FIBROIDS, scoliosis. kidney stones per pt,cervical cancer-dx 05/2017 - Surgical History Past Surgical History?: Yes Hx Cholecystectomy: Yes Additional Surgical History: X 4. HERNIA REPAIR - Social History Smoking Status: Current Some Day Smoker Substance Use Type: Alcohol - Medications Home Medications: Home Medications Medication Instructions Recorded Confirmed Last Taken Type Ferrous Sulfate [Feosol 325 MG tab] 325 mg PO TID 30 Days #90 tablet 01/28/18 04/17/18 Unknown Rx Oxycodone HCl/Acetaminophen 1 each PO Q6HR PRN #20 tablet 01/28/18 04/17/18 Unknown Rx [Percocet 10/325 mg] Promethazine [Phenergan TAB] 25 mg PO Q6HR PRN #30 tab 04/17/18 Unknown Rx oxyCODONE [Roxicodone TAB] 5 mg PO Q6HR PRN #15 tablet 04/17/18 Unknown Rx HYDROcodone/APAP 5-325 [[place] 1 each PO Q4HR PRN #12 tablet 06/21/18 Unknown Rx 5/325] medroxyPROGESTERone ACETATE 10 mg PO DAILY #5 tablet 06/21/18 Unknown Rx [Provera] ALBUTEROL Inhaler (OR & NICU) 2 puff IH QID PRN #1 inhalation 07/09/18 Unknown Rx [ProAir HFA Inhaler] Ciprofloxacin HCl [Cipro] 500 mg PO BID #14 tablet 07/09/18 Unknown Rx HYDROcodone/ACETAMINOPHEN [[place] 1 - 2 each PO Q4-6H PRN #14 tablet 07/09/18 Unknown Rx 5-325 Tablet] HYDROcodone/APAP 5-325 [[place] 1 each PO Q6HR PRN #12 tablet 09/23/18 Unknown Rx 5/325] HYDROcodone/APAP 5-325 [[place] 1 each PO Q4HR PRN #8 tablet 10/26/18 Unknown Rx 5/325] Ondansetron [Zofran Odt] 4 mg PO Q8HR PRN #10 tab.rapdis 10/26/18 Unknown Rx metroNIDAZOLE [Flagyl] 500 mg PO Q12HR #14 tab 10/26/18 Unknown Rx HYDROcodone/APAP 5-325 [[place] 1 each PO Q6HR PRN #6 tablet 12/13/18 Unknown Rx 5/325] Ciprofloxacin HCl [Cipro] 500 mg PO BID #14 tablet 01/20/[address] [Voltaren Dr] 75 mg PO BID #20 tablet 02/20/19 Unknown Rx Promethazine [Phenergan TAB] 25 mg PO Q6HR PRN #12 tab 02/20/19 Unknown Rx ED Physical Exam - General Limitations: No Limitations General appearance: alert, in no apparent distress - Head Head exam: Present: atraumatic, normocephalic - Eye Eye exam: Present: normal appearance - ENT ENT exam: Present: mucous membranes moist - Neck Neck exam: Present: normal inspection - Respiratory Respiratory exam: Present: normal lung sounds bilaterally. Absent: respiratory distress - Cardiovascular Cardiovascular Exam: Present: regular rate, normal rhythm. Absent: systolic murmur, diastolic murmur, rubs, gallop - GI/Abdominal GI/Abdominal exam: Present: soft, normal bowel sounds. Absent: distended, tenderness - Extremities Exam Extremities exam: Present: normal inspection - Back Exam Back exam: Present: normal inspection - Neurological Exam Neurological exam: Present: alert, oriented X3 - Psychiatric Psychiatric exam: Present: normal affect, normal mood - Skin Skin exam: Present: warm, dry, intact, normal color. Absent: rash ED Course Vital Signs 02/20/19 02/20/19 10:49 12:13 Temperature 97.5 F L 98.0 F Pulse Rate 89 76 Respiratory 16 Rate Blood Pressure 138/78 Blood Pressure 125/74 [Left] O2 Sat by Pulse 100 Oximetry ED Medical Decision Making - Medical Decision Making 28 year old female presents with chronic pelvic pain Patient has no pulmonary her LOADING MANAGER appointment in the middle of February. Discussed the patient to keep her appointment with the LOADING MANAGER doctor. VSS Critical care attestation.: If time is entered above; I have spent that time in minutes in the direct care of this critically ill patient, excluding procedure time. ED Disposition Clinical Impression: Chronic pelvic pain in female Disposition: DC- TO HOME OR SELFCARE Is pt being admited?: No Does the pt Need Aspirin: No Condition: Stable Instructions: Chronic Pelvic Pain in Women (ED) Additional Instructions: Make sure to follow up with the primary care physician as discussed. Take all your medications as you've been prescribed. If you have any worsening symptoms or develop new symptoms please return to ED immediately. Prescriptions: Promethazine [Phenergan TAB] 25 mg PO Q6HR PRN #12 tab PRN Reason: Nausea Diclofenac Dr [Voltaren Dr] 75 mg PO BID #20 tablet Referrals: [facility] MD CIRA [Primary Care Provider] - 3-5 Days PENNY MEJÍA MD [Staff Physician] - 3-5 Days DAIANA ENRIQUE MD [Referring] - 3-5 Days Forms: Accompanied Note, Work/School Release Form(ED) Time of Disposition: 15:18
[2019-02-20 16:56] VITALS: BP 125/74
== END 2019-02-20 16:57 | disposition home or self-care (01) ==
LOC: ED 10:36
DX: R10.2 Pelvic and perineal pain (principal); R11.2 Nausea with vomiting, unspecified; Z88.6 Allergy status to analgesic agent; Z88.0 Allergy status to penicillin
CPT/HCPCS: 99281; Q0162

== ENCOUNTER 2019-03-14 20:44 | Emergency (ER) | payer OTHER ==
[2019-03-14 23:30] LABS: Alanine Aminotransferase 12 units/L (7-56); Albumin 3.8 g/dL (3.9-5); BUN/Creatinine Ratio 13; Blood Urea Nitrogen 10 mg/dL (7-17); Calcium 9.1 mg/dL (8.4-10.2); Hemolysis Index 49
[2019-03-15 02:55] LABS: Bilirubin,Urine NEG (Negative); Blood,Urine MOD (Negative); Color,Urine Yellow (Yellow); Mucus,Urine FEW /HPF; Protein,Urine <15 mg/dL mg/dL (Negative); Urobilinogen,Urine < 2.0 mg/dL (<2.0); WBC,Urine < 1.0 /HPF (0.0-6.0)
--- NOTE | 2019-03-15 03:14 | Emergency Department Report ---
HPI - General Chief Complaint: Abdominal Pain Time Seen by Provider: 03/15/19 03:09 - HPI HPI: 28-year-old -[place] female presents to ED right lower quadrant pain, nausea, vomiting, for the past 2 days. Patient hasn't taking any medications for her symptoms. States history of cervical cancer, for the past 2 years, has been on chemotherapy. No fever, chills or night sweats. No diarrhea. ED Past Medical Hx - Past Medical History Previous Medical History?: Yes Hx Kidney Stones: Yes Additional medical history: FIBROIDS, scoliosis. kidney stones per pt,cervical cancer-dx 05/2017 - Surgical History Past Surgical History?: Yes Hx Cholecystectomy: Yes Additional Surgical History: X 4. HERNIA REPAIR - Social History Smoking Status: Current Every Day Smoker Substance Use Type: None - Medications Home Medications: Home Medications Medication Instructions Recorded Confirmed Last Taken Type Ferrous Sulfate [Feosol 325 MG tab] 325 mg PO TID 30 Days #90 tablet 01/28/18 04/17/18 Unknown Rx Oxycodone HCl/Acetaminophen 1 each PO Q6HR PRN #20 tablet 01/28/18 04/17/18 Unknown Rx [Percocet 10/325 mg] Promethazine [Phenergan TAB] 25 mg PO Q6HR PRN #30 tab 04/17/18 Unknown Rx oxyCODONE [Roxicodone TAB] 5 mg PO Q6HR PRN #15 tablet 04/17/18 Unknown Rx HYDROcodone/APAP 5-325 [[place] 1 each PO Q4HR PRN #12 tablet 06/21/18 Unknown Rx 5/325] medroxyPROGESTERone ACETATE 10 mg PO DAILY #5 tablet 06/21/18 Unknown Rx [Provera] ALBUTEROL Inhaler (OR & NICU) 2 puff IH QID PRN #1 inhalation 07/09/18 Unknown Rx [ProAir HFA Inhaler] Ciprofloxacin HCl [Cipro] 500 mg PO BID #14 tablet 07/09/18 Unknown Rx HYDROcodone/ACETAMINOPHEN [[place] 1 - 2 each PO Q4-6H PRN #14 tablet 07/09/18 Unknown Rx 5-325 Tablet] HYDROcodone/APAP 5-325 [[place] 1 each PO Q6HR PRN #12 tablet 09/23/18 Unknown Rx 5/325] HYDROcodone/APAP 5-325 [[place] 1 each PO Q4HR PRN #8 tablet 10/26/18 Unknown Rx 5/325] Ondansetron [Zofran Odt] 4 mg PO Q8HR PRN #10 tab.rapdis 10/26/18 Unknown Rx metroNIDAZOLE [Flagyl] 500 mg PO Q12HR #14 tab 10/26/18 Unknown Rx HYDROcodone/APAP 5-325 [[place] 1 each PO Q6HR PRN #6 tablet 12/13/18 Unknown Rx 5/325] Ciprofloxacin HCl [Cipro] 500 mg PO BID #14 tablet 01/20/[address] [Voltaren Dr] 75 mg PO BID #20 tablet 02/20/19 Unknown Rx Promethazine [Phenergan TAB] 25 mg PO Q6HR PRN #12 tab 02/20/19 Unknown Rx Dicyclomine [Bentyl] 20 mg PO QID #20 tablet 03/15/19 Unknown Rx ED Review of Systems ROS: Stated complaint: CERVICAL PAIN Other details as noted in HPI Comment: All other systems reviewed and negative Constitutional: denies: see HPI ENT: denies: ear pain Cardiovascular: denies: chest pain Gastrointestinal: abdominal pain, nausea, vomiting. denies: diarrhea Genitourinary: denies: urgency Skin: denies: rash Neurological: denies: headache Psychiatric: denies: anxiety Physical Exam - Physical Exam Vital Signs: Vital Signs 03/14/19 21:53 Temperature 98.8 F Pulse Rate 73 Respiratory 18 Rate Blood Pressure 107/70 O2 Sat by Pulse 98 Oximetry Physical Exam: Physical Exam: - General Limitations: No Limitations General appearance: alert, in no apparent distress. - Head Head exam: Present: atraumatic, normocephalic - Eye Eye exam: Present: normal appearance - ENT ENT exam: Present: mucous membranes moist - Neck Neck exam: Present: normal inspection - Respiratory Respiratory exam: Present: normal lung sounds bilaterally. Absent: respiratory distress - Cardiovascular Cardiovascular Exam: Present: normal rhythm. Absent: systolic murmur, diastolic murmur, rubs, gallop - GI/Abdominal GI/Abdominal exam: Present: soft, right lower quadrant tenderness, normal bowel sounds - Extremities Exam Extremities exam: Present: normal inspection - Back Exam Back exam: Present: normal inspection - Neurological Exam Neurological exam: Present: alert, oriented X3 - Psychiatric Psychiatric exam: normal affect and mood - Skin Skin exam: Present: warm, dry, intact, normal color. Absent: rash ED Course Vital Signs 03/14/19 21:53 Temperature 98.8 F Pulse Rate 73 Respiratory 18 Rate Blood Pressure 107/70 O2 Sat by Pulse 98 Oximetry ED Medical Decision Making - Lab Data Result diagrams: 03/15/19 03:36 03/14/19 22:39 Critical care attestation.: If time is entered above; I have spent that time in minutes in the direct care of this critically ill patient, excluding procedure time. ED Disposition Clinical Impression: Abdominal pain Qualifiers: Abdominal location: generalized Qualified Code(s): R10.84 - Generalized abdominal pain Disposition: DC-01 TO HOME OR SELFCARE Is pt being admited?: No Does the pt Need Aspirin: No Condition: Stable Instructions: Abdominal Pain (ED) Prescriptions: Dicyclomine [Bentyl] 20 mg PO QID #20 tablet Referrals: STEPHEN MELISSA MD [Primary Care Provider] - 3-5 Days
[2019-03-15] MEDS ORDERED: ZOFRAN ODT PO ONE (03:39)
[2019-03-15] MEDS ORDERED: TYLENOL PO ONE (03:39)
[2019-03-15] MEDS ORDERED: PEPCID IV ONE (04:09)
[2019-03-15] MEDS ORDERED: BENADRYL IV ONE (04:09)
[2019-03-15] MEDS ORDERED: SOLU-Medrol IV ONE (04:09)
[2019-03-15] MEDS ORDERED: SOLU-Medrol ONE (04:14)
[2019-03-15 04:38] LABS: Basophils % (Auto) 0.7 % (0.0-1.8); Eosinophils # (Auto) 0.2 K/mm3 (0.0-0.4); Eosinophils % (Auto) 3.4 % (0.0-4.3); Hematocrit 41.2 % (30.3-42.9); Lymphocytes # (Auto) 1.9 K/mm3 (1.2-5.4); Lymphocytes % (Auto) 28.9 % (13.4-35.0); Mean Corpuscular HGB Conc 32 % (30-34); Mean Corpuscular Volume 77 fl (79-97); Monocytes # (Auto) 0.6 K/mm3 (0.0-0.8); Monocytes % (Auto) 8.8 % (0.0-7.3); Platelet Count 274 K/mm3 (140-440); Red Blood Count 5.34 M/mm3 (3.65-5.03); Red Cell Distribution Width 19.5 % (13.2-15.2)
--- NOTE | 2019-03-15 05:31 | Cat Scan Report ---
PROCEDURE: CT ABDOMEN PELVIS W CON TECHNIQUE: Computerized axial tomography of the abdomen and pelvis was performed after the IV inject ion of iodinated nonionic contrast. CT DOSE LENGTH PRODUCT: 1679.4 mGycm HISTORY: rlq pain COMPARISONS: January 19, 2019 . FINDINGS: Visualized lower thorax: No significant abnormality. Liver: Liver is enlarged. There is no mass.. Spleen: Normal size and attenuation. Gallbladder and biliary system: There has been a cholecystectomy.. Pancreas: Normal. Adrenals: Normal. Kidneys: Normal. GI tract: There is moderate stool in the colon. There is no bowel obstruction, colitis or enteritis. The appendix is normal. . Lymph nodes and mesentery: Normal. Vasculature: Normal.. Bladder: Normal. Reproductive organs: Uterus is unremarkable. Ovaries are unremarkable.. Peritoneum: There is no ascites, free air, abscess or adenopathy.. Musculoskeletal structures: No significant abnormality. IMPRESSION: Liver is enlarged. There is no mass. There has been a cholecystectomy. There is moderate stool in the colon. There is no bowel obstruction, colitis or enteritis. The append ix is normal. Uterus is unremarkable. Ovaries are unremarkable. There is no ascites, free air, abscess or adenopathy. This document is electronically signed by Luis Manuel Scott MD., March 15 2019 05:28:33 AM ET
[2019-03-15 06:21] VITALS: BP 108/67
== END 2019-03-15 05:55 | disposition home or self-care (01) ==
LOC: ED 20:44
DX: R10.31 Right lower quadrant pain (principal); R11.2 Nausea with vomiting, unspecified; F17.200 Nicotine dependence, unspecified, uncomplicated; Z87.442 Personal history of urinary calculi; Z90.49 Acquired absence of other specified parts of digestive tract; Z88.6 Allergy status to analgesic agent; Z88.0 Allergy status to penicillin
CPT/HCPCS: 36415; 74177; 80053; 81001; 84703; 85025; 96374; 96375; 99284; J1200; J2930; Q9967; Q0162

== ENCOUNTER 2019-03-30 18:09 | Emergency (ER) | payer SELFPAY | END 2019-03-30 19:55 | disposition left against medical advice (07) | LOC: ED 18:09 | DX: J00 Acute nasopharyngitis [common cold] (principal); Z53.21 Procedure and treatment not carried out due to patient leaving prior to being seen by health care provider ==

== ENCOUNTER 2019-04-14 17:06 | Emergency (ER) | payer SELFPAY ==
--- NOTE | 2019-04-14 17:48 | Emergency Department Report ---
Blank Doc - Documentation Documentation: This is a 28-year-old female that presents with generalized pain from sickle c ell. This initial assessment/diagnostic orders/clinical plan/treatment(s) is/are subject to change based on patient's health status, clinical progression and re- assessment by fellow clinical providers in the ED. Further treatment and workup at subsequent clinical providers discretion. Patient/guardians urged not to elope from the ED as their condition may be serious if not clinically assessed a nd managed. Initial orders include: 1- Patient sent to MAIN ED for further evaluation and treatment 2- labs
[2019-04-14 18:58] LABS: Basophils % (Auto) 0.5 % (0.0-1.8); Eosinophils % (Auto) 0.1 % (0.0-4.3); Hematocrit 32.2 % (30.3-42.9); Hemoglobin 10.2 gm/dl (10.1-14.3); Lymphocytes # (Auto) 0.9 K/mm3 (1.2-5.4); Lymphocytes % (Auto) 9.3 % (13.4-35.0); Mean Corpuscular HGB Conc 32 % (30-34); Mean Corpuscular Volume 78 fl (79-97); Monocytes # (Auto) 0.6 K/mm3 (0.0-0.8); Monocytes % (Auto) 6.5 % (0.0-7.3); Platelet Count 358 K/mm3 (140-440); Red Blood Count 4.13 M/mm3 (3.65-5.03); Red Cell Distribution Width 19.2 % (13.2-15.2)
[2019-04-14 19:09] LABS: BUN/Creatinine Ratio 15; Blood Urea Nitrogen 12 mg/dL (7-17); Calcium 9.5 mg/dL (8.4-10.2); Hemolysis Index 8
[2019-04-14] MEDS ORDERED: PERCOCET 5/325 PO ONE (22:51)
[2019-04-14 23:52] VITALS: BP 130/64
--- NOTE | 2019-04-15 03:04 | Emergency Department Report ---
<ADORE MEEKS - Last Filed: 04/15/19 06:08> ED General Adult HPI - General Chief complaint: Sickle Cell Crisis Stated complaint: SICKLE CELL PAIN Time Seen by Provider: 04/14/19 17:47 Source: patient Mode of arrival: Ambulatory Limitations: No Limitations - History of Present Illness Initial comments: 28-year-old -[place] female comes in for generalized pain. Patient states that she has a history of sickle cell disease. Review of chart patient has no mention of sickle cell disease in her past. Patient only reports that she has a history of cervical cancer diagnosed in 2017. Patient reports that she does not have off and sickle cell crisis. Patient reports that most of her crisis she goes to the doctor in [place]. She comes here for her cervical cancer and will come to this hospital for pain for her cervical cancer. Review of chart patient's had too rich accounts one a year ago was 1.18 today to d iverticular disease 0.81. Patient has no signs of anemia or signs of dehydration. Patient reports allergy to Toradol and Tylenol. -: This morning Severity scale (0 -10): 10 Consistency: constant Improves with: medication Associated Symptoms: denies other symptoms Treatments Prior to Arrival: none - Related Data Previous Rx's Medication Instructions Recorded Last Taken Type Ferrous Sulfate [Feosol 325 MG tab] 325 mg PO TID 30 Days #90 tablet 01/28/18 Unknown Rx Oxycodone HCl/Acetaminophen 1 each PO Q6HR PRN #20 tablet 01/28/18 Unknown Rx [Percocet 10/325 mg] Promethazine [Phenergan TAB] 25 mg PO Q6HR PRN #30 tab 04/17/18 Unknown Rx oxyCODONE [roxiCODONE] 5 mg PO Q6HR PRN #15 tablet 04/17/18 Unknown Rx HYDROcodone/APAP 5-325 [[place] 1 each PO Q4HR PRN #12 tablet 06/21/18 Unknown Rx 5/325] medroxyPROGESTERone ACETATE 10 mg PO DAILY #5 tablet 06/21/18 Unknown Rx [Provera] ALBUTEROL Inhaler (OR & NICU) 2 puff IH QID PRN #1 inhalation 07/09/18 Unknown Rx [ProAir HFA Inhaler] Ciprofloxacin HCl [Cipro] 500 mg PO BID #14 tablet 07/09/18 Unknown Rx HYDROcodone/ACETAMINOPHEN [[place] 1 - 2 each PO Q4-6H PRN #14 tablet 07/09/18 Unknown Rx 5-325 Tablet] HYDROcodone/APAP 5-325 [[place] 1 each PO Q6HR PRN #12 tablet 09/23/18 Unknown Rx 5/325] HYDROcodone/APAP 5-325 [[place] 1 each PO Q4HR PRN #8 tablet 10/26/18 Unknown Rx 5/325] Ondansetron [Zofran Odt] 4 mg PO Q8HR PRN #10 tab.rapdis 10/26/18 Unknown Rx metroNIDAZOLE [Flagyl] 500 mg PO Q12HR #14 tab 10/26/18 Unknown Rx HYDROcodone/APAP 5-325 [[place] 1 each PO Q6HR PRN #6 tablet 12/13/18 Unknown Rx 5/325] Ciprofloxacin HCl [Cipro] 500 mg PO BID #14 tablet 01/20/[address] [Voltaren Dr] 75 mg PO BID #20 tablet 02/20/19 Unknown Rx Promethazine [Phenergan] 25 mg PO Q6HR PRN #12 tab 02/20/19 Unknown Rx Dicyclomine [Bentyl] 20 mg PO QID #20 tablet 03/15/19 Unknown Rx Acetaminophen/Codeine [Tylenol 1 tab PO Q6H PRN #12 tab 04/15/19 Unknown Rx /Codeine # 3 tab] Allergies Allergy/AdvReac Type Severity Reaction Status Date / Time ketorolac tromethamine Allergy Hives Verified 12/13/18 12:26 [From Toradol] Penicillins Allergy Swelling Verified 12/13/18 12:26 tramadol Allergy Hives Verified 12/13/18 12:26 Iodinated Contrast- Oral and AdvReac Mild other Verified 12/13/18 12:26 IV Dye ED Review of Systems Comment: All other systems reviewed and negative Constitutional: denies: chills, fever Eyes: denies: eye pain, eye discharge, vision change ENT: denies: ear pain, throat pain Respiratory: denies: cough, shortness of breath, wheezing Cardiovascular: denies: chest pain, palpitations Endocrine: no symptoms reported Gastrointestinal: denies: abdominal pain, nausea, diarrhea Genitourinary: denies: urgency, dysuria, discharge Musculoskeletal: denies: back pain, joint swelling, arthralgia Skin: denies: rash, lesions Neurological: denies: headache, weakness, paresthesias Psychiatric: denies: anxiety, depression Hematological/Lymphatic: denies: easy bleeding, easy bruising ED Past Medical Hx - Past Medical History Previous Medical History?: Yes Hx Sickle Cell Disease: Yes Hx Kidney Stones: Yes Additional medical history: FIBROIDS, scoliosis. kidney stones per pt,cervical cancer-dx 05/2017 - Surgical History Past Surgical History?: Yes Hx Cholecystectomy: Yes Additional Surgical History: X 4. HERNIA REPAIR - Social History Smoking Status: Current Every Day Smoker Substance Use Type: None - Medications Home Medications: Home Medications Medication Instructions Recorded Confirmed Last Taken Type Ferrous Sulfate [Feosol 325 MG tab] 325 mg PO TID 30 Days #90 tablet 01/28/18 04/17/18 Unknown Rx Oxycodone HCl/Acetaminophen 1 each PO Q6HR PRN #20 tablet 01/28/18 04/17/18 Unknown Rx [Percocet 10/325 mg] Promethazine [Phenergan TAB] 25 mg PO Q6HR PRN #30 tab 04/17/18 Unknown Rx oxyCODONE [roxiCODONE] 5 mg PO Q6HR PRN #15 tablet 04/17/18 Unknown Rx HYDROcodone/APAP 5-325 [[place] 1 each PO Q4HR PRN #12 tablet 06/21/18 Unknown Rx 5/325] medroxyPROGESTERone ACETATE 10 mg PO DAILY #5 tablet 06/21/18 Unknown Rx [Provera] ALBUTEROL Inhaler (OR & NICU) 2 puff IH QID PRN #1 inhalation 07/09/18 Unknown Rx [ProAir HFA Inhaler] Ciprofloxacin HCl [Cipro] 500 mg PO BID #14 tablet 07/09/18 Unknown Rx HYDROcodone/ACETAMINOPHEN [[place] 1 - 2 each PO Q4-6H PRN #14 tablet 07/09/18 Unknown Rx 5-325 Tablet] HYDROcodone/APAP 5-325 [[place] 1 each PO Q6HR PRN #12 tablet 09/23/18 Unknown Rx 5/325] HYDROcodone/APAP 5-325 [[place] 1 each PO Q4HR PRN #8 tablet 10/26/18 Unknown Rx 5/325] Ondansetron [Zofran Odt] 4 mg PO Q8HR PRN #10 tab.rapdis 12/01/18 Unknown Rx metroNIDAZOLE [Flagyl] 500 mg PO Q12HR #14 tab 10/26/18 Unknown Rx HYDROcodone/APAP 5-325 [[place] 1 each PO Q6HR PRN #6 tablet 12/13/18 Unknown Rx 5/325] Ciprofloxacin HCl [Cipro] 500 mg PO BID #14 tablet 01/20/[address] [Voltaren Dr] 75 mg PO BID #20 tablet 02/20/19 Unknown Rx Promethazine [Phenergan] 25 mg PO Q6HR PRN #12 tab 02/20/19 Unknown Rx Dicyclomine [Bentyl] 20 mg PO QID #20 tablet 03/15/19 Unknown Rx Acetaminophen/Codeine [Tylenol 1 tab PO Q6H PRN #12 tab 04/15/19 Unknown Rx /Codeine # 3 tab] ED Physical Exam - General Limitations: No Limitations General appearance: alert, in no apparent distress - Head Head exam: Present: atraumatic, normocephalic - Eye Eye exam: Present: normal appearance - Respiratory Respiratory exam: Present: normal lung sounds bilaterally. Absent: respiratory distress - Cardiovascular Cardiovascular Exam: Present: regular rate, normal rhythm. Absent: systolic murmur, diastolic murmur, rubs, gallop - GI/Abdominal GI/Abdominal exam: Present: soft, normal bowel sounds - Extremities Exam Extremities exam: Present: normal inspection, full ROM - Neurological Exam Neurological exam: Present: normal gait - Psychiatric Psychiatric exam: Present: normal affect, normal mood - Skin Skin exam: Present: warm, dry, intact, normal color. Absent: rash ED Medical Decision Making - Lab Data Result diagrams: 04/14/19 18:34 04/14/19 18:34 - Medical Decision Making 28-year-old -[place] female comes in for generalized pain reporting history of sickle cell disease. Patient was given oxycodone earlier in her visit. Sickle cell screening test has been ordered. Patient be discharged home on Tylenol No. 3 and she is to follow up with a seam stayer and her primary care provider. I will list one below for her convenience. Patient has also been evaluated by Dr. Ann. ED Disposition Clinical Impression: Generalized pain Disposition: DC- TO HOME OR SELFCARE Is pt being admited?: No Does the pt Need Aspirin: No Condition: Stable Additional Instructions: Take pain medication as needed. Do not operate heavy machinery while taking pain medication. It is important for you to follow up with a seam stayer I have listed several below for your convenience. Prescriptions: Acetaminophen/Codeine [Tylenol /Codeine # 3 tab] 1 tab PO Q6H PRN #12 tab PRN Reason: Pain , Severe (7-10) Referrals: [facility] MD CIRA [Primary Care Provider] - 3-5 Days OLMAN ZAMBRANO MD [Referring] - 3-5 Days MIGUEL ANGEL LEAL MD [Referring] - 3-5 Days ZACHERY STRAUSS MD [Referring] - 3-5 Days PINA GONZALEZ MD [Referring] - 3-5 Days <ISABELLA ANN - Last Filed: 04/18/19 09:05> ED Review of Systems ROS: Stated complaint: SICKLE CELL PAIN Other details as noted in HPI ED Course Vital Signs 04/14/19 04/14/19 04/14/19 17:50 22:56 23:51 Temperature 98.5 F 98.1 F Pulse Rate 108 H 104 H Respiratory 16 18 20 Rate Blood Pressure 128/53 130/64 O2 Sat by Pulse 100 100 Oximetry ED Medical Decision Making - Lab Data Result diagrams: 04/14/19 18:34 04/14/19 18:34 - Medical Decision Making pt apparently left prior to d/c and prior to sickle cell screen. Pt into the ED several times in the past and sickle cell disease was not consistently listed as a past medical history. Also patient repeatedly has a normal hemoglobin and reticulocyte count Critical care attestation.: If time is entered above; I have spent that time in minutes in the direct care of this critically ill patient, excluding procedure time.
== END 2019-04-15 03:15 | disposition home or self-care (01) ==
LOC: ED 17:06
DX: R52 Pain, unspecified (principal); D57.1 Sickle-cell disease without crisis; F17.200 Nicotine dependence, unspecified, uncomplicated; Z90.49 Acquired absence of other specified parts of digestive tract; Z79.899 Other long term (current) drug therapy; Z88.6 Allergy status to analgesic agent; Z88.0 Allergy status to penicillin; Z91.041 Radiographic dye allergy status
CPT/HCPCS: 36415; 80048; 84703; 85025; 85045; 99283

== ENCOUNTER 2019-05-18 18:35 | Emergency (ER) | payer SELFPAY ==
[2019-05-18 18:42] VITALS: BP 129/80
--- NOTE | 2019-05-18 18:45 | Event Note ---
ED Screening Note ED Screening Note: pt has pain for a week [facility] year PMHx cervical CA pt states she is on dilaudid, benadryl, folic acid denies any other complications LNMP: may 08 This initial assessment/diagnostic orders/clinical plan/treatment(s) is/are subject to change based on patients health status, clinical progression and re- assessment by fellow clinical providers in the ED. Further treatment and workup at subsequent clinical providers discretion. Patient/guardian urged not to elope from the ED as their condition may be serious if not clinically assessed and managed. Initial orders include: labs
[2019-05-18 19:32] LABS: Basophils # (Auto) 0.1 K/mm3 (0.0-0.1); Basophils % (Auto) 1.3 % (0.0-1.8); Eosinophils # (Auto) 0.2 K/mm3 (0.0-0.4); Eosinophils % (Auto) 1.6 % (0.0-4.3); Hemoglobin 9.5 gm/dl (10.1-14.3); Lymphocytes # (Auto) 1.9 K/mm3 (1.2-5.4); Lymphocytes % (Auto) 17.7 % (13.4-35.0); Mean Corpuscular HGB Conc 31 % (30-34); Mean Corpuscular Volume 78 fl (79-97); Monocytes % (Auto) 9.2 % (0.0-7.3); Platelet Count 473 K/mm3 (140-440); Red Blood Count 3.96 M/mm3 (3.65-5.03); Red Cell Distribution Width 19.6 % (13.2-15.2)
[2019-05-18 19:49] LABS: Alanine Aminotransferase 13 units/L (7-56); Albumin 4.2 g/dL (3.9-5); BUN/Creatinine Ratio 16; Blood Urea Nitrogen 13 mg/dL (7-17); Calcium 9.5 mg/dL (8.4-10.2); Hemolysis Index 13
[2019-05-18] MEDS ORDERED: BENADRYL IV ONE (21:00)
[2019-05-18] MEDS ORDERED: DILAUDID IV ONE (21:02)
[2019-05-18] MEDS ORDERED: TYLENOL PO ONE (21:03)
--- NOTE | 2019-05-18 22:32 | XRay Report ---
PROCEDURE: XR CHEST ROUTINE 2V TECHNIQUE: PA and lateral chest radiographs were obtained. HISTORY: chest pain COMPARISONS: None. FINDINGS: Heart: Normal. Mediastinum/Vessels: Normal. Lungs/Pleural space: Normal. Bony thorax: No acute osseous abnormality. IMPRESSION: Normal examination. This document is electronically signed by Shahzad Orr MD., May 18 2019 10:30:48 PM ET
--- NOTE | 2019-05-18 22:49 | Emergency Department Report ---
ED General Adult HPI - General Chief complaint: Sickle Cell Crisis Stated complaint: SICKLE CELL CRISIS Time Seen by Provider: 05/18/19 18:43 Source: patient Mode of arrival: Ambulatory Limitations: No Limitations - History of Present Illness Initial comments: pt is a 28 y/o aaf with hx of sickel cell anemia who presents for generalized bodyaches and pain usual tx include dilaudid, benadryl. folic acid there is no sob no cp no n/v no back pain no n/v pt states she is in transit and out of medications. Onset/Timin -: days(s) Location: back, upper extremity, lower extremity Severity scale (0 -10): 5 Quality: aching Consistency: constant Improves with: none Worsens with: none Associated Symptoms: other (bodyaches ) Treatments Prior to Arrival: none - Related Data Previous Rx's Medication Instructions Recorded Last Taken Type Ferrous Sulfate [Feosol 325 MG tab] 325 mg PO TID 30 Days #90 tablet 01/28/18 Unknown Rx Oxycodone HCl/Acetaminophen 1 each PO Q6HR PRN #20 tablet 01/28/18 Unknown Rx [Percocet 10/325 mg] Promethazine [Phenergan TAB] 25 mg PO Q6HR PRN #30 tab 04/17/18 Unknown Rx oxyCODONE [roxiCODONE] 5 mg PO Q6HR PRN #15 tablet 04/17/18 Unknown Rx HYDROcodone/APAP 5-325 [[place] 1 each PO Q4HR PRN #12 tablet 06/21/18 Unknown Rx 5/325] medroxyPROGESTERone ACETATE 10 mg PO DAILY #5 tablet 06/21/18 Unknown Rx [Provera] ALBUTEROL Inhaler (OR & NICU) 2 puff IH QID PRN #1 inhalation 07/09/18 Unknown Rx [ProAir HFA Inhaler] Ciprofloxacin HCl [Cipro] 500 mg PO BID #14 tablet 07/09/18 Unknown Rx HYDROcodone/ACETAMINOPHEN [[place] 1 - 2 each PO Q4-6H PRN #14 tablet 07/09/18 Unknown Rx 5-325 Tablet] HYDROcodone/APAP 5-325 [[place] 1 each PO Q6HR PRN #12 tablet 09/23/18 Unknown Rx 5/325] HYDROcodone/APAP 5-325 [[place] 1 each PO Q4HR PRN #8 tablet 10/26/18 Unknown Rx 5/325] Ondansetron [Zofran Odt] 4 mg PO Q8HR PRN #10 tab.rapdis 10/26/18 Unknown Rx metroNIDAZOLE [Flagyl] 500 mg PO Q12HR #14 tab 10/26/18 Unknown Rx HYDROcodone/APAP 5-325 [[place] 1 each PO Q6HR PRN #6 tablet 12/13/18 Unknown Rx 5/325] Ciprofloxacin HCl [Cipro] 500 mg PO BID #14 tablet 01/20/[address] [Voltaren Dr] 75 mg PO BID #20 tablet 02/20/19 Unknown Rx Promethazine [Phenergan] 25 mg PO Q6HR PRN #12 tab 02/20/19 Unknown Rx Dicyclomine [Bentyl] 20 mg PO QID #20 tablet 03/15/19 Unknown Rx Acetaminophen/Codeine [Tylenol 1 tab PO Q6H PRN #12 tab 04/15/19 Unknown Rx /Codeine # 3 tab] Allergies Allergy/AdvReac Type Severity Reaction Status Date / Time ketorolac tromethamine Allergy Hives Verified 12/13/18 12:26 [From Toradol] Penicillins Allergy Swelling Verified 12/13/18 12:26 tramadol Allergy Hives Verified 12/13/18 12:26 Iodinated Contrast- Oral and AdvReac Mild other Verified 12/13/18 12:26 IV Dye ED Review of Systems ROS: Stated complaint: SICKLE CELL CRISIS Other details as noted in HPI Constitutional: denies: chills, fever Eyes: denies: eye pain, eye discharge, vision change ENT: denies: ear pain, throat pain Respiratory: denies: cough, shortness of breath, wheezing Cardiovascular: denies: chest pain, palpitations Endocrine: no symptoms reported Gastrointestinal: denies: abdominal pain, nausea, diarrhea Genitourinary: denies: urgency, dysuria, discharge Musculoskeletal: arthralgia, myalgia Skin: denies: rash, lesions Neurological: denies: headache, weakness, paresthesias, vertigo Psychiatric: denies: anxiety, depression Hematological/Lymphatic: denies: easy bleeding, easy bruising ED Past Medical Hx - Past Medical History Previous Medical History?: Yes Hx Sickle Cell Disease: Yes Hx Kidney Stones: Yes Additional medical history: FIBROIDS, scoliosis. kidney stones per pt,cervical cancer-dx 05/2017 - Surgical History Past Surgical History?: Yes Hx Cholecystectomy: Yes Additional Surgical History: X 4. HERNIA REPAIR - Social History Smoking Status: Current Every Day Smoker Substance Use Type: Prescribed - Medications Home Medications: Home Medications Medication Instructions Recorded Confirmed Last Taken Type Ferrous Sulfate [Feosol 325 MG tab] 325 mg PO TID 30 Days #90 tablet 01/28/18 04/17/18 Unknown Rx Oxycodone HCl/Acetaminophen 1 each PO Q6HR PRN #20 tablet 01/28/18 04/17/18 Unknown Rx [Percocet 10/325 mg] Promethazine [Phenergan TAB] 25 mg PO Q6HR PRN #30 tab 04/17/18 Unknown Rx oxyCODONE [roxiCODONE] 5 mg PO Q6HR PRN #15 tablet 04/17/18 Unknown Rx HYDROcodone/APAP 5-325 [[place] 1 each PO Q4HR PRN #12 tablet 06/21/18 Unknown Rx 5/325] medroxyPROGESTERone ACETATE 10 mg PO DAILY #5 tablet 06/21/18 Unknown Rx [Provera] ALBUTEROL Inhaler (OR & NICU) 2 puff IH QID PRN #1 inhalation 07/09/18 Unknown Rx [ProAir HFA Inhaler] Ciprofloxacin HCl [Cipro] 500 mg PO BID #14 tablet 07/09/18 Unknown Rx HYDROcodone/ACETAMINOPHEN [[place] 1 - 2 each PO Q4-6H PRN #14 tablet 07/09/18 Unknown Rx 5-325 Tablet] HYDROcodone/APAP 5-325 [[place] 1 each PO Q6HR PRN #12 tablet 09/23/18 Unknown Rx 5/325] HYDROcodone/APAP 5-325 [[place] 1 each PO Q4HR PRN #8 tablet 10/26/18 Unknown Rx 5/325] Ondansetron [Zofran Odt] 4 mg PO Q8HR PRN #10 tab.rapdis 10/26/18 Unknown Rx metroNIDAZOLE [Flagyl] 500 mg PO Q12HR #14 tab 10/26/18 Unknown Rx HYDROcodone/APAP 5-325 [[place] 1 each PO Q6HR PRN #6 tablet 12/13/18 Unknown Rx 5/325] Ciprofloxacin HCl [Cipro] 500 mg PO BID #14 tablet 01/20/[address] [Voltaren Dr] 75 mg PO BID #20 tablet 02/20/19 Unknown Rx Promethazine [Phenergan] 25 mg PO Q6HR PRN #12 tab 02/20/19 Unknown Rx Dicyclomine [Bentyl] 20 mg PO QID #20 tablet 03/15/19 Unknown Rx Acetaminophen/Codeine [Tylenol 1 tab PO Q6H PRN #12 tab 04/15/19 Unknown Rx /Codeine # 3 tab] ED Physical Exam - General Limitations: No Limitations General appearance: alert, in no apparent distress - Head Head exam: Present: atraumatic, normocephalic - Eye Eye exam: Present: normal appearance, PERRL, EOMI Pupils: Present: normal accommodation - ENT ENT exam: Present: normal orophraynx, mucous membranes moist, TM's normal bilaterally, other - Neck Neck exam: Present: normal inspection, full ROM. Absent: tenderness, lymphadenopathy, thyromegaly - Respiratory Respiratory exam: Present: normal lung sounds bilaterally. Absent: respiratory distress, wheezes, stridor, chest wall tenderness - Cardiovascular Cardiovascular Exam: Present: regular rate, normal rhythm, normal heart sounds. Absent: systolic murmur, diastolic murmur, rubs, gallop - GI/Abdominal GI/Abdominal exam: Present: soft, normal bowel sounds. Absent: distended, tenderness, guarding, rebound, rigid, bruit, hernia - Rectal Rectal exam: Present: deferred - Extremities Exam Extremities exam: Present: normal inspection, full ROM, tenderness, normal capillary refill. Absent: pedal edema, joint swelling, calf tenderness - Back Exam Back exam: Present: normal inspection, full ROM. Absent: tenderness, CVA tenderness (R), CVA tenderness (L), muscle spasm, paraspinal tenderness, vertebral tenderness, rash noted - Neurological Exam Neurological exam: Present: alert, oriented X3, normal gait, reflexes normal. Absent: motor sensory deficit - Psychiatric Psychiatric exam: Present: normal affect, normal mood - Skin Skin exam: Present: warm, dry, intact, normal color. Absent: rash ED Course Vital Signs 05/18/19 05/18/19 18:38 21:38 Temperature 98.1 F Pulse Rate 111 H Respiratory 20 18 Rate Blood Pressure 129/80 O2 Sat by Pulse 100 Oximetry ED Medical Decision Making - Lab Data Result diagrams: 05/18/19 19:20 05/18/19 19:20 - Radiology Data Radiology results: report reviewed, image reviewed akin cxr no infiltrate no opacities - Medical Decision Making pt left ama prior to completion of evaluation. Critical care attestation.: If time is entered above; I have spent that time in minutes in the direct care of this critically ill patient, excluding procedure time. ED Disposition Clinical Impression: Generalized body aches Disposition: -07 LEFT AGAINST MED ADVICE Is pt being admited?: No Does the pt Need Aspirin: No Condition: Stable Instructions: Sickle Cell Crisis (ED) Referrals: STEPHEN MELISSA MD [Primary Care Provider] - 3-5 Days Forms: AMA Form Time of Disposition: 22:52
== END 2019-05-18 23:01 | disposition left against medical advice (07) ==
LOC: ED 18:35
DX: M79.10 Myalgia, unspecified site (principal); D57.1 Sickle-cell disease without crisis; F17.200 Nicotine dependence, unspecified, uncomplicated; Z87.442 Personal history of urinary calculi; Z90.49 Acquired absence of other specified parts of digestive tract; Z88.6 Allergy status to analgesic agent; Z88.0 Allergy status to penicillin; Z88.8 Allergy status to other drugs, medicaments and biological substances
CPT/HCPCS: 36415; 71046; 80053; 84703; 85025; 85045; 96374; 96375; 99284; J1170; J1200

== ENCOUNTER 2019-07-02 23:35 | Emergency (ER) | payer SELFPAY ==
[2019-07-03 00:32] LABS: Bilirubin,Urine NEG (Negative); Blood,Urine NEG (Negative); Color,Urine Yellow (Yellow); Mucus,Urine 2+ /HPF; Protein,Urine <15 mg/dL mg/dL (Negative)
[2019-07-03 00:54] LABS: Alanine Aminotransferase 15 units/L (7-56); BUN/Creatinine Ratio 20; Blood Urea Nitrogen 10 mg/dL (7-17); Calcium 9.3 mg/dL (8.4-10.2); Hemolysis Index 3
[2019-07-03 01:36] LABS: Basophils # (Auto) 0.1 K/mm3 (0.0-0.1); Eosinophils # (Auto) 0.1 K/mm3 (0.0-0.4); Monocytes # (Auto) 1.4 K/mm3 (0.0-0.8); Monocytes % (Auto) 11.6 % (0.0-7.3)
[2019-07-03 01:37] LABS: Basophils % (Auto) 0.7 % (0.0-1.8); Hematocrit 29.4 % (30.3-42.9); Lymphocytes # (Auto) 2.4 K/mm3 (1.2-5.4); Lymphocytes % (Auto) 20.7 % (13.4-35.0); Mean Corpuscular HGB Conc 31 % (30-34); Mean Corpuscular Volume 77 fl (79-97); Platelet Count 357 K/mm3 (140-440); Red Blood Count 3.83 M/mm3 (3.65-5.03); Red Cell Distribution Width 20.1 % (13.2-15.2)
[2019-07-03] MEDS ORDERED: ZOFRAN IV ONE (02:48)
[2019-07-03] MEDS ORDERED: MORPHINE IV ONE (02:48)
[2019-07-03] MEDS ORDERED: NACL 0.9% 1000 ML 1,000 ML IV ONE (02:48)
--- NOTE | 2019-07-03 03:22 | Emergency Department Report ---
ED General Adult HPI - General Chief complaint: Abdominal Pain Stated complaint: CERVICAL CANCER Time Seen by Provider: 07/03/19 02:16 Source: patient, RN notes reviewed, old records reviewed Mode of arrival: Ambulatory Limitations: No Limitations - History of Present Illness Initial comments: This is a 29-year-old female. I have evaluated this patient in the past. Her past medical history includes chronic pain, 4, renal colic, possible cervical cancer. Patient has had multiple CT scans of the abdomen and pelvis at this facility, for chronic abdominal pain, all of which been essentially nondiagnostic for acute disease. The patient was reportedly scheduled to have a hysterectomy, but states she has not had a hysterectomy secondary to insurance issues. The patient presents to the ER today with complaint of nontraumatic suprapubic and right lower quadrant pain, present for the past 2 days, nonbloody nonbilious nausea and vomiting, no fever, no chills, positive generalized weakness, and a superficial wound to the left upper melina drant. Pain is crampy and achy, increases with palpation, decreases with rest, the patient to me states it does not radiate anywhere. The wound on her left upper quadrant has been present for a few days. There is no redness, pus or streaking. The patient initially tells me that she is not . The patient initially tells me that she hasn't had sex for a few weeks. The patient tells me that she was informed that she could never get . She thinks her last period was in mid April. She is not sure. -: Gradual Location: abdomen Quality: other Consistency: other Improves with: other Worsens with: other - Related Data Previous Rx's Medication Instructions Recorded Last Taken Type Ferrous Sulfate [Feosol 325 MG tab] 325 mg PO TID 30 Days #90 tablet 01/28/18 Unknown Rx Promethazine [Phenergan TAB] 25 mg PO Q6HR PRN #30 tab 04/17/18 Unknown Rx ALBUTEROL Inhaler (OR & NICU) 2 puff IH QID PRN #1 inhalation 07/09/18 Unknown Rx [ProAir HFA Inhaler] Ondansetron [Zofran Odt] 4 mg PO Q8HR PRN #10 tab.rapdis 10/26/18 Unknown Rx Promethazine [Phenergan] 25 mg PO Q6HR PRN #12 tab 02/20/19 Unknown Rx Acetaminophen [Non-Aspirin Extra 500 mg PO Q6HR PRN #30 tablet 07/03/19 Unknown Rx Strength] Doxylamine Succinate/Vit B6 1 each PO QHS PRN #30 tablet. 07/03/19 Unknown Rx [Mara Dorsey 10-10 mg Tablet] Leonarda Root [Leonarda] 250 mg PO QID PRN #30 capsule 07/03/19 Unknown Rx Vit-Fe Fumar-FA [ 1 tab PO QDAY #30 tablet 07/03/19 Unknown Rx Vitamin] Allergies Allergy/AdvReac Type Severity Reaction Status Date / Time ketorolac tromethamine Allergy Hives Verified 12/13/18 12:26 [From Toradol] Penicillins Allergy Swelling Verified 12/13/18 12:26 tramadol Allergy Hives Verified 12/13/18 12:26 Iodinated Contrast- Oral and AdvReac Mild other Verified 12/13/18 12:26 IV Dye ED Review of Systems ROS: Stated complaint: CERVICAL CANCER Other details as noted in HPI Constitutional: malaise. denies: fever Eyes: denies: eye discharge ENT: denies: epistaxis Respiratory: denies: cough Cardiovascular: denies: syncope Gastrointestinal: abdominal pain, nausea, vomiting Genitourinary: denies: dysuria Skin: lesions Neurological: weakness Psychiatric: anxiety ED Past Medical Hx - Past Medical History Previous Medical History?: No Hx Sickle Cell Disease: Yes Hx Kidney Stones: Yes Additional medical history: FIBROIDS, scoliosis. kidney stones per pt,cervical cancer-dx 05/2017 - Surgical History Past Surgical History?: Yes Hx Cholecystectomy: Yes Additional Surgical History: X 4. HERNIA REPAIR - Social History Smoking Status: Current Every Day Smoker Substance Use Type: None - Medications Home Medications: Home Medications Medication Instructions Recorded Confirmed Last Taken Type Ferrous Sulfate [Feosol 325 MG tab] 325 mg PO TID 30 Days #90 tablet 01/28/18 04/17/18 Unknown Rx Promethazine [Phenergan TAB] 25 mg PO Q6HR PRN #30 tab 04/17/18 Unknown Rx ALBUTEROL Inhaler (OR & NICU) 2 puff IH QID PRN #1 inhalation 07/09/18 Unknown Rx [ProAir HFA Inhaler] Ondansetron [Zofran Odt] 4 mg PO Q8HR PRN #10 tab.rapdis 10/26/18 Unknown Rx Promethazine [Phenergan] 25 mg PO Q6HR PRN #12 tab 02/20/19 Unknown Rx Acetaminophen [Non-Aspirin Extra 500 mg PO Q6HR PRN #30 tablet 07/03/19 Unknown Rx Strength] Doxylamine Succinate/Vit B6 1 each PO QHS PRN #30 tablet. 07/03/19 Unknown Rx [Mara Dorsey 10-10 mg Tablet] Leonarda Root [Leonarda] 250 mg PO QID PRN #30 capsule 07/03/19 Unknown Rx Vit-Fe Fumar-FA [ 1 tab PO QDAY #30 tablet 07/03/19 Unknown Rx Vitamin] ED Physical Exam - General Limitations: No Limitations General appearance: alert, anxious, obese - Head Head exam: Present: atraumatic, normocephalic - Eye Eye exam: Present: normal appearance, EOMI. Absent: nystagmus - ENT ENT exam: Present: normal exam, normal orophraynx, mucous membranes moist, n ormal external ear exam - Neck Neck exam: Present: normal inspection, full ROM. Absent: tenderness, meningismus - Respiratory Respiratory exam: Present: normal lung sounds bilaterally. Absent: respiratory distress - Cardiovascular Cardiovascular Exam: Present: normal rhythm, tachycardia, normal heart sounds. Absent: bradycardia, systolic murmur, diastolic murmur, rubs, gallop - GI/Abdominal GI/Abdominal exam: Present: soft, distended, other (abdomen appears to be distended and gravid. There is no right lower quadrant tenderness. There is no rebound, guarding or peritoneal signs. There is no right upper quadrant tenderness. There is a negative Lau sign. Negative rovsigs exam.). Absent: tenderness, guarding, rebound, rigid, pulsatile mass - Extremities Exam Extremities exam: Present: normal inspection, full ROM, other (2+ pulses noted in the bilateral upper, lower extremities. Compartments soft. No long bony tenderness. The pelvis is stable.). Absent: pedal edema, joint swelling, calf tenderness - Back Exam Back exam: Present: normal inspection, full ROM. Absent: tenderness, CVA tenderness (R), CVA tenderness (L), paraspinal tenderness, vertebral tenderness - Neurological Exam Neurological exam: Present: alert, oriented X3, normal gait, other (Extraocular movements intact. Tongue midline. No facial droop. Facial sensation intact to light touch in the V1, V2, V3 distribution bilaterally. 5 and 5 strength in 4 extremities.. Sensation is intact to light touch in 4 extremities.). Absent: motor sensory deficit - Psychiatric Psychiatric exam: Present: normal affect, normal mood, anxious - Skin Skin exam: Present: warm, other (there is a superficial indurated skin wounds noted in the left upper quadrant, with no redness, pus or streaking. The wound is open. There is no fluctuance.) ED Course Vital Signs 07/02/19 07/03/19 07/03/19 23:54 04:18 04:24 Temperature 98.6 F 98.2 F Pulse Rate 100 H 67 Respiratory 18 18 18 Rate Blood Pressure 114/64 Blood Pressure 106/60 [Left] O2 Sat by Pulse 100 100 Oximetry - Reevaluation(s) Reevaluation #1: 07/03/19 03:46 Differential diagnosis, including but not limited to: Ovarian cyst, constipation, urinary tract infection, , constipation, round ligament pain, chronic wounds Assessment and plan: 29-year-old female with 2 complaints Complaint #1, lower abdominal pain. I have evaluated this patient multiple times for abdominal pain. She is nontender, she is afebrile, she does not have a leukocytosis, however, she appears to be . Do not have a suspicion for appendicitis based off of the current history and physical. I do have a strong suspicion for , given that a call to the hCG is positive, and a quantitative hCG is greater than 9000. We will treat the patient's pain, give IV fluids, and obtain obstetrics ultrasound. We will also obtain a pelvic duplex study. Tachycardia reviewed and appreciated, now resolved, may be secondary to anxiety, pain, or physiologic tachycardia . Currently, her heart rate is 77 bpm Complaint #2, left upper quadrant wound. The wound is superficial. It is not draining. It is not super infected. It is not consistent with cellulitis or abscess. It can be managed expectantly with local wound care. We will reassess after the patient's data points have resulted. Reevaluation #2: 07/03/19 04:46 Ultrasound confirms intrauterine . The right ovary is not visualized. This is similar to her prior ultrasounds when reviewed from earlier on this year. There is no right lower quadrant tenderness. There is no active vomiting. The patient will need to follow up with an outpatient [facility] doctor, given her reported history of cervical cancer, this is a high risk , and she'll therefore also need to follow up with outpatient high risk obstetrics. We will defer to receiving OB to set this up ED Medical Decision Making - Lab Data Result diagrams: 07/03/19 00:10 07/03/19 00:10 Vital Signs 07/02/19 23:54 Temperature 98.6 F Pulse Rate 100 H Respiratory 18 Rate Blood Pressure 114/64 O2 Sat by Pulse 100 Oximetry Lab Results 07/02/19 07/03/19 07/03/19 Range/Units 23:58 00:10 00:10 WBC 11.7 H (4.5-11.0) K/mm3 RBC 3.83 (3.65-5.03) M/mm3 Hgb 9.0 L (10.1-14.3) gm/dl Hct 29.4 L (30.3-42.9) % MCV 77 L (79-97) fl MCH 24 L (28-32) pg MCHC 31 (30-34) % RDW 20.1 H (13.2-15.2) % Plt Count 357 (140-440) K/mm3 Lymph % (Auto) 20.7 (13.4-35.0) % Coryell % (Auto) 11.6 H (0.0-7.3) % Eos % (Auto) 1.0 (0.0-4.3) % Baso % (Auto) 0.7 (0.0-1.8) % Lymph # 2.4 (1.2-5.4) K/mm3 Coryell # 1.4 H (0.0-0.8) K/mm3 Eos # 0.1 (0.0-0.4) K/mm3 Baso # 0.1 (0.0-0.1) K/mm3 Seg Neutrophils % 66.0 (40.0-70.0) % Seg Neutrophils # 7.7 (1.8-7.7) K/mm3 Sodium 136 L (137-145) mmol/L Potassium 3.5 L (3.6-5.0) mmol/L Chloride 102.4 (98-107) mmol/L Carbon Dioxide 22 (22-30) mmol/L Anion Gap 15 mmol/L BUN 10 (7-17) mg/dL Creatinine 0.5 L (0.7-1.2) mg/dL Estimated GFR > 60 ml/min BUN/Creatinine Ratio 20 % Glucose 91 (65-100) mg/dL Calcium 9.3 (8.4-10.2) mg/dL Magnesium (1.7-2.3) mg/dL Total Bilirubin 0.30 (0.1-1.2) mg/dL AST 16 (5-40) units/L ALT 15 (7-56) units/L Alkaline Phosphatase 49 (35-129) units/L Total Creatine Kinase (30-135) units/L Total Protein 7.8 (6.3-8.2) g/dL Albumin 4.0 (3.9-5) g/dL Albumin/Globulin Ratio 1.1 % Lipase 16 (13-60) units/L HCG, Qual (Negative) HCG, Quant (0-4) mIU/mL Urine Color Yellow (Yellow) Urine Turbidity Clear (Clear) Urine pH 6.0 (5.0-7.0) Ur Specific [place] 1.028 (1.003-1.030) Urine Protein <15 mg/dl (Negative) mg/dL Urine Glucose (UA) Neg (Negative) mg/dL Urine Ketones Neg (Negative) mg/dL Urine Blood Neg (Negative) Urine Nitrite Neg (Negative) Urine Bilirubin Neg (Negative) Urine Urobilinogen 4.0 (<2.0) mg/dL Ur Leukocyte Esterase Neg (Negative) Urine WBC (Auto) 1.0 (0.0-6.0) /HPF Urine RBC (Auto) 2.0 (0.0-6.0) /HPF U Epithel Cells (Auto) 2.0 (0-13.0) /HPF Urine Mucus 2+ /HPF Blood Type 07/03/19 07/03/19 07/03/19 Range/Units 00:10 02:50 02:52 WBC (4.5-11.0) K/mm3 RBC (3.65-5.03) M/mm3 Hgb (10.1-14.3) gm/dl Hct (30.3-42.9) % MCV (79-97) fl MCH (28-32) pg MCHC (30-34) % RDW (13.2-15.2) % Plt Count (140-440) K/mm3 Lymph % (Auto) (13.4-35.0) % Coryell % (Auto) (0.0-7.3) % Eos % (Auto) (0.0-4.3) % Baso % (Auto) (0.0-1.8) % Lymph # (1.2-5.4) K/mm3 Coryell # (0.0-0.8) K/mm3 Eos # (0.0-0.4) K/mm3 Baso # (0.0-0.1) K/mm3 Seg Neutrophils % (40.0-70.0) % Seg Neutrophils # (1.8-7.7) K/mm3 Sodium (137-145) mmol/L Potassium (3.6-5.0) mmol/L Chloride (98-107) mmol/L Carbon Dioxide (22-30) mmol/L Anion Gap mmol/L BUN (7-17) mg/dL Creatinine (0.7-1.2) mg/dL Estimated GFR ml/min BUN/Creatinine Ratio % Glucose (65-100) mg/dL Calcium (8.4-10.2) mg/dL Magnesium 1.90 (1.7-2.3) mg/dL Total Bilirubin (0.1-1.2) mg/dL AST (5-40) units/L ALT (7-56) units/L Alkaline Phosphatase (35-129) units/L Total Creatine Kinase 108 (30-135) units/L Total Protein (6.3-8.2) g/dL Albumin (3.9-5) g/dL Albumin/Globulin Ratio % Lipase (13-60) units/L HCG, Qual Positive (Negative) HCG, Quant (0-4) mIU/mL Urine Color (Yellow) Urine Turbidity (Clear) Urine pH (5.0-7.0) Ur Specific [place] (1.003-1.030) Urine Protein (Negative) mg/dL Urine Glucose (UA) (Negative) mg/dL Urine Ketones (Negative) mg/dL Urine Blood (Negative) Urine Nitrite (Negative) Urine Bilirubin (Negative) Urine Urobilinogen (<2.0) mg/dL Ur Leukocyte Esterase (Negative) Urine WBC (Auto) (0.0-6.0) /HPF Urine RBC (Auto) (0.0-6.0) /HPF U Epithel Cells (Auto) (0-13.0) /HPF Urine Mucus /HPF Blood Type O POSITIVE 07/03/19 Range/Units Unknown WBC (4.5-11.0) K/mm3 RBC (3.65-5.03) M/mm3 Hgb (10.1-14.3) gm/dl Hct (30.3-42.9) % MCV (79-97) fl MCH (28-32) pg MCHC (30-34) % RDW (13.2-15.2) % Plt Count (140-440) K/mm3 Lymph % (Auto) (13.4-35.0) % Coryell % (Auto) (0.0-7.3) % Eos % (Auto) (0.0-4.3) % Baso % (Auto) (0.0-1.8) % Lymph # (1.2-5.4) K/mm3 Coryell # (0.0-0.8) K/mm3 Eos # (0.0-0.4) K/mm3 Baso # (0.0-0.1) K/mm3 Seg Neutrophils % (40.0-70.0) % Seg Neutrophils # (1.8-7.7) K/mm3 Sodium (137-145) mmol/L Potassium (3.6-5.0) mmol/L Chloride (98-107) mmol/L Carbon Dioxide (22-30) mmol/L Anion Gap mmol/L BUN (7-17) mg/dL Creatinine (0.7-1.2) mg/dL Estimated GFR ml/min BUN/Creatinine Ratio % Glucose (65-100) mg/dL Calcium (8.4-10.2) mg/dL Magnesium (1.7-2.3) mg/dL Total Bilirubin (0.1-1.2) mg/dL AST (5-40) units/L ALT (7-56) units/L Alkaline Phosphatase (35-129) units/L Total Creatine Kinase (30-135) units/L Total Protein (6.3-8.2) g/dL Albumin (3.9-5) g/dL Albumin/Globulin Ratio % Lipase (13-60) units/L HCG, Qual (Negative) HCG, Quant 37647 H (0-4) mIU/mL Urine Color (Yellow) Urine Turbidity (Clear) Urine pH (5.0-7.0) Ur Specific [place] (1.003-1.030) Urine Protein (Negative) mg/dL Urine Glucose (UA) (Negative) mg/dL Urine Ketones (Negative) mg/dL Urine Blood (Negative) Urine Nitrite (Negative) Urine Bilirubin (Negative) Urine Urobilinogen (<2.0) mg/dL Ur Leukocyte Esterase (Negative) Urine WBC (Auto) (0.0-6.0) /HPF Urine RBC (Auto) (0.0-6.0) /HPF U Epithel Cells (Auto) (0-13.0) /HPF Urine Mucus /HPF Blood Type - EKG Data -: EKG Interpreted by Sd EKG shows normal: sinus rhythm Rate: normal - EKG Data 07/03/19 03:48 This is a sinus rhythm, 77 bpm, borderline leftward axis, Q waves noted in the inferior leads, no endorsement of chest pain, the QTC is within normal limits, the EKG is not consistent with ST elevation myocardial infarction. - Radiology Data Radiology results: pending, report reviewed, image reviewed Print Report Referring Physician: AIXA BLANC Patient Name: MAXIMILIAN ERIC Date of : 1990 Sex: Female Report Date: 2019-07-03 Report Status: Finalized Findings [facility] [address] [place] [address] Ultrasound Report Signed Patient: MAXIMILIAN ERIC MR#: [id number] : 1990 Acct:[id number] Age/Sex: 29 / F ADM Date: 07/02/19 Loc: ED Attending Dr: Ordering Physician: AIXA BLANC MD Date of Service: 07/03/19 Procedure(s): US OB transvaginal Accession Number(s): [id number] cc: AIXA BLANC MD OB ultrasound FINDINGS: There is a viable intrauterine with crown-rump length measurements corresponding to an MA of 8 weeks 6 days for an EDC of 02/06/2020. This correlates with the clinical dates . heart rate is 171 bpm. Left ovary is normal. Right ovary is not seen. No hemorrhage or free fluid. 3 cm uterine fibroid is incidentally noted. No significant abnormality. Signer Name: Mohinder Yanes MD Signed: 07/03/2019 4:33 AM Workstation Name: [id number] Transcribed By: BISHOP Dictated By: Mohinder Yanes MD Electronically Authenticated By: Mohinder Yanes MD Signed Date/Time: 07/03/19 3620 Critical care attestation.: If time is entered above; I have spent that time in minutes in the direct care of this critically ill patient, excluding procedure time. ED Disposition Clinical Impression: Abdominal pain during Qualifiers: Trimester: first trimester Qualified Code(s): O26.891 - Other specified related conditions, first trimester Disposition: DC- TO HOME OR SELFCARE Is pt being admited?: No Does the pt Need Aspirin: No Condition: Stable Additional Instructions: Take the pain medication as needed, nausea medication as needed/directed. Take the vitamins as directed. Follow up as soon as possible with an outpatient [facility] doctor to establish outpatient care. With history of cervical cancer, and being pregantn 8.5 weeks, patient considered high risk for . Avoid heavy lifting, and avoid sexual activity. Patient will most likely need outpatient referral to high risk specialist, after initial consultation with [facility]. Advance diet as tolerated, and avoid consumption of Motrin, ibuprofen, Naprosyn, Aleve, alcohol. Limit narcotic intake, as addiction may occur in the unborn baby. Return to the emergency room right away with new, worsening or different symptoms, or symptoms not present on the initial emergency room evaluation. Prescriptions: Doxylamine Succinate/Vit B6 [Mara Dorsey 10-10 mg Tablet] 1 each PO QHS PRN #30 tablet. PRN Reason: Nausea Leonarda Root [Leonarda] 250 mg PO QID PRN #30 capsule PRN Reason: Nausea Acetaminophen [Non-Aspirin Extra Strength] 500 mg PO Q6HR PRN #30 tablet PRN Reason: Pain , Severe (7-10) Vit-Fe Fumar-FA [ Vitamin] 1 tab PO QDAY #30 tablet Referrals: [facility] [Provider Group] - 3-5 Days [facility] [Provider Group] - 3-5 Days [facility] [Provider Group] - 3-5 Days
[2019-07-03] MEDS ORDERED: TYLENOL PO ONE (04:17)
[2019-07-03 04:19] VITALS: BP 106/60
--- NOTE | 2019-07-03 04:37 | Ultrasound Report ---
OB ultrasound FINDINGS: There is a viable intrauterine with crown-rump length measurements corresponding to an MA of 8 weeks 6 days for an EDC of 02/06/2020. This correlates with the clinical dates. he art rate is 171 bpm. Left ovary is normal. Right ovary is not seen. No hemorrhage or free fluid. 3 cm uterine fibroid is incidentally noted. No significant abnormality. Signer Name: Mohinder Yanes MD Signed: 07/03/2019 4:33 AM Workstation Name: [id number]
[2019-07-03] MEDS ORDERED: TRIPLE ANTIBIOTIC TP ONE ×2 (04:54→05:01)
== END 2019-07-03 05:31 | disposition home or self-care (01) ==
LOC: ED 23:35
DX: O26.891 Other specified pregnancy related conditions, first trimester (principal); O21.9 Vomiting of pregnancy, unspecified; O99.331 Smoking (tobacco) complicating pregnancy, first trimester; Z3A.01 Less than 8 weeks gestation of pregnancy; Z79.899 Other long term (current) drug therapy; Z88.0 Allergy status to penicillin; Z88.5 Allergy status to narcotic agent; Z91.041 Radiographic dye allergy status; Z88.8 Allergy status to other drugs, medicaments and biological substances; Z87.442 Personal history of urinary calculi; Z98.890 Other specified postprocedural states
CPT/HCPCS: 36415; 76801; 76817; 80053; 81001; 82550; 83690; 83735; 84702; 84703; 85025; 86850; 86900; 86901; 93005; 93010; 96361; 96374; 96375; 99284; J2270; J2405; J7030; A6250

== ENCOUNTER 2019-08-01 19:38 | Emergency (ER) | payer SELFPAY ==
[2019-08-01 19:47] VITALS: BP 107/51
== END 2019-08-01 20:28 | disposition left against medical advice (07) ==
LOC: ED 19:38
DX: R10.2 Pelvic and perineal pain (principal); Z53.21 Procedure and treatment not carried out due to patient leaving prior to being seen by health care provider

== ENCOUNTER 2019-08-24 15:31 | Emergency (ER) | payer MEDICAID ==
[2019-08-24 16:01] VITALS: BP 108/82
--- NOTE | 2019-08-24 16:04 | Event Note ---
ED Screening Note Date of service: 08/24/19 Time: 15:58 ED Screening Note: This is a 29 y.o. F. that presents to the ER with pelvic pain and low back pain. Patient states she is 17 weeks . Followed by OBGYN at [facility]. Reports a yellow discharge for 1 day. LMP 05/04/2019, A1 (miscarriage). Current smoker Reports history of cervical cancer which is on hold until delivery. This initial assessment/diagnostic orders/clinical plan/treatment(s) is/are subject to change based on patients health status, clinical progression and re- assessment by fellow clinical providers in the ED. Further treatment and workup at subsequent clinical providers discretion. Patient/guardian urged not to elope from the ED as their condition may be serious if not clinically assessed and managed. Initial orders include: Labs and OB US
[2019-08-24 17:40] LABS: Bacteria,Urine 1+ /HPF (Negative); Bilirubin,Urine NEG (Negative); Blood,Urine NEG (Negative); Color,Urine Yellow (Yellow); Mucus,Urine 2+ /HPF
[2019-08-24 17:43] LABS: HCG Qualitative,Urine Positive (Negative)
--- NOTE | 2019-08-24 18:06 | Ultrasound Report ---
ULTRASOUND OBSTETRIC INDICATION: Abdominal pain. Possible miscarriage. TECHNIQUE: Transabdominal. COMPARISON: None available. FINDINGS: A single live intrauterine is seen with a heart rate of 158 bpm in cephalic presentation. T he estimated age by ultrasound measurements is 16 weeks, 3 days. The amniotic fluid volume is subject ively normal. The placenta is located anteriorly and appears unremarkable. The cervical length measur es 4.8 cm. No free fluid is seen. IMPRESSION: 1. Single, living intrauterine with estimated sonographic age of 16 weeks, 3 day(s). 2. No acute sonographic abnormality of the pelvis. Signer Name: Ayush Mcgowan MD Signed: 08/24/2019 6:02 PM Workstation Name: [id number]
[2019-08-24] MEDS ORDERED: cefTRIAXone/NS 1 GM/50 ML 1 GM/50 ML BAG IV ONE (18:10)
[2019-08-24] MEDS ORDERED: IPRATROPIUM/ALBUTEROL SULFATE 3 ML AMPUL.NEB IH ONE (18:10)
[2019-08-24] MEDS ORDERED: SODIUM CHLORIDE 0.9% 1000 ML 1,000 ML IV ONE (18:10)
[2019-08-24] MEDS ORDERED: METOCLOPRAMIDE 10 MG/2 ML INJ IV ONE (18:10)
[2019-08-24] MEDS ORDERED: ACETAMINOPHEN 325 MG TAB PO ONE (18:11)
--- NOTE | 2019-08-24 18:29 | Emergency Department Report ---
ED Female HPI - General Chief complaint: Urogenital-Female Stated complaint: CERVICAL PAIN Time Seen by Provider: 08/24/19 15:58 Source: patient, EMS Mode of arrival: Ambulatory Limitations: No Limitations - History of Present Illness Initial comments: Patient is a 29-year-old female who presents to the emergency room with complaints of vaginal pain for a week. Patient states she has associated nausea, vomiting, pressure when urinating. Patient denies any fever, diarrhea, vaginal bleeding, vaginal discharge, vaginal itching or irritation. States she is currently 17 weeks and is followed by Dr. Ahumada, SECURITY ADMINISTRATOR. Patient states that she has a past medical history of cervical cancer and last had chemotherapy in May. She states she is not currently undergoing treatment while . Patient states she has a past medical history of sickle cell trait. Patient is a current every day smoker and is still smoking while , she states that she has associated wheezing frequently, she denies any productive cough, fever, or CP. - Related Data Previous Rx's Medication Instructions Recorded Last Taken Type Ferrous Sulfate [Feosol 325 MG tab] 325 mg PO TID 30 Days #90 tablet 01/28/18 Unknown Rx Promethazine [Phenergan TAB] 25 mg PO Q6HR PRN #30 tab 04/17/18 Unknown Rx ALBUTEROL Inhaler (OR & NICU) 2 puff IH QID PRN #1 inhalation 07/09/18 Unknown Rx [ProAir HFA Inhaler] Ondansetron [Zofran Odt] 4 mg PO Q8HR PRN #10 tab.rapdis 10/26/18 Unknown Rx Promethazine [Phenergan] 25 mg PO Q6HR PRN #12 tab 02/20/19 Unknown Rx Acetaminophen [Non-Aspirin Extra 500 mg PO Q6HR PRN #30 tablet 07/03/19 Unknown Rx Strength] Doxylamine Succinate/Vit B6 1 each PO QHS PRN #30 tablet. 07/03/19 Unknown Rx [Mara Dorsey 10-10 mg Tablet] Leonarda Root [Leonarda] 250 mg PO QID PRN #30 capsule 07/03/19 Unknown Rx Vit-Fe Fumar-FA [ 1 tab PO QDAY #30 tablet 07/03/19 Unknown Rx Vitamin] Allergies Allergy/AdvReac Type Severity Reaction Status Date / Time ketorolac tromethamine Allergy Hives Verified 12/13/18 12:26 [From Toradol] Penicillins Allergy Swelling Verified 12/13/18 12:26 tramadol Allergy Hives Verified 12/13/18 12:26 Iodinated Contrast Media AdvReac Mild other Verified 12/13/18 12:26 ED Review of Systems ROS: Stated complaint: CERVICAL PAIN Other details as noted in HPI Comment: All other systems reviewed and negative ED Past Medical Hx - Past Medical History Hx Hypertension: No Hx CVA: No Hx Heart Attack/AMI: No Hx Diabetes: No Hx Deep Vein Thrombosis: No Hx Pulmonary Embolism: No Hx GERD: No Hx Liver Disease: No Hx Renal Disease: No Hx Sickle Cell Disease: Yes Hx Arthritis: No Hx Headaches / Migraines: No Hx Seizures: No Hx Kidney Stones: Yes Hx Psychiatric Treatment: No Hx Asthma: No Hx COPD: No Hx Tuberculosis: No Hx Dementia: No Hx HIV: No Additional medical history: FIBROIDS, scoliosis. kidney stones per pt,cervical cancer-dx 05/2017 - Surgical History Hx Coronary Stent: No Hx Open Heart Surgery: No Hx Pacemaker: No Hx Internal Defibrillator: No Hx Cholecystectomy: Yes Hx Appendectomy: No Hx Breast Surgery: No Additional Surgical History: X 4. HERNIA REPAIR - Social History Smoking Status: Current Every Day Smoker Substance Use Type: None - Medications Home Medications: Home Medications Medication Instructions Recorded Confirmed Last Taken Type Ferrous Sulfate [Feosol 325 MG tab] 325 mg PO TID 30 Days #90 tablet 01/28/18 04/17/18 Unknown Rx Promethazine [Phenergan TAB] 25 mg PO Q6HR PRN #30 tab 04/17/18 Unknown Rx ALBUTEROL Inhaler (OR & NICU) 2 puff IH QID PRN #1 inhalation 07/09/18 Unknown Rx [ProAir HFA Inhaler] Ondansetron [Zofran Odt] 4 mg PO Q8HR PRN #10 tab.rapdis 10/26/18 Unknown Rx Promethazine [Phenergan] 25 mg PO Q6HR PRN #12 tab 02/20/19 Unknown Rx Acetaminophen [Non-Aspirin Extra 500 mg PO Q6HR PRN #30 tablet 07/03/19 Unknown Rx Strength] Doxylamine Succinate/Vit B6 1 each PO QHS PRN #30 tablet. 07/03/19 Unknown Rx [Diclegimary Dorsey 10-10 mg Tablet] Leonarda Root [Leonarda] 250 mg PO QID PRN #30 capsule 07/03/19 Unknown Rx Vit-Fe Fumar-FA [ 1 tab PO QDAY #30 tablet 07/03/19 Unknown Rx Vitamin] ED Physical Exam - General Limitations: No Limitations General appearance: alert, in no apparent distress - Head Head exam: Present: atraumatic, normocephalic - Eye Eye exam: Present: normal appearance - ENT ENT exam: Present: mucous membranes moist - Respiratory Respiratory exam: Present: wheezes (expiratory wheezing bilaterally). Absent: respiratory distress, rales, rhonchi, stridor, chest wall tenderness, accessory muscle use, decreased breath sounds, prolonged expiratory - Cardiovascular Cardiovascular Exam: Present: regular rate, normal rhythm, normal heart sounds. Absent: systolic murmur, diastolic murmur, rubs, gallop - GI/Abdominal GI/Abdominal exam: Present: soft, normal bowel sounds. Absent: distended, tenderness, guarding, rebound, rigid - Neurological Exam Neurological exam: Present: alert, oriented X3 - Psychiatric Psychiatric exam: Present: normal affect, normal mood - Skin Skin exam: Present: warm, dry, intact ED Course Vital Signs 08/24/19 15:59 Temperature 98.3 F Pulse Rate 117 H Respiratory 16 Rate Blood Pressure 108/82 O2 Sat by Pulse 100 Oximetry ED Medical Decision Making - Lab Data Result diagrams: 08/24/19 18:53 08/24/19 18:53 Lab Results 08/24/19 08/24/19 08/24/19 Range/Units 16:16 16:40 18:53 WBC 10.8 (4.5-11.0) K/mm3 RBC 4.03 (3.65-5.03) M/mm3 Hgb 9.3 L (10.1-14.3) gm/dl Hct 29.6 L (30.3-42.9) % MCV 74 L (79-97) fl MCH 23 L (28-32) pg MCHC 31 (30-34) % RDW 19.0 H (13.2-15.2) % Plt Count 459 H (140-440) K/mm3 Lymph % (Auto) 14.5 (13.4-35.0) % Nance % (Auto) 9.7 H (0.0-7.3) % Eos % (Auto) 1.7 (0.0-4.3) % Baso % (Auto) 1.4 (0.0-1.8) % Lymph # 1.6 (1.2-5.4) K/mm3 Nance # 1.0 H (0.0-0.8) K/mm3 Eos # 0.2 (0.0-0.4) K/mm3 Baso # 0.2 H (0.0-0.1) K/mm3 Seg Neutrophils % 72.7 H (40.0-70.0) % Seg Neutrophils # 7.8 H (1.8-7.7) K/mm3 Sodium (137-145) mmol/L Potassium (3.6-5.0) mmol/L Chloride (98-107) mmol/L Carbon Dioxide (22-30) mmol/L Anion Gap mmol/L BUN (7-17) mg/dL Creatinine (0.7-1.2) mg/dL Estimated GFR ml/min BUN/Creatinine Ratio % Glucose (65-100) mg/dL Calcium (8.4-10.2) mg/dL HCG, Quant 97006 H (0-4) mIU/mL Urine Color Yellow (Yellow) Urine Turbidity Slightly-cloudy (Clear) Urine pH 6.0 (5.0-7.0) Ur Specific [place] 1.021 (1.003-1.030) Urine Protein 30 mg/dl (Negative) mg/dL Urine Glucose (UA) Neg (Negative) mg/dL Urine Ketones Neg (Negative) mg/dL Urine Blood Neg (Negative) Urine Nitrite Neg (Negative) Urine Bilirubin Neg (Negative) Urine Urobilinogen 2.0 (<2.0) mg/dL Ur Leukocyte Esterase Tr (Negative) Urine WBC (Auto) 16.0 H (0.0-6.0) /HPF Urine RBC (Auto) 2.0 (0.0-6.0) /HPF U Epithel Cells (Auto) 6.0 (0-13.0) /HPF Urine Bacteria (Auto) 1+ (Negative) /HPF Urine Mucus 2+ /HPF Urine HCG, Qual Positive A (Negative) 08/24/19 Range/Units 18:53 WBC (4.5-11.0) K/mm3 RBC (3.65-5.03) M/mm3 Hgb (10.1-14.3) gm/dl Hct (30.3-42.9) % MCV (79-97) fl MCH (28-32) pg MCHC (30-34) % RDW (13.2-15.2) % Plt Count (140-440) K/mm3 Lymph % (Auto) (13.4-35.0) % Nance % (Auto) (0.0-7.3) % Eos % (Auto) (0.0-4.3) % Baso % (Auto) (0.0-1.8) % Lymph # (1.2-5.4) K/mm3 Nance # (0.0-0.8) K/mm3 Eos # (0.0-0.4) K/mm3 Baso # (0.0-0.1) K/mm3 Seg Neutrophils % (40.0-70.0) % Seg Neutrophils # (1.8-7.7) K/mm3 Sodium 136 L (137-145) mmol/L Potassium 3.2 L (3.6-5.0) mmol/L Chloride 100.4 (98-107) mmol/L Carbon Dioxide 20 L (22-30) mmol/L Anion Gap 19 mmol/L BUN 6 L (7-17) mg/dL Creatinine 0.4 L (0.7-1.2) mg/dL Estimated GFR > 60 ml/min BUN/Creatinine Ratio 15 % Glucose 73 (65-100) mg/dL Calcium 9.2 (8.4-10.2) mg/dL HCG, Quant (0-4) mIU/mL Urine Color (Yellow) Urine Turbidity (Clear) Urine pH (5.0-7.0) Ur Specific [place] (1.003-1.030) Urine Protein (Negative) mg/dL Urine Glucose (UA) (Negative) mg/dL Urine Ketones (Negative) mg/dL Urine Blood (Negative) Urine Nitrite (Negative) Urine Bilirubin (Negative) Urine Urobilinogen (<2.0) mg/dL Ur Leukocyte Esterase (Negative) Urine WBC (Auto) (0.0-6.0) /HPF Urine RBC (Auto) (0.0-6.0) /HPF U Epithel Cells (Auto) (0-13.0) /HPF Urine Bacteria (Auto) (Negative) /HPF Urine Mucus /HPF Urine HCG, Qual (Negative) - Radiology Data Radiology results: report reviewed ULTRASOUND OBSTETRIC INDICATION: Abdominal pain. Possible miscarriage. TECHNIQUE: Transabdominal. COMPARISON: None available. FINDINGS: A single live intrauterine is seen with a heart rate of 158 bpm in cephalic presentation. The estimated age by ultrasound measurements is 16 weeks, 3 days. The amniotic fluid volume is subjectively normal. The placenta is located anteriorly and appears unremarkable. The cervical length measures 4.8 cm. No free fluid is seen. IMPRESSION: 1. Single, living intrauterine with estimated sonographic age of 16 weeks, 3 day(s). 2. No acute sonographic abnormality of the pelvis. Signer Name: Ayush Mcgowan MD Signed: 08/24/2019 6:02 PM Workstation Name: [id number] Transcribed By: JOSE Dictated By: Ayush Mcgowan MD Electronically Authenticated By: Ayush Mcgowan MD Signed Date/Time: 08/24/19 180 - Medical Decision Making Patient is a 29-year-old female who presents to the emergency room with complaints of vaginal pain for a week. Patient states she has associated nause a, vomiting, pressure when urinating. Patient denies any fever, diarrhea, vaginal bleeding, vaginal discharge, vaginal itching or irritation. States she is currently 17 weeks and is followed by Dr. Ahumada, SECURITY ADMINISTRATOR. Patient states that she has a past medical history of cervical cancer and last had chemotherapy in May. She states she is not currently undergoing treatment while . Patient states she has a past medical history of sickle cell trait. Patient is a current every day smoker and is still smoking while , she states that she has associated wheezing frequently, she denies any productive cough, fever, or CP. on exam:expiratory wheezing bilaterally, no abd TTP. Discussed with patient that we would give her a nebulizer treatment, fluids, Reglan and do further lab testing. Patient was agreeable with plan. I was advised by nurse that the patient told her that she "had to leave and it was a long story" the nurse discussed the AMA form with the patient and patient signed AMA form. nurse discussed risks associated with leaving prior to a full medication examination and prior to completion of testing and pt is A&O x3 with full medical decision making capacity. nurse discussed with pt , permanent disability, and loss of quality of life as risks for leaving AMA. Critical care attestation.: If time is entered above; I have spent that time in minutes in the direct care of this critically ill patient, excluding procedure time. ED Disposition Clinical Impression: Pelvic pain, Hypokalemia, Wheezing UTI (urinary tract infection) Qualifiers: Urinary tract infection type: acute cystitis Hematuria presence: without hematuria Qualified Code(s): N30.00 - Acute cystitis without hematuria Anemia Qualifiers: Anemia type: unspecified type Qualified Code(s): D64.9 - Anemia, unspecified Qualifiers: Weeks of gestation: 16 weeks Qualified Code(s): Z3A.16 - 16 weeks gestation of Nausea & vomiting Qualifiers: Vomiting type: unspecified Vomiting Intractability: unspecified Qualified Code(s): R11.2 - Nausea with vomiting, unspecified Disposition: DC-07 LEFT AGAINST MED ADVICE Is pt being admited?: No Does the pt Need Aspirin: No Condition: Undetermined Forms: AMA Form
[2019-08-24 19:09] LABS: Basophils # (Auto) 0.2 K/mm3 (0.0-0.1); Basophils % (Auto) 1.4 % (0.0-1.8); Eosinophils # (Auto) 0.2 K/mm3 (0.0-0.4); Eosinophils % (Auto) 1.7 % (0.0-4.3); Hematocrit 29.6 % (30.3-42.9); Hemoglobin 9.3 gm/dl (10.1-14.3); Lymphocytes # (Auto) 1.6 K/mm3 (1.2-5.4); Lymphocytes % (Auto) 14.5 % (13.4-35.0); Mean Corpuscular HGB Conc 31 % (30-34); Mean Corpuscular Volume 74 fl (79-97); Monocytes % (Auto) 9.7 % (0.0-7.3); Platelet Count 459 K/mm3 (140-440); Red Blood Count 4.03 M/mm3 (3.65-5.03)
[2019-08-24 19:25] LABS: BUN/Creatinine Ratio 15; Blood Urea Nitrogen 6 mg/dL (7-17); Calcium 9.2 mg/dL (8.4-10.2); Hemolysis Index 2
== END 2019-08-24 18:50 | disposition left against medical advice (07) ==
LOC: ED 15:31
DX: O23.42 Unspecified infection of urinary tract in pregnancy, second trimester (principal); O99.012 Anemia complicating pregnancy, second trimester; O99.332 Smoking (tobacco) complicating pregnancy, second trimester; Z88.0 Allergy status to penicillin; Z88.5 Allergy status to narcotic agent; Z88.8 Allergy status to other drugs, medicaments and biological substances; Z79.899 Other long term (current) drug therapy; Z3A.16 16 weeks gestation of pregnancy
CPT/HCPCS: 36415; 76805; 80048; 81001; 81025; 84702; 85025; 87086; 99285

== ENCOUNTER 2019-09-22 13:20 | Outpatient (CLI) | payer MEDICAID ==
[2019-09-22 13:39] VITALS: BP 119/59
== END 2019-09-22 14:36 | disposition home or self-care (01) ==
LOC: TRG 13:20
PROVIDERS: ATTEND Obstetrics & Gynecology
DX: O47.02 False labor before 37 completed weeks of gestation, second trimester (principal); Z3A.20 20 weeks gestation of pregnancy

== ENCOUNTER 2019-09-29 22:16 | Outpatient (CLI) | payer MEDICAID ==
--- NOTE | 2019-09-29 23:25 | Emergency Department Report ---
ED HPI - General Chief complaint: Pain General Stated complaint: BODY PAIN Time Seen by Provider: 09/29/19 23:01 Source: EMS Mode of arrival: Ambulatory Limitations: No Limitations - History of Present Illness Initial comments: 29-year-old female presents to ED with abdominal pain, cervical pain, and pain all over. Patient is currently 20 weeks . Patient reports history of cervical cancer and sickle cell anemia. Although, patient states she has only ever had one blood transfusion in her life which was in 2014. Patient did not re port to nurse or EMS that she is currently 22 wks . Patient states she won't be given pain medication if she goes to Labor and Delivery. Patient denies vag bleeding or leakage of fluid. MD Complaint: abdominal pain -: days(s) (1) Location: abdomen Severity: moderate Quality: cramping, sharp Consistency: intermittent Improves with: none Worsens with: none Associated symptoms: denies: vaginal bleeding Vaginal bleeding: none :: Yes Number of weeks : 22 - Related Data Home Medications Medication Instructions Recorded Confirmed Last Taken Oxycodone HCl/Acetaminophen 1 PO Q6H PRN 09/30/19 09/29/19 15:00 [Percocet 10/325 mg] Allergies Allergy/AdvReac Type Severity Reaction Status Date / Time ketorolac tromethamine Allergy Hives Verified 12/13/18 12:26 [From Toradol] Penicillins Allergy Swelling Verified 12/13/18 12:26 tramadol Allergy Hives Verified 12/13/18 12:26 Iodinated Contrast Media AdvReac Mild other Verified 12/13/18 12:26 ED Review of Systems ROS: Stated complaint: BODY PAIN Other details as noted in HPI Comment: All other systems reviewed and negative Constitutional: denies: fever Gastrointestinal: abdominal pain Genitourinary: other (denies vaginal bleeding) ED Past Medical Hx - Past Medical History Hx Hypertension: No Hx CVA: No Hx Heart Attack/AMI: No Hx Diabetes: No Hx Deep Vein Thrombosis: No Hx Pulmonary Embolism: No Hx GERD: No Hx Liver Disease: No Hx Renal Disease: No Hx Sickle Cell Disease: No (has trait but not disease) Hx Arthritis: No Hx Headaches / Migraines: No Hx Seizures: No Hx Kidney Stones: Yes Hx Psychiatric Treatment: No Hx Asthma: No Hx COPD: No Hx Tuberculosis: No Hx Dementia: No Hx HIV: No Additional medical history: FIBROIDS, scoliosis. kidney stones per pt,cervical cancer-dx 05/2017 - Surgical History Hx Coronary Stent: No Hx Open Heart Surgery: No Hx Pacemaker: No Hx Internal Defibrillator: No Hx Cholecystectomy: Yes Hx Appendectomy: No Hx Breast Surgery: No Additional Surgical History: X 4. HERNIA REPAIR - Social History Smoking Status: Never Smoker - Medications Home Medications: Home Medications Medication Instructions Recorded Confirmed Last Taken Type Oxycodone HCl/Acetaminophen 1 PO Q6H PRN 09/30/19 09/29/19 15:00 History [Percocet 10/325 mg] ED Physical Exam - General Limitations: No Limitations General appearance: alert, in no apparent distress - Head Head exam: Present: atraumatic, normocephalic - Eye Eye exam: Present: normal appearance - ENT ENT exam: Present: mucous membranes moist - Neck Neck exam: Present: normal inspection - Respiratory Respiratory exam: Present: normal lung sounds bilaterally. Absent: respiratory distress - Cardiovascular Cardiovascular Exam: Present: regular rate, normal rhythm - GI/Abdominal GI/Abdominal exam: Present: soft. Absent: distended - Extremities Exam Extremities exam: Present: normal inspection - Neurological Exam Neurological exam: Present: alert, oriented X3 - Psychiatric Psychiatric exam: Present: normal affect, normal mood - Skin Skin exam: Present: warm, dry, intact, normal color ED Course Vital Signs 09/29/19 22:25 Temperature 98.6 F Pulse Rate 101 H Respiratory 18 Rate Blood Pressure 121/69 Blood Pressure 121/69 [Left] O2 Sat by Pulse 100 Oximetry ED Medical Decision Making - Lab Data Result diagrams: 09/30/19 01:20 - Medical Decision Making Since pt is greater than 20 weeks, will discharge from ED and escort to L&D for obstetrical evaluation. Critical care attestation.: If time is entered above; I have spent that time in minutes in the direct care of this critically ill patient, excluding procedure time. ED Disposition Clinical Impression: 22 weeks gestation of , Abdominal pain Disposition: DC-01 TO HOME OR SELFCARE Is pt being admited?: No Condition: Stable Time of Disposition: 23:24
[2019-09-30] MEDS ORDERED: LACTATED RINGERS 1,000 ML IV ONE (00:48)
[2019-09-30 01:54] LABS: Amorphous Crystals,Urine 1+; Bacteria,Urine 1+ /HPF (Negative); Bilirubin,Urine NEG (Negative); Blood,Urine NEG (Negative); Color,Urine Yellow (Yellow); Mucus,Urine FEW /HPF; Protein,Urine <15 mg/dL mg/dL (Negative); Urobilinogen,Urine < 2.0 mg/dL (<2.0)
--- NOTE | 2019-09-30 01:54 | Progress Note ---
Subjective - Subjective Date of service: 09/30/19 Interval history: Patient presents with limited PNC stating she is having a sickle cell crisis She is ~22 weeks FROM in both upper and lower extremities with minimal pain on exam Ambulatory, afebrile, eating food in the triage bed Patient indicates she has not had pain medication since May, she states she presents to the ER and "gets meds through her IV" I have explained that the plan of care is to rule out UTI, check UDS and IV hydration. She acknowledges understanding of the plan of care. She is not in labor and has no OB complaints. FHT positive Plan for PO pain meds(percocetx2), d/c home with appropriate outpatient follow up. Maternal/ well being reassuring overall at bedside. Gonzalez Boyce MD Objective - Vital Signs Vital Signs: Vital Signs - 12hr 09/29/19 09/30/19 22:25 00:30 Temperature 98.6 F 98.4 F Pulse Rate 101 H 82 Respiratory 18 Rate Blood Pressure 121/69 124/58 Blood Pressure 121/69 [Left] O2 Sat by Pulse 100 Oximetry
[2019-09-30 01:59] LABS: Basophils # (Auto) 0.1 K/mm3 (0.0-0.1); Basophils % (Auto) 0.6 % (0.0-1.8); Eosinophils # (Auto) 0.3 K/mm3 (0.0-0.4); Eosinophils % (Auto) 2.6 % (0.0-4.3); Hemoglobin 7.9 gm/dl (10.1-14.3); Lymphocytes # (Auto) 2.2 K/mm3 (1.2-5.4); Lymphocytes % (Auto) 18.1 % (13.4-35.0); Mean Corpuscular HGB Conc 31 % (30-34); Mean Corpuscular Volume 73 fl (79-97); Monocytes # (Auto) 1.2 K/mm3 (0.0-0.8); Monocytes % (Auto) 9.9 % (0.0-7.3); Platelet Count 402 K/mm3 (140-440); Red Blood Count 3.58 M/mm3 (3.65-5.03); Red Cell Distribution Width 17.9 % (13.2-15.2)
[2019-09-30 02:00] VITALS: BP 109/54
[2019-09-30 02:00] LABS: Amphetamine Screen,Urine PRESUMPTIVE NEGATIVE; Benzodiazepines Screen,Urine PRESUMPTIVE NEGATIVE; Cannabinoid Screen,Urine PRESUMPTIVE NEGATIVE; Cocaine Screen,Urine PRESUMPTIVE NEGATIVE; Methadone Screen,Urine PRESUMPTIVE NEGATIVE; Opiate Screen,Urine PRESUMPTIVE NEGATIVE
[2019-09-30] MEDS ORDERED: oxyCODONE /ACETAMINOPHEN 5-325MG TAB PO ONE (02:05)
[2019-09-30] MEDS ORDERED: diphenhydrAMINE 25 MG CAP PO ONE (02:15)
== END 2019-09-30 03:00 | disposition home or self-care (01) ==
LOC: ED 22:16 → EDSTATUS 23:49 → TRG 23:50
PROVIDERS: ATTEND Obstetrics & Gynecology
DX: O99.012 Anemia complicating pregnancy, second trimester (principal); D57.00 Hb-SS disease with crisis, unspecified; O47.02 False labor before 37 completed weeks of gestation, second trimester; O99.332 Smoking (tobacco) complicating pregnancy, second trimester; F17.200 Nicotine dependence, unspecified, uncomplicated; Z3A.22 22 weeks gestation of pregnancy; Z90.49 Acquired absence of other specified parts of digestive tract; Z85.41 Personal history of malignant neoplasm of cervix uteri
CPT/HCPCS: 36415; 80307; 81001; 85025; 96360; J7120

== ENCOUNTER 2019-10-10 16:22 | Emergency (ER) | payer MEDICAID ==
[2019-10-10] MEDS ORDERED: LACTATED RINGERS 1,000 ML IV SCH (17:00)
[2019-10-10 17:51] LABS: Bacteria,Urine 1+ /HPF (Negative); Bilirubin,Urine NEG (Negative); Blood,Urine NEG (Negative); Color,Urine Yellow (Yellow); Mucus,Urine 2+ /HPF; Protein,Urine <15 mg/dL mg/dL (Negative); Urobilinogen,Urine < 2.0 mg/dL (<2.0)
[2019-10-10 17:53] LABS: Amphetamine Screen,Urine PRESUMPTIVE NEGATIVE; Benzodiazepines Screen,Urine PRESUMPTIVE NEGATIVE; Cannabinoid Screen,Urine PRESUMPTIVE NEGATIVE; Cocaine Screen,Urine PRESUMPTIVE NEGATIVE; Methadone Screen,Urine PRESUMPTIVE NEGATIVE; Opiate Screen,Urine PRESUMPTIVE NEGATIVE
[2019-10-10] MEDS ORDERED: ONDANSETRON 4 MG/2 ML INJ IV ONE (21:19)
[2019-10-10] MEDS ORDERED: diphenhydrAMINE 50 MG/ML VIAL IV ONE (21:19)
[2019-10-10] MEDS ORDERED: HYDROmorphone 1 MG/1 ML INJ IV ONE ×2 (21:19→23:35)
--- NOTE | 2019-10-10 21:35 | Emergency Department Report ---
ED General Adult HPI - General Chief complaint: Sickle Cell Crisis Stated complaint: SICKLE CELL PAIN Time Seen by Provider: 10/10/19 21:11 Source: patient Mode of arrival: Ambulatory Limitations: No Limitations - History of Present Illness Initial comments: 29-year-old female with a past medical history of sickle cell "SS" presents to the hospital currently 23 weeks since the hospital with suprapubic cramping and back and bone/joint pain secondary to sickle cell crisis 2 days. Patient was at labor and delivery prior to arrival to the ED and was cleared for ED evaluation. Patient moved here from [place] in May does not have a hemato logist. 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 Denies fever, dysuria, or chest pain. Patient typically takes Dialudid during her crisis. This is her sixth and she has 4 children. - Related Data Previous Rx's Medication Instructions Recorded Last Taken Type Oxycodone HCl/Acetaminophen 1 tab PO Q6H PRN #10 10/11/19 Unknown Rx [Percocet 10/325 mg] Allergies Allergy/AdvReac Type Severity Reaction Status Date / Time ketorolac tromethamine Allergy Hives Verified 12/13/18 12:26 [From Toradol] Penicillins Allergy Swelling Verified 12/13/18 12:26 tramadol Allergy Hives Verified 12/13/18 12:26 Iodinated Contrast Media AdvReac Mild other Verified 12/13/18 12:26 ED Review of Systems ROS: Stated complaint: SICKLE CELL PAIN Other details as noted in HPI Comment: All other systems reviewed and negative ED Past Medical Hx - Past Medical History Previous Medical History?: Yes Hx Hypertension: No Hx CVA: No Hx Heart Attack/AMI: No Hx Diabetes: No Hx Deep Vein Thrombosis: No Hx Pulmonary Embolism: No Hx GERD: No Hx Liver Disease: No Hx Renal Disease: No Hx of Cancer: Yes (cervial ca) Hx Sickle Cell Disease: Yes (has trait but not disease) Hx Arthritis: No Hx Headaches / Migraines: No Hx Seizures: No Hx Kidney Stones: Yes Hx Psychiatric Treatment: No Hx Asthma: No Hx COPD: No Hx Tuberculosis: No Hx Dementia: No Hx HIV: No Additional medical history: FIBROIDS, scoliosis. kidney stones per pt,cervical cancer-dx 05/2017 - Surgical History Past Surgical History?: Yes Hx Coronary Stent: No Hx Open Heart Surgery: No Hx Pacemaker: No Hx Internal Defibrillator: No Hx Cholecystectomy: Yes Hx Appendectomy: No Hx Breast Surgery: No Additional Surgical History: X 4. HERNIA REPAIR - Social History Smoking Status: Never Smoker Substance Use Type: None - Medications Home Medications: Home Medications Medication Instructions Recorded Confirmed Last Taken Type Oxycodone HCl/Acetaminophen 1 tab PO Q6H PRN #10 10/11/19 Unknown Rx [Percocet 10/325 mg] ED Physical Exam - General Limitations: No Limitations - Other Other exam information: General: No acute distress Head: Atraumatic Eyes: normal appearance ENT: Moist mucous membranes Neck: Normal appearance, no midline tenderness Chest: Clear to auscultation bilaterally CV: Regular rate and rhythm Abdomen: Soft, normal bowel sounds, nontender, abd, no rebound or guarding Back: Normal inspection Extremity: Normal inspection infection, full range of motion Neuro: Alert O x 3, no facial asymmetry, speech clear, no gross motor sensory deficit Psych: Appropriate behavior Skin: No rash ED Course Vital Signs 10/10/19 10/10/19 10/10/19 16:47 16:49 16:52 Temperature Pulse Rate 100 H 91 H 98 H Respiratory Rate Blood Pressure 127/67 Blood Pressure [Left] O2 Sat by Pulse 100 100 Oximetry 10/10/19 10/10/19 10/10/19 16:57 17:02 17:06 Temperature Pulse Rate 99 H 94 H 95 H Respiratory Rate Blood Pressure Blood Pressure [Left] O2 Sat by Pulse 100 100 93 Oximetry 10/10/19 10/10/19 10/11/19 17:07 22:27 00:36 Temperature 98.4 F Pulse Rate 97 H 74 74 Respiratory 14 16 Rate Blood Pressure Blood Pressure 110/59 108/56 [Left] O2 Sat by Pulse 100 99 99 Oximetry ED Medical Decision Making - Lab Data Result diagrams: 10/10/19 21:46 10/10/19 21:46 Lab Results 10/10/19 10/10/19 10/10/19 Range/Units 17:27 17:27 21:46 WBC 12.7 H (4.5-11.0) K/mm3 RBC 3.54 L (3.65-5.03) M/mm3 Hgb 7.9 L (10.1-14.3) gm/dl Hct 26.0 L (30.3-42.9) % MCV 73 L (79-97) fl MCH 22 L (28-32) pg MCHC 31 (30-34) % RDW 18.3 H (13.2-15.2) % Plt Count 376 (140-440) K/mm3 Lymph % (Auto) 14.8 (13.4-35.0) % Aurora % (Auto) 9.2 H (0.0-7.3) % Eos % (Auto) 1.4 (0.0-4.3) % Baso % (Auto) 0.9 (0.0-1.8) % Lymph # 1.9 (1.2-5.4) K/mm3 Aurora # 1.2 H (0.0-0.8) K/mm3 Eos # 0.2 (0.0-0.4) K/mm3 Baso # 0.1 (0.0-0.1) K/mm3 Seg Neutrophils % 73.7 H (40.0-70.0) % Seg Neutrophils # 9.3 H (1.8-7.7) K/mm3 Percent Retic (0.78-2.58) % Sodium (137-145) mmol/L Potassium (3.6-5.0) mmol/L Chloride (98-107) mmol/L Carbon Dioxide (22-30) mmol/L Anion Gap mmol/L BUN (7-17) mg/dL Creatinine (0.7-1.2) mg/dL Estimated GFR ml/min BUN/Creatinine Ratio % Glucose (65-100) mg/dL Calcium (8.4-10.2) mg/dL Total Bilirubin (0.1-1.2) mg/dL AST (5-40) units/L ALT (7-56) units/L Alkaline Phosphatase (35-129) units/L Total Protein (6.3-8.2) g/dL Albumin (3.9-5) g/dL Albumin/Globulin Ratio % Urine Color Yellow (Yellow) Urine Turbidity Cloudy (Clear) Urine pH 6.0 (5.0-7.0) Ur Specific Axis 1.025 (1.003-1.030) Urine Protein <15 mg/dl (Negative) mg/dL Urine Glucose (UA) Neg (Negative) mg/dL Urine Ketones Neg (Negative) mg/dL Urine Blood Neg (Negative) Urine Nitrite Neg (Negative) Urine Bilirubin Neg (Negative) Urine Urobilinogen < 2.0 (<2.0) mg/dL Ur Leukocyte Esterase Tr (Negative) Urine WBC (Auto) 1.0 (0.0-6.0) /HPF Urine RBC (Auto) 2.0 (0.0-6.0) /HPF U Epithel Cells (Auto) 18.0 H (0-13.0) /HPF Urine Bacteria (Auto) 1+ (Negative) /HPF Urine Mucus 2+ /HPF Urine Opiates Screen Presumptive negative Urine Methadone Screen Presumptive negative Ur Barbiturates Screen Presumptive negative Ur Phencyclidine Scrn Presumptive negative Ur Amphetamines Screen Presumptive negative U Benzodiazepines Scrn Presumptive negative Urine Cocaine Screen Presumptive negative U Marijuana (THC) Screen Presumptive negative Drugs of Abuse Note Disclamer 10/10/19 10/10/19 Range/Units 21:46 23:19 WBC (4.5-11.0) K/mm3 RBC (3.65-5.03) M/mm3 Hgb (10.1-14.3) gm/dl Hct (30.3-42.9) % MCV (79-97) fl MCH (28-32) pg MCHC (30-34) % RDW (13.2-15.2) % Plt Count (140-440) K/mm3 Lymph % (Auto) (13.4-35.0) % Aurora % (Auto) (0.0-7.3) % Eos % (Auto) (0.0-4.3) % Baso % (Auto) (0.0-1.8) % Lymph # (1.2-5.4) K/mm3 Aurora # (0.0-0.8) K/mm3 Eos # (0.0-0.4) K/mm3 Baso # (0.0-0.1) K/mm3 Seg Neutrophils % (40.0-70.0) % Seg Neutrophils # (1.8-7.7) K/mm3 Percent Retic 1.17 (0.78-2.58) % Sodium 136 L (137-145) mmol/L Potassium 3.7 (3.6-5.0) mmol/L Chloride 103.8 (98-107) mmol/L Carbon Dioxide 20 L (22-30) mmol/L Anion Gap 16 mmol/L BUN 9 (7-17) mg/dL Creatinine 0.4 L (0.7-1.2) mg/dL Estimated GFR > 60 ml/min BUN/Creatinine Ratio 23 % Glucose 73 (65-100) mg/dL Calcium 8.9 (8.4-10.2) mg/dL Total Bilirubin 0.20 (0.1-1.2) mg/dL AST 17 (5-40) units/L ALT 7 (7-56) units/L Alkaline Phosphatase 52 (35-129) units/L Total Protein 7.3 (6.3-8.2) g/dL Albumin 3.6 L (3.9-5) g/dL Albumin/Globulin Ratio 1.0 % Urine Color (Yellow) Urine Turbidity (Clear) Urine pH (5.0-7.0) Ur Specific Axis (1.003-1.030) Urine Protein (Negative) mg/dL Urine Glucose (UA) (Negative) mg/dL Urine Ketones (Negative) mg/dL Urine Blood (Negative) Urine Nitrite (Negative) Urine Bilirubin (Negative) Urine Urobilinogen (<2.0) mg/dL Ur Leukocyte Esterase (Negative) Urine WBC (Auto) (0.0-6.0) /HPF Urine RBC (Auto) (0.0-6.0) /HPF U Epithel Cells (Auto) (0-13.0) /HPF Urine Bacteria (Auto) (Negative) /HPF Urine Mucus /HPF Urine Opiates Screen Urine Methadone Screen Ur Barbiturates Screen Ur Phencyclidine Scrn Ur Amphetamines Screen U Benzodiazepines Scrn Urine Cocaine Screen U Marijuana (THC) Screen Drugs of Abuse Note - Medical Decision Making Chest Mincy here may times in the past reported sickle cell pain and has a normal reticulocyte count each time. Today patient has stable anemia compared to September 30, a normal reticulocyte count, and no elevated bilirubin to suggest hemolysis for sickle cell crisis. It is documented on patient's previous medical record that she has sickle cell trait even though patient states she has sickle cell SS. I have added a sickle cell screening tests today to determine if patient has sickle cell disease but unfortunately this may still be positive if patient is a carrier/trait only however it will be helpful if negative. She will be d/antonia with pain meds with heme f/u pt states she has been trying to f/u with sickle cell clinic at [facility] but there is a long wait list - Differential Diagnosis drug seeking, pain crises, anemia Critical Care Time: No Critical care attestation.: If time is entered above; I have spent that time in minutes in the direct care of this critically ill patient, excluding procedure time. ED Disposition Clinical Impression: Sickle cell anemia with pain, 23 weeks gestation of Disposition: TO HOME OR SELFCARE Is pt being admited?: No Does the pt Need Aspirin: No Condition: Stable Instructions: (ED), Sickle Cell Crisis (ED) Additional Instructions: Take the medication as prescribed. Follow-up with your doctor or doctor/clinic provided. Return if symptoms worsen as indicated by your discharge instructions. Prescriptions: Oxycodone HCl/Acetaminophen [Percocet 10/325 mg] 1 tab PO Q6H PRN #10 PRN Reason: Pain , Severe (7-10) Referrals: PRIMARY CAREMD [Primary Care Provider] - 7 Days FEMI DICK MD [Staff Physician] - 3-5 Days (hematology ) DAIANA FRASER DO [Staff Physician] - 3-5 Days (hematology ) Forms: [facility] Discharge Summary Time of Disposition: 00:57
[2019-10-10] MEDS ORDERED: D5W/0.2% NACL 1,000 ML IV SCH (22:00)
[2019-10-10 22:26] LABS: Basophils # (Auto) 0.1 K/mm3 (0.0-0.1); Basophils % (Auto) 0.9 % (0.0-1.8); Eosinophils # (Auto) 0.2 K/mm3 (0.0-0.4); Eosinophils % (Auto) 1.4 % (0.0-4.3); Hemoglobin 7.9 gm/dl (10.1-14.3); Lymphocytes # (Auto) 1.9 K/mm3 (1.2-5.4); Lymphocytes % (Auto) 14.8 % (13.4-35.0); Mean Corpuscular HGB Conc 31 % (30-34); Mean Corpuscular Volume 73 fl (79-97); Monocytes # (Auto) 1.2 K/mm3 (0.0-0.8); Monocytes % (Auto) 9.2 % (0.0-7.3); Platelet Count 376 K/mm3 (140-440); Red Blood Count 3.54 M/mm3 (3.65-5.03); Red Cell Distribution Width 18.3 % (13.2-15.2)
[2019-10-10 23:36] LABS: Alanine Aminotransferase 7 units/L (7-56); Albumin 3.6 g/dL (3.9-5); BUN/Creatinine Ratio 23; Blood Urea Nitrogen 9 mg/dL (7-17); Calcium 8.9 mg/dL (8.4-10.2); Hemolysis Index 24
[2019-10-10] MEDS ORDERED: HYDROmorphone 1 MG/1 ML INJ ONE (23:39)
[2019-10-11 00:36] VITALS: BP 108/56
== END 2019-10-11 01:30 | disposition home or self-care (01) ==
LOC: TRG 16:22 → ED 16:22 → TRG 16:23 → ED 16:23 → TRG 18:35 → EDSTATUS 19:03 → ED 10-11 01:30
DX: O99.012 Anemia complicating pregnancy, second trimester (principal); Z91.041 Radiographic dye allergy status; Z88.0 Allergy status to penicillin; Z88.5 Allergy status to narcotic agent; Z90.49 Acquired absence of other specified parts of digestive tract; Z3A.23 23 weeks gestation of pregnancy
CPT/HCPCS: 36415; 80053; 80307; 81001; 85025; 85045; 85660; 96374; 96375; 96376; 99284; J1170; J1200; J2405; J7120

== ENCOUNTER 2019-11-04 03:42 | Emergency (ER) | payer MEDICAID ==
[2019-11-04 04:56] LABS: Basophils % (Auto) 0.4 % (0.0-1.8); Eosinophils # (Auto) 0.1 K/mm3 (0.0-0.4); Eosinophils % (Auto) 0.7 % (0.0-4.3); Hematocrit 27.8 % (30.3-42.9); Hemoglobin 8.7 gm/dl (10.1-14.3); Lymphocytes # (Auto) 1.2 K/mm3 (1.2-5.4); Lymphocytes % (Auto) 9.6 % (13.4-35.0); Mean Corpuscular HGB Conc 31 % (30-34); Mean Corpuscular Volume 74 fl (79-97); Monocytes # (Auto) 1.3 K/mm3 (0.0-0.8); Monocytes % (Auto) 10.1 % (0.0-7.3); Platelet Count 277 K/mm3 (140-440); Red Blood Count 3.76 M/mm3 (3.65-5.03)
[2019-11-04 05:17] LABS: Red Cell Distribution Width 21.3 % (13.2-15.2)
[2019-11-04] MEDS ORDERED: KETOROLAC 30 MG/1 ML INJ IV ONE (06:21)
[2019-11-04] MEDS ORDERED: HYDROmorphone 1 MG/1 ML INJ IV ONE ×2 (06:21→08:38)
[2019-11-04] MEDS ORDERED: diphenhydrAMINE 50 MG/ML VIAL IV ONE (06:21)
[2019-11-04] MEDS ORDERED: D5W/0.2% NACL 1,000 ML IV SCH (07:00)
--- NOTE | 2019-11-04 09:31 | Emergency Department Report ---
ED General Adult HPI - General Chief complaint: Sickle Cell Crisis Stated complaint: SICKLE CELL PAIN, LEFT JYW Time Seen by Provider: 11/04/19 06:12 Source: patient Mode of arrival: Ambulatory Limitations: No Limitations - History of Present Illness Initial comments: 29-year-old female the past medical history history of sickle cell SS without a local mold holder presents to the hospital currently 26 weeks and 2 days by dates LMP 05/04/2019 with complains of jaw pain and generalized bone pain secondary to a typical sickle cell crisis. Symptoms 1 day patient is not currently have any pain medication at home. Pain is severe, constant, without aggravating or alleviating factors. She denies dental pain or trauma. Severity scale (0 -10): 0 - Related Data Previous Rx's Medication Instructions Recorded Last Taken Type Oxycodone HCl/Acetaminophen 1 tab PO Q6H PRN #10 10/11/19 Unknown Rx [Percocet 10/325 mg] Acetaminophen/Codeine [Tylenol 1 tab PO Q6H PRN #10 tab 11/04/19 Unknown Rx /Codeine # 3 tab] Clindamycin [Clindamycin CAP] 450 mg PO TID #21 capsule 11/04/19 Unknown Rx Allergies Allergy/AdvReac Type Severity Reaction Status Date / Time ketorolac tromethamine Allergy Hives Verified 12/13/18 12:26 [From Toradol] Penicillins Allergy Swelling Verified 12/13/18 12:26 tramadol Allergy Hives Verified 12/13/18 12:26 Iodinated Contrast Media AdvReac Mild other Verified 12/13/18 12:26 ED Review of Systems ROS: Stated complaint: SICKLE CELL PAIN, LEFT JYW Other details as noted in HPI Comment: All other systems reviewed and negative ED Past Medical Hx - Past Medical History Previous Medical History?: Yes Hx Hypertension: No Hx CVA: No Hx Heart Attack/AMI: No Hx Diabetes: No Hx Deep Vein Thrombosis: No Hx Pulmonary Embolism: No Hx GERD: No Hx Liver Disease: No Hx Renal Disease: No Hx Sickle Cell Disease: Yes Hx Arthritis: No Hx Headaches / Migraines: No Hx Seizures: No Hx Kidney Stones: Yes Hx Psychiatric Treatment: No Hx Asthma: No Hx COPD: No Hx Tuberculosis: No Hx Dementia: No Hx HIV: No Additional medical history: FIBROIDS, scoliosis. kidney stones per pt,cervical cancer-dx 05/2017 - Surgical History Past Surgical History?: Yes Hx Coronary Stent: No Hx Open Heart Surgery: No Hx Pacemaker: No Hx Internal Defibrillator: No Hx Cholecystectomy: Yes Hx Appendectomy: No Hx Breast Surgery: No Additional Surgical History: X 4. HERNIA REPAIR - Social History Smoking Status: Never Smoker Substance Use Type: None - Medications Home Medications: Home Medications Medication Instructions Recorded Confirmed Last Taken Type Oxycodone HCl/Acetaminophen 1 tab PO Q6H PRN #10 10/11/19 Unknown Rx [Percocet 10/325 mg] Acetaminophen/Codeine [Tylenol 1 tab PO Q6H PRN #10 tab 11/04/19 Unknown Rx /Codeine # 3 tab] Clindamycin [Clindamycin CAP] 450 mg PO TID #21 capsule 11/04/19 Unknown Rx ED Physical Exam - General Limitations: No Limitations - Other Other exam information: General: No acute distress Head: Atraumatic Eyes: normal appearance ENT: Moist mucous membranes, trismus or difficulty opening jaw secondary to pa in. No tenderness to palpation of TMJ or jaw or mandible. No tenderness to teeth were percussion. Neck: Normal appearance, no midline tenderness Chest: Clear to auscultation bilaterally CV: Regular rate and rhythm Abdomen: Gravid abdomen, normal bowel sounds, nontender, nondistended, no rebound or guarding Back: Normal inspection Extremity: Normal inspection infection, full range of motion Neuro: Alert O x 3, no facial asymmetry, speech clear, no gross motor sensory deficit Psych: Appropriate behavior Skin: No rash ED Course Vital Signs 11/04/19 11/04/19 11/04/19 04:07 04:49 05:46 Temperature 98.9 F 97.7 F Pulse Rate 131 H 110 H 110 H Respiratory 18 16 16 Rate Blood Pressure 144/55 Blood Pressure 119/70 127/73 [Left] O2 Sat by Pulse 100 100 100 Oximetry 11/04/19 11/04/19 11/04/19 07:38 08:45 11:51 Temperature Pulse Rate 101 H 95 H 103 H Respiratory 14 17 18 Rate Blood Pressure Blood Pressure 94/35 117/70 118/66 [Left] O2 Sat by Pulse 97 96 97 Oximetry ED Medical Decision Making - Lab Data Result diagrams: 11/04/19 04:28 Lab Results 11/04/19 11/04/19 Range/Units 04:28 04:28 WBC 12.7 H (4.5-11.0) K/mm3 RBC 3.76 (3.65-5.03) M/mm3 Hgb 8.7 L (10.1-14.3) gm/dl Hct 27.8 L (30.3-42.9) % MCV 74 L (79-97) fl MCH 23 L (28-32) pg MCHC 31 (30-34) % RDW 21.3 H (13.2-15.2) % Plt Count 277 (140-440) K/mm3 Lymph % (Auto) 9.6 L (13.4-35.0) % Antelope % (Auto) 10.1 H (0.0-7.3) % Eos % (Auto) 0.7 (0.0-4.3) % Baso % (Auto) 0.4 (0.0-1.8) % Lymph # 1.2 (1.2-5.4) K/mm3 Antelope # 1.3 H (0.0-0.8) K/mm3 Eos # 0.1 (0.0-0.4) K/mm3 Baso # 0.0 (0.0-0.1) K/mm3 Seg Neutrophils % 79.2 H (40.0-70.0) % Seg Neutrophils # 10.0 H (1.8-7.7) K/mm3 Percent Retic 1.39 (0.78-2.58) % HCG, Qual Positive (Negative) - Radiology Data Radiology results: report reviewed CT FACIAL BONES WITHOUT CONTRAST INDICATION : left jaw pain, trismus. TECHNIQUE: Axial imaging performed through the face with reconstructed images also reviewed. Sagittal and coronal reformatted images. All CT scans at this location are performed using CT dose reduction for ALARA by means of automated exposure control. COMPARISON: None FINDINGS: The facial bones including the mandible are intact. No fracture or advanced bony destruction. There is moderate mucosal thickening throughout the ethmoid air cells and maxillary sinuses. The sphenoid sinuses and left frontal sinus are clear. The right frontal sinus did not devel op. There are multiple dental caries throughout the maxillary and mandibular teeth. There is subtle periapical lucency surrounding the tooth roots of a left mandibular bicuspid and a left mandibular molar concerning for early periapical tooth abscesses. No extension into the soft tissues is appreciated. The skull base and visualized brain are unremarkable. The orbital cavities are within normal limits. IMPRESSION: Poor dentition with 2 suspected early periapical tooth abscesses in the left mandible as described. No facial fracture. Chronic ethmoid and maxillary sinus disease. - Medical Decision Making I asked patient to tell me the name of her mold holder in [place], [place]. She initially became upset that we were trying to seek out her past medical history. She states that her mold holder in [place] was Dr. Cohen but she hasn't seen him in about 2-3 years. Patient also denies ever receiving a blood transfusion. She does not have a port. Every time patient presented she has a normal reticulocyte count. Hemoglobin has mild anemia which is stable. I attempted to find this Dr. Cohen on the Internet and was unsuccessful. I discussed case with mold holder Dr. Rosa states that is unlikely patient has sickle cell within normal sickle cell screen but she is welcome to follow up in his office. I decided to perform CAT scan to rule out pathology since I was unable to adequately visualize the patient's mouth due to trismus and she will not open up her mouth for examination. CT shows some left- sided periapical abscesses. No bony abnormality. Clindamycin provided in the ED and will be continued upon discharge. - Differential Diagnosis TMJ, dental infection, sickle cell crisis, malingering Critical Care Time: No Critical care attestation.: If time is entered above; I have spent that time in minutes in the direct care of this critically ill patient, excluding procedure time. ED Disposition Clinical Impression: Periapical abscess, 26 weeks gestation of , Chronic anemia Disposition: DC- TO HOME OR SELFCARE Is pt being admited?: No Does the pt Need Aspirin: No Condition: Stable Instructions: Dental Abscess (ED), (ED) Additional Instructions: Take the medication as prescribed. Follow-up with your doctor or doctor/clinic provided. Return if symptoms worsen as indicated by your discharge instructions. Prescriptions: Clindamycin [Clindamycin CAP] 450 mg PO TID #21 capsule Acetaminophen/Codeine [Tylenol /Codeine # 3 tab] 1 tab PO Q6H PRN #10 tab PRN Reason: Pain , Severe (7-10) Referrals: PRIMARY CARE,MD [Primary Care Provider] - 3-5 Days DAIANA FRASER DO [Staff Physician] - 3-5 Days (Hematology) [facility] [Outside] - 3-5 Days RUY VENCES MD [Staff Physician] - 3-5 Days (primary care ) TANIA COSME MD [Staff Physician] - 3-5 Days (SONG LYRICIST) Time of Disposition: 12:52
[2019-11-04 11:52] VITALS: BP 118/66
--- NOTE | 2019-11-04 12:16 | Cat Scan Report ---
CT FACIAL BONES WITHOUT CONTRAST INDICATION : left jaw pain, trismus. TECHNIQUE: Axial imaging performed through the face with reconstructed images also reviewed. Sagitta l and coronal reformatted images. All CT scans at this location are performed using CT dose reduction for ALARA by means of automated exposure control. COMPARISON: None FINDINGS: The facial bones including the mandible are intact. No fracture or advanced bony destructi on. There is moderate mucosal thickening throughout the ethmoid air cells and maxillary sinuses. The sphenoid sinuses and left frontal sinus are clear. The right frontal sinus did not develop. There are multiple dental caries throughout the maxillary and mandibular teeth. There is subtle peria pical lucency surrounding the tooth roots of a left mandibular bicuspid and a left mandibular molar c oncerning for early periapical tooth abscesses. No extension into the soft tissues is appreciated. The skull base and visualized brain are unremarkable. The orbital cavities are within normal limits. IMPRESSION: Poor dentition with 2 suspected early periapical tooth abscesses in the left mandible as described. No facial fracture. Chronic ethmoid and maxillary sinus disease. Signer Name: Sanjiv Diamond Jr, MD Signed: 11/04/2019 12:11 PM Workstation Name: [id number]
[2019-11-04] MEDS ORDERED: CLINDAMYCIN 150 MG CAP PO ONE (13:00)
== END 2019-11-04 13:01 | disposition home or self-care (01) ==
LOC: ED 03:42
DX: O99.713 Diseases of the skin and subcutaneous tissue complicating pregnancy, third trimester (principal); K04.7 Periapical abscess without sinus; D64.9 Anemia, unspecified; G89.29 Other chronic pain; D57.1 Sickle-cell disease without crisis; N20.0 Calculus of kidney; Z90.49 Acquired absence of other specified parts of digestive tract; Z98.890 Other specified postprocedural states; Z79.899 Other long term (current) drug therapy; Z88.0 Allergy status to penicillin; Z88.8 Allergy status to other drugs, medicaments and biological substances
CPT/HCPCS: 36415; 70486; 84703; 85025; 85045; 96374; 96375; 96376; 99284; J1170; J1200; J1885; 59025

== ENCOUNTER 2019-11-04 14:50 | Outpatient (CLI) | payer MEDICAID ==
[2019-11-04 16:15] VITALS: BP 116/70
== END 2019-11-04 18:55 | disposition home or self-care (01) ==
LOC: TRG 14:50
PROVIDERS: ATTEND Obstetrics & Gynecology
DX: O47.02 False labor before 37 completed weeks of gestation, second trimester (principal); Z3A.27 27 weeks gestation of pregnancy
CPT/HCPCS: 59025

== ENCOUNTER 2019-12-29 20:26 | Outpatient (CLI) | payer MEDICAID ==
[2019-12-29] MEDS ORDERED: LACTATED RINGERS 1,000 ML IV ONE (21:32)
[2019-12-29 21:48] LABS: Bilirubin,Urine NEG (Negative); Blood,Urine NEG (Negative); Color,Urine Yellow (Yellow); Mucus,Urine 2+ /HPF; Protein,Urine <15 mg/dL mg/dL (Negative); Urobilinogen,Urine < 2.0 mg/dL (<2.0)
[2019-12-29 21:52] LABS: Amphetamine Screen,Urine PRESUMPTIVE NEGATIVE; Benzodiazepines Screen,Urine PRESUMPTIVE NEGATIVE; Cannabinoid Screen,Urine PRESUMPTIVE NEGATIVE; Cocaine Screen,Urine PRESUMPTIVE NEGATIVE; Methadone Screen,Urine PRESUMPTIVE NEGATIVE
[2019-12-29 21:53] VITALS: BP 99/53
[2019-12-29 22:07] LABS: Opiate Screen,Urine PRESUMPTIVE POSITIVE
== END 2019-12-29 22:23 | disposition home or self-care (01) ==
LOC: TRG 20:26
PROVIDERS: ATTEND Obstetrics & Gynecology
DX: O99.013 Anemia complicating pregnancy, third trimester (principal); O98.813 Other maternal infectious and parasitic diseases complicating pregnancy, third trimester; D57.00 Hb-SS disease with crisis, unspecified; Z3A.35 35 weeks gestation of pregnancy
CPT/HCPCS: 59025; 80307; 81001

== ENCOUNTER 2019-12-29 22:34 | Inpatient (IN) | payer MEDICAID ==
[2019-12-30] MEDS ORDERED: ACETAMINOPHEN 500 MG TAB ONE (02:27)
[2019-12-30] MEDS ORDERED: ACETAMINOPHEN 500 MG TAB PO ONE (02:28)
[2019-12-30 05:28] LABS: Basophils # (Auto) 0.1 K/mm3 (0.0-0.1); Basophils % (Auto) 0.6 % (0.0-1.8); Eosinophils # (Auto) 0.2 K/mm3 (0.0-0.4); Eosinophils % (Auto) 1.2 % (0.0-4.3); Lymphocytes # (Auto) 1.6 K/mm3 (1.2-5.4); Lymphocytes % (Auto) 12.1 % (13.4-35.0); Mean Corpuscular HGB Conc 30 % (30-34); Mean Corpuscular Volume 74 fl (79-97); Monocytes # (Auto) 1.4 K/mm3 (0.0-0.8); Monocytes % (Auto) 10.4 % (0.0-7.3); Platelet Count 446 K/mm3 (140-440); Red Blood Count 3.92 M/mm3 (3.65-5.03)
[2019-12-30 05:35] LABS: Hemoglobin 8.6 gm/dl (10.1-14.3); Red Cell Distribution Width 23.4 % (13.2-15.2)
[2019-12-30 06:02] LABS: BUN/Creatinine Ratio 15; Blood Urea Nitrogen 6 mg/dL (7-17); Calcium 9.4 mg/dL (8.4-10.2); Hemolysis Index 8
[2019-12-30] MEDS ORDERED: MORPHINE 4 MG/1 ML INJ IV ONE (06:41)
[2019-12-30] MEDS ORDERED: diphenhydrAMINE 50 MG/ML VIAL IV ONE (06:41)
--- NOTE | 2019-12-30 06:43 | Event Note ---
ED Screening Note Date of service: 12/30/19 Time: 06:41 ED Screening Note: 35 weeks Complaints of generalized body pain for 3 days Patient was sent up to L&D upon arrival to the emergency department today, states she was sent back down here due to having a sickle cell pain crisis Also states she had a UTI 1 week ago and took Amoxil, now symptoms worse with right flank pain Denies fever Complains of swelling in her legs also Dr. Esposito-recommends paging L&D for recommendations and possible admission This initial assessment/diagnostic orders/clinical plan/treatment(s) is/are subject to change based on patients health status, clinical progression and re- assessment by fellow clinical providers in the ED. Further treatment and workup at subsequent clinical providers discretion. Patient/guardian urged not to elope from the ED as their condition may be serious if not clinically assessed and managed. Initial orders include:
[2019-12-30 06:53] LABS: Bacteria,Urine 1+ /HPF (Negative); Bilirubin,Urine NEG (Negative); Blood,Urine NEG (Negative); Color,Urine Yellow (Yellow); Mucus,Urine FEW /HPF; Protein,Urine <15 mg/dL mg/dL (Negative)
[2019-12-30 06:58] LABS: HCG Qualitative,Urine Positive (Negative)
[2019-12-30] MEDS ORDERED: SODIUM CHLORIDE 0.9% 1000 ML 1,000 ML IV ONE ×2 (07:13→08:45)
[2019-12-30] MEDS ORDERED: HYDROmorphone 1 MG/1 ML INJ IV ONE (07:13)
[2019-12-30 08:21] VITALS: BP 119/82
--- NOTE | 2019-12-30 08:51 | Emergency Department Report ---
ED General Adult HPI - General Chief complaint: Pain General Stated complaint: ALL OVER PAIN Time Seen by Provider: 12/30/19 06:22 Source: patient Mode of arrival: Ambulatory Limitations: No Limitations - History of Present Illness Initial comments: This is a 29-year-old female nontoxic, well nourished in appearance, no acute signs of distress presents to the ED with c/o of generalized body aches. Patient is 35 weeks . Patient was seen in L&D and was sent back to the ER after medical clearance. Patient denies any vaginal bleeding. 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 Patient denies any fever, chills, nausea, vomiting, headache or stiff neck. Patient states history of sickle cell anemia and symptoms of flareup is present today. MD Complaint: generalized body aches -: days(s) Radiation: non-radiation Severity scale (0 -10): 10 Quality: aching Consistency: constant Improves with: none Worsens with: none Associated Symptoms: other (body aches). denies: confusion, chest pain, cough, diaphoresis, fever/chills, headaches, loss of appetite, malaise, nausea/vomiting, rash, seizure, shortness of breath, syncope, weakness - Related Data Allergies Allergy/AdvReac Type Severity Reaction Status Date / Time ketorolac tromethamine Allergy Hives Verified 12/13/18 12:26 [From Toradol] Penicillins Allergy Swelling Verified 12/13/18 12:26 tramadol Allergy Hives Verified 12/13/18 12:26 Iodinated Contrast Media AdvReac Mild other Verified 12/13/18 12:26 ED Review of Systems ROS: Stated complaint: ALL OVER PAIN Other details as noted in HPI Constitutional: denies: chills, fever Eyes: denies: eye pain, eye discharge, vision change ENT: denies: ear pain, throat pain Respiratory: denies: cough, shortness of breath, wheezing Cardiovascular: denies: chest pain, palpitations Endocrine: no symptoms reported Gastrointestinal: denies: abdominal pain, nausea, diarrhea Genitourinary: denies: urgency, dysuria, discharge Musculoskeletal: denies: back pain, joint swelling, arthralgia Skin: denies: rash, lesions Neurological: denies: headache, weakness, paresthesias Psychiatric: denies: anxiety, depression Hematological/Lymphatic: denies: easy bleeding, easy bruising ED Past Medical Hx - Past Medical History Previous Medical History?: Yes Hx Hypertension: No Hx CVA: No Hx Heart Attack/AMI: No Hx Diabetes: No Hx Deep Vein Thrombosis: No Hx Pulmonary Embolism: No Hx GERD: No Hx Liver Disease: No Hx Renal Disease: No Hx Sickle Cell Disease: Yes Hx Arthritis: No Hx Headaches / Migraines: No Hx Seizures: No Hx Kidney Stones: Yes Hx Psychiatric Treatment: No Hx Asthma: No Hx COPD: No Hx Tuberculosis: No Hx Dementia: No Hx HIV: No Additional medical history: scoliosis. kidney stones. Joint disease - Surgical History Past Surgical History?: Yes Hx Coronary Stent: No Hx Open Heart Surgery: No Hx Pacemaker: No Hx Internal Defibrillator: No Hx Cholecystectomy: Yes Hx Appendectomy: No Hx Breast Surgery: No Additional Surgical History: X 4. HERNIA REPAIR - Social History Smoking Status: Current Every Day Smoker Substance Use Type: None ED Physical Exam - General Limitations: No Limitations General appearance: alert, in no apparent distress - Head Head exam: Present: atraumatic, normocephalic - Neck Neck exam: Present: normal inspection, full ROM. Absent: tenderness, meningismus, lymphadenopathy - Respiratory Respiratory exam: Present: normal lung sounds bilaterally. Absent: respiratory distress, wheezes, rales, rhonchi, stridor, chest wall tenderness, accessory muscle use, decreased breath sounds, prolonged expiratory - Cardiovascular Cardiovascular Exam: Present: regular rate, normal rhythm, tachycardia, normal heart sounds. Absent: irregular rhythm, systolic murmur, diastolic murmur, rubs, gallop - GI/Abdominal GI/Abdominal exam: Present: soft. Absent: distended, tenderness - Extremities Exam Extremities exam: Present: full ROM - Back Exam Back exam: Present: full ROM - Neurological Exam Neurological exam: Present: alert, oriented X3, normal gait - Psychiatric Psychiatric exam: Present: normal affect, normal mood - Skin Skin exam: Present: warm, dry, intact, normal color. Absent: rash ED Course Vital Signs 12/29/19 12/30/19 12/30/19 22:43 02:29 02:48 Temperature 97.6 F 98.4 F Pulse Rate 103 H 101 H Respiratory 18 20 18 Rate Blood Pressure 126/67 132/69 Blood Pressure [Right] O2 Sat by Pulse 98 100 Oximetry 12/30/19 12/30/19 12/30/19 03:29 07:41 08:20 Temperature 98 F Pulse Rate 107 H Respiratory 20 16 Rate Blood Pressure Blood Pressure 119/82 [Right] O2 Sat by Pulse Oximetry - Reevaluation(s) Reevaluation #1: 12/30/19 08:49 Patient is speaking in full sentences with no signs of distress noted. ED Medical Decision Making - Lab Data Result diagrams: 12/30/19 04:57 12/30/19 04:57 - Medical Decision Making This is a 29-year-old female that presents with sickle cell anemia. Patient has received several treatment in ER and unable to control patient's pain. Labs obtained. Patient consulted with Dr. Gregory and agrees to admission. Patient was consulted with Yasmine Zurita and accepts patient to services to L&D. At time of admission, the patient does not seem toxic or ill in appearance. No acute signs of distress noted. Patient agrees to admission treatment plan of care. No further questions noted by the patient. Critical care attestation.: If time is entered above; I have spent that time in minutes in the direct care of this critically ill patient, excluding procedure time. ED Disposition Clinical Impression: Sickle cell anemia with pain, 35 weeks gestation of , Intractable pain Disposition: OP ADMIT IP TO THIS HOSP Is pt being admited?: Yes Condition: Stable
[2019-12-30] MEDS ORDERED: MORPHINE 4 MG/1 ML INJ IV PRN (10:02)
[2019-12-30] MEDS ORDERED: ONDANSETRON 4 MG/2 ML INJ IV PRN (10:02)
[2019-12-30] MEDS ORDERED: oxyCODONE /ACETAMINOPHEN 5-325MG TAB PO PRN (10:02)
[2019-12-30] MEDS ORDERED: MAGNESIUM HYDROXIDE (MOM) ORAL LIQD UDC PO PRN (10:02)
[2019-12-30] MEDS ORDERED: diphenhydrAMINE 50 MG/ML VIAL ONE (13:07)
[2019-12-30] MEDS ORDERED: D5W/0.45% NACL 1,000 ML IV SCH (16:00)
[2019-12-30] MEDS ORDERED: SENNOSIDES 8.6 MG TAB PO SCH (22:00)
[2019-12-31] MEDS ORDERED: MULTIVITAMINS ,THERAPEUTIC TAB PO SCH (10:00)
[2019-12-31] MEDS ORDERED: FOLIC ACID 1 MG TAB PO SCH (10:00)
== END 2019-12-30 14:40 | disposition left against medical advice (07) | DRG 781 ==
LOC: ED 22:34 → LD 12-30 09:12
PROVIDERS: ADMIT Obstetrics & Gynecology; ATTEND Obstetrics & Gynecology
DX: O99.013 Anemia complicating pregnancy, third trimester (principal); D57.1 Sickle-cell disease without crisis; F17.200 Nicotine dependence, unspecified, uncomplicated; O99.333 Smoking (tobacco) complicating pregnancy, third trimester; Z3A.35 35 weeks gestation of pregnancy; Z87.442 Personal history of urinary calculi; Z90.49 Acquired absence of other specified parts of digestive tract
CPT/HCPCS: 36415; 80048; 81001; 81025; 85025; 85045; 96361; 96374; 96375; G0378; J1170; J1200; J2270; J7030

== ENCOUNTER 2020-02-27 22:21 | Emergency (ER) | payer MEDICAID ==
[2020-02-27 22:40] VITALS: BP 141/97
== END 2020-02-27 22:55 | disposition left against medical advice (07) ==
LOC: ED 22:21
DX: R05 Cough (principal); Z53.21 Procedure and treatment not carried out due to patient leaving prior to being seen by health care provider

== ENCOUNTER 2020-10-03 12:39 | Emergency (ER) | payer MEDICAID ==
[2020-10-03] MEDS ORDERED: SODIUM CHLORIDE 0.9% 1000 ML 1,000 ML IV ONE (13:04)
--- NOTE | 2020-10-03 13:08 | Event Note ---
ED Screening Note Date of service: 10/03/20 Time: 13:06 ED Screening Note: 30-year-old -[place]ian female presents to the emergency room for acute abdominal pain that started 3 days ago and progressively gotten worse. Patient reports that the pain onset right lower quadrant pelvic area. She admits to nausea vomiting diarrhea. She is 5 para 5 with the last delivery December 2019. Patient reports her last menstrual period was September 22, 2020. She denies any vaginal discharge vaginal bleeding. She states that the pain is a 10 out of 10 This initial assessment/diagnostic orders/clinical plan/treatment(s) is/are subject to change based on patients health status, clinical progression and re- assessment by fellow clinical providers in the ED. Further treatment and workup at subsequent clinical providers discretion. Patient/guardian urged not to elope from the ED as their condition may be serious if not clinically assessed and managed. Initial orders include:
[2020-10-03] MEDS ORDERED: HYDROmorphone 1 MG/1 ML INJ IV ONE ×2 (13:46→15:07)
[2020-10-03] MEDS ORDERED: LOPERAMIDE 2 MG CAP PO ONE (13:47)
[2020-10-03] MEDS ORDERED: ONDANSETRON 4 MG/2 ML INJ IV ONE (13:47)
[2020-10-03 13:49] LABS: Basophils # (Auto) 0.1 K/mm3 (0.0-0.1); Eosinophils # (Auto) 0.1 K/mm3 (0.0-0.4); Eosinophils % (Auto) 1.3 % (0.0-4.3); Hematocrit 35.1 % (30.3-42.9); Hemoglobin 11.3 gm/dl (10.1-14.3); Lymphocytes # (Auto) 1.5 K/mm3 (1.2-5.4); Lymphocytes % (Auto) 17.6 % (13.4-35.0); Mean Corpuscular HGB Conc 32 % (30-34); Mean Corpuscular Volume 86 fl (79-97); Monocytes % (Auto) 11.3 % (0.0-7.3); Platelet Count 401 K/mm3 (140-440); Red Blood Count 4.07 M/mm3 (3.65-5.03); Red Cell Distribution Width 16.3 % (13.2-15.2)
--- NOTE | 2020-10-03 14:06 | Emergency Department Report ---
ED Abdominal Pain HPI - General Chief Complaint: Abdominal Pain Stated Complaint: ABD PAIN Time Seen by Provider: 10/03/20 13:30 Source: patient, EMS Mode of arrival: Wheelchair Limitations: No Limitations - History of Present Illness Initial Comments: 30-year-old female presents to ED with complaint of right lower quadrant pain x3 days. Patient reports history of chronic abdominal pain. She reports she gave earlier this year in December. Patient reports a questionable history of cervical cancer which was diagnosed in 2014. Patient states at that time she had an abnormal Pap smear which showed abnormal cells and possible cancer. Patient states she never went back for colposcopy or biopsy. Patient states she has never undergone any treatment for cervical cancer. Patient reports she has been seen by quality process engineer for her abdominal pain, however no cause was found for her pain. She denies ever having a colonoscopy or upper endoscopy. She reports associated diarrhea with current pain. She denies any vaginal bleeding, vaginal discharge, or urinary symptoms. She denies any vomiting or fever. MD Complaint: abdominal pain -: days(s) (3) Location: RLQ Radiation: none Migration to: no migration Severity: severe Severity scale (0 -10): 10 Quality: aching, sharp Consistency: constant Improves With: nothing Worsens With: nothing Associated Symptoms: diarrhea. denies: nausea, vomiting, fever, dysuria - Related Data Previous Rx's Medication Instructions Recorded Last Taken Type Dicyclomine [Bentyl] 20 mg PO QID PRN #20 tablet 10/03/20 Unknown Rx Ondansetron [Zofran Odt] 4 mg PO Q8HR PRN #20 tab.rapdis 10/03/20 Unknown Rx Allergies Allergy/AdvReac Type Severity Reaction Status Date / Time ketorolac tromethamine Allergy Hives Verified 10/03/20 13:35 [From Toradol] Penicillins Allergy Swelling Verified 10/03/20 13:35 tramadol Allergy Hives Verified 10/03/20 13:35 Iodinated Contrast Media AdvReac Mild other Verified 10/03/20 13:35 ED Review of Systems ROS: Stated complaint: ABD PAIN Other details as noted in HPI Comment: All other systems reviewed and negative Constitutional: denies: chills, fever Respiratory: cough Gastrointestinal: abdominal pain, diarrhea. denies: nausea, vomiting Genitourinary: denies: dysuria, frequency, hematuria, discharge ED Past Medical Hx - Past Medical History Previous Medical History?: Yes Hx Hypertension: No Hx CVA: No Hx Heart Attack/AMI: No Hx Diabetes: No Hx Deep Vein Thrombosis: No Hx Pulmonary Embolism: No Hx GERD: No Hx Liver Disease: No Hx Renal Disease: No Hx of Cancer: Yes (Cervical) Hx Sickle Cell Disease: No (pt has been tested and pt is neg for Sickle cell) Hx Arthritis: No Hx Headaches / Migraines: No Hx Seizures: No Hx Kidney Stones: Yes Hx Psychiatric Treatment: No Hx Asthma: No Hx COPD: No Hx Tuberculosis: No Hx Dementia: No Hx HIV: No Additional medical history: scoliosis. kidney stones. Joint disease - Surgical History Past Surgical History?: Yes Hx Coronary Stent: No Hx Open Heart Surgery: No Hx Pacemaker: No Hx Internal Defibrillator: No Hx Cholecystectomy: Yes Hx Appendectomy: No Hx Breast Surgery: No Additional Surgical History: X 4. HERNIA REPAIR - Social History Smoking Status: Current Every Day Smoker - Medications Home Medications: Home Medications Medication Instructions Recorded Confirmed Last Taken Type Dicyclomine [Bentyl] 20 mg PO QID PRN #20 tablet 10/03/20 Unknown Rx Ondansetron [Zofran Odt] 4 mg PO Q8HR PRN #20 tab.rapdis 10/03/20 Unknown Rx ED Physical Exam - General Limitations: No Limitations General appearance: alert, in no apparent distress - Head Head exam: Present: atraumatic, normocephalic - Eye Eye exam: Present: normal appearance, EOMI - ENT ENT exam: Present: mucous membranes moist - Neck Neck exam: Present: normal inspection - Respiratory Respiratory exam: Present: normal lung sounds bilaterally. Absent: respiratory distress - Cardiovascular Cardiovascular Exam: Present: regular rate, normal rhythm - GI/Abdominal GI/Abdominal exam: Present: soft, tenderness (Right lower quadrant). Absent: distended - Extremities Exam Extremities exam: Present: normal inspection - Neurological Exam Neurological exam: Present: alert, oriented X3 - Psychiatric Psychiatric exam: Present: normal affect, normal mood - Skin Skin exam: Present: warm, dry, intact, normal color ED Course Vital Signs 10/03/20 10/03/20 10/03/20 12:51 13:58 14:00 Temperature 98.1 F Pulse Rate 103 H 74 Respiratory 20 Rate Blood Pressure 143/95 131/68 Blood Pressure 152/101 [Left] O2 Sat by Pulse 100 99 99 Oximetry 10/03/20 10/03/20 15:04 15:30 Temperature Pulse Rate Respiratory Rate Blood Pressure 129/80 112/43 Blood Pressure [Left] O2 Sat by Pulse 88 98 Oximetry ED Medical Decision Making - Lab Data Result diagrams: 10/03/20 13:23 10/03/20 13:23 - Radiology Data Radiology results: report reviewed, image reviewed - Medical Decision Making 30-year-old female presents to ED with exacerbation of her chronic abdominal p ain. Labs are normal. CT abdomen pelvis is unremarkable for any acute findings. Patient given 2 doses of pain medication here in the ED and states she is feeling much better. Outpatient GI follow-up advised. Return precautions given. - Differential Diagnosis Appendicitis, ectopic , ovarian cyst Critical care attestation.: If time is entered above; I have spent that time in minutes in the direct care of this critically ill patient, excluding procedure time. ED Disposition Clinical Impression: Abdominal pain Disposition: DC-01 TO HOME OR SELFCARE Is pt being admited?: No Condition: Stable Instructions: Abdominal Pain, Adult, [id number], Abdominal Pain (ED) Prescriptions: Dicyclomine [Bentyl] 20 mg PO QID PRN #20 tablet PRN Reason: abdominal pain Ondansetron [Zofran Odt] 4 mg PO Q8HR PRN #20 tab.rapdis PRN Reason: Vomiting Referrals: [facility] [Provider Group] - 3-5 Days PRIMARY CARE, [Primary Care Provider] - 3-5 Days Time of Disposition: 15:47
[2020-10-03 14:17] LABS: Alanine Aminotransferase 17 units/L (7-56); Albumin 4.1 g/dL (3.9-5); Blood Urea Nitrogen 8 mg/dL (7-17); Calcium 9.1 mg/dL (8.4-10.2); Hemolysis Index 5
[2020-10-03 14:18] LABS: BUN/Creatinine Ratio 13
--- NOTE | 2020-10-03 15:08 | Cat Scan Report ---
CT ABDOMEN AND PELVIS WITHOUT CONTRAST INDICATION / CLINICAL INFORMATION: RLQ pain. TECHNIQUE: Axial CT images were obtained through the abdomen and pelvis without IV contrast. All CT scans at [facility] location are performed using CT dose reduction for ALARA by means of automated exposure control. COMPARISON: CT abdomen pelvis 03/15/2019 FINDINGS: LOWER CHEST: No significant abnormality. LIVER: No significant abnormality. GALLBLADDER: Surgically absent. BILE DUCTS: No significant abnormality. PANCREAS: No significant abnormality. SPLEEN: No significant abnormality. ADRENALS: No significant abnormality. RIGHT KIDNEY and URETER: No significant abnormality. LEFT KIDNEY and URETER: No significant abnormality. STOMACH and SMALL BOWEL: No significant abnormality. COLON: No significant abnormality. APPENDIX: No significant abnormality. PERITONEUM: Trace pelvic free fluid. No free air. No fluid collection. LYMPH NODES: No significant adenopathy. AORTA and ARTERIES: No significant abnormality. IVC and VEINS: No significant abnormality. URINARY BLADDER: No significant abnormality. REPRODUCTIVE ORGANS: No significant abnormality. ADDITIONAL FINDINGS: None. SKELETAL SYSTEM: No significant abnormality. IMPRESSION: 1. No acute process identified within the abdomen or pelvis on noncontrast examination to account for right lower quadrant pain. The appendix is normal. Signer Name: Kayla Zambrano MD Signed: 10/03/2020 3:04 PM Workstation Name: [facility] - Private Location [id number]
[2020-10-03 15:25] LABS: Bilirubin,Urine NEG (Negative); Blood,Urine NEG (Negative); Color,Urine Yellow (Yellow); Protein,Urine <15 mg/dL mg/dL (Negative); RBC,Urine < 1.0 /HPF (0.0-6.0); Urobilinogen,Urine < 2.0 mg/dL (<2.0)
[2020-10-03 15:41] LABS: HCG Qualitative,Urine Negative (Negative)
[2020-10-03 15:46] VITALS: BP 112/43
== END 2020-10-03 16:05 | disposition home or self-care (01) ==
LOC: ED 12:39
DX: R10.31 Right lower quadrant pain (principal); R19.7 Diarrhea, unspecified; F17.200 Nicotine dependence, unspecified, uncomplicated; Z98.890 Other specified postprocedural states; Z79.899 Other long term (current) drug therapy; Z88.0 Allergy status to penicillin; Z88.8 Allergy status to other drugs, medicaments and biological substances
CPT/HCPCS: 36415; 74176; 80053; 81001; 81025; 83690; 83735; 85025; 85045; 96361; 96374; 96375; 96376; 99284; J1170; J2405; J7030

== ENCOUNTER 2020-11-10 13:23 | Emergency (ER) | payer MEDICAID ==
[2020-11-10 14:25] LABS: Basophils % (Auto) 0.4 % (0.0-1.8); Eosinophils % (Auto) 0.8 % (0.0-4.3); Hematocrit 33.4 % (30.3-42.9); Hemoglobin 10.7 gm/dl (10.1-14.3); Lymphocytes # (Auto) 1.4 K/mm3 (1.2-5.4); Lymphocytes % (Auto) 25.4 % (13.4-35.0); Mean Corpuscular HGB Conc 32 % (30-34); Mean Corpuscular Volume 85 fl (79-97); Monocytes # (Auto) 0.4 K/mm3 (0.0-0.8); Monocytes % (Auto) 7.3 % (0.0-7.3); Platelet Count 342 K/mm3 (140-440); Red Blood Count 3.91 M/mm3 (3.65-5.03); Red Cell Distribution Width 17.7 % (13.2-15.2)
--- NOTE | 2020-11-10 16:04 | Event Note ---
ED Screening Note ED Screening Note: LNMP: 10/26/2020 began having vaginal bleeding today hx of cervical cancer, plans for a hysterectomy in Dec 2019 right flank pain +n/v/d no fever PMHx sickle cell anemia This initial assessment/diagnostic orders/clinical plan/treatment(s) is/are subject to change based on patients health status, clinical progression and re- assessment by fellow clinical providers in the ED. Further treatment and workup at subsequent clinical providers discretion. Patient/guardian urged not to elope from the ED as their condition may be serious if not clinically assessed and managed. Initial orders include: labs, CT
[2020-11-10 16:47] LABS: Bilirubin,Urine NEG (Negative); Blood,Urine LG (Negative); Color,Urine Red (Yellow); RBC,Urine > 182.0 /HPF (0.0-6.0); Urobilinogen,Urine < 2.0 mg/dL (<2.0)
--- NOTE | 2020-11-10 17:04 | Cat Scan Report ---
CT ABDOMEN AND PELVIS WITHOUT CONTRAST INDICATION / CLINICAL INFORMATION: right flank pain, hx of nephrolithiasis. TECHNIQUE: Axial CT images were obtained through the abdomen and pelvis without IV contrast. All CT scans at this location are performed using CT dose reduction for ALARA by means of automated exposure control. COMPARISON: 10/03/2020. FINDINGS: LOWER CHEST: Several sub-6 mm subpleural nodules are present within the right middle right lower lobe related which are stable dating back to 2019. These are of doubtful clinical significance. LIVER: Unremarkable GALLBLADDER/BILIARY TREE: Cholecystectomy. PANCREAS: Unremarkable SPLEEN: Unremarkable ADRENALS: Unremarkable KIDNEYS / URETER: Unremarkable unenhanced appearance of the kidneys. There is no urolithiasis or hydr onephrosis. URINARY BLADDER: Bladder is partially decompressed, though grossly unremarkable. REPRODUCTIVE ORGANS: Uterus/adnexa are appropriate for age. STOMACH / SMALL BOWEL: Stomach and small bowel are normal in caliber. No evidence of bowel inflammati on. COLON: There is no colonic wall thickening or pericolonic inflammatory stranding identified. The appe ndix is normal in caliber. LYMPH NODES: No significant adenopathy. VASCULATURE: No significant abnormality. OTHER: No free air, free fluid, or focal fluid collection is identified. SKELETAL SYSTEM: No acute osseous findings. IMPRESSION: 1. No acute abnormality of the abdomen and pelvis, within the limitations of this noncontrast examina tion. 2. Other stable chronic and incidental findings as above. Signer Name: Mohinder Jesus MD Signed: 11/10/2020 5:00 PM Workstation Name: [id number]
[2020-11-10 17:14] LABS: Alanine Aminotransferase 10 units/L (7-56); Albumin 4.3 g/dL (3.9-5); Blood Urea Nitrogen 10 mg/dL (7-17); Calcium 9.6 mg/dL (8.4-10.2); Hemolysis Index 10
[2020-11-10 17:21] LABS: BUN/Creatinine Ratio 20
--- NOTE | 2020-11-10 18:18 | Emergency Department Report ---
ED General Adult HPI - General Chief complaint: Back Pain/Injury Stated complaint: KIDNEY PAIN/BLEEDING Time Seen by Provider: 11/10/20 16:02 Source: patient Mode of arrival: Ambulatory Limitations: No Limitations - History of Present Illness Initial comments: 30-year-old -[place]an female with past medical history of cervical cancer due to have a hysterectomy in December 2020 presents emergency department complaining of metrorrhagia having periods between her current menses. States that she been having some cramping pain and was advised to follow-up in the emergency department to seek pain control as she has run out of her Percocet at home. States she is having some spotting at present with dull pelvic cramping and aching that radiates to her right flank but no polyuria no vaginal vaginal discharge no trauma. Reports no fever, chills, sweats. - Related Data Previous Rx's Medication Instructions Recorded Last Taken Type Dicyclomine [Bentyl] 20 mg PO QID PRN #20 tablet 10/03/20 Unknown Rx Ondansetron [Zofran Odt] 4 mg PO Q8HR PRN #20 tab.rapdis 10/03/20 Unknown Rx Acetaminophen/Codeine [Tylenol 1 tab PO Q6H PRN #10 tab 11/10/20 Unknown Rx /Codeine # 3 tab] Allergies Allergy/AdvReac Type Severity Reaction Status Date / Time ketorolac tromethamine Allergy Hives Verified 10/03/20 13:35 [From Toradol] Penicillins Allergy Swelling Verified 10/03/20 13:35 tramadol Allergy Hives Verified 10/03/20 13:35 Iodinated Contrast Media AdvReac Mild other Verified 10/03/20 13:35 ED Review of Systems ROS: Stated complaint: KIDNEY PAIN/BLEEDING Other details as noted in HPI Comment: All other systems reviewed and negative ED Past Medical Hx - Past Medical History Previous Medical History?: Yes Hx Hypertension: No Hx CVA: No Hx Heart Attack/AMI: No Hx Diabetes: No Hx Deep Vein Thrombosis: No Hx Pulmonary Embolism: No Hx GERD: No Hx Liver Disease: No Hx Renal Disease: No Hx Sickle Cell Disease: No (pt has been tested and pt is neg for Sickle cell) Hx Arthritis: No Hx Headaches / Migraines: No Hx Seizures: No Hx Kidney Stones: Yes Hx Psychiatric Treatment: No Hx Asthma: No Hx COPD: No Hx Tuberculosis: No Hx Dementia: No Hx HIV: No Additional medical history: scoliosis. kidney stones. Joint disease - Surgical History Past Surgical History?: Yes Hx Coronary Stent: No Hx Open Heart Surgery: No Hx Pacemaker: No Hx Internal Defibrillator: No Hx Cholecystectomy: Yes Hx Appendectomy: No Hx Breast Surgery: No Additional Surgical History: X 5. HERNIA REPAIR - Social History Smoking Status: Never Smoker Substance Use Type: None - Medications Home Medications: Home Medications Medication Instructions Recorded Confirmed Last Taken Type Dicyclomine [Bentyl] 20 mg PO QID PRN #20 tablet 10/03/20 Unknown Rx Ondansetron [Zofran Odt] 4 mg PO Q8HR PRN #20 tab.rapdis 10/03/20 Unknown Rx Acetaminophen/Codeine [Tylenol 1 tab PO Q6H PRN #10 tab 11/10/20 Unknown Rx /Codeine # 3 tab] ED Physical Exam - General Limitations: No Limitations General appearance: alert, in no apparent distress - Head Head exam: Present: atraumatic, normocephalic - Eye Eye exam: Present: normal appearance, PERRL. Absent: scleral icterus, c onjunctival injection, periorbital swelling, periorbital tenderness Pupils: Present: normal accommodation - ENT ENT exam: Present: normal exam, mucous membranes moist - Neck Neck exam: Present: normal inspection - Respiratory Respiratory exam: Present: normal lung sounds bilaterally. Absent: respiratory distress - Cardiovascular Cardiovascular Exam: Present: regular rate, normal rhythm. Absent: systolic murmur, diastolic murmur, rubs, gallop - GI/Abdominal GI/Abdominal exam: Present: soft, normal bowel sounds - Extremities Exam Extremities exam: Present: normal inspection - Back Exam Back exam: Present: normal inspection - Neurological Exam Neurological exam: Present: alert, oriented X3 - Psychiatric Psychiatric exam: Present: normal affect, normal mood - Skin Skin exam: Present: warm, dry, intact, normal color. Absent: rash ED Medical Decision Making - Lab Data Result diagrams: 11/10/20 13:54 11/10/20 16:22 - Radiology Data Radiology results: report reviewed [facility] [address] [place] [address] Cat Scan Report Signed Patient: MAXIMILIAN ERIC MR#: [id number] : 1990 Acct:[id number] Age/Sex: 30 / F ADM Date: 11/10/20 Loc: ED Attending Dr: Ordering Physician: CA KINSEY Date of Service: 11/10/20 Procedure(s): CT abdomen pelvis wo con Accession Number(s): [id number] cc: CA KINSEY CT ABDOMEN AND PELVIS WITHOUT CONTRAST INDICATION / CLINICAL INFORMATION: right flank pain, hx of nephrolithiasis. TECHNIQUE: Axial CT images were obtained through the abdomen and pelvis without IV contrast. All CT scans at this location are performed using CT dose reduction for ALARA by means of automated exposure control. COMPARISON: 10/03/2020. FINDINGS: LOWER CHEST: Several sub-6 mm subpleural nodules are present within the right middle right lower lobe related which are stable dating back to 2019. These are of doubtful clinical significance. LIVER: Unremarkable GALLBLADDER/BILIARY TREE: Cholecystectomy. PANCREAS: Unremarkable SPLEEN: Unremarkable ADRENALS: Unremarkable KIDNEYS / URETER: Unremarkable unenhanced appearance of the kidneys. There is no urolithiasis or hydronephrosis. URINARY BLADDER: Bladder is partially decompressed, though grossly unremarkable. REPRODUCTIVE ORGANS: Uterus/adnexa are appropriate for age. STOMACH / SMALL BOWEL: Stomach and small bowel are normal in caliber. No evidence of bowel inflammation. COLON: There is no colonic wall thickening or pericolonic inflammatory stranding identified. The appendix is normal in caliber. LYMPH NODES: No significant adenopathy. VASCULATURE: No significant abnormality. OTHER: No free air, free fluid, or focal fluid collection is identified. SKELETAL SYSTEM: No acute osseous findings. IMPRESSION: 1. No acute abnormality of the abdomen and pelvis, within the limitations of this noncontrast examination. 2. Other stable chronic and incidental findings as above. Signer Name: Billy Jesus MD Signed: 11/10/2020 5:00 PM Workstation Name: [id number] Transcribed By: JACQUIE Dictated By: BILLY JESUS MD Electronically Authenticated By: BILLY JESUS MD Signed Date/Time: 11/10/20 170 DD/ 51 TD/TT: Critical care attestation.: If time is entered above; I have spent that time in minutes in the direct care of this critically ill patient, excluding procedure time. ED Disposition Clinical Impression: Vaginal bleeding, Chronic pain Disposition: DC-01 TO HOME OR SELFCARE Is pt being admited?: No Does the pt Need Aspirin: No Condition: Stable Instructions: Chronic Pain, Adult, Abnormal Uterine Bleeding, [id number] Additional Instructions: Please be sure to follow-up with your BELT MAKER HELPER please be sure to follow-up with BELT MAKER HELPER who advised to come to emergency department for testicular pain control. Is imperative that you follow-up and and manage her chronic pain with your primary provider. Understand that you have a surgery scheduled for December 28 definitively treat the current issue which it is encouraged that you keep the appointment and your doctor provide you the necessary management until that date can be reached Referrals: PRIMARY CARE, [Primary Care Provider] - 3-5 Days
[2020-11-10] MEDS ORDERED: oxyCODONE /ACETAMINOPHEN 5-325MG TAB PO ONE (18:31)
== END 2020-11-10 18:41 | disposition home or self-care (01) ==
LOC: ED 13:23
DX: N93.9 Abnormal uterine and vaginal bleeding, unspecified (principal); G89.29 Other chronic pain; Z79.899 Other long term (current) drug therapy; Z88.0 Allergy status to penicillin; Z91.041 Radiographic dye allergy status; Z88.8 Allergy status to other drugs, medicaments and biological substances; Z87.442 Personal history of urinary calculi; Z98.890 Other specified postprocedural states
CPT/HCPCS: 36415; 74176; 80053; 81001; 83690; 84702; 84703; 85025; 86900; 86901

== ENCOUNTER 2021-01-28 07:52 | Emergency (ER) | payer MEDICAID ==
[2021-01-28 08:26] LABS: Basophils % (Auto) 0.5 % (0.0-1.8); Hematocrit 33.6 % (30.3-42.9); Hemoglobin 10.7 gm/dl (10.1-14.3); Lymphocytes # (Auto) 0.9 K/mm3 (1.2-5.4); Mean Corpuscular HGB Conc 32 % (30-34); Mean Corpuscular Volume 81 fl (79-97); Monocytes # (Auto) 0.4 K/mm3 (0.0-0.8); Monocytes % (Auto) 5.6 % (0.0-7.3); Platelet Count 322 K/mm3 (140-440); Red Blood Count 4.14 M/mm3 (3.65-5.03); Red Cell Distribution Width 17.6 % (13.2-15.2)
[2021-01-28 08:43] LABS: Blood Urea Nitrogen 7 mg/dL (7-17); Calcium 9.3 mg/dL (8.4-10.2); Hemolysis Index 2
[2021-01-28 08:44] LABS: Bilirubin,Urine NEG (Negative); Blood,Urine LG (Negative); Color,Urine Red (Yellow); Urobilinogen,Urine < 2.0 mg/dL (<2.0)
[2021-01-28 08:49] LABS: BUN/Creatinine Ratio 12
[2021-01-28 08:51] LABS: HCG Qualitative,Urine Negative (Negative)
[2021-01-28 09:00] LABS: Mucus,Urine FEW /HPF
[2021-01-28 09:01] LABS: RBC,Urine > 182.0 /HPF (0.0-6.0)
[2021-01-28] MEDS ORDERED: diphenhydrAMINE 50 MG/ML VIAL IV ONE (10:03)
[2021-01-28] MEDS ORDERED: FAMOTIDINE 20 MG/2 ML INJ IV ONE (10:03)
[2021-01-28] MEDS ORDERED: methylPREDNISolone Sod Succinate 125 MG/2 ML INJ IV ONE (10:03)
[2021-01-28] MEDS ORDERED: SODIUM CHLORIDE 0.9% 1000 ML 1,000 ML IV ONE (10:04)
[2021-01-28] MEDS ORDERED: IPRATROPIUM/ALBUTEROL SULFATE 3 ML AMPUL.NEB IH ONE (10:07)
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
[2021-01-28] MEDS ORDERED: MORPHINE 4 MG/1 ML INJ IV ONE (10:30)
[2021-01-28 10:42] LABS: INR 0.95 (0.87-1.13)
[2021-01-28 10:58] LABS: Alanine Aminotransferase 23 units/L (7-56); Albumin 4.3 g/dL (3.9-5)
[2021-01-28 11:15] LABS: Bilirubin,Direct < 0.2 mg/dL (0-0.2)
[2021-01-28 11:29] LABS: Hematocrit 34.3 % (30.3-42.9); Hemoglobin 10.8 gm/dl (10.1-14.3)
--- NOTE | 2021-01-28 11:35 | XRay Report ---
CHEST 2 VIEWS INDICATION / CLINICAL INFORMATION: cough. COMPARISON: 05/18/2019 FINDINGS: SUPPORT DEVICES: None. HEART / MEDIASTINUM: No significant abnormality. LUNGS / PLEURA: No significant pulmonary or pleural abnormality. No pneumothorax. ADDITIONAL FINDINGS: Clips over the superior mediastinum. Prior cholecystectomy. IMPRESSION: 1. No acute findings. No significant interval change. Signer Name: Shivam Dimas MD Signed: 01/28/2021 11:31 AM Workstation Name: [id number]
[2021-01-28] MEDS ORDERED: HYDROmorphone 1 MG/1 ML INJ IV ONE ×3 (11:56→13:56)
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
--- NOTE | 2021-01-28 15:08 | Ultrasound Report ---
ULTRASOUND PELVIS INDICATION / CLINICAL INFORMATION: pelvic pain. TECHNIQUE: Transvaginal. Duplex Color Doppler used: Yes. COMPARISON: CT abdomen and pelvis dated 01/28/2021. FINDINGS: UTERUS: The uterus is anteverted and measures 8.1 x 4.7 x 6.1 cm. There is homogenous uterine echotex ture without focal uterine lesion. Endometrial thickness measures 16 mm, and is likely physiologic. RIGHT ADNEXA: No significant ovarian cyst or mass. Normal color Doppler blood flow. LEFT ADNEXA: Not well-visualized on this exam. URINARY BLADDER: No significant abnormality. FREE FLUID: None. ADDITIONAL FINDINGS: None. IMPRESSION: 1. No significant abnormality. The left ovary and adnexa were not well visualized this exam. Signer Name: Shivam Dimas MD Signed: 01/28/2021 3:04 PM Workstation Name: [id number]
[2021-01-28 15:26] VITALS: BP 130/78
== END 2021-01-28 15:24 | disposition home or self-care (01) ==
LOC: ED 07:52
DX: T78.40XA Allergy, unspecified, initial encounter (principal); T78.3XXA Angioneurotic edema, initial encounter; N93.9 Abnormal uterine and vaginal bleeding, unspecified; F17.200 Nicotine dependence, unspecified, uncomplicated; Z85.41 Personal history of malignant neoplasm of cervix uteri; Z98.890 Other specified postprocedural states; Z79.899 Other long term (current) drug therapy; Z88.0 Allergy status to penicillin; Z88.8 Allergy status to other drugs, medicaments and biological substances; X58.XXXA Exposure to other specified factors, initial encounter
CPT/HCPCS: 36415; 71046; 74177; 76830; 80048; 80076; 81001; 81025; 85014; 85018; 85025; 85610; 85730; 94640; 96361; 96374; 96375; 96376; 99285; J1170; J1200; J2270; J2930; J7030; Q9967; 94644

== ENCOUNTER 2021-03-15 09:51 | Emergency (ER) | payer OTHER, MEDICAID ==
[2021-03-15 09:59] VITALS: BP 160/103
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
[2021-03-15] MEDS ORDERED: IBUPROFEN 800 MG TAB PO ONE (11:35)
== END 2021-03-15 11:58 | disposition home or self-care (01) ==
LOC: ED 09:51
DX: M79.10 Myalgia, unspecified site (principal); R03.0 Elevated blood-pressure reading, without diagnosis of hypertension; Z98.890 Other specified postprocedural states; Z79.899 Other long term (current) drug therapy; V49.59XA Passenger injured in collision with other motor vehicles in traffic accident, initial encounter; Y93.89 Activity, other specified; Y92.488 Other paved roadways as the place of occurrence of the external cause; Y99.8 Other external cause status
CPT/HCPCS: 70450; 72125

== ENCOUNTER 2021-05-24 18:15 | Emergency (ER) | payer MEDICAID ==
[2021-05-24 18:36] VITALS: BP 142/76
[2021-05-24 19:00] LABS: Bilirubin,Urine NEG (Negative); Blood,Urine LG (Negative); Color,Urine Amber (Yellow); Urobilinogen,Urine < 2.0 mg/dL (<2.0)
[2021-05-24 19:03] LABS: Protein,Urine >500 mg/dL (Negative); RBC,Urine > 182.0 /HPF (0.0-6.0)
[2021-05-24 19:29] LABS: Basophils % (Auto) 0.4 % (0.0-1.8); Eosinophils # (Auto) 0.1 K/mm3 (0.0-0.4); Hematocrit 30.5 % (30.3-42.9); Hemoglobin 9.6 gm/dl (10.1-14.3); Lymphocytes # (Auto) 1.8 K/mm3 (1.2-5.4); Lymphocytes % (Auto) 24.3 % (13.4-35.0); Mean Corpuscular HGB Conc 31 % (30-34); Mean Corpuscular Volume 79 fl (79-97); Monocytes # (Auto) 0.8 K/mm3 (0.0-0.8); Monocytes % (Auto) 10.8 % (0.0-7.3); Platelet Count 380 K/mm3 (140-440); Red Blood Count 3.84 M/mm3 (3.65-5.03); Red Cell Distribution Width 17.7 % (13.2-15.2)
[2021-05-24 19:48] LABS: Alanine Aminotransferase 12 units/L (7-56); Albumin 4.4 g/dL (3.9-5); Blood Urea Nitrogen 10 mg/dL (7-17); Calcium 9.2 mg/dL (8.4-10.2); Hemolysis Index 9
[2021-05-24 19:59] LABS: BUN/Creatinine Ratio 17
[2021-05-24] MEDS ORDERED: ONDANSETRON 4 MG ODT TAB PO ONE (22:45)
[2021-05-24] MEDS ORDERED: HYDROcodone/ACETAMINOPHEN 5-325 MG TAB PO ONE (22:45)
--- NOTE | 2021-05-24 22:51 | Emergency Department Report ---
ED Female HPI - General Chief complaint: Vaginal Bleeding Stated complaint: VAG BLEEDING Time Seen by Provider: 05/24/21 22:45 Source: patient Mode of arrival: Ambulatory Limitations: No Limitations - History of Present Illness Initial comments: Patient is a 30-year-old female presents emergency room with complaints of vaginal bleeding that began earlier today. She states initially there was heavy bleeding but has since improved. Patient has been in the emergency department for 4 and half hours and she states that she has only had to change her tampon twice. She has associated lower abdominal cramping. Patient states that her last menstrual cycle was in February. She states that in March she took an [id number] at home test and reports it was positive but did not follow-up with anyone. She states that she has associated nausea and has had a couple episodes of vomiting. She denies any diarrhea, fever, urinary symptoms, abnormal vaginal discharge. Patient has a past medical history of cervical cancer. She states her next appointment with her CERTIFIED GREEN BUILDING ENGINEER is not until July. She has an allergy to Toradol, penicillin, tramadol, IV dye. - Related Data Previous Rx's Medication Instructions Recorded Last Taken Type Cyclobenzaprine [Flexeril] 10 mg PO TID PRN #10 tablet 03/15/21 Unknown Rx predniSONE [Deltasone] 20 mg PO DAILY #5 tablet 03/15/21 Unknown Rx Acetaminophen [Tylenol] 650 mg PO Q8HR PRN #20 capsule 05/24/21 Unknown Rx Allergies Allergy/AdvReac Type Severity Reaction Status Date / Time ketorolac tromethamine Allergy Hives Verified 03/15/21 09:59 [From Toradol] Penicillins Allergy Swelling Verified 03/15/21 09:59 tramadol Allergy Hives Verified 03/15/21 09:59 Iodinated Contrast Media AdvReac Mild other Verified 03/15/21 09:59 ED Review of Systems ROS: Stated complaint: VAG BLEEDING Other details as noted in HPI Comment: All other systems reviewed and negative ED Past Medical Hx - Past Medical History Previous Medical History?: Yes Hx Hypertension: No Hx CVA: No Hx Heart Attack/AMI: No Hx Diabetes: No Hx Deep Vein Thrombosis: No Hx Pulmonary Embolism: No Hx GERD: No Hx Liver Disease: No Hx Renal Disease: No Hx Sickle Cell Disease: No (pt has been tested and pt is neg for Sickle cell) Hx Arthritis: No Hx Headaches / Migraines: No Hx Seizures: No Hx Kidney Stones: Yes Hx Psychiatric Treatment: No Hx Asthma: No Hx COPD: No Hx Tuberculosis: No Hx Dementia: No Hx HIV: No Additional medical history: scoliosis. kidney stones. Joint disease - Surgical History Hx Coronary Stent: No Hx Open Heart Surgery: No Hx Pacemaker: No Hx Internal Defibrillator: No Hx Cholecystectomy: Yes Hx Appendectomy: No Hx Breast Surgery: No Additional Surgical History: X 5. HERNIA REPAIR - Social History Smoking Status: Never Smoker Substance Use Type: None - Medications Home Medications: Home Medications Medication Instructions Recorded Confirmed Last Taken Type Cyclobenzaprine [Flexeril] 10 mg PO TID PRN #10 tablet 03/15/21 Unknown Rx predniSONE [Deltasone] 20 mg PO DAILY #5 tablet 03/15/21 Unknown Rx Acetaminophen [Tylenol] 650 mg PO Q8HR PRN #20 capsule 05/24/21 Unknown Rx ED Physical Exam - General Limitations: No Limitations General appearance: alert, in no apparent distress - Head Head exam: Present: atraumatic, normocephalic - Eye Eye exam: Present: normal appearance - ENT ENT exam: Present: mucous membranes moist - Respiratory Respiratory exam: Present: normal lung sounds bilaterally. Absent: respiratory distress, wheezes, rales, rhonchi, stridor, chest wall tenderness, accessory muscle use, decreased breath sounds, prolonged expiratory - Cardiovascular Cardiovascular Exam: Present: regular rate, normal rhythm, normal heart sounds. Absent: systolic murmur, diastolic murmur, rubs, gallop - GI/Abdominal GI/Abdominal exam: Present: soft, tenderness (mild suprapubic), normal bowel sounds. Absent: distended, guarding, rebound, rigid - Neurological Exam Neurological exam: Present: alert, oriented X3 - Psychiatric Psychiatric exam: Present: normal affect, normal mood - Skin Skin exam: Present: warm, dry, intact ED Course Vital Signs 05/24/21 05/24/21 18:35 22:54 Temperature 98.3 F Pulse Rate 116 H Respiratory 20 18 Rate Blood Pressure 142/76 O2 Sat by Pulse 100 Oximetry ED Medical Decision Making - Lab Data Result diagrams: 05/24/21 18:47 05/24/21 18:47 Lab Results 05/24/21 05/24/21 05/24/21 Range/Units 18:38 18:47 18:47 WBC 7.2 (4.5-11.0) K/mm3 RBC 3.84 (3.65-5.03) M/mm3 Hgb 9.6 L (10.1-14.3) gm/dl Hct 30.5 (30.3-42.9) % MCV 79 (79-97) fl MCH 25 L (28-32) pg MCHC 31 (30-34) % RDW 17.7 H (13.2-15.2) % Plt Count 380 (140-440) K/mm3 Lymph % (Auto) 24.3 (13.4-35.0) % [place] % (Auto) 10.8 H (0.0-7.3) % Eos % (Auto) 2.0 (0.0-4.3) % Baso % (Auto) 0.4 (0.0-1.8) % Lymph # (Auto) 1.8 (1.2-5.4) K/mm3 [place] # (Auto) 0.8 (0.0-0.8) K/mm3 Eos # (Auto) 0.1 (0.0-0.4) K/mm3 Baso # (Auto) 0.0 (0.0-0.1) K/mm3 Seg Neutrophils % 62.5 (40.0-70.0) % Seg Neutrophils # 4.5 (1.8-7.7) K/mm3 Sodium 139 (137-145) mmol/L Potassium 4.1 (3.6-5.0) mmol/L Chloride 105.4 (98-107) mmol/L Carbon Dioxide 24 (22-30) mmol/L Anion Gap 14 mmol/L BUN 10 (7-17) mg/dL Creatinine 0.6 (0.6-1.2) mg/dL Estimated GFR > 60 ml/min BUN/Creatinine Ratio 17 % Glucose 84 (65-100) mg/dL Calcium 9.2 (8.4-10.2) mg/dL Total Bilirubin 0.20 (0.1-1.2) mg/dL AST 15 (5-40) units/L ALT 12 (7-56) units/L Alkaline Phosphatase 63 (35-129) units/L Total Protein 7.4 (6.3-8.2) g/dL Albumin 4.4 (3.9-5) g/dL Albumin/Globulin Ratio 1.5 % HCG, Quant (0-4) mIU/mL Urine Color Kirsten (Yellow) Urine Turbidity Turbid (Clear) Urine pH 6.0 (5.0-7.0) Ur Specific [place] 1.025 (1.003-1.030) Urine Protein >500 (Negative) mg/dL Urine Glucose (UA) Neg (Negative) mg/dL Urine Ketones Neg (Negative) mg/dL Urine Blood Lg (Negative) Urine Nitrite Neg (Negative) Urine Bilirubin Neg (Negative) Urine Urobilinogen < 2.0 (<2.0) mg/dL Ur Leukocyte Esterase Neg (Negative) Urine WBC (Auto) 35.0 H (0.0-6.0) /HPF Urine RBC (Auto) > 182.0 (0.0-6.0) /HPF Blood Type 05/24/21 05/24/21 Range/Units 18:47 18:47 WBC (4.5-11.0) K/mm3 RBC (3.65-5.03) M/mm3 Hgb (10.1-14.3) gm/dl Hct (30.3-42.9) % MCV (79-97) fl MCH (28-32) pg MCHC (30-34) % RDW (13.2-15.2) % Plt Count (140-440) K/mm3 Lymph % (Auto) (13.4-35.0) % [place] % (Auto) (0.0-7.3) % Eos % (Auto) (0.0-4.3) % Baso % (Auto) (0.0-1.8) % Lymph # (Auto) (1.2-5.4) K/mm3 [place] # (Auto) (0.0-0.8) K/mm3 Eos # (Auto) (0.0-0.4) K/mm3 Baso # (Auto) (0.0-0.1) K/mm3 Seg Neutrophils % (40.0-70.0) % Seg Neutrophils # (1.8-7.7) K/mm3 Sodium (137-145) mmol/L Potassium (3.6-5.0) mmol/L Chloride (98-107) mmol/L Carbon Dioxide (22-30) mmol/L Anion Gap mmol/L BUN (7-17) mg/dL Creatinine (0.6-1.2) mg/dL Estimated GFR ml/min BUN/Creatinine Ratio % Glucose (65-100) mg/dL Calcium (8.4-10.2) mg/dL Total Bilirubin (0.1-1.2) mg/dL AST (5-40) units/L ALT (7-56) units/L Alkaline Phosphatase (35-129) units/L Total Protein (6.3-8.2) g/dL Albumin (3.9-5) g/dL Albumin/Globulin Ratio % HCG, Quant < 2 (0-4) mIU/mL Urine Color (Yellow) Urine Turbidity (Clear) Urine pH (5.0-7.0) Ur Specific [place] (1.003-1.030) Urine Protein (Negative) mg/dL Urine Glucose (UA) (Negative) mg/dL Urine Ketones (Negative) mg/dL Urine Blood (Negative) Urine Nitrite (Negative) Urine Bilirubin (Negative) Urine Urobilinogen (<2.0) mg/dL Ur Leukocyte Esterase (Negative) Urine WBC (Auto) (0.0-6.0) /HPF Urine RBC (Auto) (0.0-6.0) /HPF Blood Type O POSITIVE - Medical Decision Making Patient is a 30-year-old female presents emergency room with complaints of vaginal bleeding that began earlier today. She states initially there was heavy bleeding but has since improved. Patient has been in the emergency department for 4 and half hours and she states that she has only had to change her tampon twice. She has associated lower abdominal cramping. Patient states that her last menstrual cycle was in February. She states that in March she took an [id number] at home test and reports it was positive but did not follow-up with anyone. She states that she has associated nausea and has had a couple episodes of vomiting. She denies any diarrhea, fever, urinary symptoms, abnormal vaginal discharge. Patient has a past medical history of cervical cancer. She states her next appointment with her C[employer]IFIED GREEN BUILDING ENGINEER is not until July. She has an allergy to Toradol, penicillin, tramadol, IV dye. Initial vitals with tachycardia, on auscultation heart rate has improved. On exam patient has mild suprapubic abdominal translocation, no guarding, no rebound, rigidity, normal sounds, no peritoneal signs. Labs are stable. hCG quant is less than 2. Discussed all results with patient and answer questions. Patient states that she did not drive to the emergency department, she was given Zofran and [place] and was able to tolerate p.o. intake without difficulty. Discussed with patient and the importance of C[employer]IED GREEN BUILDING ENGINEER follow-up regarding abnormal uterine bleeding. P jabari is requesting to have a Pap smear, I advised patient that this is an outpatient test that would be completed by an CERTIFIED GREEN BUILDING ENGINEER. advised pt Please take medication as prescribed. Increase your fluid intake. Please follow-up with your CERTIFIED GREEN BUILDING ENGINEER in the next few days. Return to emergency room for new or worsening symptoms. Critical care attestation.: If time is entered above; I have spent that time in minutes in the direct care of this critically ill patient, excluding procedure time. ED Disposition Clinical Impression: Abnormal uterine bleeding Disposition: DC- TO HOME OR SELFCARE Is pt being admited?: No Does the pt Need Aspirin: No Condition: Stable Instructions: Abnormal Uterine Bleeding Additional Instructions: Please take medication as prescribed. Increase your fluid intake. Please follow-up with your CERTIFIED GREEN BUILDING ENGINEER in the next few days. Return to emergency room for new or worsening symptoms. Prescriptions: Acetaminophen [Tylenol] 650 mg PO Q8HR PRN #20 capsule PRN Reason: pain Referrals: your, electrical intern [Other] - 2-3 Days Time of Disposition: 22:51 Print Language: SWAZI
== END 2021-05-24 22:52 | disposition home or self-care (01) ==
LOC: ED 18:15
DX: N93.9 Abnormal uterine and vaginal bleeding, unspecified (principal); R11.2 Nausea with vomiting, unspecified; Z90.49 Acquired absence of other specified parts of digestive tract; Z98.890 Other specified postprocedural states; Z79.899 Other long term (current) drug therapy; Z88.0 Allergy status to penicillin; Z88.8 Allergy status to other drugs, medicaments and biological substances
CPT/HCPCS: 36415; 80053; 81001; 84702; 85025; 86900; 86901; 87086; Q0162

== ENCOUNTER 2021-07-06 11:33 | Emergency (ER) | payer MEDICAID ==
[2021-07-06 11:45] VITALS: BP 160/97
[2021-07-06] MEDS ORDERED: methylPREDNISolone Sod Succinate 125 MG/2 ML INJ IV ONE (12:13)
[2021-07-06] MEDS ORDERED: diphenhydrAMINE 50 MG/ML VIAL IV ONE (12:14)
[2021-07-06] MEDS ORDERED: FAMOTIDINE 20 MG/2 ML INJ IV ONE (12:14)
--- NOTE | 2021-07-06 12:26 | Emergency Department Report ---
HPI - General Chief Complaint: Allergic Reaction PUI?: No Time Seen by Provider: 07/06/21 12:13 - HPI HPI: Patient is a 31-year-old -[place] F[place] that came to the ER today with complaints of swelling of her mouth and shortness of breath after eating mushrooms. She states that she has never had mushrooms before. She was ambulatory to [facility]. She was initially given Pepcid, Benadryl and Solu-Medrol in the triage area. Subsequently came back to [facility] and was ordered a breathing treatment and racemic epi because at that time she was wheezing. ED Past Medical Hx - Past Medical History Previous Medical History?: Yes Hx Hypertension: No Hx CVA: No Hx Heart Attack/AMI: No Hx Diabetes: No Hx Deep Vein Thrombosis: No Hx Pulmonary Embolism: No Hx GERD: No Hx Liver Disease: No Hx Renal Disease: No Hx Sickle Cell Disease: No (pt has been tested and pt is neg for Sickle cell) Hx Arthritis: No Hx Headaches / Migraines: No Hx Seizures: No Hx Kidney Stones: Yes Hx Psychiatric Treatment: No Hx Asthma: No Hx COPD: No Hx Tuberculosis: No Hx Dementia: No Hx HIV: No Additional medical history: scoliosis. kidney stones. Joint disease - Surgical History Past Surgical History?: Yes Hx Coronary Stent: No Hx Open Heart Surgery: No Hx Pacemaker: No Hx Internal Defibrillator: No Hx Cholecystectomy: Yes Hx Appendectomy: No Hx Breast Surgery: No Additional Surgical History: X 5. HERNIA REPAIR - Family History Family history: no significant - Social History Smoking Status: Never Smoker Substance Use Type: None - Medications Home Medications: Home Medications Medication Instructions Recorded Confirmed Last Taken Type Cyclobenzaprine [Flexeril] 10 mg PO TID PRN #10 tablet 03/15/21 Unknown Rx predniSONE [Deltasone] 20 mg PO DAILY #5 tablet 03/15/21 Unknown Rx Acetaminophen [Tylenol] 650 mg PO Q8HR PRN #20 capsule 05/24/21 Unknown Rx ED Review of Systems ROS: Stated complaint: ALLERGIC REACTION Other details as noted in HPI Comment: All other systems reviewed and negative Physical Exam - Physical Exam Vital Signs: Vital Signs 07/06/21 11:43 Temperature 98.6 F Pulse Rate 87 Respiratory 20 Rate Blood Pressure 160/97 O2 Sat by Pulse 100 Oximetry Physical Exam: Alert and oriented x4. No focal deficit neurologically. Moves all extremities well. Ambulatory S1-S2 no murmur bruit or rub Lungs with mild inspiratory wheezing. No JVD Abdomen soft nontender No CVA tenderness Skin warm and dry, no hives or other lesions Mucous membranes pink and moist Upper and lower lips noted to be swollen on initial exam Uvula midline, nonedematous or swollen. Patient controlling secretions ED Course Vital Signs 07/06/21 11:43 Temperature 98.6 F Pulse Rate 87 Respiratory 20 Rate Blood Pressure 160/97 O2 Sat by Pulse 100 Oximetry - Reevaluation(s) Reevaluation #1: 07/06/21 14:35 RN told me that the patient left the ER because she had to spanish moss picker her kids. ED Medical Decision Making - Medical Decision Making Vital Signs 07/06/21 11:43 Temperature 98.6 F Pulse Rate 87 Respiratory 20 Rate Blood Pressure 160/97 O2 Sat by Pulse 100 Oximetry Patient was medicated with Solu-Medrol, Pepcid, and Benadryl. She was ordered to have racemic epi and albuterol. However, the wait was extensive and the patient left the ER, AGAINST MEDICAL ADVICE, to get her children. When she left she ambulated briskly from [facility]. She did not sign an AMA form. - Differential Diagnosis Allergic reaction Critical care attestation.: If time is entered above; I have spent that time in minutes in the direct care of this critically ill patient, excluding procedure time. ED Disposition Clinical Impression: Allergic reaction Disposition: DC-07 LEFT AGAINST MED ADVICE Is pt being admited?: No Does the pt Need Aspirin: No Condition: Stable Instructions: Allergies, Adult Referrals: RUY VENCES MD [Staff Physician] - 3-5 Days Time of Disposition: 13:39
[2021-07-06] MEDS ORDERED: ALBUTEROL 2.5 MG/3 ML NEBU IH ONE (13:09)
[2021-07-06] MEDS ORDERED: EPINEPHrine/PF 1 MG/1 ML INJ SUB-Q ONE (13:09)
== END 2021-07-06 14:51 | disposition home or self-care (01) ==
LOC: ED 11:33
DX: T78.40XA Allergy, unspecified, initial encounter (principal); Z88.0 Allergy status to penicillin; Z88.8 Allergy status to other drugs, medicaments and biological substances; Z91.041 Radiographic dye allergy status; Z98.890 Other specified postprocedural states; Z79.899 Other long term (current) drug therapy; X58.XXXA Exposure to other specified factors, initial encounter
CPT/HCPCS: 96374; 96375; 99282; J1200; J2930

== ENCOUNTER 2021-10-29 01:39 | Emergency (ER) | payer MEDICAID ==
[2021-10-29 02:03] VITALS: BP 147/105
[2021-10-29] MEDS ORDERED: ONDANSETRON 4 MG ODT TAB PO ONE (02:40)
[2021-10-29] MEDS ORDERED: oxyCODONE /ACETAMINOPHEN 5-325MG TAB PO ONE (02:40)
--- NOTE | 2021-10-29 03:18 | Cat Scan Report ---
CT CERVICAL SPINE WITHOUT CONTRAST INDICATION / CLINICAL INFORMATION: Facial pain - injury. TECHNIQUE: Axial CT images were obtained through the cervical spine. Sagittal and coronal reformatted images were produced. All CT scans at this location are performed using CT dose reduction for ALARA by means of automated exposure control. COMPARISON: CT from 03/15/2021. FINDINGS: Alignment: Reversal of normal cervical lordosis. No acute subluxation. Geographic Bone Lesion: None present. Fracture: No acute fracture. Degenerative Changes: No significant spondylosis. Epidural Hematoma: Not present. Prevertebral / Paraspinal Soft Tissues: Unremarkable. IMPRESSION: No acute osseous findings in the cervical spine. Signer Name: Mohinder Jesus MD Signed: 10/29/2021 3:14 AM Workstation Name: [id number]
--- NOTE | 2021-10-29 04:27 | Emergency Department Report ---
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 Patient states that she was helping this patient to get up when the patient lost balance and landed on her causing severe pain. Patient denies dizziness, syncope, loss of consciousness, headache, change in vision, chest pain or shortness of breath, numbness and tingling or weakness of upper and lower extremities bilaterally. 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 denies: headache, neck pain, numbness, weakness, chest paint, shortness of breath, abdominal pain, hematuria, unable to walk, lightheaded, vertigo, confusion - Related Data Previous Rx's Medication Instructions Recorded Last Taken Type Cyclobenzaprine [Flexeril] 10 mg PO TID PRN #10 tablet 03/15/21 Unknown Rx predniSONE [Deltasone] 20 mg PO DAILY #5 tablet 03/15/21 Unknown Rx Acetaminophen [Tylenol] 650 mg PO Q8HR PRN #20 capsule 05/24/21 Unknown Rx HYDROcodone/APAP 5-325 [[place] 1 each PO Q6HR PRN #7 tablet 09/10/21 Unknown Rx 5/325] Allergies Allergy/AdvReac Type Severity Reaction Status Date / Time ketorolac tromethamine Allergy Hives Verified 03/15/21 09:59 [From Toradol] Penicillins Allergy Swelling Verified 03/15/21 09:59 tramadol Allergy Hives Verified 04/20/21 09:59 Iodinated Contrast Media AdvReac Mild other Verified 03/15/21 09:59 ED Review of Systems ROS: Stated complaint: Trauma at work Other details as noted in HPI Constitutional: denies: chills, fever Eyes: denies: eye pain, eye discharge, vision change ENT: other (Left facial pain). denies: ear pain, throat pain Respiratory: denies: cough, shortness of breath, wheezing Cardiovascular: denies: chest pain, palpitations Endocrine: no symptoms reported Gastrointestinal: denies: abdominal pain, nausea, vomiting, diarrhea Genitourinary: denies: urgency, dysuria, discharge Musculoskeletal: back pain (Low back pain), arthralgia (Left shoulder and left hip pain), other (Neck pain). denies: joint swelling Skin: denies: rash, lesions Neurological: denies: headache, weakness, paresthesias Psychiatric: denies: anxiety, depression Hematological/Lymphatic: denies: easy bleeding, easy bruising ED Past Medical Hx - Past Medical History Previous Medical History?: Yes Hx Hypertension: No Hx CVA: No Hx Heart Attack/AMI: No Hx Diabetes: No Hx Deep Vein Thrombosis: No Hx Pulmonary Embolism: No Hx GERD: No Hx Liver Disease: No Hx Renal Disease: No Hx of Cancer: Yes (CERVICAL) Hx Sickle Cell Disease: (pt has been tested and pt is neg for Sickle cell) Hx Arthritis: Yes Hx Headaches / Migraines: No Hx Seizures: No Hx Kidney Stones: Yes Hx Psychiatric Treatment: No Hx Asthma: No Hx COPD: No Hx Tuberculosis: No Hx Dementia: No Hx HIV: No Additional medical history: scoliosis. kidney stones. Joint disease - Surgical History Past Surgical History?: Yes Hx Coronary Stent: No Hx Open Heart Surgery: No Hx Pacemaker: No Hx Internal Defibrillator: No Hx Cholecystectomy: Yes Hx Appendectomy: No Hx Breast Surgery: No Additional Surgical History: X 5. HERNIA REPAIR - Social History Smoking Status: Never Smoker Substance Use Type: None - Medications Home Medications: Home Medications Medication Instructions Recorded Confirmed Last Taken Type Cyclobenzaprine [Flexeril] 10 mg PO TID PRN #10 tablet 03/15/21 Unknown Rx predniSONE [Deltasone] 20 mg PO DAILY #5 tablet 03/15/21 Unknown Rx Acetaminophen [Tylenol] 650 mg PO Q8HR PRN #20 capsule 06/29/21 Unknown Rx HYDROcodone/APAP 5-325 [[place] 1 each PO Q6HR PRN #7 tablet 09/10/21 Unknown Rx 5/325] ED Physical Exam - General Limitations: No Limitations General appearance: alert, in no apparent distress - Head Head exam: Present: atraumatic, normocephalic, normal inspection - Eye Eye exam: Present: normal appearance, PERRL, EOMI Pupils: Present: normal accommodation - ENT ENT exam: Present: normal exam, normal orophraynx, mucous membranes moist, TM's normal bilaterally, normal external ear exam, other (Palpable left mandibular tenderness) - Neck Neck exam: Present: normal inspection, tenderness (Palpable cervical paraspinal musculoskeletal tenderness), full ROM - Respiratory Respiratory exam: Present: normal lung sounds bilaterally. Absent: respiratory distress, wheezes, rales, rhonchi, chest wall tenderness, accessory muscle use, decreased breath sounds, prolonged expiratory - Cardiovascular Cardiovascular Exam: Present: normal rhythm, tachycardia, normal heart sounds. Absent: systolic murmur, diastolic murmur, rubs, gallop - GI/Abdominal GI/Abdominal exam: Present: soft, normal bowel sounds. Absent: tenderness, guarding, rebound, organomegaly - Extremities Exam Extremities exam: Present: normal inspection, full ROM, tenderness (Palpable left shoulder and left hip tenderness), normal capillary refill - Back Exam Back exam: Present: normal inspection, full ROM, tenderness (Palpable lumbosacral paraspinal musculoskeletal tenderness), muscle spasm, paraspinal tenderness. Absent: CVA tenderness (R), CVA tenderness (L), vertebral tenderness - Neurological Exam Neurological exam: Present: alert, oriented X3, CN II-XII intact, normal gait, reflexes normal - Psychiatric Psychiatric exam: Present: normal affect, normal mood - Skin Skin exam: Present: warm, dry, intact, normal color. Absent: rash ED Course Vital Signs 10/29/21 01:53 Temperature 98.5 F Pulse Rate 113 H Respiratory 18 Rate Blood Pressure 147/105 O2 Sat by Pulse 100 Oximetry ED Medical Decision Making - Radiology Data Radiology results: report reviewed, image reviewed [facility] [address] [place] [address] Cat Scan Report Signed Patient: MAXIMILIAN ERIC MR#: [id number] : 1990 Acct:[id number] Age/Sex: 31 / F ADM Date: 10/29/21 Loc: ED Attending Dr: Ordering Physician: CA WHYTE Date of Service: 10/29/21 Procedure(s): CT cervical spine wo con Accession Number(s): [id number] cc: CA WHYTE CT CERVICAL SPINE WITHOUT CONTRAST INDICATION / CLINICAL INFORMATION: Facial pain - injury. TECHNIQUE: Axial CT images were obtained through the cervical spine. Sagittal and coronal reformatted images were produced. All CT scans at this location are performed using CT dose redu ction for [facility] by means of automated exposure control. COMPARISON: CT from 03/15/2021. FINDINGS: Alignment: Reversal of normal cervical lordosis. No acute subluxation. Geographic Bone Lesion: None present. Fracture: No acute fracture. Degenerative Changes: No significant spondylosis. Epidural Hematoma: Not present. Prevertebral / Paraspinal Soft Tissues: Unremarkable. IMPRESSION: No acute osseous findings in the cervical spine. 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 Patient states that she was helping this patient to get up when the patient lost balance and landed on her causing severe pain. In the ED, patient is alert and oriented x3 and is not in any distress. Patient however appears to be in significant pain, crying throughout the day physical exam. Patient was treated for pain in the ED and C- spine CT scan without contrast showed no acute cervical disc fractures or subluxations. Patient however eloped from the ED after receiving pain medications and did not wait for any further imaging studies. - Differential Diagnosis Jaw fracture; cervical sprain; muscle spasm; hip fracture; shoulder sprain Critical care attestation.: If time is entered above; I have spent that time in minutes in the direct care of this critically ill patient, excluding procedure time. ED Disposition Clinical Impression: Spasm of muscle of lower back Contusion of face, scalp and neck Qualifiers: Encounter type: initial encounter Qualified Code(s): S00.83XA - Contusion of other part of head, initial encounter; S00.03XA - Contusion of scalp, initial encounter; S10.93XA - Contusion of unspecified part of neck, initial encounter Acute cervical sprain Qualifiers: Encounter type: initial encounter Qualified Code(s): S13.9XXA - Sprain of joints and ligaments of unspecified parts of neck, initial encounter Sprain of left shoulder Qualifiers: Encounter type: initial encounter Shoulder sprain type: unspecified sprain Qualified Code(s): S43.402A - Unspecified sprain of left shoulder joint, initial encounter Disposition: 07 LEFT AWOL/ELOPED Is pt being admited?: No Does the pt Need Aspirin: No Condition: Stable Instructions: Muscle Cramps and Spasms, [id number], Cervical Sprain, [id number], Facial or Scalp Contusion, [id number], Back Injury Prevention, E asy-to-Read Referrals: PRIMARY CARE, [Primary Care Provider] - 3-5 Days Time of Disposition: 03:00 Print Language: FRENCH
== END 2021-10-29 04:00 | disposition left against medical advice (07) ==
LOC: ED 01:39
DX: S13.9XXA Sprain of joints and ligaments of unspecified parts of neck, initial encounter (principal); S43.492A Other sprain of left shoulder joint, initial encounter; S00.83XA Contusion of other part of head, initial encounter; M62.830 Muscle spasm of back; Z88.0 Allergy status to penicillin; Z88.6 Allergy status to analgesic agent; Z88.8 Allergy status to other drugs, medicaments and biological substances; W18.39XA Other fall on same level, initial encounter; Y93.89 Activity, other specified; Y92.89 Other specified places as the place of occurrence of the external cause; Y99.8 Other external cause status
CPT/HCPCS: 36415; 72125; 84703; 99284; J3490; Q0162

== ENCOUNTER 2021-11-24 13:52 | Emergency (ER) | payer MEDICAID ==
[2021-11-24 16:28] LABS: Basophils # (Auto) 0.2 K/mm3 (0.0-0.1); Basophils % (Auto) 2.1 % (0.0-1.8); Eosinophils # (Auto) 0.1 K/mm3 (0.0-0.4); Eosinophils % (Auto) 0.6 % (0.0-4.3); Lymphocytes # (Auto) 2.4 K/mm3 (1.2-5.4); Lymphocytes % (Auto) 27.7 % (13.4-35.0); Mean Corpuscular HGB Conc 29 % (30-34); Mean Corpuscular Volume 71 fl (79-97); Platelet Count 427 K/mm3 (140-440); Red Blood Count 3.84 M/mm3 (3.65-5.03); Red Cell Distribution Width 18.7 % (13.2-15.2)
[2021-11-24 16:32] LABS: Hematocrit 27.2 % (30.3-42.9)
[2021-11-24] MEDS ORDERED: diphenhydrAMINE 50 MG/ML VIAL IV ONE (17:50)
[2021-11-24] MEDS ORDERED: SODIUM CHLORIDE 0.9% 1000 ML 1,000 ML IV ONE (17:50)
[2021-11-24] MEDS ORDERED: MORPHINE 4 MG/1 ML INJ IV ONE ×2 (17:50→20:40)
[2021-11-24] MEDS ORDERED: ONDANSETRON 4 MG/2 ML INJ IV ONE (17:50)
[2021-11-24 21:13] LABS: Alanine Aminotransferase 23 units/L (7-56); Albumin 4.2 g/dL (3.9-5); Blood Urea Nitrogen 10 mg/dL (7-17); Calcium 9.2 mg/dL (8.4-10.2); Hemolysis Index 15
[2021-11-24 21:17] LABS: BUN/Creatinine Ratio 14
--- NOTE | 2021-11-24 21:18 | XRay Report ---
CHEST 2 VIEWS INDICATION / CLINICAL INFORMATION: sickle cell pain. COMPARISON: Regular of series IV/XX/MMXXI FINDINGS: SUPPORT DEVICES: None. HEART / MEDIASTINUM: No significant abnormality. LUNGS / PLEURA: No significant pulmonary abnormality. No significant pleural effusion. No pneumothora x. ADDITIONAL FINDINGS: The bones are unchanged. IMPRESSION: 1. No acute abnormality of the chest. No significant interval changes. Signer Name: Ayush Mcgowan MD Signed: 11/24/2021 9:13 PM Workstation Name: [id number]
--- NOTE | 2021-11-24 21:45 | Emergency Department Report ---
ED Shortness of Breath HPI - General Chief Complaint: Pain General Stated Complaint: SICKLE CELL PAIN Time Seen by Provider: 11/24/21 21:37 Source: EMS Mode of arrival: Wheelchair Limitations: No Limitations - History of Present Illness Initial Comments: Patient is a 31-year-old F Finnish female who has a past medical history of chronic pain who is presenting with 2 to 3 days of cough and congestion. Patient states that she did have a Covid test approximately 2 weeks ago which was negative. States that for the past several days she has had some pain in the chest and a wet sounding cough. Complaining of some body aches as well. Patient signed in stating that she was having a sickle cell crisis however patient is well-known to our department and she has had several negative sickle cell test here in our hospital. She also has a remote history of chronic abdominal pain as well. Patient not endorsing any fevers chills nausea vomiting diarrhea at this time. - Related Data Previous Rx's Medication Instructions Recorded Last Taken Type Cyclobenzaprine [Flexeril] 10 mg PO TID PRN #10 tablet 03/15/21 Unknown Rx predniSONE [Deltasone] 20 mg PO DAILY #5 tablet 03/15/21 Unknown Rx Acetaminophen [Tylenol] 650 mg PO Q8HR PRN #20 capsule 05/24/21 Unknown Rx HYDROcodone/APAP 5-325 [[place] 1 each PO Q6HR PRN #7 tablet 09/10/21 Unknown Rx 5/325] Albuterol Mdi (or & Nicu Only) 2 puff IH QID PRN #1 inhalation 11/24/21 Unknown Rx [ProAir HFA Inhaler] Benzonatate [Tessalon Perles] 100 mg PO Q8HR #10 capsule 11/24/21 Unknown Rx Dexamethasone [Decadron] 6 mg PO DAILY #7 tablet 11/24/21 Unknown Rx HYDROcodone/APAP 5-325 [[place] 1 each PO Q6HR PRN #10 tablet 11/24/21 Unknown Rx 5/325] Allergies Allergy/AdvReac Type Severity Reaction Status Date / Time ketorolac tromethamine Allergy Hives Verified 03/15/21 09:59 [From Toradol] Penicillins Allergy Swelling Verified 03/15/21 09:59 tramadol Allergy Hives Verified 03/15/21 09:59 Iodinated Contrast Media AdvReac Mild other Verified 03/15/21 09:59 ED Review of Systems ROS: Stated complaint: SICKLE CELL PAIN Other details as noted in HPI Comment: All other systems reviewed and negative ED Past Medical Hx - Past Medical History Previous Medical History?: Yes Hx Hypertension: No Hx CVA: No Hx Heart Attack/AMI: No Hx Diabetes: No Hx Deep Vein Thrombosis: No Hx Pulmonary Embolism: No Hx GERD: No Hx Liver Disease: No Hx Renal Disease: No Hx Sickle Cell Disease: (pt has been tested and pt is neg for Sickle cell) Hx Arthritis: Yes Hx Headaches / Migraines: No Hx Seizures: No Hx Kidney Stones: Yes Hx Psychiatric Treatment: No Hx Asthma: No Hx COPD: No Hx Tuberculosis: No Hx Dementia: No Hx HIV: No Additional medical history: scoliosis. kidney stones. Joint disease - Surgical History Hx Coronary Stent: No Hx Open Heart Surgery: No Hx Pacemaker: No Hx Internal Defibrillator: No Hx Cholecystectomy: Yes Hx Appendectomy: No Hx Breast Surgery: No Additional Surgical History: X 5. HERNIA REPAIR - Social History Smoking Status: Never Smoker Substance Use Type: None - Medications Home Medications: Home Medications Medication Instructions Recorded Confirmed Last Taken Type Cyclobenzaprine [Flexeril] 10 mg PO TID PRN #10 tablet 03/15/21 Unknown Rx predniSONE [Deltasone] 20 mg PO DAILY #5 tablet 03/15/21 Unknown Rx Acetaminophen [Tylenol] 650 mg PO Q8HR PRN #20 capsule 05/24/21 Unknown Rx HYDROcodone/APAP 5-325 [[place] 1 each PO Q6HR PRN #7 tablet 09/10/21 Unknown Rx 5/325] Albuterol Mdi (or & Nicu Only) 2 puff IH QID PRN #1 inhalation 11/24/21 Unknown Rx [ProAir HFA Inhaler] Benzonatate [Tessalon Perles] 100 mg PO Q8HR #10 capsule 11/24/21 Unknown Rx Dexamethasone [Decadron] 6 mg PO DAILY #7 tablet 11/24/21 Unknown Rx HYDROcodone/APAP 5-325 [[place] 1 each PO Q6HR PRN #10 tablet 11/24/21 Unknown Rx 5/325] ED Physical Exam - General Limitations: No Limitations General appearance: alert, in no apparent distress - Head Head exam: Present: atraumatic, normocephalic - Eye Eye exam: Present: normal appearance - ENT ENT exam: Present: mucous membranes moist - Neck Neck exam: Present: normal inspection - Respiratory Respiratory exam: Present: normal lung sounds bilaterally. Absent: respiratory distress, wheezes, rales, rhonchi - Cardiovascular Cardiovascular Exam: Present: regular rate, normal rhythm, normal heart sounds. Absent: systolic murmur, diastolic murmur, rubs, gallop - GI/Abdominal GI/Abdominal exam: Present: soft. Absent: distended - Extremities Exam Extremities exam: Present: normal inspection - Back Exam Back exam: Present: normal inspection - Neurological Exam Neurological exam: Present: alert, oriented X3 - Psychiatric Psychiatric exam: Present: normal affect, normal mood - Skin Skin exam: Present: warm, dry, intact, normal color. Absent: rash ED Course Vital Signs 11/24/21 14:04 Temperature 98 F Pulse Rate 85 Respiratory 18 Rate Blood Pressure 135/69 [Left] O2 Sat by Pulse 100 Oximetry ED Medical Decision Making - Lab Data Result diagrams: 11/24/21 16:10 11/24/21 20:50 - Radiology Data CHEST 2 VIEWS INDICATION / CLINICAL INFORMATION: sickle cell pain. COMPARISON: Regular of series IV/XX/MMXXI FINDINGS: SUPPORT DEVICES: None. HEART / MEDIASTINUM: No significant abnormality. LUNGS / PLEURA: No significant pulmonary abnormality. No significant pleural effusion. No pneumothorax. ADDITIONAL FINDINGS: The bones are unchanged. IMPRESSION: 1. No acute abnormality of the chest. No significant interval changes. Signer Name: Ayush Mcgowan MD Signed: 11/24/2021 9:13 PM Workstation Name: [id number] - Medical Decision Making Patient has a negative chest x-ray and normal vital signs. Patient will be discharged home with medication for symptomatic relief. Patient likely has COVID-19 given the prevalence of the on the ground variant Covid which is pres ent currently. Critical care attestation.: If time is entered above; I have spent that time in minutes in the direct care of this critically ill patient, excluding procedure time. ED Disposition Clinical Impression: Suspected COVID-19 virus infection Acute bronchitis Qualifiers: Bronchitis organism: unspecified organism Qualified Code(s): J20.9 - Acute bronchitis, unspecified Disposition: 01 HOME / SELF CARE / HOMELESS Is pt being admited?: No Does the pt Need Aspirin: No Condition: Stable Instructions: Acute Bronchitis (ED), Acute Bronchitis, Adult, [id number], COVID-19, COVID-19 Frequently Asked Questions Referrals: PRIMARY CARE, [Primary Care Provider] - 3-5 Days Time of Disposition: 21:44
[2021-11-24 22:02] VITALS: BP 128/64
== END 2021-11-24 22:01 | disposition home or self-care (01) ==
LOC: ED 13:52
DX: J20.9 Acute bronchitis, unspecified (principal); Z20.822 Contact with and (suspected) exposure to COVID-19; Z88.6 Allergy status to analgesic agent; Z88.0 Allergy status to penicillin; Z88.5 Allergy status to narcotic agent; Z91.041 Radiographic dye allergy status
CPT/HCPCS: 36415; 71046; 80053; 85025; 85045; 96361; 96374; 96375; 96376; 99284; J1200; J2270; J2405; J7030; Q0162

== ENCOUNTER 2022-01-28 18:00 | Emergency (ER) | payer MEDICAID ==
[2022-01-28] MEDS ORDERED: ONDANSETRON 4 MG/2 ML INJ IV ONE (19:05)
[2022-01-28] MEDS ORDERED: MORPHINE 2 MG/1 ML INJ IV ONE (19:26)
[2022-01-28] MEDS ORDERED: diphenhydrAMINE 50 MG/ML VIAL IV ONE ×4 (19:26→22:12)
--- NOTE | 2022-01-28 19:32 | Emergency Department Report ---
ED Female HPI - General Chief complaint: Abdominal Pain Stated complaint: RT/LT SIDE PAIN Source: patient Mode of arrival: Ambulatory Limitations: No Limitations - History of Present Illness Initial comments: 31-year-old female presents to the ED complaining primary urination, hematuria, bilateral flank pain radiating to the pelvis x1 week. States pain has worsened today after working 16-hour shift. Patient has a history of kidney stone ,sickle cell, and cervical cancer . Patient states that this pain is a 10 out of 10 . Patient is requesting morphine and Benadryl. Patient does not denies any shortness of breath ,chest pain or vaginal discharge. Patient is alert and oriented x3. No acute distress noted Onset/Timin -: week(s) Severity scale (0 -10): 10 Quality: cramping Consistency: intermittent Improves with: none Worsens with: urination Associated Symptoms: denies other symptoms - Related Data Previous Rx's Medication Instructions Recorded Last Taken Type Cyclobenzaprine [Flexeril] 10 mg PO TID PRN #10 tablet 03/15/21 Unknown Rx predniSONE [Deltasone] 20 mg PO DAILY #5 tablet 03/15/21 Unknown Rx Acetaminophen [Tylenol] 650 mg PO Q8HR PRN #20 capsule 05/24/21 Unknown Rx HYDROcodone/APAP 5-325 [[place] 1 each PO Q6HR PRN #7 tablet 09/10/21 Unknown Rx 5/325] Albuterol Mdi (or & Nicu Only) 2 puff IH QID PRN #1 inhalation 11/24/21 Unknown Rx [ProAir HFA Inhaler] Benzonatate [Tessalon Perles] 100 mg PO Q8HR #10 capsule 11/24/21 Unknown Rx Dexamethasone [Decadron] 6 mg PO DAILY #7 tablet 11/24/21 Unknown Rx HYDROcodone/APAP 5-325 [[place] 1 each PO Q6HR PRN #10 tablet 11/24/21 Unknown Rx 5/325] Acetaminophen/Codeine [Tylenol 1 tab PO Q6H PRN 3 Days #12 tab 01/28/22 Unknown Rx /Codeine # 3 tab] Ciprofloxacin HCl [Ciprofloxacin 750 mg PO BID 5 Days #10 tab 01/28/22 Unknown Rx TAB] Hyoscyamine Subl [Levsin Sl 0.125 0.125 mg SL Q6HR PRN 5 Days #20 tab 01/28/22 Unknown Rx TAB] traMADoL [Ultram] 50 mg PO Q4HR PRN 3 Days #12 tablet 01/28/22 Unknown Rx Allergies Allergy/AdvReac Type Severity Reaction Status Date / Time ketorolac tromethamine Allergy Hives Verified 03/15/21 09:59 [From Toradol] Penicillins Allergy Swelling Verified 03/15/21 09:59 Iodinated Contrast Media AdvReac Mild other Verified 03/15/21 09:59 ED Review of Systems ROS: Stated complaint: RT/LT SIDE PAIN Other details as noted in HPI Constitutional: denies: chills, fever Eyes: denies: eye pain, eye discharge, vision change ENT: denies: ear pain, throat pain Respiratory: denies: cough, shortness of breath, wheezing Cardiovascular: denies: chest pain, palpitations Endocrine: no symptoms reported Gastrointestinal: denies: abdominal pain, nausea, diarrhea Genitourinary: hematuria. denies: urgency, dysuria, discharge Musculoskeletal: back pain. denies: joint swelling, arthralgia Skin: denies: rash, lesions Neurological: denies: headache, weakness, paresthesias Psychiatric: denies: anxiety, depression Hematological/Lymphatic: denies: easy bleeding, easy bruising ED Past Medical Hx - Past Medical History Hx Hypertension: No Hx CVA: No Hx Heart Attack/AMI: No Hx Diabetes: No Hx Deep Vein Thrombosis: No Hx Pulmonary Embolism: No Hx GERD: No Hx Liver Disease: No Hx Renal Disease: No Hx Sickle Cell Disease: (pt has been tested and pt is neg for Sickle cell) Hx Arthritis: Yes Hx Headaches / Migraines: No Hx Seizures: No Hx Kidney Stones: Yes Hx Psychiatric Treatment: No Hx Asthma: No Hx COPD: No Hx Tuberculosis: No Hx Dementia: No Hx HIV: No Additional medical history: scoliosis. kidney stones. Joint disease - Surgical History Hx Coronary Stent: No Hx Open Heart Surgery: No Hx Pacemaker: No Hx Internal Defibrillator: No Hx Cholecystectomy: Yes Hx Appendectomy: No Hx Breast Surgery: No Additional Surgical History: X 5. HERNIA REPAIR - Social History Smoking Status: Never Smoker Substance Use Type: None - Medications Home Medications: Home Medications Medication Instructions Recorded Confirmed Last Taken Type Cyclobenzaprine [Flexeril] 10 mg PO TID PRN #10 tablet 03/15/21 Unknown Rx predniSONE [Deltasone] 20 mg PO DAILY #5 tablet 03/15/21 Unknown Rx Acetaminophen [Tylenol] 650 mg PO Q8HR PRN #20 capsule 05/24/21 Unknown Rx HYDROcodone/APAP 5-325 [[place] 1 each PO Q6HR PRN #7 tablet 09/10/21 Unknown Rx 5/325] Albuterol Mdi (or & Nicu Only) 2 puff IH QID PRN #1 inhalation 11/24/21 Unknown Rx [ProAir HFA Inhaler] Benzonatate [Tessalon Perles] 100 mg PO Q8HR #10 capsule 11/24/21 Unknown Rx Dexamethasone [Decadron] 6 mg PO DAILY #7 tablet 11/24/21 Unknown Rx HYDROcodone/APAP 5-325 [[place] 1 each PO Q6HR PRN #10 tablet 11/24/21 Unknown Rx 5/325] Acetaminophen/Codeine [Tylenol 1 tab PO Q6H PRN 3 Days #12 tab 01/28/22 Unknown Rx /Codeine # 3 tab] Ciprofloxacin HCl [Ciprofloxacin 750 mg PO BID 5 Days #10 tab 01/28/22 Unknown Rx TAB] Hyoscyamine Subl [Levsin Sl 0.125 0.125 mg SL Q6HR PRN 5 Days #20 tab 01/28/22 Unknown Rx TAB] traMADoL [Ultram] 50 mg PO Q4HR PRN 3 Days #12 tablet 01/28/22 Unknown Rx ED Physical Exam - General Limitations: No Limitations General appearance: alert, in no apparent distress - Head Head exam: Present: atraumatic, normocephalic - Eye Eye exam: Present: normal appearance - ENT ENT exam: Present: mucous membranes moist - Neck Neck exam: Present: normal inspection - Respiratory Respiratory exam: Present: normal lung sounds bilaterally. Absent: respiratory distress - Cardiovascular Cardiovascular Exam: Present: regular rate, normal rhythm. Absent: systolic murmur, diastolic murmur, rubs, gallop - GI/Abdominal GI/Abdominal exam: Present: soft, normal bowel sounds - Extremities Exam Extremities exam: Present: normal inspection - Back Exam Back exam: Present: normal inspection - Neurological Exam Neurological exam: Present: alert, oriented X3 - Psychiatric Psychiatric exam: Present: normal affect, normal mood - Skin Skin exam: Present: warm, dry, intact, normal color. Absent: rash ED Course Vital Signs 01/28/22 01/28/22 01/28/22 18:23 19:32 20:42 Temperature 98.4 F Pulse Rate 95 H Respiratory 16 14 14 Rate Blood Pressure 133/76 [Left] O2 Sat by Pulse 100 Oximetry 01/28/22 22:36 Temperature Pulse Rate 87 Respiratory 14 Rate Blood Pressure 141/58 [Left] O2 Sat by Pulse 100 Oximetry ED Medical Decision Making - Lab Data Result diagrams: 01/28/22 19:35 01/28/22 19:35 Abnormal Lab Results 01/28/22 01/28/22 01/28/22 19:29 19:35 19:35 WBC 8.6 RBC 4.07 Hgb 8.9 L Hct 29.9 L MCV 74 L MCH 22 L MCHC 30 RDW 19.4 H Plt Count 528 H Lymph % (Auto) 27.4 [place] % (Auto) 7.7 H Eos % (Auto) 1.0 Baso % (Auto) 1.9 H Lymph # (Auto) 2.4 [place] # (Auto) 0.7 Eos # (Auto) 0.1 Baso # (Auto) 0.2 H Seg Neutrophils % 62.0 Seg Neutrophils # 5.3 Sodium Potassium Chloride Carbon Dioxide Anion Gap BUN Creatinine Estimated GFR BUN/Creatinine Ratio Glucose Calcium Total Bilirubin AST ALT Alkaline Phosphatase Total Protein Albumin Albumin/Globulin Ratio HCG, Quant < 2 Urine Color Yellow Urine Turbidity Clear Urine pH 6.0 Ur Specific [place] 1.026 Urine Protein 30 mg/dl Urine Glucose (UA) Neg Urine Ketones Tr Urine Blood Lg Urine Nitrite Neg Urine Bilirubin Neg Urine Urobilinogen < 2.0 Ur Leukocyte Esterase Tr Urine WBC (Auto) 4.0 Urine RBC (Auto) 24.0 U Epithel Cells (Auto) 9.0 Urine Bacteria (Auto) 1+ Urine Mucus 1+ 01/28/22 19:35 WBC RBC Hgb Hct MCV MCH MCHC RDW Plt Count Lymph % (Auto) [place] % (Auto) Eos % (Auto) Baso % (Auto) Lymph # (Auto) [place] # (Auto) Eos # (Auto) Baso # (Auto) Seg Neutrophils % Seg Neutrophils # Sodium 139 Potassium 3.6 Chloride 103.7 Carbon Dioxide 23 Anion Gap 16 BUN 14 Creatinine 0.6 Estimated GFR > 60 BUN/Creatinine Ratio 23 Glucose 90 Calcium 8.7 Total Bilirubin 0.20 AST 13 ALT 12 Alkaline Phosphatase 59 Total Protein 8.2 Albumin 4.3 Albumin/Globulin Ratio 1.1 HCG, Quant Urine Color Urine Turbidity Urine pH Ur Specific [place] Urine Protein Urine Glucose (UA) Urine Ketones Urine Blood Urine Nitrite Urine Bilirubin Urine Urobilinogen Ur Leukocyte Esterase Urine WBC (Auto) Urine RBC (Auto) U Epithel Cells (Auto) Urine Bacteria (Auto) Urine Mucus - Radiology Data [facility] [address] [id number] Cat Scan Report Signed Patient: MAXIMILIAN ERIC MR#: [id number] : 1990 Acct:[id number] Age/Sex: 31 / F ADM Date: 01/28/22 Loc: ED Attending Dr: Ordering Physician: MARYJANE GALLAGHER Date of Service: 01/28/22 Procedure(s): CT abdomen pelvis wo con Accession Number(s): [id number] cc: MARYJANE GALLAGHER CT ABDOMEN AND PELVIS WITHOUT CONTRAST, 01/28/2022 INDICATION: Abdominal pain TECHNICAL: Multiple axial CT images of the abdomen and pelvis were acquired without intravenous contrast. Sagittal and coronal reformats were obtained. All CTs at this facility utilize dose reduction techniques including automated exposure control, iterative reconstruction and weight based dosing when appropriate to reduce patient radiation dose to as low as reasonable achievable. COMPARISON: CT of the abdomen and pelvis, 09/10/2021 FINDINGS: LUNG BASES: Limited imaging of the bilateral lung bases demonstrates no acute abnormality. ABDOMEN: There has been previous cholecystectomy. Within the limitations of today's noncontrast technique, the liver, spleen, stomach, pancreas, bilateral adrenal glands and bilateral kidneys show no evidence of acute abnormality. The abdominal aorta is normal in caliber. There is no evidence of bowel obstruction. The appendix is visualized and appears normal. PELVIS: No free fluid is seen within the pelvis. The uterus and urinary bladder appear grossly normal. BONES AND SOFT TISSUES: No significant abnormality. IMPRESSION: 1. No evidence of acute inflammatory or obstructive process within the abdomen or pelvis. Signer Name: Pam Astudillo MD Signed: 01/28/2022 9:42 PM Workstation Name: [id number] Transcribed By: EB Dictated By: Pam Astudillo MD Electronically Authenticated By: Pam Astudillo MD Signed Date/Time: 01/28/222141 - Medical Decision Making 31-year-old female presents to the ED complaining primary urination, hematuria, bilateral flank pain radiating to the pelvis x1 week. States pain has worsened today after working 16-hour shift. Patient has a history of kidney stone ,sickle cell, and cervical cancer . Patient states that this pain is a 10 out of 10 . Patient is requesting morphine and Benadryl. Patient does not denies any shortness of breath ,chest pain or vaginal discharge. Patient is alert and oriented x3. No acute distress noted . Patient physical examination is unremarkable. No CVA tenderness noted on examination. No abdominal tenderness noted on examination. Patient continues to complain low back pain. Morphine 10 mg with Benadryl 75 mg IV throughout the course of ED treatment. CT scan of the abdominal pelvis show no abnormality. Patient hemoglobin /hematocrit 8.9 /29.6. Patient has history of sickle cell this is normal range for patient. Explained to patient that pain may be coming from sickle cell. She declined to have IV fluids at present and further lab work. Patient is mainly concerned with having a kidney stone. Rechecked the patient is resting quietly quietly and comfortable and feeling better. I discussed the results of diagnostic study, my clinical impression and the plan for further treatment with the patient. Patient agrees with plan and discharge at this present time. All question addressed. I have given the patient instruction regarding a diagnosis ,expectation ,follow- up and return precaution. I explained to the patient that emergent condition may arise and to return to the ED for new worsen and any new persisting condition. I have explained the importance of following up with the primary care physician or referral physician listed below has instructed. The patient verbalized understanding of discharge instruction. Critical care attestation.: If time is entered above; I have spent that time in minutes in the direct care of this critically ill patient, excluding procedure time. ED Disposition Clinical Impression: Acute urinary tract infection Disposition: 01 HOME / SELF CARE / HOMELESS Is pt being admited?: No Does the pt Need Aspirin: No Condition: Stable Instructions: Urinary Tract Infection, Adult, [id number], Abdominal Pain (ED) Additional Instructions: Follow-up with your sickle cell doctor Take medication as prescribed Return to the ED for any worsening symptom Prescriptions: Ciprofloxacin HCl [Ciprofloxacin TAB] 750 mg PO BID 5 Days #10 tab Hyoscyamine Subl [Levsin Sl 0.125 TAB] 0.125 mg SL Q6HR PRN 5 Days #20 tab PRN Reason: Muscle Spasm Acetaminophen/Codeine [Tylenol /Codeine # 3 tab] 1 tab PO Q6H PRN 3 Days #12 tab PRN Reason: Pain, Moderate (4-6) traMADoL [Ultram] 50 mg PO Q4HR PRN 3 Days #12 tablet PRN Reason: Pain Referrals: RUY VENCES MD [Primary Care Provider] - 3-5 Days Forms: Work/School Release Form(ED)
[2022-01-28 20:03] LABS: Basophils # (Auto) 0.2 K/mm3 (0.0-0.1); Basophils % (Auto) 1.9 % (0.0-1.8); Eosinophils # (Auto) 0.1 K/mm3 (0.0-0.4); Lymphocytes # (Auto) 2.4 K/mm3 (1.2-5.4); Lymphocytes % (Auto) 27.4 % (13.4-35.0); Mean Corpuscular HGB Conc 30 % (30-34); Mean Corpuscular Volume 74 fl (79-97); Monocytes # (Auto) 0.7 K/mm3 (0.0-0.8); Monocytes % (Auto) 7.7 % (0.0-7.3); Platelet Count 528 K/mm3 (140-440); Red Blood Count 4.07 M/mm3 (3.65-5.03); Red Cell Distribution Width 19.4 % (13.2-15.2)
[2022-01-28 20:04] LABS: Bacteria,Urine 1+ /HPF (Negative); Bilirubin,Urine NEG (Negative); Blood,Urine LG (Negative); Color,Urine Yellow (Yellow); Mucus,Urine 1+ /HPF; Urobilinogen,Urine < 2.0 mg/dL (<2.0)
[2022-01-28 20:06] LABS: Hematocrit 29.9 % (30.3-42.9); Hemoglobin 8.9 gm/dl (10.1-14.3)
[2022-01-28 20:16] LABS: Alanine Aminotransferase 12 units/L (7-56); Albumin 4.3 g/dL (3.9-5); Blood Urea Nitrogen 14 mg/dL (7-17); Calcium 8.7 mg/dL (8.4-10.2); Hemolysis Index 0
[2022-01-28 20:20] LABS: BUN/Creatinine Ratio 23
[2022-01-28] MEDS ORDERED: MORPHINE 4 MG/1 ML INJ IV ONE ×2 (20:33→22:10)
--- NOTE | 2022-01-28 21:47 | Cat Scan Report ---
CT ABDOMEN AND PELVIS WITHOUT CONTRAST, 01/28/2022 INDICATION: Abdominal pain TECHNICAL: Multiple axial CT images of the abdomen and pelvis were acquired without intravenous contr ast. Sagittal and coronal reformats were obtained. All CTs at this facility utilize dose reduction techniques including automated exposure control, iterative reconstruction and weight based dosing whe n appropriate to reduce patient radiation dose to as low as reasonable achievable. COMPARISON: CT of the abdomen and pelvis, 09/10/2021 FINDINGS: LUNG BASES: Limited imaging of the bilateral lung bases demonstrates no acute abnormality. ABDOMEN: There has been previous cholecystectomy. Within the limitations of today's noncontrast techn ique, the liver, spleen, stomach, pancreas, bilateral adrenal glands and bilateral kidneys show no ev idence of acute abnormality. The abdominal aorta is normal in caliber. There is no evidence of bowel obstruction. The appendix is visualized and appears normal. PELVIS: No free fluid is seen within the pelvis. The uterus and urinary bladder appear grossly normal . BONES AND SOFT TISSUES: No significant abnormality. IMPRESSION: 1. No evidence of acute inflammatory or obstructive process within the abdomen or pelvis. Signer Name: Pam Astudillo MD Signed: 01/28/2022 9:42 PM Workstation Name: [id number]
[2022-01-28] MEDS ORDERED: MORPHINE 2 MG/1 ML INJ IM ONE (22:11)
[2022-01-28 22:37] VITALS: BP 141/58
== END 2022-01-28 22:44 | disposition home or self-care (01) ==
LOC: ED 18:00
DX: N39.0 Urinary tract infection, site not specified (principal); R31.9 Hematuria, unspecified; Z87.442 Personal history of urinary calculi; Z98.890 Other specified postprocedural states; Z88.0 Allergy status to penicillin; Z91.041 Radiographic dye allergy status; Z88.8 Allergy status to other drugs, medicaments and biological substances; Z79.899 Other long term (current) drug therapy
CPT/HCPCS: 36415; 74176; 80053; 81001; 84702; 85025; 96374; 96375; 96376; 99284; J1200; J2270

== ENCOUNTER 2022-02-08 20:43 | Emergency (ER) | payer MEDICAID ==
[2022-02-08 21:07] VITALS: BP 134/87
[2022-02-08 22:46] LABS: Mucus,Urine 1+ /HPF
[2022-02-08 22:59] LABS: Color,Urine Yellow (Yellow)
[2022-02-08 23:00] LABS: Bilirubin,Urine Negative (Negative); Blood,Urine Negative (Negative)
[2022-02-08 23:01] LABS: Urobilinogen,Urine < 2.0 mg/dL (<2.0)
[2022-02-08] MEDS ORDERED: D5W/0.2% NACL 1,000 ML IV SCH (23:45)
[2022-02-08] MEDS ORDERED: HYDROmorphone 1 MG/1 ML INJ IV ONE (23:57)
[2022-02-08] MEDS ORDERED: ONDANSETRON 4 MG/2 ML INJ IV ONE (23:57)
[2022-02-09] MEDS ORDERED: SODIUM CHLORIDE 0.9% 1000 ML 1,000 ML IV ONE (00:32)
[2022-02-09 00:33] LABS: Basophils # (Auto) 0.1 K/mm3 (0.0-0.1); Basophils % (Auto) 0.7 % (0.0-1.8); Eosinophils # (Auto) 0.1 K/mm3 (0.0-0.4); Eosinophils % (Auto) 0.8 % (0.0-4.3); Lymphocytes # (Auto) 2.1 K/mm3 (1.2-5.4); Lymphocytes % (Auto) 20.1 % (13.4-35.0); Mean Corpuscular HGB Conc 30 % (30-34); Mean Corpuscular Volume 73 fl (79-97); Platelet Count 407 K/mm3 (140-440); Red Blood Count 4.04 M/mm3 (3.65-5.03); Red Cell Distribution Width 19.7 % (13.2-15.2)
[2022-02-09 00:53] LABS: Hematocrit 29.5 % (30.3-42.9); Hemoglobin 8.7 gm/dl (10.1-14.3)
--- NOTE | 2022-02-09 07:51 | Emergency Department Report ---
ED General Adult HPI - General Chief complaint: Pain General Stated complaint: SICKLE CELL/RT ARM SWELLING/CANCER/CERVICAL FLUID Source: patient Mode of arrival: Ambulatory Limitations: No Limitations - History of Present Illness Initial comments: This patient states that she has a history of sickle cell disease. She also states that she has a history of cervical cancer and is to have a procedure performed in [place] in the next 2 months. She presented to the emergency depa rtment complaining of pain of the extremities with associated nausea and vomiting. A discussion of her ability to keep fluids down patient states that she was unable to. She appeared to be more concerned about obtaining pain medication. She denied fever chills, vaginal bleeding or discharge. And states that her abdomen is bloated. She however denied any overt abdominal pain. -: Gradual, days(s) Time: 03:00 Location: left, right, upper extremity, lower extremity Radiation: non-radiation, abdomen Severity scale (0 -10): 3 Quality: aching, constant Consistency: constant Improves with: none Worsens with: movement Associated Symptoms: denies other symptoms Treatments Prior to Arrival: none - Related Data Previous Rx's Medication Instructions Recorded Last Taken Type Cyclobenzaprine [Flexeril] 10 mg PO TID PRN #10 tablet 03/15/21 Unknown Rx predniSONE [Deltasone] 20 mg PO DAILY #5 tablet 03/15/21 Unknown Rx Acetaminophen [Tylenol] 650 mg PO Q8HR PRN #20 capsule 05/24/21 Unknown Rx HYDROcodone/APAP 5-325 [[place] 1 each PO Q6HR PRN #7 tablet 09/10/21 Unknown Rx 5/325] Albuterol Mdi (or & Nicu Only) 2 puff IH QID PRN #1 inhalation 11/24/21 Unknown Rx [ProAir HFA Inhaler] Benzonatate [Tessalon Perles] 100 mg PO Q8HR #10 capsule 11/24/21 Unknown Rx Dexamethasone [Decadron] 6 mg PO DAILY #7 tablet 11/24/21 Unknown Rx HYDROcodone/APAP 5-325 [[place] 1 each PO Q6HR PRN #10 tablet 11/24/21 Unknown Rx 5/325] Acetaminophen/Codeine [Tylenol 1 tab PO Q6H PRN 3 Days #12 tab 01/28/22 Unknown Rx /Codeine # 3 tab] Ciprofloxacin HCl [Ciprofloxacin 750 mg PO BID 5 Days #10 tab 01/28/22 Unknown Rx TAB] Hyoscyamine Subl [Levsin Sl 0.125 0.125 mg SL Q6HR PRN 5 Days #20 tab 01/28/22 Unknown Rx TAB] traMADoL [Ultram] 50 mg PO Q4HR PRN 3 Days #12 tablet 01/28/22 Unknown Rx Allergies Allergy/AdvReac Type Severity Reaction Status Date / Time ketorolac tromethamine Allergy Hives Verified 03/15/21 09:59 [From Toradol] Penicillins Allergy Swelling Verified 03/15/21 09:59 Iodinated Contrast Media AdvReac Mild other Verified 03/15/21 09:59 ED Review of Systems ROS: Stated complaint: SICKLE CELL/RT ARM SWELLING/CANCER/CERVICAL FLUID Other details as noted in HPI Comment: All other systems reviewed and negative Constitutional: denies: chills, fever Respiratory: denies: cough, shortness of breath, wheezing Musculoskeletal: back pain, myalgia ED Past Medical Hx - Past Medical History Hx Hypertension: No Hx CVA: No Hx Heart Attack/AMI: No Hx Diabetes: No Hx Deep Vein Thrombosis: No Hx Pulmonary Embolism: No Hx GERD: No Hx Liver Disease: No Hx Renal Disease: No Hx Sickle Cell Disease: (pt has been tested and pt is neg for Sickle cell) Hx Arthritis: Yes Hx Headaches / Migraines: No Hx Seizures: No Hx Kidney Stones: Yes Hx Psychiatric Treatment: No Hx Asthma: No Hx COPD: No Hx Tuberculosis: No Hx Dementia: No Hx HIV: No Additional medical history: scoliosis. kidney stones. Joint disease - Surgical History Hx Coronary Stent: No Hx Open Heart Surgery: No Hx Pacemaker: No Hx Internal Defibrillator: No Hx Cholecystectomy: Yes Hx Appendectomy: No Hx Breast Surgery: No Additional Surgical History: X 5. HERNIA REPAIR - Social History Smoking Status: Never Smoker Substance Use Type: None - Medications Home Medications: Home Medications Medication Instructions Recorded Confirmed Last Taken Type Cyclobenzaprine [Flexeril] 10 mg PO TID PRN #10 tablet 03/15/21 Unknown Rx predniSONE [Deltasone] 20 mg PO DAILY #5 tablet 03/15/21 Unknown Rx Acetaminophen [Tylenol] 650 mg PO Q8HR PRN #20 capsule 05/24/21 Unknown Rx HYDROcodone/APAP 5-325 [[place] 1 each PO Q6HR PRN #7 tablet 10/16/21 Unknown Rx 5/325] Albuterol Mdi (or & Nicu Only) 2 puff IH QID PRN #1 inhalation 11/24/21 Unknown Rx [ProAir HFA Inhaler] Benzonatate [Tessalon Perles] 100 mg PO Q8HR #10 capsule 11/24/21 Unknown Rx Dexamethasone [Decadron] 6 mg PO DAILY #7 tablet 11/24/21 Unknown Rx HYDROcodone/APAP 5-325 [[place] 1 each PO Q6HR PRN #10 tablet 11/24/21 Unknown Rx 5/325] Acetaminophen/Codeine [Tylenol 1 tab PO Q6H PRN 3 Days #12 tab 01/28/22 Unknown Rx /Codeine # 3 tab] Ciprofloxacin HCl [Ciprofloxacin 750 mg PO BID 5 Days #10 tab 01/28/22 Unknown Rx TAB] Hyoscyamine Subl [Levsin Sl 0.125 0.125 mg SL Q6HR PRN 5 Days #20 tab 01/28/22 Unknown Rx TAB] traMADoL [Ultram] 50 mg PO Q4HR PRN 3 Days #12 tablet 01/28/22 Unknown Rx ED Physical Exam - General Limitations: No Limitations General appearance: alert - Head Head exam: Present: atraumatic, normocephalic - ENT ENT exam: Present: mucous membranes moist - Neck Neck exam: Present: normal inspection - Respiratory Respiratory exam: Present: normal lung sounds bilaterally. Absent: respiratory distress - Cardiovascular Cardiovascular Exam: Present: regular rate, normal rhythm. Absent: systolic murmur, diastolic murmur, rubs, gallop - GI/Abdominal GI/Abdominal exam: Present: soft, distended. Absent: tenderness, guarding, rebound - Rectal Rectal exam: Present: deferred - Extremities Exam Extremities exam: Present: normal inspection, full ROM - Neurological Exam Neurological exam: Present: alert, oriented X3 - Psychiatric Psychiatric exam: Present: normal affect, normal mood ED Course Vital Signs 02/08/22 21:03 Temperature 98.7 F Pulse Rate 107 H Respiratory 18 Rate Blood Pressure 134/87 O2 Sat by Pulse 100 Oximetry ED Medical Decision Making - Lab Data Result diagrams: 02/09/22 00:19 - Medical Decision Making The patient's labs were reviewed and there was no significant abnormality noted. She was advised that the treatment of her sickle cell would be desirous of fluids which was to be administered intravenously. The patient was given pain medication as well as an antiemetic. The patient was to receive a p.o. fluid challenge and if she was able to tolerate this she will be discharged with pain medication and antiemetics. The pain medication not necessarily be cardiac. The patient apparently eloped from the emergency department. Critical care attestation.: If time is entered above; I have spent that time in minutes in the direct care of this critically ill patient, excluding procedure time. ED Disposition Clinical Impression: Sickle cell crisis Disposition: 07 LEFT AWOL/ELOPED Is pt being admited?: No Does the pt Need Aspirin: No Condition: Stable Referrals: PRIMARY CARE, [Referring] - 3-5 Days
== END 2022-02-09 07:22 | disposition left against medical advice (07) ==
LOC: ED 20:43
DX: D57.219 Sickle-cell/Hb-C disease with crisis, unspecified (principal); Z88.0 Allergy status to penicillin; Z91.041 Radiographic dye allergy status
CPT/HCPCS: 36415; 81001; 85025; 85045; 96361; 96374; 96375; 99283; J1170; J2405; J7030; J7042; Q0162

== ENCOUNTER 2022-02-22 13:39 | Emergency (ER) | payer MEDICAID ==
[2022-02-22] MEDS ORDERED: IPRATROPIUM 0.02% NEBU 2.5 ML IH ONE (14:32)
[2022-02-22] MEDS ORDERED: ALBUTEROL 2.5 MG/3 ML NEBU IH ONE (14:32)
[2022-02-22] MEDS ORDERED: ONDANSETRON 4 MG/2 ML INJ IV ONE (14:38)
[2022-02-22] MEDS ORDERED: fentaNYL 100 MCG/2 ML INJ IV ONE (14:38)
[2022-02-22] MEDS ORDERED: SODIUM CHLORIDE 0.9% 1000 ML 1,000 ML IV ONE (14:38)
--- NOTE | 2022-02-22 14:42 | Emergency Department Report ---
HPI - General Chief Complaint: Chest Pain Time Seen by Provider: 02/22/22 14:19 - HPI HPI: Room 1 Patient is a 31-year-old female present with a chief complaint of vaginal bleeding chest pain. The patient states for the past 3 days she has had stabbing left-sided chest pain with a pleuritic component. Patient states for the past 2 weeks she has had a cough has been nonproductive. Patient states this morning she was febrile to 102 F and experienced orthopnea. The patient states when she awakened this morning she noticed to have heavy vaginal bleeding passing blood clots. Patient states she has been through 3 pads since 09: 00. Patient has a history of cervical cancer status post chemotherapy 12/01/2021 and is scheduled for an upcoming hysterectomy. Patient states her LMP was 02/11-02/16 and she went through approximately 4-5 pads per day. ED Past Medical Hx - Past Medical History Hx Sickle Cell Disease: (pt has been tested and pt is neg for Sickle cell) Hx Arthritis: Yes Hx Kidney Stones: Yes Additional medical history: scoliosis. kidney stones. Joint disease - Surgical History Hx Cholecystectomy: Yes Additional Surgical History: X 5. HERNIA REPAIR - Family History Family history: no significant - Social History Smoking Status: Current Every Day Smoker (1 cigarette daily) Substance Use Type: None (Denies illicit drug use) - Medications Home Medications: Home Medications Medication Instructions Recorded Confirmed Last Taken Type Cyclobenzaprine [Flexeril] 10 mg PO TID PRN #10 tablet 03/15/21 Unknown Rx predniSONE [Deltasone] 20 mg PO DAILY #5 tablet 03/15/21 Unknown Rx Acetaminophen [Tylenol] 650 mg PO Q8HR PRN #20 capsule 05/24/21 Unknown Rx HYDROcodone/APAP 5-325 [[place] 1 each PO Q6HR PRN #7 tablet 09/10/21 Unknown Rx 5/325] Albuterol Mdi (or & Nicu Only) 2 puff IH QID PRN #1 inhalation 11/24/21 Unknown Rx [ProAir HFA Inhaler] Benzonatate [Tessalon Perles] 100 mg PO Q8HR #10 capsule 11/24/21 Unknown Rx Dexamethasone [Decadron] 6 mg PO DAILY #7 tablet 11/24/21 Unknown Rx HYDROcodone/APAP 5-325 [[place] 1 each PO Q6HR PRN #10 tablet 11/24/21 Unknown Rx 5/325] Acetaminophen/Codeine [Tylenol 1 tab PO Q6H PRN 3 Days #12 tab 01/28/22 Unknown Rx /Codeine # 3 tab] Ciprofloxacin HCl [Ciprofloxacin 750 mg PO BID 5 Days #10 tab 01/28/22 Unknown Rx TAB] Hyoscyamine Subl [Levsin Sl 0.125 0.125 mg SL Q6HR PRN 5 Days #20 tab 01/28/22 Unknown Rx TAB] traMADoL [Ultram] 50 mg PO Q4HR PRN 3 Days #12 tablet 01/28/22 Unknown Rx ED Review of Systems ROS: Stated complaint: CHEST PAIN Other details as noted in HPI Constitutional: fever Eyes: denies: eye pain ENT: denies: throat pain Respiratory: cough, orthopnea Cardiovascular: chest pain Endocrine: no symptoms reported Gastrointestinal: denies: abdominal pain Genitourinary: abnormal menses Skin: denies: rash Neurological: denies: headache Physical Exam - Physical Exam Vital Signs: Vital Signs 02/22/22 13:51 Temperature 98.8 F Pulse Rate 103 H Respiratory 20 Rate Blood Pressure 131/75 O2 Sat by Pulse 100 Oximetry Physical Exam: GENERAL: The patient is well-developed well-nourished female lying on stretcher not appearing to be in acute distress. [] HEENT: Normocephalic. Atraumatic. Extraocular motions are intact. Patient has moist mucous membranes. NECK: Supple. Trachea midline CHEST/LUNGS: Diffuse faint expiratory wheezes. Occasional rhonchi.. There is no accessory muscle use HEART/CARDIOVASCULAR: Regular. There is tachycardia. There is no gallop rub or murmur. ABDOMEN: Abdomen is soft, nontender. Patient has normal bowel sounds. There is no abdominal distention. SKIN: There is no rash. There is no edema. There is no diaphoresis. NEURO: The patient is awake, alert, and oriented. The patient is cooperative. The patient has no focal neurologic deficits. The patient has normal speech. GCS 15 MUSCULOSKELETAL: There is no evidence of acute injury. ED Course Vital Signs 02/22/22 13:51 Temperature 98.8 F Pulse Rate 103 H Respiratory 20 Rate Blood Pressure 131/75 O2 Sat by Pulse 100 Oximetry ED Medical Decision Making - Lab Data Result diagrams: 02/22/22 Unknown 02/22/22 Unknown Laboratory Tests 02/22/22 02/22/22 02/22/22 Unknown Unknown Unknown WBC 6.3 RBC 3.79 Hgb 8.1 L Hct 28.5 L MCV 75 L MCH 21 L MCHC 29 L RDW 20.0 H Plt Count 195 [place] % (Auto) Manager Pipeline Add Manual Diff Complete Total Counted 100 Seg Neuts % (Manual) 53.0 Band Neutrophils % 0 Lymphocytes % (Manual) 28.0 Reactive Lymphs % (Man) 0 Monocytes % (Manual) 18.0 H Eosinophils % (Manual) 1.0 Basophils % (Manual) 0 Metamyelocytes % 0 Myelocytes % 0 Promyelocytes % 0 Blast Cells % 0 Nucleated RBC % Not Reportable Seg Neutrophils # Man 3.3 Band Neutrophils # 0.0 Lymphocytes # (Manual) 1.8 Abs React Lymphs (Man) 0.0 Monocytes # (Manual) 1.1 H Eosinophils # (Manual) 0.1 Basophils # (Manual) 0.0 Metamyelocytes # 0.0 Myelocytes # 0.0 Promyelocytes # 0.0 Blast Cells # 0.0 WBC Morphology Not Reportable Hypersegmented Neuts Not Reportable Hyposegmented Neuts Not Reportable Hypogranular Neuts Not Reportable Smudge Cells Not Reportable Toxic Granulation Not Reportable Toxic Vacuolation Not Reportable Dohle Bodies Not Reportable Pelger-Huet Anomaly Not Reportable Jeanne Rods Not Reportable Platelet Estimate Consistent w auto Clumped Platelets Not Reportable Plt Clumps, EDTA Not Reportable Large Platelets Not Reportable Giant Platelets Not Reportable Platelet Satelliting Not Reportable Plt Morphology Comment Not Reportable RBC Morphology Not Reportable Dimorphic RBCs Not Reportable Polychromasia Not Reportable Hypochromasia 2+ Poikilocytosis Not Reportable Anisocytosis 1+ Microcytosis Not Reportable Macrocytosis Not Reportable Spherocytes Not Reportable Pappenheimer Bodies Not Reportable Sickle Cells Not Reportable Target Cells Not Reportable Tear Drop Cells Not Reportable Ovalocytes Not Reportable Helmet Cells Not Reportable [place] Bodies Not Reportable [place] Rings Not Reportable Yaritza Cells Not Reportable Bite Cells Not Reportable Crenated Cell Not Reportable Elliptocytes Not Reportable Acanthocytes (Spur) Not Reportable Rouleaux Not Reportable Hemoglobin C Crystals Not Reportable Schistocytes Not Reportable Malaria parasites Not Reportable Percent Retic 1.17 Cameron Bodies Not Reportable Hem Pathologist Commnt No PT 14.5 INR 1.02 D-Dimer 424.15 H Sodium 136 L Potassium 3.5 L Chloride 107.5 H Carbon Dioxide 19 L Anion Gap 13 BUN 5 L Creatinine 0.5 L Estimated GFR > 60 BUN/Creatinine Ratio 10 Glucose 87 Calcium 8.5 Total Bilirubin 0.40 AST 18 ALT 11 Alkaline Phosphatase 57 Troponin T < 0.010 NT-Pro-B Natriuret Pep Total Protein 6.7 Albumin 3.6 L Albumin/Globulin Ratio 1.2 02/22/22 Unknown WBC RBC Hgb Hct MCV MCH MCHC RDW Plt Count [place] % (Auto) Add Manual Diff Total Counted Seg Neuts % (Manual) Band Neutrophils % Lymphocytes % (Manual) Reactive Lymphs % (Man) Monocytes % (Manual) Eosinophils % (Manual) Basophils % (Manual) Metamyelocytes % Myelocytes % Promyelocytes % Blast Cells % Nucleated RBC % Seg Neutrophils # Man Band Neutrophils # Lymphocytes # (Manual) Abs React Lymphs (Man) Monocytes # (Manual) Eosinophils # (Manual) Basophils # (Manual) Metamyelocytes # Myelocytes # Promyelocytes # Blast Cells # WBC Morphology Hypersegmented Neuts Hyposegmented Neuts Hypogranular Neuts Smudge Cells Toxic Granulation Toxic Vacuolation Dohle Bodies Pelger-Huet Anomaly Jeanne Rods Platelet Estimate Clumped Platelets Plt Clumps, EDTA Large Platelets Giant Platelets Platelet Satelliting Plt Morphology Comment RBC Morphology Dimorphic RBCs Polychromasia Hypochromasia Poikilocytosis Anisocytosis Microcytosis Macrocytosis Spherocytes Pappenheimer Bodies Sickle Cells Target Cells Tear Drop Cells Ovalocytes Helmet Cells [place] Bodies [place] Rings Yaritaz Cells Bite Cells Crenated Cell Elliptocytes Acanthocytes (Spur) Rouleaux Hemoglobin C Crystals Schistocytes Malaria parasites Percent Retic Cameron Bodies Hem Pathologist Commnt PT INR D-Dimer Sodium Potassium Chloride Carbon Dioxide Anion Gap BUN Creatinine Estimated GFR BUN/Creatinine Ratio Glucose Calcium Total Bilirubin AST ALT Alkaline Phosphatase Troponin T NT-Pro-B Natriuret Pep 207.6 Total Protein Albumin Albumin/Globulin Ratio - EKG Data -: EKG Interpreted by Me EKG shows normal: sinus rhythm Rate: normal - EKG Data When compared to previous EKG there are: previous EKG unavailable Interpretation: nonspecific ST-T wave maki (T wave inversion in lead III) - Radiology Data Radiology results: report reviewed (Chest x-ray, VQ scan), image reviewed (Chest x-ray, VQ scan) interpreted by me: Chest x-ray-right lower lobe infiltrate. No pneumothorax [address] [address] XRay Report Signed Patient: MAXIMILIAN ERIC MR#: [id number] : 1990 Acct:[id number] Age/Sex: 31 / F ADM Date: 02/22/22 Loc: ED Attending Dr: Ordering Physician: ILYA DESAI MD Date of Service: 02/22/22 Procedure(s): XR chest 1V ap Accession Number(s): [id number] cc: ILYA DESAI MD Fluoro Time In Minutes: CHEST 1 VIEW 02/22/2022 2:51 PM INDICATION / CLINICAL INFORMATION: chest pain, cough. COMPARISON: 11/24/2021 FINDINGS: Patient is rotated. SUPPORT DEVICES: None. HEART / MEDIASTINUM: No significant abnormality. LUNGS / PLEURA: . There is airspace opacity noted in the right lung base which could represent atelectasis or evolving pneumonia. No pneumothorax. ADDITIONAL FINDINGS: No significant additional findings. IMPRESSION: 1. There is airspace opacity in the right lung base which could represent atelectasis or evolving pneumonia. Signer Name: Dallin Bill MD Signed: 02/22/2022 3:53 PM Workstation Name: [id number] Transcribed By: SS Dictated By: Dallin Bill MD Electronically Authenticated By: Dallin Bill MD Signed Date/Time: 02/22/221552 DD/ 52 TD/TT: [address] [address] Nuclear Medicine Report Signed Patient: MAXIMILIAN ERIC MR#: [id number] : 1990 Acct:[id number] Age/Sex: 31 / F ADM Date: 02/22/22 Loc: ED Attending Dr: Ordering Physician: ILYA DESAI MD Date of Service: 02/22/22 Procedure(s): NM perfusion only lung scan Accession Number(s): [id number] cc: ILYA DESAI MD Nuclear medicine perfusion lung scan Indication: Shortness of breath Technique: 5.3 mCi of Tc 99m MAA were given by IV. Findings: Comparison with chest radiograph from earlier today. Ventilation images were not acquired. Perfusion images demonstrate patchy small nonsegmental filling defects within both lungs. Impression: Intermediate probability for acute PTE. If this patient cannot receive contrast, CTA chest is recommended. Signer Name: Drake Goodwin MD Signed: 02/22/2022 5:10 PM Workstation Name: [id number] Transcribed By: GARRETT Dictated By: Drake Goodwin MD Electronically Authenticated By: Drake Goodwin MD Signed Date/Time: 02/22/221709 DD/ 06 TD/TT: - Differential Diagnosis Pneumonia, bronchitis, acute chest syndrome, PE, ACS, pericarditis Critical care attestation.: If time is entered above; I have spent that time in minutes in the direct care of this critically ill patient, excluding procedure time. ED Disposition Clinical Impression: Acute chest syndrome Disposition: ADMITTED INPATIENT Is pt being admited?: Yes Does the pt Need Aspirin: No Condition: Fair Referrals: PRIMARY CARE, [Primary Care Provider] - 3-5 Days Time of Disposition: 17:26 (Hospitalist called (Dr. King)) Heart Score - HEART Score History: Slightly suspicious EKG: Non-specific Age: < 45 Risk factors: 1-2 risk factors Troponin: < normal limit HEART Score: 2 - EKG Read Time Time EKG Completed: 14:00 EKG Read Time: 14:05
[2022-02-22 15:55] LABS: Mean Corpuscular HGB Conc 29 % (30-34); Mean Corpuscular Volume 75 fl (79-97); Platelet Count 195 K/mm3 (140-440); Red Blood Count 3.79 M/mm3 (3.65-5.03)
[2022-02-22 15:57] LABS: Hemoglobin 8.1 gm/dl (10.1-14.3)
[2022-02-22 15:58] LABS: Hematocrit 28.5 % (30.3-42.9)
[2022-02-22] MEDS ORDERED: HYDROmorphone 1 MG/1 ML INJ IV ONE ×2 (15:58→18:41)
[2022-02-22] MEDS ORDERED: diphenhydrAMINE 50 MG/ML VIAL IV ONE (15:58)
--- NOTE | 2022-02-22 15:58 | XRay Report ---
CHEST 1 VIEW 02/22/2022 2:51 PM INDICATION / CLINICAL INFORMATION: chest pain, cough. COMPARISON: 11/24/2021 FINDINGS: Patient is rotated. SUPPORT DEVICES: None. HEART / MEDIASTINUM: No significant abnormality. LUNGS / PLEURA: . There is airspace opacity noted in the right lung base which could represent atelec tasis or evolving pneumonia. No pneumothorax. ADDITIONAL FINDINGS: No significant additional findings. IMPRESSION: 1. There is airspace opacity in the right lung base which could represent atelectasis or evolving pne umonia. Signer Name: Dallin Bill MD Signed: 02/22/2022 3:53 PM Workstation Name: [id number]
[2022-02-22 16:04] LABS: INR 1.02 (0.87-1.13)
--- NOTE | 2022-02-22 16:13 | Ultrasound Report ---
ULTRASOUND PELVIS COMPLETE ULTRASOUND TRANSVAGINAL INDICATION / CLINICAL INFORMATION: Heavy vaginal bleeding, history of cervical CA. TECHNIQUE: Transabdominal and Transvaginal. Duplex Color Doppler used: Yes. COMPARISON: 01/28/2021 FINDINGS: UTERUS: Anteverted and mildly enlarged - Appearance (if present): Slightly heterogeneous but no large fibroids are detected - Size in cm (if present): 12.8 x 4.0 x 6.5. - Endometrial Complex (if present): No significant abnormality.. Thickness in cm (if measured) = 0.8 - Mass lesions: None. - Additional findings: The cervix is unremarkable on transvaginal imaging. RIGHT ADNEXA: A 2.4 cm simple appearing cyst is identified. Normal color Doppler blood flow. LEFT ADNEXA: No significant ovarian cyst or mass. Normal color Doppler blood flow. URINARY BLADDER: No significant abnormality. FREE FLUID: None. ADDITIONAL FINDINGS: None. IMPRESSION: Mildly enlarged and heterogeneous uterus but no discrete fibroids are appreciated. 2.4 cm right ovarian cyst. Signer Name: Sanjiv Diamond Jr, MD Signed: 02/22/2022 4:09 PM Workstation Name: [id number]
[2022-02-22 16:15] LABS: Alanine Aminotransferase 11 units/L (7-56); Albumin 3.6 g/dL (3.9-5); Blood Urea Nitrogen 5 mg/dL (7-17); Calcium 8.5 mg/dL (8.4-10.2); Hemolysis Index 24
[2022-02-22 16:27] LABS: Anisocytosis 1+; Basophils % (Manual) 0 % (0.0-1.8); Hypochromasia 2+; Platelet Estimate Consistent w Auto; Total Cells Counted 100
[2022-02-22 16:32] LABS: BUN/Creatinine Ratio 10
--- NOTE | 2022-02-22 17:15 | Nuclear Medicine Report ---
Nuclear medicine perfusion lung scan Indication: Shortness of breath Technique: 5.3 mCi of Tc 99m MAA were given by IV. Findings: Comparison with chest radiograph from earlier today. Ventilation images were not acquired. Perfusion images demonstrate patchy small nonsegmental filling defects within both lungs. Impression: Intermediate probability for acute PTE. If this patient cannot receive contrast, CTA chest is recomme nded. Signer Name: Drake Goodwin MD Signed: 02/22/2022 5:10 PM Workstation Name: [id number]
[2022-02-22 18:13] VITALS: BP 113/65
--- NOTE | 2022-02-22 19:04 | History and Physical Report ---
History of Present Illness Chief complaint: My chest has been hurting History of present illness: 31 YO Female with OA, Nephrolithiasis, Nicotine Dependence, Cervical Cancer S/P Chemotherapy on 12/01/21, Recurrent Vaginal Bleeding presents to ED for evaluation. Patient reports "my chest has been hurting". Patient states she has experienced pleuritic chest pain over the past 2 weeks with intermittent symptoms over the same timeframe. Patient states that pain is localized to the left chest and associated with episodes of coughing. Patient also reports episodes of fever to 102 F. Patient also reports heavy vaginal bleeding with passing of multiple clots over the past 2 weeks with persistent symptoms over the same timeframe. Patient transported to [facility] via private vehicle for the care and evaluation of the aforementioned symptoms. Patient seen and evaluated in the emergency department. All lab and imaging studies reviewed. Patient found to have cervical cancer complicated by vaginal bleeding. [employer] team consulted in ED. Patient underwent VQ scan for evaluation of pulmonary embolism. Patient denies chills, chest pain, skin rash, recent contact, known exposure to COVID- 19. No prior admission for review. No medication listed at time of admission for reconciliation. Advanced care planning conducted in ED. Past History Past Medical History: arthritis, cancer Past Surgical History: cholecystectomy, , hernia repair Social history: single, smoking Family history: hypertension Medications and Allergies Allergies Allergy/AdvReac Type Severity Reaction Status Date / Time ketorolac tromethamine Allergy Hives Verified 03/15/21 09:59 [From Toradol] Penicillins Allergy Swelling Verified 03/15/21 09:59 Iodinated Contrast Media AdvReac Mild other Verified 03/15/21 09:59 Home Medications Medication Instructions Recorded Confirmed Last Taken Type Cyclobenzaprine [Flexeril] 10 mg PO TID PRN #10 tablet 03/15/21 Unknown Rx predniSONE [Deltasone] 20 mg PO DAILY #5 tablet 03/15/21 Unknown Rx Acetaminophen [Tylenol] 650 mg PO Q8HR PRN #20 capsule 05/24/21 Unknown Rx HYDROcodone/APAP 5-325 [[place] 1 each PO Q6HR PRN #7 tablet 09/10/21 Unknown Rx 5/325] Albuterol Mdi (or & Nicu Only) 2 puff IH QID PRN #1 inhalation 11/24/21 Unknown Rx [ProAir HFA Inhaler] Benzonatate [Tessalon Perles] 100 mg PO Q8HR #10 capsule 11/24/21 Unknown Rx Dexamethasone [Decadron] 6 mg PO DAILY #7 tablet 11/24/21 Unknown Rx HYDROcodone/APAP 5-325 [[place] 1 each PO Q6HR PRN #10 tablet 11/24/21 Unknown Rx 5/325] Acetaminophen/Codeine [Tylenol 1 tab PO Q6H PRN 3 Days #12 tab 01/28/22 Unknown Rx /Codeine # 3 tab] Ciprofloxacin HCl [Ciprofloxacin 750 mg PO BID 5 Days #10 tab 01/28/22 Unknown Rx TAB] Hyoscyamine Subl [Levsin Sl 0.125 0.125 mg SL Q6HR PRN 5 Days #20 tab 01/28/22 Unknown Rx TAB] traMADoL [Ultram] 50 mg PO Q4HR PRN 3 Days #12 tablet 01/28/22 Unknown Rx Active Meds: Active Medications Levofloxacin/Dextrose (Levaquin 750mg/150ml) 750 mg in 150 mls @ 100 mls/hr IV ONCE ONE; Protocol Stop: 02/22/22 20:26 Review of Systems Constitutional: weakness, no weight loss, no weight gain, no fever, no sweats Ears, nose, mouth and throat: no ear discharge, no decreased hearing, no nasal congestion, no sinus pressure Breasts: no change in shape, no mass Cardiovascular: shortness of breath, no chest pain Respiratory: cough, pleurisy, no excessive sputum, no hemoptysis Gastrointestinal: no abdominal pain, no nausea, no vomiting, no diarrhea Genitourinary Female: other (Vaginal bleeding), no pelvic pain, no dysuria, no urinary frequency, no stress incontinence Rectal: no pain, no bleeding Musculoskeletal: no neck stiffness, no shooting arm pain, no arm numbness/tingling Integumentary: no rash, no redness, no sores Neurological: no head injury, no paralysis, no weakness, no numbness, no tin gling Psychiatric: no anxiety, no sleep disturbances, no hypersomnia, no change in libido, no suicidal ideation Endocrine: no cold intolerance, no excessive thirst, no polyuria, no excessive sweating, no flushing Hematologic/Lymphatic: no easy bruising Allergic/Immunologic: no urticaria Exam - Constitutional Vitals: Temp Pulse Resp BP Pulse Ox 98.8 F 93 H 0 L 113/65 98 02/22/22 13:51 02/22/22 16:45 02/22/22 18:01 02/22/22 18:01 02/22/22 18:01 General appearance: Present: mild distress - EENT Eyes: Present: PERRL ENT: hearing intact, clear oral mucosa - Neck Neck: Present: supple, normal ROM - Respiratory Respiratory effort: normal Respiratory: bilateral: CTA - Cardiovascular Heart Sounds: Present: S1 & S2. Absent: rub, click - Extremities Extremities: pulses symmetrical, No edema Peripheral Pulses: within normal limits - Abdominal General gastrointestinal: Present: soft, non-tender, non-distended, normal bowel sounds Female genitourinary: Present: normal - Integumentary Integumentary: Present: clear, warm, dry - Musculoskeletal Musculoskeletal: gait normal, strength equal bilaterally - Psychiatric Psychiatric: appropriate mood/affect, intact judgment & insight - Neurologic Neurologic: CNII-XII intact, moves all extremities HEART Score - HEART Score EKG: Non-specific Age: < 45 Risk factors: 1-2 risk factors Troponin: Troponin T < 0.010 ng/mL (0.00-0.029) 02/22/22 Unknown Troponin: < normal limit Results - Labs CBC & Chem 7: 02/22/22 Unknown 02/22/22 Unknown Labs: Abnormal lab results 02/22/22 02/22/22 02/22/22 Range/Units Unknown Unknown Unknown Hgb 8.1 L (10.1-14.3) gm/dl Hct 28.5 L (30.3-42.9) % MCV 75 L (79-97) fl MCH 21 L (28-32) pg MCHC 29 L (30-34) % RDW 20.0 H (13.2-15.2) % Monocytes % (Manual) 18.0 H (0.0-7.3) % Monocytes # (Manual) 1.1 H (0.0-0.8) K/mm3 D-Dimer 424.15 H (0-234) ng/mlDDU Sodium 136 L (137-145) mmol/L Potassium 3.5 L (3.6-5.0) mmol/L Chloride 107.5 H (98-107) mmol/L Carbon Dioxide 19 L (22-30) mmol/L BUN 5 L (7-17) mg/dL Creatinine 0.5 L (0.6-1.2) mg/dL Albumin 3.6 L (3.9-5) g/dL Assessment and Plan - Patient Problems (1) Cervical cancer Current Visit: Yes Status: Acute Qualifiers: Malignant neoplasm of cervix location: unspecified location Qualified Code(s): C53.9 - Malignant neoplasm of cervix uteri, unspecified Plan to address problem: Supportive care, [employer] team consulted, pain control, outpatient oncology follow- up. (2) Vaginal bleeding Current Visit: Yes Status: Acute Plan to address problem: [employer] team consulted, supportive care, outpatient oncology follow-up. (3) Nicotine dependence Current Visit: Yes Status: Acute Qualifiers: Nicotine product type: cigarettes Substance use status: in withdrawal Qualified Code(s): F17.213 - Nicotine dependence, cigarettes, with withdrawal Plan to address problem: Smoke cessation counseling, supportive care, behavior change counseling, +15 minutes. (4) Pleuritic chest pain Current Visit: Yes Status: Acute Plan to address problem: VQ scan ordered. CT chest ordered and pending at time of admission. Patient left AMA prior to completion of work-up and treatment plan (5) DVT prophylaxis Current Visit: Yes Status: Acute Plan to address problem: SCD to bilateral lower extremities while in bed, patient is ambulatory (6) Advance care planning Current Visit: Yes Status: Acute Plan to address problem: Disease education conducted, care plan discussed, diagnoses discussed, prognosis discussed, patient is full code. Patient knowledges understanding and agreement with care plan, +30 minutes.
[2022-02-22] MEDS ORDERED: ALBUTEROL 2.5 MG/3 ML NEBU IH PRN (19:50)
[2022-02-22] MEDS ORDERED: ACETAMINOPHEN 325 MG TAB PO PRN (19:50)
[2022-02-22] MEDS ORDERED: ONDANSETRON 4 MG/2 ML INJ IV PRN (19:50)
[2022-02-22] MEDS ORDERED: oxyCODONE /ACETAMINOPHEN 5-325MG TAB PO PRN (19:50)
[2022-02-22] MEDS ORDERED: HYDROmorphone 1 MG/1 ML INJ IV PRN (19:50)
[2022-02-22] MEDS ORDERED: CYCLOBENZAPRINE 10 MG TAB PO PRN (19:53)
[2022-02-22] MEDS ORDERED: traMADol 50 MG TAB PO PRN (19:53)
[2022-02-22] MEDS ORDERED: HYOSCYAMINE SUBL 0.125 MG TAB SL PRN (19:53)
[2022-02-22] MEDS ORDERED: SODIUM CHLORIDE 0.9% 1000 ML 1,000 ML IV SCH (20:00)
[2022-02-22] MEDS ORDERED: BENZONATATE 100 MG CAP PO SCH (22:00)
[2022-02-23] MEDS ORDERED: predniSONE 20 MG TAB PO SCH (10:00)
[2022-02-23] MEDS ORDERED: DEXAMETHASONE 6 MG PO SCH (10:00)
[2022-02-23] MEDS ORDERED: DEXAMETHASONE 2 MG TAB PO SCH (10:00)
--- NOTE | 2022-02-24 17:51 | Electrocardiograph Report ---
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
== END 2022-02-22 20:40 | disposition admitted as inpatient to this hospital (09) ==
LOC: ED 13:39 → UNDOADMIN 19:50 → 3A 19:50 → ED 20:40
DX: R07.1 Chest pain on breathing (principal); M19.90 Unspecified osteoarthritis, unspecified site; N20.0 Calculus of kidney; Z90.49 Acquired absence of other specified parts of digestive tract; F17.200 Nicotine dependence, unspecified, uncomplicated
CPT/HCPCS: 36415; 71045; 76830; 76856; 78580; 80053; 83880; 84484; 85007; 85025; 85045; 85379; 85610; 87040; 93005; 94640; 96361; 96365; 96375; 96376; 99284; A9540; J1170; J1200; J1956; J2405; J3010; J7030; 94644; 99283; Q0162; J8540

== ENCOUNTER 2022-03-06 11:17 | Emergency (ER) | payer MEDICAID ==
[2022-03-06] MEDS ORDERED: MORPHINE 2 MG/1 ML INJ IV ONE (12:45)
[2022-03-06] MEDS ORDERED: SODIUM CHLORIDE 0.9% 1000 ML 1,000 ML IV ONE (12:45)
[2022-03-06] MEDS ORDERED: ONDANSETRON 4 MG/2 ML INJ IV ONE (12:45)
--- NOTE | 2022-03-06 12:48 | Emergency Department Report ---
HPI - General Chief Complaint: Chest Pain Time Seen by Provider: 03/06/22 12:38 - HPI HPI: For the last 2 to 3 days the patient has been experiencing many episodes of yellow watery diarrhea associated with mid back pain that radiates to her anterior chest. She has scribes the pain as sharp moderate constant and made worse with movement and better with not moving. She has not taken any medications for this. She denies vomiting chills fever shortness of breath diaphoresis dysuria focal weakness headache or any other associated symptoms. She does report mild nausea with this. She has a history of cervical cancer and is scheduled for hysterectomy soon. She also has a history of sickle cell anemia. ED Past Medical Hx - Past Medical History Hx Hypertension: No Hx CVA: No Hx Heart Attack/AMI: No Hx Diabetes: No Hx Deep Vein Thrombosis: No Hx Pulmonary Embolism: No Hx GERD: No Hx Liver Disease: No Hx Renal Disease: No Hx Sickle Cell Disease: (pt has been tested and pt is neg for Sickle cell) Hx Arthritis: Yes Hx Headaches / Migraines: No Hx Seizures: No Hx Kidney Stones: Yes Hx Psychiatric Treatment: No Hx Asthma: No Hx COPD: No Hx Tuberculosis: No Hx Dementia: No Hx HIV: No Additional medical history: scoliosis. kidney stones. Joint disease - Surgical History Hx Coronary Stent: No Hx Open Heart Surgery: No Hx Pacemaker: No Hx Internal Defibrillator: No Hx Cholecystectomy: Yes Hx Appendectomy: No Hx Breast Surgery: No Additional Surgical History: X 5. HERNIA REPAIR - Social History Smoking Status: Current Every Day Smoker (1 cigarette daily) Substance Use Type: None (Denies illicit drug use) - Medications Home Medications: Home Medications Medication Instructions Recorded Confirmed Last Taken Type Cyclobenzaprine [Flexeril] 10 mg PO TID PRN #10 tablet 03/15/21 Unknown Rx predniSONE [Deltasone] 20 mg PO DAILY #5 tablet 03/15/21 Unknown Rx Acetaminophen [Tylenol] 650 mg PO Q8HR PRN #20 capsule 05/24/21 Unknown Rx HYDROcodone/APAP 5-325 [[place] 1 each PO Q6HR PRN #7 tablet 09/10/21 Unknown Rx 5/325] Albuterol Mdi (or & Nicu Only) 2 puff IH QID PRN #1 inhalation 11/24/21 Unknown Rx [ProAir HFA Inhaler] Benzonatate [Tessalon Perles] 100 mg PO Q8HR #10 capsule 11/24/21 Unknown Rx Dexamethasone [Decadron] 6 mg PO DAILY #7 tablet 11/24/21 Unknown Rx HYDROcodone/APAP 5-325 [[place] 1 each PO Q6HR PRN #10 tablet 11/24/21 Unknown Rx 5/325] Acetaminophen/Codeine [Tylenol 1 tab PO Q6H PRN 3 Days #12 tab 01/28/22 Unknown Rx /Codeine # 3 tab] Ciprofloxacin HCl [Ciprofloxacin 750 mg PO BID 5 Days #10 tab 01/28/22 Unknown Rx TAB] Hyoscyamine Subl [Levsin Sl 0.125 0.125 mg SL Q6HR PRN 5 Days #20 tab 01/28/22 Unknown Rx TAB] traMADoL [Ultram] 50 mg PO Q4HR PRN 3 Days #12 tablet 01/28/22 Unknown Rx Ciprofloxacin HCl [Ciprofloxacin 750 mg PO BID 3 Days #6 03/06/22 Unknown Rx TAB] Loperamide HCl [Anti-Diarrheal] 2 mg PO PRN #12 03/06/22 Unknown Rx Ondansetron [Zofran Odt] 4 mg PO Q8HR PRN #12 tab.rapdis 03/06/22 Unknown Rx ED Review of Systems ROS: Stated complaint: CHEST PAIN/KIDNEY STONE Other details as noted in HPI Comment: All other systems reviewed and negative Physical Exam - Physical Exam Vital Signs: Vital Signs 03/06/22 12:30 Temperature 98.5 F Pulse Rate 129 H Respiratory 24 Rate Blood Pressure 174/130 [Right] O2 Sat by Pulse 99 Oximetry Physical Exam: Physical Exam: Constitutional: AAOX3. No acute distress. No diaphoresis. HENT: Normocephalic. Pupils equal and reactive. No throat edema or erythema. Neck: No neck rigidity or tenderness. Cardiovascular: Heart sounds: No murmur. Normal rate and regular rhythm. Pulses: Intact distal pulses. Lungs: No wheezing or rales. Chest wall: No tenderness. Abdominal: No distension. No mass/pulsatile mass. No abdominal tenderness, guarding nor rebound. Musculoskeletal: Normal range of motion. No edema, No calf TTP. Skin: Warm and dry. Neurological: Alert and oriented to person, place, and time. Psychiatric: Mood and affect normal. Normal cognition and memory. Normal judg ement. ED Course Vital Signs 03/06/22 12:30 Temperature 98.5 F Pulse Rate 129 H Respiratory 24 Rate Blood Pressure 174/130 [Right] O2 Sat by Pulse 99 Oximetry - Reevaluation(s) Reevaluation #1: 03/06/22 12:50 EKG done interpreted at 1241 shows a rate of 104, tachycardia. The rhythm is sinus and cardiac. There are no ST or T abnormalities Reevaluation #2: 03/06/22 16:59 Laboratories show the patient's chronic anemia but otherwise no acute abnormalities. The patient's feeling better after the fluids that we gave her in the medicines. I will discharge her with a diagnosis of colitis. She will follow up with her PCP as needed I will put her on some antibiotics and antidiarrheals. ED Medical Decision Making - Lab Data Result diagrams: 03/06/22 15:46 03/06/22 12:55 Critical care attestation.: If time is entered above; I have spent that time in minutes in the direct care of this critically ill patient, excluding procedure time. ED Disposition Clinical Impression: Colitis Disposition: 01 HOME / SELF CARE / HOMELESS Is pt being admited?: No Does the pt Need Aspirin: No Condition: Stable Instructions: Colitis Prescriptions: Loperamide HCl [Anti-Diarrheal] 2 mg PO PRN #12 Ciprofloxacin HCl [Ciprofloxacin TAB] 750 mg PO BID 3 Days #6 Ondansetron [Zofran Odt] 4 mg PO Q8HR PRN #12 tab.rapdis PRN Reason: Nausea Time of Disposition: 17:05 Print Language: THAI
--- NOTE | 2022-03-06 13:19 | XRay Report ---
XR chest 1V ap INDICATION / CLINICAL INFORMATION: Chest Pain. COMPARISON: 02/22/2022 FINDINGS: SUPPORT DEVICES: None. HEART /PULMONARY VASCULATURE: No significant abnormality. LUNGS / PLEURA: Previously seen right basilar opacities have resolved. This may reflect resolving pne umonia or atelectasis. No new or increasing airspace disease. No pneumothorax. IMPRESSION: Resolved right basilar opacities. No acute findings Signer Name: Mohinder Jesus MD Signed: 03/06/2022 1:15 PM Workstation Name: [id number]
[2022-03-06 14:03] LABS: HCG Qualitative,Urine Negative (Negative)
[2022-03-06 14:06] LABS: Bilirubin,Urine NEG (Negative); Blood,Urine NEG (Negative); Color,Urine Yellow (Yellow); Mucus,Urine 1+ /HPF; Protein,Urine <15 mg/dL mg/dL (Negative)
[2022-03-06] MEDS ORDERED: MORPHINE 4 MG/1 ML INJ IV ONE (14:54)
[2022-03-06 14:59] LABS: Alanine Aminotransferase 15 units/L (7-56); Albumin 4.2 g/dL (3.9-5); Blood Urea Nitrogen 12 mg/dL (7-17); Calcium 9.4 mg/dL (8.4-10.2); Hemolysis Index 11
[2022-03-06 15:22] LABS: BUN/Creatinine Ratio 20
[2022-03-06 16:28] LABS: Mean Corpuscular HGB Conc 30 % (30-34); Mean Corpuscular Volume 73 fl (79-97); Platelet Count 422 K/mm3 (140-440); Red Blood Count 3.76 M/mm3 (3.65-5.03); Red Cell Distribution Width 19.5 % (13.2-15.2)
[2022-03-06 16:35] LABS: Hemoglobin 8.1 gm/dl (10.1-14.3)
[2022-03-06 16:36] LABS: Hematocrit 27.6 % (30.3-42.9)
[2022-03-06 17:10] LABS: Anisocytosis 1+; Eosinophils % (Manual) 0 % (0.0-4.3); Hypochromasia 2+; Platelet Estimate Consistent w Auto; Spherocytes 1+; Total Cells Counted 100
[2022-03-06 17:11] VITALS: BP 111/70
--- NOTE | 2022-03-07 09:05 | Electrocardiograph Report ---
[facility] Test Date: 2022-03-06 Test Time: 12:41:42 Pat Name: MAXIMILIAN ERIC Department: Room: Gender: F Spearer: CECILIA : 1990 Requested By: JUSTIN ADAM Order Number: [id number] Reading MD: Vignesh Elise Measurements Intervals M[place] Rate: 104 P: 51 IN: 106 QRS: 67 QRSD: 84 T: 48 QT: 338 QTc: 445 Interpretive Statements Sinus tachycardia Compared to ECG 02/22/2022 14:00:49 Sinus rhythm no longer present Electronically Signed On 03-07-2022 9:05:18 EDT by Vignesh Elise
== END 2022-03-06 17:11 | disposition home or self-care (01) ==
LOC: ED 11:17
DX: K52.9 Noninfective gastroenteritis and colitis, unspecified (principal)
CPT/HCPCS: 36415; 71045; 80053; 81001; 81025; 83690; 84484; 85007; 85025; 93005; 96361; 96374; 96375; 96376; 99284; J2270; J2405; J7030; Q0162

== ENCOUNTER 2022-04-23 03:41 | Emergency (ER) | payer MEDICAID ==
[2022-04-23 06:51] VITALS: BP 137/79
[2022-04-23 07:54] LABS: Basophils # (Auto) 0.1 K/mm3 (0.0-0.1); Basophils % (Auto) 1.1 % (0.0-1.8); Eosinophils # (Auto) 0.2 K/mm3 (0.0-0.4); Eosinophils % (Auto) 2.7 % (0.0-4.3); Hematocrit 31.3 % (30.3-42.9); Hemoglobin 9.5 gm/dl (10.1-14.3); Lymphocytes # (Auto) 1.2 K/mm3 (1.2-5.4); Lymphocytes % (Auto) 19.2 % (13.4-35.0); Mean Corpuscular HGB Conc 30 % (30-34); Mean Corpuscular Volume 73 fl (79-97); Monocytes # (Auto) 0.9 K/mm3 (0.0-0.8); Monocytes % (Auto) 15.2 % (0.0-7.3); Platelet Count 288 K/mm3 (140-440); Red Blood Count 4.28 M/mm3 (3.65-5.03)
[2022-04-23 07:55] LABS: Red Cell Distribution Width 20.3 % (13.2-15.2)
[2022-04-23 08:12] LABS: Alanine Aminotransferase 13 units/L (7-56); Albumin 4.3 g/dL (3.9-5); Blood Urea Nitrogen 9 mg/dL (7-17); Hemolysis Index 2
[2022-04-23 08:21] LABS: BUN/Creatinine Ratio 15
[2022-04-23] MEDS ORDERED: HYDROmorphone 2 MG/1 ML INJ IM ONE (09:02)
--- NOTE | 2022-04-23 09:03 | Event Note ---
Date: 04/23/22 The patient was evaluated in the emergency department for symptoms described in the history of present illness. He/she was evaluated in the context of the global COVID-19 pandemic, which necessitated consideration that the patient might be at risk for infection with the virus that causes COVID-19. Institutional protocols and algorithms that pertain to the evaluation of patients at risk for COVID-19 are in a state of rapid change based on information released by regulatory bodies including the CDC and federal and state organizations. These policies and algorithms were followed during the patient's care in the emergency department. Please note that these policies, procedures and recommendations changed on a rapid basis. Medical screening examination note: 31-year-old female presenting to the ER today with complaint of sickle cell crisis. Laboratory studies reviewed and appreciated. Patient is awake, and ambulatory. Patient is a frequently utilizer of this emergency room. Start with 2 mg of hydromorphone IM. Detailed history and physical to be performed by oncoming ER provider Vital Signs 04/23/22 04/23/22 03:46 06:49 Temperature 99.0 F 98.2 F Pulse Rate 97 H 89 Respiratory 16 16 Rate Blood Pressure 131/70 137/79 O2 Sat by Pulse 100 100 Oximetry Lab Results 04/23/22 04/23/22 Range/Units 07:28 07:28 WBC 6.2 (4.5-11.0) K/mm3 RBC 4.28 (3.65-5.03) M/mm3 Hgb 9.5 L (10.1-14.3) gm/dl Hct 31.3 (30.3-42.9) % MCV 73 L (79-97) fl MCH 22 L (28-32) pg MCHC 30 (30-34) % RDW 20.3 H (13.2-15.2) % Plt Count 288 (140-440) K/mm3 Lymph % (Auto) 19.2 (13.4-35.0) % Keith % (Auto) 15.2 H (0.0-7.3) % Eos % (Auto) 2.7 (0.0-4.3) % Baso % (Auto) 1.1 (0.0-1.8) % Lymph # (Auto) 1.2 (1.2-5.4) K/mm3 Keith # (Auto) 0.9 H (0.0-0.8) K/mm3 Eos # (Auto) 0.2 (0.0-0.4) K/mm3 Baso # (Auto) 0.1 (0.0-0.1) K/mm3 Seg Neutrophils % 61.8 (40.0-70.0) % Seg Neutrophils # 3.9 (1.8-7.7) K/mm3 Percent Retic 0.76 L (0.78-2.58) % Sodium 138 (137-145) mmol/L Potassium 3.5 L (3.6-5.0) mmol/L Chloride 105.8 (98-107) mmol/L Carbon Dioxide 23 (22-30) mmol/L Anion Gap 13 mmol/L BUN 9 (7-17) mg/dL Creatinine 0.6 (0.6-1.2) mg/dL Estimated GFR > 60 ml/min BUN/Creatinine Ratio 15 % Glucose 80 (65-100) mg/dL Calcium 9.0 (8.4-10.2) mg/dL Total Bilirubin 0.30 (0.1-1.2) mg/dL AST 16 (5-40) units/L ALT 13 (7-56) units/L Alkaline Phosphatase 66 (35-129) units/L Total Protein 8.3 H (6.3-8.2) g/dL Albumin 4.3 (3.9-5) g/dL Albumin/Globulin Ratio 1.1 %
[2022-04-23] MEDS ORDERED: ONDANSETRON 4 MG ODT TAB PO PRN (09:38)
[2022-04-23] MEDS ORDERED: HYDROmorphone 1 MG/1 ML INJ IM ONE (10:30)
[2022-04-23 10:56] LABS: Bacteria,Urine 1+ /HPF (Negative); Bilirubin,Urine NEG (Negative); Blood,Urine NEG (Negative); Color,Urine Yellow (Yellow); Mucus,Urine 3+ /HPF; Protein,Urine <15 mg/dL mg/dL (Negative)
[2022-04-23 10:58] LABS: HCG Qualitative,Urine Negative (Negative)
--- NOTE | 2022-04-23 11:54 | Emergency Department Report ---
ED General Adult HPI - General Chief complaint: Sickle Cell Crisis Stated complaint: SICKLE CELL, GENERAL PAIN, FEVER Time Seen by Provider: 04/23/22 11:20 Source: patient Mode of arrival: Ambulatory Limitations: No Limitations - History of Present Illness Initial comments: chest back and shoulder pain, reports having a sickle cell crisis -: Gradual, days(s) Location: chest Severity scale (0 -10): 7 Quality: aching Consistency: intermittent Improves with: none - Related Data Previous Rx's Medication Instructions Recorded Last Taken Type Cyclobenzaprine [Flexeril] 10 mg PO TID PRN #10 tablet 03/15/21 Unknown Rx predniSONE [Deltasone] 20 mg PO DAILY #5 tablet 03/15/21 Unknown Rx Acetaminophen [Tylenol] 650 mg PO Q8HR PRN #20 capsule 05/24/21 Unknown Rx HYDROcodone/APAP 5-325 [[place] 1 each PO Q6HR PRN #7 tablet 09/10/21 Unknown Rx 5/325] Albuterol Mdi (or & Nicu Only) 2 puff IH QID PRN #1 inhalation 11/24/21 Unknown Rx [ProAir HFA Inhaler] Benzonatate [Tessalon Perles] 100 mg PO Q8HR #10 capsule 11/24/21 Unknown Rx Dexamethasone [Decadron] 6 mg PO DAILY #7 tablet 11/24/21 Unknown Rx HYDROcodone/APAP 5-325 [[place] 1 each PO Q6HR PRN #10 tablet 11/24/21 Unknown Rx 5/325] Acetaminophen/Codeine [Tylenol 1 tab PO Q6H PRN 3 Days #12 tab 01/28/22 Unknown Rx /Codeine # 3 tab] Ciprofloxacin HCl [Ciprofloxacin 750 mg PO BID 5 Days #10 tab 01/28/22 Unknown Rx TAB] Hyoscyamine Subl [Levsin Sl 0.125 0.125 mg SL Q6HR PRN 5 Days #20 tab 01/28/22 Unknown Rx TAB] traMADoL [Ultram] 50 mg PO Q4HR PRN 3 Days #12 tablet 01/28/22 Unknown Rx Ciprofloxacin HCl [Ciprofloxacin 750 mg PO BID 3 Days #6 03/06/22 Unknown Rx TAB] Loperamide HCl [Anti-Diarrheal] 2 mg PO PRN #12 03/06/22 Unknown Rx Ondansetron [Zofran Odt] 4 mg PO Q8HR PRN #12 tab.rapdis 03/06/22 Unknown Rx Allergies Allergy/AdvReac Type Severity Reaction Status Date / Time ketorolac tromethamine Allergy Hives Verified 03/15/21 09:59 [From Toradol] Penicillins Allergy Swelling Verified 03/15/21 09:59 Iodinated Contrast Media AdvReac Mild other Verified 03/15/21 09:59 ED Review of Systems ROS: Stated complaint: SICKLE CELL, GENERAL PAIN, FEVER Other details as noted in HPI Constitutional: denies: chills, fever Eyes: denies: eye pain, eye discharge, vision change ENT: denies: ear pain, throat pain Respiratory: denies: cough, shortness of breath, wheezing Cardiovascular: denies: chest pain, palpitations Endocrine: no symptoms reported Gastrointestinal: denies: abdominal pain, nausea, diarrhea Genitourinary: denies: urgency, dysuria, discharge Musculoskeletal: denies: back pain, joint swelling, arthralgia Skin: denies: rash, lesions Neurological: denies: headache, weakness, paresthesias Psychiatric: denies: anxiety, depression Hematological/Lymphatic: denies: easy bleeding, easy bruising ED Past Medical Hx - Past Medical History Hx Hypertension: No Hx CVA: No Hx Heart Attack/AMI: No Hx Diabetes: No Hx Deep Vein Thrombosis: No Hx Pulmonary Embolism: No Hx GERD: No Hx Liver Disease: No Hx Renal Disease: No Hx Sickle Cell Disease: (pt has been tested and pt is neg for Sickle cell) Hx Arthritis: Yes Hx Headaches / Migraines: No Hx Seizures: No Hx Kidney Stones: Yes Hx Psychiatric Treatment: No Hx Asthma: No Hx COPD: No Hx Tuberculosis: No Hx Dementia: No Hx HIV: No Additional medical history: scoliosis. kidney stones. Joint disease - Surgical History Hx Coronary Stent: No Hx Open Heart Surgery: No Hx Pacemaker: No Hx Internal Defibrillator: No Hx Cholecystectomy: Yes Hx Appendectomy: No Hx Breast Surgery: No Additional Surgical History: X 5. HERNIA REPAIR - Social History Smoking Status: Current Every Day Smoker (1 cigarette daily) Substance Use Type: None (Denies illicit drug use) - Medications Home Medications: Home Medications Medication Instructions Recorded Confirmed Last Taken Type Cyclobenzaprine [Flexeril] 10 mg PO TID PRN #10 tablet 03/15/21 Unknown Rx predniSONE [Deltasone] 20 mg PO DAILY #5 tablet 03/15/21 Unknown Rx Acetaminophen [Tylenol] 650 mg PO Q8HR PRN #20 capsule 05/24/21 Unknown Rx HYDROcodone/APAP 5-325 [[place] 1 each PO Q6HR PRN #7 tablet 09/10/21 Unknown Rx 5/325] Albuterol Mdi (or & Nicu Only) 2 puff IH QID PRN #1 inhalation 11/24/21 Unknown Rx [ProAir HFA Inhaler] Benzonatate [Tessalon Perles] 100 mg PO Q8HR #10 capsule 11/24/21 Unknown Rx Dexamethasone [Decadron] 6 mg PO DAILY #7 tablet 11/24/21 Unknown Rx HYDROcodone/APAP 5-325 [[place] 1 each PO Q6HR PRN #10 tablet 11/24/21 Unknown Rx 5/325] Acetaminophen/Codeine [Tylenol 1 tab PO Q6H PRN 3 Days #12 tab 01/28/22 Unknown Rx /Codeine # 3 tab] Ciprofloxacin HCl [Ciprofloxacin 750 mg PO BID 5 Days #10 tab 01/28/22 Unknown Rx TAB] Hyoscyamine Subl [Levsin Sl 0.125 0.125 mg SL Q6HR PRN 5 Days #20 tab 01/28/22 Unknown Rx TAB] traMADoL [Ultram] 50 mg PO Q4HR PRN 3 Days #12 tablet 01/28/22 Unknown Rx Ciprofloxacin HCl [Ciprofloxacin 750 mg PO BID 3 Days #6 03/06/22 Unknown Rx TAB] Loperamide HCl [Anti-Diarrheal] 2 mg PO PRN #12 03/06/22 Unknown Rx Ondansetron [Zofran Odt] 4 mg PO Q8HR PRN #12 tab.rapdis 03/06/22 Unknown Rx ED Physical Exam - General Limitations: No Limitations General appearance: alert, in no apparent distress - Head Head exam: Present: atraumatic, normocephalic - Eye Eye exam: Present: normal appearance - ENT ENT exam: Present: mucous membranes moist - Neck Neck exam: Present: normal inspection - Respiratory Respiratory exam: Present: normal lung sounds bilaterally. Absent: respiratory distress - Cardiovascular Cardiovascular Exam: Present: regular rate, normal rhythm. Absent: systolic murmur, diastolic murmur, rubs, gallop - GI/Abdominal GI/Abdominal exam: Present: soft, normal bowel sounds - Extremities Exam Extremities exam: Present: normal inspection - Back Exam Back exam: Present: normal inspection - Neurological Exam Neurological exam: Present: alert, oriented X3 - Psychiatric Psychiatric exam: Present: normal affect, normal mood - Skin Skin exam: Present: warm, dry, intact, normal color. Absent: rash ED Course Vital Signs 04/23/22 04/23/22 04/23/22 03:46 06:49 11:00 Temperature 99.0 F 98.2 F Pulse Rate 97 H 89 Respiratory 16 16 14 Rate Blood Pressure 131/70 137/79 O2 Sat by Pulse 100 100 Oximetry ED Medical Decision Making - Lab Data Result diagrams: 04/23/22 07:28 04/23/22 07:28 - Medical Decision Making pt was not found many times, she was talking on the phone, when she came back she said her daughter fell and will come back and decided to leave before medical treatment Critical care attestation.: If time is entered above; I have spent that time in minutes in the direct care of this critically ill patient, excluding procedure time. ED Disposition Clinical Impression: Sickle cell pain crisis Disposition: 07 LEFT AGAINST MEDICAL ADVICE Is pt being admited?: No Does the pt Need Aspirin: No Condition: Stable Referrals: PRIMARY CARE, [Primary Care Provider] - 3-5 Days
== END 2022-04-23 18:07 | disposition home or self-care (01) ==
LOC: ED 03:41
DX: D57.00 Hb-SS disease with crisis, unspecified (principal); M19.90 Unspecified osteoarthritis, unspecified site; Z87.442 Personal history of urinary calculi; Z98.890 Other specified postprocedural states; F17.210 Nicotine dependence, cigarettes, uncomplicated; Z91.041 Radiographic dye allergy status
CPT/HCPCS: 36415; 80053; 81001; 81025; 84702; 85025; 85045; 93005; 96372; 99283; J1170

== ENCOUNTER 2022-05-05 09:44 | Emergency (ER) | payer MEDICAID ==
[2022-05-05 10:08] VITALS: BP 110/77
[2022-05-05 11:57] LABS: Mean Corpuscular HGB Conc 30 % (30-34); Mean Corpuscular Volume 73 fl (79-97); Red Blood Count 4.54 M/mm3 (3.65-5.03)
[2022-05-05 11:59] LABS: Hematocrit 33.2 % (30.3-42.9); Hemoglobin 9.9 gm/dl (10.1-14.3); Platelet Count 309 K/mm3 (140-440); Red Cell Distribution Width 20.1 % (13.2-15.2)
[2022-05-05 12:57] LABS: Basophils % (Manual) 0 % (0.0-1.8); Total Cells Counted 100
[2022-05-05 13:17] LABS: Anisocytosis 1+
[2022-05-05 13:18] LABS: Hypochromasia 2+; Large Platelets Rare; Ovalocytes Rare; Platelet Estimate Consistent w Auto; Poikilocytosis Few; Target Cells Rare
== END 2022-05-05 17:05 | disposition left against medical advice (07) ==
LOC: ED 09:44
DX: R10.9 Unspecified abdominal pain (principal); Z53.21 Procedure and treatment not carried out due to patient leaving prior to being seen by health care provider
CPT/HCPCS: 36415; 85007; 85025

== ENCOUNTER 2022-05-25 16:54 | Emergency (ER) | payer MEDICAID ==
[2022-05-25] MEDS ORDERED: HYDROmorphone 0.5 MG/0.5 ML INJ IV ONE (17:27)
[2022-05-25] MEDS ORDERED: SODIUM CHLORIDE 0.9% 1000 ML 1,000 ML IV ONE (17:27)
[2022-05-25] MEDS ORDERED: METOCLOPRAMIDE 10 MG/2 ML INJ IV ONE (17:27)
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
[2022-05-25 18:29] LABS: Basophils # (Auto) 0.1 K/mm3 (0.0-0.1); Basophils % (Auto) 1.6 % (0.0-1.8); Eosinophils # (Auto) 0.1 K/mm3 (0.0-0.4); Eosinophils % (Auto) 1.5 % (0.0-4.3); Lymphocytes # (Auto) 1.4 K/mm3 (1.2-5.4); Lymphocytes % (Auto) 23.1 % (13.4-35.0); Mean Corpuscular HGB Conc 30 % (30-34); Mean Corpuscular Volume 74 fl (79-97); Monocytes # (Auto) 0.5 K/mm3 (0.0-0.8); Monocytes % (Auto) 9.1 % (0.0-7.3); Platelet Count 388 K/mm3 (140-440); Red Blood Count 3.83 M/mm3 (3.65-5.03); Red Cell Distribution Width 19.6 % (13.2-15.2)
[2022-05-25 18:37] LABS: INR 0.93 (0.87-1.13)
[2022-05-25 18:40] LABS: Hematocrit 28.2 % (30.3-42.9); Hemoglobin 8.3 gm/dl (10.1-14.3)
[2022-05-25 19:17] LABS: Alanine Aminotransferase 29 units/L (7-56); Albumin 4.5 g/dL (3.9-5); Blood Urea Nitrogen 9 mg/dL (7-17); Calcium 9.6 mg/dL (8.4-10.2); Hemolysis Index 4
[2022-05-25 19:18] LABS: BUN/Creatinine Ratio 13
[2022-05-25] MEDS ORDERED: HYDROmorphone 1 MG/1 ML INJ IV ONE (19:28)
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
[2022-05-25 20:07] VITALS: BP 107/52
== END 2022-05-25 20:49 | disposition home or self-care (01) ==
LOC: ED 16:54
DX: R10.9 Unspecified abdominal pain (principal); N93.8 Other specified abnormal uterine and vaginal bleeding; Z32.02 Encounter for pregnancy test, result negative; M19.90 Unspecified osteoarthritis, unspecified site; N20.0 Calculus of kidney; Z90.49 Acquired absence of other specified parts of digestive tract; F17.200 Nicotine dependence, unspecified, uncomplicated; Z88.0 Allergy status to penicillin; Z91.09 Other allergy status, other than to drugs and biological substances; Z79.899 Other long term (current) drug therapy
CPT/HCPCS: 36415; 74176; 76700; 76856; 80053; 82550; 83690; 84702; 85025; 85610; 86850; 86900; 86901; 96361; 96374; 96375; 96376; 99284; J1170; J2765; J7030; 76801; 80320; G0480

== ENCOUNTER 2022-06-19 12:38 | Emergency (ER) | payer MEDICAID ==
[2022-06-19] MEDS ORDERED: diphenhydrAMINE 50 MG/ML VIAL IV ONE ×2 (15:47→21:25)
[2022-06-19] MEDS ORDERED: ONDANSETRON 4 MG/2 ML INJ IV ONE ×2 (15:47→21:26)
[2022-06-19] MEDS ORDERED: SODIUM CHLORIDE 0.9% 1000 ML 1,000 ML IV ONE ×2 (15:48→21:27)
[2022-06-19] MEDS ORDERED: HYDROmorphone 1 MG/1 ML INJ IV ONE ×3 (15:48→23:00)
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
[2022-06-19 17:15] LABS: Mucus,Urine 3+ /HPF
[2022-06-19 17:27] LABS: RBC,Urine > 182.0 /HPF (0.0-6.0)
[2022-06-19 17:28] LABS: Color,Urine Red (Yellow)
[2022-06-19 17:31] LABS: Bilirubin,Urine Negative (Negative); Blood,Urine Large (Negative); Urobilinogen,Urine < 2.0 mg/dL (<2.0)
[2022-06-19 18:04] LABS: Basophils # (Auto) 0.1 K/mm3 (0.0-0.1); Basophils % (Auto) 1.1 % (0.0-1.8); Eosinophils # (Auto) 0.1 K/mm3 (0.0-0.4); Eosinophils % (Auto) 1.7 % (0.0-4.3); Hematocrit 27.2 % (30.3-42.9); Hemoglobin 8.4 gm/dl (10.1-14.3); Lymphocytes # (Auto) 1.1 K/mm3 (1.2-5.4); Lymphocytes % (Auto) 19.5 % (13.4-35.0); Mean Corpuscular HGB Conc 31 % (30-34); Mean Corpuscular Volume 74 fl (79-97); Monocytes # (Auto) 0.5 K/mm3 (0.0-0.8); Monocytes % (Auto) 9.7 % (0.0-7.3); Platelet Count 405 K/mm3 (140-440); Red Blood Count 3.69 M/mm3 (3.65-5.03)
[2022-06-19 18:09] LABS: Alanine Aminotransferase 76 units/L (7-56); Albumin 4.1 g/dL (3.9-5); Blood Urea Nitrogen 12 mg/dL (7-17); Calcium 9.1 mg/dL (8.4-10.2); Hemolysis Index 6
[2022-06-19 18:22] LABS: BUN/Creatinine Ratio 17
--- NOTE | 2022-06-19 21:04 | Ultrasound Report ---
US pelvic complete INDICATION / CLINICAL INFORMATION: Vag bleed, pelvic pain, hx cervical cancer. TECHNIQUE: Transabdominal. Duplex Color Doppler used: Yes. COMPARISON: 05/25/2022 FINDINGS: UTERUS: Measures 9.4 cm. -Endometrial stripe measures 3 cm. - Mass lesions: None. -Cervix is not well visualized but no definite abnormality seen sonographically. RIGHT ADNEXA: No significant abnormality of the ovary. Normal color Doppler blood flow. LEFT ADNEXA: No significant abnormality of the ovary. Normal color Doppler blood flow. URINARY BLADDER: No significant abnormality. FREE FLUID: None. ADDITIONAL FINDINGS: None. IMPRESSION: 1. No significant sonographic abnormality on this transabdominal examination. Signer Name: Jose Charles MD Signed: 06/19/2022 9:00 PM Workstation Name: [id number]
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
[2022-06-19 23:56] VITALS: BP 125/70
== END 2022-06-19 23:57 | disposition home or self-care (01) ==
LOC: ED 12:38
DX: N93.9 Abnormal uterine and vaginal bleeding, unspecified (principal); D64.9 Anemia, unspecified; M25.50 Pain in unspecified joint; R10.2 Pelvic and perineal pain; Z87.442 Personal history of urinary calculi; Z85.9 Personal history of malignant neoplasm, unspecified; M19.90 Unspecified osteoarthritis, unspecified site; Z98.890 Other specified postprocedural states; F17.290 Nicotine dependence, other tobacco product, uncomplicated; Z88.0 Allergy status to penicillin; Z88.8 Allergy status to other drugs, medicaments and biological substances; Z91.041 Radiographic dye allergy status
CPT/HCPCS: 36415; 76856; 80053; 81001; 85025; 87086; 96361; 96374; 96375; 96376; 99284; J1170; J1200; J2405; J7030

== ENCOUNTER 2022-07-19 01:08 | Emergency (ER) | payer MEDICAID ==
[2022-07-19 01:52] LABS: Color,Urine Brown (Yellow)
[2022-07-19 02:00] LABS: Bacteria,Urine 2+ /HPF (Negative); Mucus,Urine FEW /HPF; RBC,Urine > 182.0 /HPF (0.0-6.0)
[2022-07-19 02:01] LABS: WBC,Urine > 182.0 /HPF (0.0-6.0)
[2022-07-19] MEDS ORDERED: SODIUM CHLORIDE 0.9% 1000 ML 1,000 ML IV ONE (02:11)
--- NOTE | 2022-07-19 02:17 | Emergency Department Report ---
ED Syncope HPI - General Chief Complaint: Syncope Stated Complaint: RIGHT SIDE NUMB Time Seen by Provider: 07/19/22 02:09 - History of Present Illness Initial Comments: 32 yo F who present left shoulder and elbow pain that started after a syncope collapse that occurred at work tonight. 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 She also reports numbness on her right leg. No other modifying or associated factors reported. - Related Data Allergies/Adverse Reactions: Allergies ketorolac tromethamine [From Toradol] Allergy (Verified 03/15/21 09:59) Hives Penicillins Allergy (Verified 03/15/21 09:59) Swelling Iodinated Contrast Media Adverse Reaction (Mild, Verified 03/15/21 09:59) other gets a warm feeling in her face Home Medications: Ambulatory Orders predniSONE [Deltasone] 20 mg PO DAILY #5 tablet 03/15/21 Acetaminophen [Tylenol] 650 mg PO Q8HR PRN #20 capsule 05/24/21 Albuterol Mdi (or & Nicu Only) [ProAir HFA Inhaler] 2 puff IH QID PRN #1 inhalation 11/24/21 Benzonatate [Tessalon Perles] 100 mg PO Q8HR #10 capsule 11/24/21 Dexamethasone [Decadron] 6 mg PO DAILY #7 tablet 11/24/21 Ciprofloxacin HCl [Ciprofloxacin TAB] 750 mg PO BID 5 Days #10 tab 01/28/22 Hyoscyamine Subl [Levsin Sl 0.125 TAB] 0.125 mg SL Q6HR PRN 5 Days #20 tab 01/28/22 Ciprofloxacin HCl [Ciprofloxacin TAB] 750 mg PO BID 3 Days #6 03/06/22 Loperamide HCl [Anti-Diarrheal] 2 mg PO PRN #12 03/06/22 Ondansetron [Zofran Odt] 4 mg PO Q8HR PRN #12 tab.rapdis 03/06/22 Oxycodone HCl/Acetaminophen [Percocet 7.5/325 mg] 1 each PO Q6HR PRN #10 06/19/22 Docusate Sodium [Colace] 100 mg PO BID PRN 5 Days #10 capsule NS 07/19/22 oxyCODONE /ACETAMINOPHEN [Percocet 5/325] 1 tab PO Q6HR PRN 3 Days #12 tablet NS 07/19/22 ED Review of Systems ROS: Stated complaint: RIGHT SIDE NUMB Other details as noted in HPI Comment: All other systems reviewed and negative Musculoskeletal: arthralgia, myalgia (Right shoulder and right elbow pain) Neurological: numbness (Right lower leg numbness) ED Past Medical Hx - Past Medical History Hx Hypertension: No Hx CVA: No Hx Heart Attack/AMI: No Hx Diabetes: No Hx Deep Vein Thrombosis: No Hx Pulmonary Embolism: No Hx GERD: No Hx Liver Disease: No Hx Renal Disease: No Hx of Cancer: Yes (STAGE 2 CERVICAL CANCER) Hx Sickle Cell Disease: (pt has been tested and pt is neg for Sickle cell) Hx Arthritis: Yes Hx Headaches / Migraines: No Hx Seizures: No Hx Kidney Stones: Yes Hx Psychiatric Treatment: No Hx Asthma: No Hx COPD: No Hx Tuberculosis: No Hx Dementia: No Hx HIV: No Additional medical history: scoliosis. kidney stones. Joint disease - Surgical History Hx Coronary Stent: No Hx Open Heart Surgery: No Hx Pacemaker: No Hx Internal Defibrillator: No Hx Cholecystectomy: Yes Hx Appendectomy: No Hx Breast Surgery: No Additional Surgical History: X 5. HERNIA REPAIR - Social History Smoking Status: Current Every Day Smoker (1 cigarette daily) Substance Use Type: None (Denies illicit drug use) - Medications Home Medications: Home Medications Medication Instructions Recorded Confirmed Last Taken Type predniSONE [Deltasone] 20 mg PO DAILY #5 tablet 03/15/21 Unknown Rx Acetaminophen [Tylenol] 650 mg PO Q8HR PRN #20 capsule 05/24/21 Unknown Rx Albuterol Mdi (or & Nicu Only) 2 puff IH QID PRN #1 inhalation 11/24/21 Unknown Rx [ProAir HFA Inhaler] Benzonatate [Tessalon Perles] 100 mg PO Q8HR #10 capsule 11/24/21 Unknown Rx Dexamethasone [Decadron] 6 mg PO DAILY #7 tablet 11/24/21 Unknown Rx Ciprofloxacin HCl [Ciprofloxacin 750 mg PO BID 5 Days #10 tab 01/28/22 Unknown Rx TAB] Hyoscyamine Subl [Levsin Sl 0.125 0.125 mg SL Q6HR PRN 5 Days #20 tab 01/28/22 Unknown Rx TAB] Ciprofloxacin HCl [Ciprofloxacin 750 mg PO BID 3 Days #6 03/06/22 Unknown Rx TAB] Loperamide HCl [Anti-Diarrheal] 2 mg PO PRN #12 03/06/22 Unknown Rx Ondansetron [Zofran Odt] 4 mg PO Q8HR PRN #12 tab.rapdis 03/06/22 Unknown Rx Oxycodone HCl/Acetaminophen 1 each PO Q6HR PRN #10 06/19/22 Unknown Rx [Percocet 7.5/325 mg] Docusate Sodium [Colace] 100 mg PO BID PRN 5 Days #10 07/19/22 Unknown Rx capsule NS oxyCODONE /ACETAMINOPHEN [Percocet 1 tab PO Q6HR PRN 3 Days #12 07/19/22 Unk nown Rx 5/325] tablet NS ED Physical Exam - General Limitations: No Limitations General appearance: alert, in no apparent distress - Head Head exam: Present: normal inspection - Eye Eye exam: Present: normal appearance Pupils: Present: normal accommodation - ENT ENT exam: Present: normal exam, normal orophraynx - Neck Neck exam: Present: normal inspection, full ROM. Absent: tenderness - Respiratory Respiratory exam: Present: normal lung sounds bilaterally. Absent: respiratory distress, accessory muscle use - Cardiovascular Cardiovascular Exam: Present: regular rate, normal rhythm, normal heart sounds - GI/Abdominal GI/Abdominal exam: Present: soft, normal bowel sounds. Absent: distended, ten derness - Extremities Exam Extremities exam: Present: normal inspection, full ROM, normal capillary refill. Absent: tenderness, pedal edema, joint swelling - Back Exam Back exam: Present: normal inspection. Absent: tenderness - Neurological Exam Neurological exam: Present: alert, oriented X3 - Psychiatric Psychiatric exam: Present: normal affect, normal mood - Skin Skin exam: Present: warm, normal color ED Course Vital Signs 07/19/22 07/19/22 07/19/22 01:27 03:04 03:50 Temperature 98.5 F Pulse Rate 100 H Respiratory 16 18 Rate Blood Pressure 121/85 [Right] O2 Sat by Pulse 100 100 Oximetry ED Medical Decision Making - Lab Data Result diagrams: 07/19/22 02:00 07/19/22 02:00 - Medical Decision Making Fall with right shoulder and elbow pain--we will go ahead and get x-ray to rule out any fracture or dislocation. However because patient reports syncope before the fall we will also check routine labs including CBC, CMP, urinalysis and urine hCG to rule out any infectious process or electrolyte abnormality and preg aldair. This could well be vasovagal considering that patient was working in a heated environment-- Labs reviewed and noted to be unremarkable XR right shoulder and elbow without any fx or dislocation-- pt reassured and d/c home on pain medication and close followup Critical care attestation.: If time is entered above; I have spent that time in minutes in the direct care of this critically ill patient, excluding procedure time. ED Disposition Clinical Impression: Syncope and collapse, Pain in right elbow Fall Qualifiers: Encounter type: initial encounter Qualified Code(s): W19.XXXA - Unspecified fall, initial encounter Right shoulder pain Qualifiers: Chronicity: acute Qualified Code(s): M25.511 - Pain in right shoulder Disposition: HOME / SELF CARE / HOMELESS Is pt being admited?: No Does the pt Need Aspirin: No Condition: Stable Instructions: Syncope (ED), How to Use Cold Therapy, [id number], Near- Syncope, [id number], Syncope, [id number], Joint Pain, [id number] Additional Instructions: Follow the above printed instruction as noted Take your pain medication as prescribed to continue to help your symptoms Call and schedule follow-up with your primary doctor in the next 3 to 5 days for progress Do not hesitate to call or return to emergency room if your symptoms worsen Prescriptions: Docusate Sodium [Colace] 100 mg PO BID PRN 5 Days #10 capsule NS PRN Reason: Constipation oxyCODONE /ACETAMINOPHEN [Percocet 5/325] 1 tab PO Q6HR PRN 3 Days #12 tablet NS PRN Reason: Pain Time of Disposition: 05:21
[2022-07-19 02:27] LABS: Basophils # (Auto) 0.1 K/mm3 (0.0-0.1); Basophils % (Auto) 1.1 % (0.0-1.8); Eosinophils % (Auto) 0.4 % (0.0-4.3); Hematocrit 29.3 % (30.3-42.9); Hemoglobin 8.9 gm/dl (10.1-14.3); Lymphocytes # (Auto) 2.2 K/mm3 (1.2-5.4); Lymphocytes % (Auto) 21.4 % (13.4-35.0); Mean Corpuscular HGB Conc 30 % (30-34); Mean Corpuscular Volume 73 fl (79-97); Monocytes # (Auto) 0.8 K/mm3 (0.0-0.8); Monocytes % (Auto) 8.1 % (0.0-7.3); Platelet Count 431 K/mm3 (140-440); Red Blood Count 4.04 M/mm3 (3.65-5.03); Red Cell Distribution Width 19.5 % (13.2-15.2)
[2022-07-19 02:30] LABS: Alanine Aminotransferase 11 units/L (7-56); Albumin 4.4 g/dL (3.9-5); Blood Urea Nitrogen 11 mg/dL (7-17); Calcium 9.6 mg/dL (8.4-10.2); Hemolysis Index 33
[2022-07-19 02:47] LABS: BUN/Creatinine Ratio 16
[2022-07-19] MEDS ORDERED: ONDANSETRON 4 MG/2 ML INJ IV ONE (03:46)
[2022-07-19] MEDS ORDERED: fentaNYL 100 MCG/2 ML INJ IV ONE ×2 (03:46→03:47)
--- NOTE | 2022-07-19 05:19 | XRay Report ---
RIGHT SHOULDER 3 VIEW(S) INDICATION / CLINICAL INFORMATION: fall and pain. COMPARISON: None available. FINDINGS: No fracture, dislocation, or significant soft tissue abnormality is demonstrated. No radiopaque forei gn bodies are identified. IMPRESSION: 1. No acute findings. No significant abnormality. Signer Name: Rj Cervantes II, MD Signed: 07/19/2022 5:15 AM Workstation Name: [id number]
--- NOTE | 2022-07-19 05:19 | XRay Report ---
RIGHT ELBOW 4 VIEW(S) INDICATION / CLINICAL INFORMATION: fall and pain COMPARISON: None available. FINDINGS: No fracture, dislocation, or significant soft tissue abnormality is demonstrated. No radiopaque forei gn bodies are identified. IMPRESSION: 1. No acute pathology. Signer Name: Rj Cervantes II, MD Signed: 07/19/2022 5:15 AM Workstation Name: [id number]
[2022-07-19 06:56] VITALS: BP 135/78
--- NOTE | 2022-07-20 09:49 | Electrocardiograph Report ---
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
== END 2022-07-19 06:48 | disposition home or self-care (01) ==
LOC: ED 01:08
DX: R55 Syncope and collapse (principal); M25.521 Pain in right elbow; M25.511 Pain in right shoulder; M19.90 Unspecified osteoarthritis, unspecified site; Z87.442 Personal history of urinary calculi; Z88.6 Allergy status to analgesic agent; Z88.8 Allergy status to other drugs, medicaments and biological substances; Z88.0 Allergy status to penicillin; Z91.041 Radiographic dye allergy status; Z79.899 Other long term (current) drug therapy; W18.39XA Other fall on same level, initial encounter; Y93.89 Activity, other specified; Y92.89 Other specified places as the place of occurrence of the external cause; Y99.8 Other external cause status
CPT/HCPCS: 36415; 73030; 73070; 80053; 81001; 85025; 93005; 96361; 96374; 96375; 99284; J2405; J3010